=== PATIENT | female | born 1995 | race African-American/Black ===

== ENCOUNTER 2017-08-29 13:27 | Emergency (ER) | payer SELFPAY, BC | END 2017-08-29 13:56 | disposition home or self-care (01) | LOC: ER 13:27 | DX: H10.022 Other mucopurulent conjunctivitis, left eye (principal); H10.89 Other conjunctivitis; B99.8 Other infectious disease | CPT/HCPCS: 99283 ==

== ENCOUNTER 2017-11-07 17:14 | Emergency (ER) | payer BC | END 2017-11-07 18:18 | disposition home or self-care (01) | LOC: ER 17:14 | DX: H66.91 Otitis media, unspecified, right ear (principal); E11.9 Type 2 diabetes mellitus without complications; E03.9 Hypothyroidism, unspecified | CPT/HCPCS: 99283 ==

== ENCOUNTER 2018-06-01 11:57 | Inpatient (IN) | payer BC ==
[~2018-06-01] VITALS: Ht 172.7 cm; Wt 85.7 kg
[~2018-06-01 11:57] MED LIST: AMOX875T PO; TOBR5DRO6 OD
[2018-06-01 12:53] LABS: BASO % 1 % (0-3); EOS # 0.1 x10^3/uL (0.0-0.7); EOS % 1 % (0-3); HEMATOCRIT 41.3 % (36.0-47.0); HEMOGLOBIN 13.7 g/dL (12.0-15.5); LYMPH # 1.3 x10^3/uL (1.0-4.8); LYMPH % 20 % (24-48); MEAN CORPUSCULAR HEMOGLOBIN 31 pg (25-35); MEAN CORPUSCULAR HGB CONC 33 g/dL (31-37); MEAN CORPUSCULAR VOLUME 94 fL (79-100); MONO # 0.3 x10^3/uL (0.0-1.1); MONO % 5 % (0-9); NEUT # 4.7 x10^3uL (1.8-7.7); NEUT % 73 % (31-73); PLATELET COUNT 324 x10^3/uL (140-400); RED BLOOD COUNT 4.39 x10^6/uL (3.50-5.40); RED CELL DISTRIBUTION WIDTH 12.6 % (11.5-14.5); WHITE BLOOD COUNT 6.4 x10^3/uL (4.0-11.0)
[2018-06-01 13:02] LABS: CALCIUM 9.2 mg/dL (8.5-10.1); CREATININE 0.5 mg/dL (0.6-1.0); GFR 183.4
[2018-06-01 13:03] LABS: BILIRUBIN,URINE NEGATIVE (NEG); CLARITY,URINE TURBID; COLOR,URINE YELLOW; NITRITE,URINE POSITIVE (NEG); PREG TEST PT QUAL NEGATIVE (NEG); PROTEIN,URINE 100 mg/dL (NEG-TRACE); UROBILINOGEN,URINE 0.2 mg/dL (0.2 mg/dL)
[2018-06-01 13:07] LABS: ALBUMIN 3.4 g/dL (3.4-5.0); ALBUMIN/GLOBULIN RATIO 0.9 (1.0-1.7); TOTAL BILIRUBIN 0.5 mg/dL (0.2-1.0); TOTAL PROTEIN 7.3 g/dL (6.4-8.2)
[2018-06-01 13:25] LABS: BACTERIA,URINE MANY /HPF (0-FEW); WBC,URINE TNTC /HPF (0-4)
[2018-06-01] MEDS ORDERED: IV NORMAL SALINE 1000ML BAG 1,000 ML IV ONE (13:45)
[2018-06-01] MEDS ORDERED: cefTRIAXone IV Push 1 GM VIAL. IVP ONE (13:45)
[2018-06-01] MEDS ORDERED: IOHEXOL 300 MG/ML 100ML VIAL. IV ONE (14:00)
[2018-06-01] MEDS: fentaNYL PF VIAL 100 MCG/2 ML VIAL IV PRN (14:10)
[2018-06-01] MEDS ORDERED: CONTRAST GIVEN. MC PRN (14:15)
--- NOTE | 2018-06-01 15:45 | RAD ---
PQRS Compliance statement: One or more of the following individualized dose reduction techniques were utilized for this examination: 1. Automated exposure control. 2. Adjustment of the mA and/or kV according to patient size. 3. Use of iterative reconstruction technique. Indication:LOWER ABD PAIN X 3-4 DAYS INJ 75ML OMNI 300 NO PREV TECHNIQUE: CT abdomen and pelvis with IV contrast with multiplanar reformats. COMPARISON: None FINDINGS: Heart is normal in size. No pericardial or pleural effusion. Clear lung bases. Liver is mildly enlarged measuring 23 cm in craniocaudal dimension with diffuse hepatic steatosis. No focal liver lesion. Spleen, gallbladder, pancreas, adrenals within normal limits. No nephrolithiasis or hydronephrosis. No enlarged retroperitoneal or pelvic adenopathy. Trace amount of free pelvic fluid. No ascites. No bowel obstruction. Normal appendix. Anteverted uterus. Significant circumferential urinary bladder wall thickening is seen with mucosal enhancement measuring 1.2 cm in thickness. No pneumoperitoneum. No suspicious bony lesion. IMPRESSION: 1. Findings of cystitis. Correlate with urinalysis. 2. Mild hepatomegaly with hepatic steatosis. Electronically signed by: Celestino Rivera DO (06/01/2018 3:42 PM) [id number]
[2018-06-01] MEDS: HYDROmorphone 2 MG/ML VIAL IV PRN ×2 (15:53→21:22)
[2018-06-01] MEDS ORDERED: ONDANSETRON PF 4 MG/2 ML VIAL. IV ONE (16:00)
--- NOTE | 2018-06-01 16:03 | RAD ---
Pelvic ultrasound Clinical Indication:PELVIC PAIN. . Transabdominal scan Uterus measures 8.1 x 3.1 x 4.6 cm. Endometrial stripe measures 8 mm. Diffuse urinary bladder wall thickening. There is also heterogeneous debris identified within the urinary bladder. Bilateral ureteric jets are documented. There is a moderate amount of free pelvic fluid. Right and left ovaries are not visualized. Endovaginal scan Uterus measures 6.9 cm x 3.3 cm x 4.6 cm. The endometrial stripe measures 7 mm. Right ovary measures 3.2 cm with intact arterial blood flow. Left ovary measures 3.3 cm with intact arterial blood flow. IMPRESSION: 1. Diffuse urinary bladder wall thickening with internal debris, most likely due to cystitis, as also seen on CT scan. 2. Moderate free pelvic fluid, uncertain etiology. Electronically signed by: Jonathan Haile MD (06/01/2018 4:00 PM) [id number]
--- NOTE | 2018-06-01 16:40 | PDOC1 ---
History and Physical Date of Admission Date of Admission DATE: 06/01/18 TIME: 16:39 Identification/Chief Complaint Chief Complaint admitted to [facility] a few weeks ago, she thinks the d/c on without antibiotics according to patient and her grandmother in room today, began to have back pain x 2 days ago Past Medical History Pulmonary: Asthma Heme/Onc: No pertinent hx Family History Family History: High Cholestrol, Hypertension Social History Smoke: No ALCOHOL: none Drugs: None Current Medications Current Medications Current Medications Ceftriaxone Sodium (Rocephin) 1 gm 1X ONCE IVP Last administered on 06/01/18at 14:11; Start 06/01/18 at 13:45; Stop 06/01/18 at 13:46; Status DC Sodium Chloride 1,000 ml @ 1,000 mls/hr 1X ONCE IV Last administered on at 15:36; Start 06/01/18 at 13:45; Stop 06/01/18 at 14:44; Status DC Fentanyl Citrate (Fentanyl 2ml Vial) 25 mcg 1X PRN PRN IV SEVERE PAIN Last administered on 06/01/18at 14:10; Start 06/01/18 at 14:00 Iohexol (Omnipaque 300 Mg/ml) 75 ml 1X ONCE IV Last administered on 06/01/18at 15:26; Start 06/01/18 at 14:00; Stop 06/01/18 at 14:01; Status DC Info (CONTRAST GIVEN -- Rx MONITORING) 1 each PRN DAILY PRN MC SEE COMMENTS; Start 06/01/18 at 14:15; Stop 06/03/18 at 14:14 Hydromorphone HCl (Dilaudid) 0.5 mg PRN Q30MIN PRN IV SEVERE PAIN Last administered on 06/01/18at 15:53; Start 06/01/18 at 15:45 Ondansetron HCl (Zofran) 4 mg 1X ONCE IV Last administered on 06/01/18at 15:53 ; Start 06/01/18 at 16:00; Stop 06/01/18 at 16:01; Status DC Active Scripts Active Amoxicillin 875 Mg Tablet 1 Tab PO BID Tobramycin 5 Ml Drops 1 Drop OD Q4HRS W/A use for 5-7 days Allergies Allergies: Coded Allergies: No Known Drug Allergies (Unverified , 06/01/18) ROS Review of System 14 pt ros otherwise neg General: YES: Fatigue, Malaise PSYCHOLOGICAL ROS: No: Anxiety, Behavioral Disorder, Concentration difficultie , Decreased libido, Depression, Disorientation, Hallucinations, Hostility, Irritablity, Memory difficulties, Mood Swings, Obsessive thoughts, Physical abuse, Sexual abuse, Sleep disturbances, Suicidal ideation, Other Eyes: No Blurry vision, No Decreased vision, No Double vision, No Dry eyes, No Excessive tearing, No Eye Pain, No Itchy Eyes, No Loss of vision, No Photophobia , No Scotomata, No Uses contacts, No Uses glasses, No Other HEENT: No: Heacaches, Visual Changes, Hearing change, Nasal congestion, Nasal discharge, Oral lesions, Sinus pain, Sore Throat, Epistaxis, Sneezing, Snoring, Tinnitus, Vertigo, Vocal changes, Other ALLERGY AND IMMUNOLOGY: No: Hives, Insect Bite Sensitivity, Itchy/Watery Eyes, Nasal Congestion, Post Nasal Drip, Seasonal Allergies, Other Hematological and Lymphatic: No: Bleeding Problems, Blood Clots, Blood Transfusions, Brusing, Night Sweats, Pallor, Swollen Lymph Nodes, Other ENDOCRINE: No: Breast Changes, Galactorrhea, Hair Pattern Changes, Hot Flashes , Malaise/lethargy, Mood Swings, Palpitations, Polydipsia/polyuria, Skin Changes , Temperature Intolerance, Unexpected Weight Changes, Other Respiratory: No: Cough, Hemoptysis, Orthopnea, Pleuritic Pain, Shortness of breath, SOB with excertion, Sputum Changes, Stridor, Tachypnea, Wheezing, Other Cardiovascular: No Chest Pain, No Palpitations, No Orthopnea, No Paroxysmal Noc. Dyspnea, No Edema, No Lt Headedness, No Other Gastrointestinal: Yes Nausea, Yes Abdominal Pain Genitourinary: YES Dysuria, YES Flank Pain Musculoskeletal: No Gait Disturbance, No Joint Pain, No Joint Stiffness, No Joint Swelling, No Muscle Pain, No Muscular Weakness, No Pain In:, No Swelling In:, No Other Neurological: No Behavorial Changes, No Bowel/Bladder ControlChng, No Confusion , No Dizziness, No Gait Disturbance, No Headaches, No Impaired Coord/balance, No Memory Loss, No Numbness/Tingling, No Seizures, No Speech Problems, No Tremors, No Visual Changes, No Weakness, No Other Skin: No Dry Skin, No Eczema, No Hair Changes, No Lumps, No Mole Changes, No Mottling, No Nail Changes, No Pruritus, No Rash, No Skin Lesion Changes, No Other, No Acne Physical Exam Physical Exam Physical Exam Physical Exam Constitutional: Well developed, well nourished, no acute distress, non-toxic appearance. [] HENT: Normocephalic, atraumatic; bilateral external ears normal, Oropharynx moist, no oral exudates, nose normal. [] Eyes: Normal Neck: No cervical lymphadenopathy, full range of motion, no stridor. Cardiovascular:Heart rate regular rhythm, no murmur [] Lungs & Thorax: Bilateral breath sounds clear to auscultation [] Skin: Warm, dry, no erythema, no rash. [] Neurologic: Alert and oriented X 3, normal motor function, normal sensory function, no focal deficits noted. [] Psychologic: Affect normal, judgement normal, mood normal. [] General: Alert, Oriented X3, Cooperative, mild distress HEENT: Atraumatic, PERRLA, EOMI, Mucous membr. moist/pink Lungs: Clear to auscultation, Normal air movement Heart: S1S2, RRR Breasts: Not examined Abdomen: Normal bowel sounds, Soft, No masses Rectal Exam: not examined PELVIC: Examination not indicated Extremities: No cyanosis, No edema Skin: No breakdown Neuro: Normal speech, Cranial nerves 3-12 NL Psych/Mental Status: Mental status NL, Mood NL Vitals Vitals Vital Signs Date Time Temp Pulse Resp B/P (MAP) Pulse Ox O2 Delivery O2 Flow Rate FiO2 06/01/18 14:10 20 96 06/01/18 12:25 98.0 83 133/95 (108) Room Air 98.0 Labs Labs Laboratory Tests Test 06/01/18 12:20 06/01/18 12:22 06/01/18 12:30 Urine Collection Type Unknown Urine Color Yellow Urine Clarity Turbid Urine pH 7.0 Urine Specific [place] 1.025 Urine Protein 100 mg/dL (NEG-TRACE) Urine Glucose (UA) >=1000 mg/dL (NEG) Urine Ketones (Stick) 40 mg/dL (NEG) Urine Blood Moderate (NEG) Urine Nitrite Positive (NEG) Urine Bilirubin Negative (NEG) Urine Urobilinogen Dipstick 0.2 mg/dL (0.2 mg/dL) Urine Leukocyte Esterase Small (NEG) Urine RBC 6-10 /HPF (0-2) Urine WBC Tntc /HPF (0-4) Urine Bacteria Many /HPF (0-FEW) Serum Test, Qualitative Negative (NEG) Bedside Urine HCG, Qualitative Hcg negative (Negative) White Blood Count 6.4 x10^3/uL (4.0-11.0) Red Blood Count 4.39 x10^6/uL (3.50-5.40) Hemoglobin 13.7 g/dL (12.0-15.5) Hematocrit 41.3 % (36.0-47.0) Mean Corpuscular Volume 94 fL (79-100) Mean Corpuscular Hemoglobin 31 pg (25-35) Mean Corpuscular Hemoglobin Concent 33 g/dL (31-37) Red Cell Distribution Width 12.6 % (11.5-14.5) Platelet Count 324 x10^3/uL (140-400) Neutrophils (%) (Auto) 73 % (31-73) Lymphocytes (%) (Auto) 20 % (24-48) Monocytes (%) (Auto) 5 % (0-9) Eosinophils (%) (Auto) 1 % (0-3) Basophils (%) (Auto) 1 % (0-3) Neutrophils # (Auto) 4.7 x10^3uL (1.8-7.7) Lymphocytes # (Auto) 1.3 x10^3/uL (1.0-4.8) Monocytes # (Auto) 0.3 x10^3/uL (0.0-1.1) Eosinophils # (Auto) 0.1 x10^3/uL (0.0-0.7) Basophils # (Auto) 0.0 x10^3/uL (0.0-0.2) Sodium Level 141 mmol/L (136-145) Potassium Level 4.0 mmol/L (3.5-5.1) Chloride Level 102 mmol/L (98-107) Carbon Dioxide Level 30 mmol/L (21-32) Anion Gap 9 (6-14) Blood Urea Nitrogen 8 mg/dL (7-20) Creatinine 0.5 mg/dL (0.6-1.0) Estimated GFR (Cockcroft-Gault) 183.4 BUN/Creatinine Ratio 16 (6-20) Glucose Level 286 mg/dL (70-99) Calcium Level 9.2 mg/dL (8.5-10.1) Total Bilirubin 0.5 mg/dL (0.2-1.0) Aspartate Amino Transf (AST/SGOT) 16 U/L (15-37) Alanine Aminotransferase (ALT/SGPT) 55 U/L (14-59) Alkaline Phosphatase 164 U/L (46-116) Total Protein 7.3 g/dL (6.4-8.2) Albumin 3.4 g/dL (3.4-5.0) Albumin/Globulin Ratio 0.9 (1.0-1.7) Lipase 84 U/L (73-393) Laboratory Tests Test 06/01/18 12:20 06/01/18 12:22 06/01/18 12:30 Urine Collection Type Unknown Urine Color Yellow Urine Clarity Turbid Urine pH 7.0 Urine Specific [place] 1.025 Urine Protein 100 mg/dL (NEG-TRACE) Urine Glucose (UA) >=1000 mg/dL (NEG) Urine Ketones (Stick) 40 mg/dL (NEG) Urine Blood Moderate (NEG) Urine Nitrite Positive (NEG) Urine Bilirubin Negative (NEG) Urine Urobilinogen Dipstick 0.2 mg/dL (0.2 mg/dL) Urine Leukocyte Esterase Small (NEG) Urine RBC 6-10 /HPF (0-2) Urine WBC Tntc /HPF (0-4) Urine Bacteria Many /HPF (0-FEW) Serum Test, Qualitative Negative (NEG) Bedside Urine HCG, Qualitative Hcg negative (Negative) White Blood Count 6.4 x10^3/uL (4.0-11.0) Red Blood Count 4.39 x10^6/uL (3.50-5.40) Hemoglobin 13.7 g/dL (12.0-15.5) Hematocrit 41.3 % (36.0-47.0) Mean Corpuscular Volume 94 fL (79-100) Mean Corpuscular Hemoglobin 31 pg (25-35) Mean Corpuscular Hemoglobin Concent 33 g/dL (31-37) Red Cell Distribution Width 12.6 % (11.5-14.5) Platelet Count 324 x10^3/uL (140-400) Neutrophils (%) (Auto) 73 % (31-73) Lymphocytes (%) (Auto) 20 % (24-48) Monocytes (%) (Auto) 5 % (0-9) Eosinophils (%) (Auto) 1 % (0-3) Basophils (%) (Auto) 1 % (0-3) Neutrophils # (Auto) 4.7 x10^3uL (1.8-7.7) Lymphocytes # (Auto) 1.3 x10^3/uL (1.0-4.8) Monocytes # (Auto) 0.3 x10^3/uL (0.0-1.1) Eosinophils # (Auto) 0.1 x10^3/uL (0.0-0.7) Basophils # (Auto) 0.0 x10^3/uL (0.0-0.2) Sodium Level 141 mmol/L (136-145) Potassium Level 4.0 mmol/L (3.5-5.1) Chloride Level 102 mmol/L (98-107) Carbon Dioxide Level 30 mmol/L (21-32) Anion Gap 9 (6-14) Blood Urea Nitrogen 8 mg/dL (7-20) Creatinine 0.5 mg/dL (0.6-1.0) Estimated GFR (Cockcroft-Gault) 183.4 BUN/Creatinine Ratio 16 (6-20) Glucose Level 286 mg/dL (70-99) Calcium Level 9.2 mg/dL (8.5-10.1) Total Bilirubin 0.5 mg/dL (0.2-1.0) Aspartate Amino Transf (AST/SGOT) 16 U/L (15-37) Alanine Aminotransferase (ALT/SGPT) 55 U/L (14-59) Alkaline Phosphatase 164 U/L (46-116) Total Protein 7.3 g/dL (6.4-8.2) Albumin 3.4 g/dL (3.4-5.0) Albumin/Globulin Ratio 0.9 (1.0-1.7) Lipase 84 U/L (73-393) Images Images REASON: abd pain in pelvis and lower abed PROCEDURE: CT ABD PELV W/ IV CONTRST ONLY PQRS Compliance statement: One or more of the following individualized dose reduction techniques were utilized for this examination: 1. Automated exposure control. 2. Adjustment of the mA and/or kV according to patient size. 3. Use of iterative reconstruction technique. Indication:LOWER ABD PAIN X 3-4 DAYS INJ 75ML OMNI 300 NO PREV TECHNIQUE: CT abdomen and pelvis with IV contrast with multiplanar reformats. COMPARISON: None FINDINGS: Heart is normal in size. No pericardial or pleural effusion. Clear lung bases. Liver is mildly enlarged measuring 23 cm in craniocaudal dimension with diffuse hepatic steatosis. No focal liver lesion. Spleen, gallbladder, pancreas, adrenals within normal limits. No nephrolithiasis or hydronephrosis. No enlarged retroperitoneal or pelvic adenopathy. Trace amount of free pelvic fluid. No ascites. No bowel obstruction. Normal appendix. Anteverted uterus. Significant circumferential urinary bladder wall thickening is seen with mucosal enhancement measuring 1.2 cm in thickness. No pneumoperitoneum. No suspicious bony lesion. IMPRESSION: 1. Findings of cystitis. Correlate with urinalysis. 2. Mild hepatomegaly with hepatic steatosis. Electronically signed by: Celestino Cruz DO (06/01/2018 3:42 PM) [id number] DICTATED and SIGNED BY: CELESTINO CRUZ DO DATE: 06/01/18 1536 VTE Prophylaxis Ordered VTE Prophylaxis Devices: Yes VTE Pharmacological Prophylaxi: Yes Assessment/Plan Assessment/Plan impression 1. incompletely treated pyelonephritis 2. hx asthma 3. morbid obesity 4. diabetes 5. SIRS plan iv rocephin q 24 hrs iv pain control iv fluid support iv zofran 4 mg q 4 hrs prn dvt prophylaxis ss insulin DAVIDE MEYER MD Jun 01, 2018 16:40
[2018-06-01] MEDS: IV NORMAL SALINE 1000ML BAG 1,000 ML IV SCH ×2 (16:50→18:40)
[2018-06-01] MEDS ORDERED: INSULIN LISPRO 300 UNITS/3 ML INSULN.PEN. SQ SCH (17:00)
[2018-06-01] MEDS ORDERED: diphenhydrAMINE 50 MG/ML VIAL IVP PRN (17:00)
[2018-06-01] MEDS ORDERED: ONDANSETRON PF 4 MG/2 ML VIAL. IV PRN (17:00)
[2018-06-01] MEDS ORDERED: ACETAMINOPHEN 650 MG/20.3 ML SOLUTION. GT PRN (17:00)
[2018-06-01] MEDS ORDERED: ZOLPIDEM 5 MG TABLET. PO PRN (17:00)
[2018-06-01] MEDS ORDERED: 0.9 % SODIUM CHLORIDE 3ML DISP.SYRIN. IV PRN (17:00)
[2018-06-01] MEDS ORDERED: DEXTROSE 50% 25 GM / 50ML DISP.SYRIN. IV PRN (17:00)
[2018-06-01] MEDS ORDERED: MAG HYDROX/ALUMINUM HYD/SIMETH 30 ML ORAL.SUSP PO PRN (17:00)
[2018-06-01] MEDS ORDERED: LORazepam 0.5 MG TABLET PO PRN (17:00)
[2018-06-01] MEDS ORDERED: ACETAMINOPHEN 325 MG TABLET. PO PRN (17:00)
[2018-06-01] MEDS ORDERED: SODIUM PHOSPHATES 19/7GM 133 ML ENEMA. PR PRN (17:00)
[2018-06-01] MEDS ORDERED: DOCUSATE SODIUM 100 MG CAPSULE. PO PRN (17:00)
[2018-06-01] MEDS ORDERED: cloNIDine HCL 0.1 MG TABLET PO PRN (17:00)
[2018-06-01] MEDS ORDERED: guaiFENesin ORAL 200 MG/10 ML LIQUID. PO PRN (17:00)
--- NOTE | 2018-06-01 17:42 | PHYS DOC ---
Past Medical History Past Medical History: Diabetes-Type II, Hypothyroid, IBS Past Surgical History: No Surgical History Alcohol Use: Occasionally Drug Use: None Adult General Chief Complaint Chief Complaint: ABDOMINAL PAIN HPI HPI This is a pleasant 23-year-old female presenting the emergency department today with 10 out of 10 lower abdominal pain. The patient's pain is a sharp shooting burning pain. She was recently treated for UTI at the [facility]. The pain doesn't radiate. She denies vaginal bleeding vomiting. Review of systems is negative for chest pain shortness of breath fevers or chills. Positive for cough. All other review of systems is negative unless otherwise noted in history of present illness. ED course: 23-year-old female presenting with abdominal pain in the lower abdomen. She is afebrile with normal heart rate. Patient's workup shows urinary tract infection. Concern for possible pyelonephritis. CT abdomen and pelvis and ultrasound show cystitis. We'll admit the patient for IV antibiotics. I spoke with Dr. Hawkins who accepts patient for admission. Review of Systems Review of Systems SEE ABOVE. Current Medications Current Medications Current Medications Medications (Trade) Dose Ordered Sig/Indira Start Time Stop Time Status Last Admin Dose Admin Acetaminophen (Tylenol) 650 mg PRN Q4HRS PRN 06/01/18 17:00 Al Hydroxide/Mg Hydroxide (Mylanta Plus Xs) 30 ml PRN DAILY PRN 06/01/18 17:00 Albuterol Sulfate (Ventolin Neb Soln) 2.5 mg PRN Q4HRS PRN 06/01/18 17:00 Ceftriaxone Sodium (Rocephin) 1 gm DAILY 06/02/18 13:00 Clonidine HCl (Catapres) 0.1 mg PRN Q6HRS PRN 06/01/18 17:00 Dextrose (Dextrose 50%-Water Syringe) 12.5 gm PRN Q15MIN PRN 06/01/18 17:00 Diphenhydramine HCl (Benadryl) 25 mg PRN Q4HRS PRN 06/01/18 17:00 Docusate Sodium (Colace) 100 mg PRN BID PRN 06/01/18 17:00 Fentanyl Citrate (Fentanyl 2ml Vial) 25 mcg 1X PRN PRN 06/01/18 14:00 06/01/18 14:10 25 MCG Guaifenesin (Robitussin) 200 mg PRN Q4HRS PRN 06/01/18 17:00 Hydromorphone HCl (Dilaudid) 0.5 mg PRN Q30MIN PRN 06/01/18 15:45 06/01/18 15:53 0.5 MG Info (CONTRAST GIVEN -- Rx MONITORING) 1 each PRN DAILY PRN 06/01/18 14:15 06/03/18 14:14 Insulin Human Lispro (HumaLOG) 0-5 UNITS TIDWMEALS 06/01/18 17:00 Iohexol (Omnipaque 300 Mg/ml) 75 ml 1X ONCE 06/01/18 14:00 06/01/18 14:01 DC 06/01/18 15:26 75 ML Lorazepam (Ativan) 0.5 mg PRN Q4HRS PRN 06/01/18 17:00 Ondansetron HCl (Zofran) 4 mg PRN Q4HRS PRN 06/01/18 17:00 Sodium Monofluorophosphate (Fleet Adult) 133 ml PRN DAILY PRN 06/01/18 17:00 Sodium Chloride 1,000 ml @ 100 mls/hr Q10H 06/01/18 16:50 Sodium Chloride (Normal Saline Flush 3ml) 3 ml QSHIFT PRN 06/01/18 17:00 Zolpidem Tartrate (Ambien) 5 mg PRN QHS PRN 06/01/18 17:00 Allergies Allergies Allergies Coded Allergies Type Severity Reaction Last Updated Verified No Known Drug Allergies 06/01/18 No Physical Exam Physical Exam SEE ABOVE Constitutional: Well developed, well nourished, no acute distress, non-toxic appearance. [] HENT: Normocephalic, atraumatic, bilateral external ears normal, oropharynx moist, no oral exudates, nose normal. Eyes: PERRLA, EOMI, conjunctiva normal, no discharge. Neck: Normal range of motion, no tenderness, supple, no stridor. [] Cardiovascular:Heart rate regular rhythm, no murmur Lungs & Thorax: Bilateral breath sounds clear to auscultation [] Abdomen: Bowel sounds normal, soft, ttp in the suprapubic region without rebound tenderness or guarding, no masses, no pulsatile masses. Skin: Warm, dry, no erythema, no rash. [] Back: No tenderness, mild bilateral cva tenderness. Extremities: No tenderness, no cyanosis, no clubbing, ROM intact, no edema. Neurologic: Alert and oriented X 3, normal motor function, normal sensory function, no focal deficits noted. [] Psychologic: Affect normal, judgement normal, mood normal. Current Patient Data Vital Signs Vital Signs Date Time Temp Pulse Resp B/P (MAP) Pulse Ox O2 Delivery O2 Flow Rate FiO2 06/01/18 14:40 18 96 Room Air 06/01/18 12:25 98.0 83 133/95 (108) 98.0 Lab Values Laboratory Tests Test 06/01/18 12:20 06/01/18 12:22 06/01/18 12:30 Urine Collection Type Unknown Urine Color Yellow Urine Clarity Turbid Urine pH 7.0 Urine Specific [place] 1.025 Urine Protein 100 mg/dL (NEG-TRACE) Urine Glucose (UA) >=1000 mg/dL (NEG) Urine Ketones (Stick) 40 mg/dL (NEG) Urine Blood Moderate (NEG) Urine Nitrite Positive (NEG) Urine Bilirubin Negative (NEG) Urine Urobilinogen Dipstick 0.2 mg/dL (0.2 mg/dL) Urine Leukocyte Esterase Small (NEG) Urine RBC 6-10 /HPF (0-2) Urine WBC Tntc /HPF (0-4) Urine Bacteria Many /HPF (0-FEW) Serum Test, Qualitative Negative (NEG) POC Urine HCG, Qualitative Hcg negative (Negative) White Blood Count 6.4 x10^3/uL (4.0-11.0) Red Blood Count 4.39 x10^6/uL (3.50-5.40) Hemoglobin 13.7 g/dL (12.0-15.5) Hematocrit 41.3 % (36.0-47.0) Mean Corpuscular Volume 94 fL (79-100) Mean Corpuscular Hemoglobin 31 pg (25-35) Mean Corpuscular Hemoglobin Concent 33 g/dL (31-37) Red Cell Distribution Width 12.6 % (11.5-14.5) Platelet Count 324 x10^3/uL (140-400) Neutrophils (%) (Auto) 73 % (31-73) Lymphocytes (%) (Auto) 20 % (24-48) L Monocytes (%) (Auto) 5 % (0-9) Eosinophils (%) (Auto) 1 % (0-3) Basophils (%) (Auto) 1 % (0-3) Neutrophils # (Auto) 4.7 x10^3uL (1.8-7.7) Lymphocytes # (Auto) 1.3 x10^3/uL (1.0-4.8) Monocytes # (Auto) 0.3 x10^3/uL (0.0-1.1) Eosinophils # (Auto) 0.1 x10^3/uL (0.0-0.7) Basophils # (Auto) 0.0 x10^3/uL (0.0-0.2) Sodium Level 141 mmol/L (136-145) Potassium Level 4.0 mmol/L (3.5-5.1) Chloride Level 102 mmol/L (98-107) Carbon Dioxide Level 30 mmol/L (21-32) Anion Gap 9 (6-14) Blood Urea Nitrogen 8 mg/dL (7-20) Creatinine 0.5 mg/dL (0.6-1.0) L Estimated GFR (Cockcroft-Gault) 183.4 BUN/Creatinine Ratio 16 (6-20) Glucose Level 286 mg/dL (70-99) H Calcium Level 9.2 mg/dL (8.5-10.1) Total Bilirubin 0.5 mg/dL (0.2-1.0) Aspartate Amino Transferase (AST) 16 U/L (15-37) Alanine Aminotransferase (ALT) 55 U/L (14-59) Alkaline Phosphatase 164 U/L (46-116) H Total Protein 7.3 g/dL (6.4-8.2) Albumin 3.4 g/dL (3.4-5.0) Albumin/Globulin Ratio 0.9 (1.0-1.7) L Lipase 84 U/L (73-393) Laboratory Tests 06/01/18 12:30 Laboratory Tests 06/01/18 12:30 EKG EKG [] Radiology/Procedures Radiology/Procedures [] Course & Med Decision Making Course & Med Decision Making Pertinent Labs and Imaging studies reviewed. (See chart for details) [] Dragon Disclaimer Dragon Disclaimer This electronic medical record was generated, in whole or in part, using a voice recognition dictation system. Departure Departure Impression: Primary Impression: Pyelonephritis Disposition: ADMITTED INPATIENT Admitting Physician: Harpal Galvez Referrals: JANEY PATRICK (PCP) RASHMI FOOTE MD Jun 01, 2018 17:42
[2018-06-01] MEDS ORDERED: INSU100I13 SQ (18:50)
[2018-06-01] MEDS ORDERED: VENTOLIN HFA18 GM INH (18:50)
[2018-06-01] MEDS ORDERED: LOPE2CAP PO (18:50)
[2018-06-01] MEDS ORDERED: INSU100I17 SQ (18:50)
[2018-06-01] MEDS ORDERED: HYOS0.1264 PO (18:50)
--- NOTE | 2018-06-01 18:58 | NUR ---
pt admitted to room [id number] accompanied by family member. oriented to room and call light. meal tray ordered. call light in reach
[2018-06-01 19:00] VITALS: BP 122/91
[2018-06-01] MEDS: ALBUTEROL SULFATE 2.5 MG/3 ML NEBU. NEB PRN ×2 (20:05→23:30)
[2018-06-01] MEDS: LACTOBACILLUS RHAMNOSUS GG 1 CAPSULE. PO SCH (21:22)
[2018-06-01] MEDS: INSULIN GLARGINE 300 UNITS/3 ML INSULN.PEN. SQ SCH (21:28)
[2018-06-01 23:00] VITALS: BP 127/96
[2018-06-02] MEDS: IV NORMAL SALINE 1000ML BAG 1,000 ML IV SCH ×2 (02:50→12:48)
[2018-06-02 03:00] VITALS: BP 113/81
[2018-06-02 04:12] LABS: BASO % 1 % (0-3); EOS # 0.1 x10^3/uL (0.0-0.7); EOS % 2 % (0-3); HEMATOCRIT 33.9 % (36.0-47.0); HEMOGLOBIN 11.4 g/dL (12.0-15.5); LYMPH # 1.8 x10^3/uL (1.0-4.8); LYMPH % 29 % (24-48); MEAN CORPUSCULAR HEMOGLOBIN 32 pg (25-35); MEAN CORPUSCULAR HGB CONC 34 g/dL (31-37); MEAN CORPUSCULAR VOLUME 95 fL (79-100); MONO # 0.5 x10^3/uL (0.0-1.1); MONO % 8 % (0-9); NEUT # 3.9 x10^3uL (1.8-7.7); NEUT % 62 % (31-73); PLATELET COUNT 253 x10^3/uL (140-400); RED BLOOD COUNT 3.59 x10^6/uL (3.50-5.40); RED CELL DISTRIBUTION WIDTH 12.4 % (11.5-14.5); WHITE BLOOD COUNT 6.4 x10^3/uL (4.0-11.0)
[2018-06-02 04:16] LABS: CALCIUM 8.4 mg/dL (8.5-10.1); CREATININE 0.6 mg/dL (0.6-1.0); GFR 148.6; POTASSIUM 3.3 mmol/L (3.5-5.1)
[2018-06-02 07:00] VITALS: BP 107/75
[2018-06-02] MEDS: LACTOBACILLUS RHAMNOSUS GG 1 CAPSULE. PO SCH ×2 (08:14→21:12)
[2018-06-02] MEDS: fentaNYL PF VIAL 100 MCG/2 ML VIAL IV PRN ×2 (08:15→14:04)
[2018-06-02] MEDS: INSULIN GLARGINE 300 UNITS/3 ML INSULN.PEN. SQ SCH ×2 (08:29→21:14)
[2018-06-02] MEDS ORDERED: DEXTROSE 50% 25 GM / 50ML DISP.SYRIN. IV PRN (08:30)
--- NOTE | 2018-06-02 09:49 | PDOC ---
PROGRESS NOTES Chief Complaint Chief Complaint 1. incompletely treated pyelonephritis 2. hx asthma 3. morbid obesity 4. diabetes 5. SIRS 6. Loose BM History of Present Illness History of Present Illness Having loose BM now No fevers H&P note reviewed, incompletely treated pyelonephritis CAT scan shows findings of cystitis I have reconciled home meds including Levemir 40 twice a day K mildly low 3.3 Blood sugars running high Plan: resume home meds including 40 twice a day Lantus Slight scale insulin high-dose Check hemoglobin A1c Trial of Lactobacillus for LBM Continue IV antibiotics for UTI Await urine culture If Loose BM persists sent for C. difficile RePlace potassium orally Vitals Vitals Vital Signs Date Time Temp Pulse Resp B/P (MAP) Pulse Ox O2 Delivery O2 Flow Rate FiO2 06/02/18 08:15 Room Air 06/02/18 07:00 98.8 87 18 107/75 (86) 98 98.8 Physical Exam General: Alert, Oriented X3, Cooperative, mild distress Heart: Regular rate, Normal S1 Lungs: Clear Abdomen: Soft, No masses, Other (hyperactive bowel sounds) Extremities: No cyanosis, No edema Skin: No breakdown Labs LABS Laboratory Tests Test 06/01/18 12:20 06/01/18 12:22 06/01/18 12:30 06/01/18 18:32 Urine Collection Type Unknown Urine Color Yellow Urine Clarity Turbid Urine pH 7.0 Urine Specific [place] 1.025 Urine Protein 100 mg/dL (NEG-TRACE) Urine Glucose (UA) >=1000 mg/dL (NEG) Urine Ketones (Stick) 40 mg/dL (NEG) Urine Blood Moderate (NEG) Urine Nitrite Positive (NEG) Urine Bilirubin Negative (NEG) Urine Urobilinogen Dipstick 0.2 mg/dL (0.2 mg/dL) Urine Leukocyte Esterase Small (NEG) Urine RBC 6-10 /HPF (0-2) Urine WBC Tntc /HPF (0-4) Urine Bacteria Many /HPF (0-FEW) Serum Test, Qualitative Negative (NEG) Bedside Urine HCG, Qualitative Hcg negative (Negative) White Blood Count 6.4 x10^3/uL (4.0-11.0) Red Blood Count 4.39 x10^6/uL (3.50-5.40) Hemoglobin 13.7 g/dL (12.0-15.5) Hematocrit 41.3 % (36.0-47.0) Mean Corpuscular Volume 94 fL (79-100) Mean Corpuscular Hemoglobin 31 pg (25-35) Mean Corpuscular Hemoglobin Concent 33 g/dL (31-37) Red Cell Distribution Width 12.6 % (11.5-14.5) Platelet Count 324 x10^3/uL (140-400) Neutrophils (%) (Auto) 73 % (31-73) Lymphocytes (%) (Auto) 20 % (24-48) Monocytes (%) (Auto) 5 % (0-9) Eosinophils (%) (Auto) 1 % (0-3) Basophils (%) (Auto) 1 % (0-3) Neutrophils # (Auto) 4.7 x10^3uL (1.8-7.7) Lymphocytes # (Auto) 1.3 x10^3/uL (1.0-4.8) Monocytes # (Auto) 0.3 x10^3/uL (0.0-1.1) Eosinophils # (Auto) 0.1 x10^3/uL (0.0-0.7) Basophils # (Auto) 0.0 x10^3/uL (0.0-0.2) Sodium Level 141 mmol/L (136-145) Potassium Level 4.0 mmol/L (3.5-5.1) Chloride Level 102 mmol/L (98-107) Carbon Dioxide Level 30 mmol/L (21-32) Anion Gap 9 (6-14) Blood Urea Nitrogen 8 mg/dL (7-20) Creatinine 0.5 mg/dL (0.6-1.0) Estimated GFR (Cockcroft-Gault) 183.4 BUN/Creatinine Ratio 16 (6-20) Glucose Level 286 mg/dL (70-99) Calcium Level 9.2 mg/dL (8.5-10.1) Total Bilirubin 0.5 mg/dL (0.2-1.0) Aspartate Amino Transf (AST/SGOT) 16 U/L (15-37) Alanine Aminotransferase (ALT/SGPT) 55 U/L (14-59) Alkaline Phosphatase 164 U/L (46-116) Total Protein 7.3 g/dL (6.4-8.2) Albumin 3.4 g/dL (3.4-5.0) Albumin/Globulin Ratio 0.9 (1.0-1.7) Lipase 84 U/L (73-393) Glucose (Fingerstick) 197 mg/dL (70-99) Test 06/01/18 21:07 06/02/18 03:00 06/02/18 07:28 Glucose (Fingerstick) 253 mg/dL (70-99) 227 mg/dL (70-99) White Blood Count 6.4 x10^3/uL (4.0-11.0) Red Blood Count 3.59 x10^6/uL (3.50-5.40) Hemoglobin 11.4 g/dL (12.0-15.5) Hematocrit 33.9 % (36.0-47.0) Mean Corpuscular Volume 95 fL (79-100) Mean Corpuscular Hemoglobin 32 pg (25-35) Mean Corpuscular Hemoglobin Concent 34 g/dL (31-37) Red Cell Distribution Width 12.4 % (11.5-14.5) Platelet Count 253 x10^3/uL (140-400) Neutrophils (%) (Auto) 62 % (31-73) Lymphocytes (%) (Auto) 29 % (24-48) Monocytes (%) (Auto) 8 % (0-9) Eosinophils (%) (Auto) 2 % (0-3) Basophils (%) (Auto) 1 % (0-3) Neutrophils # (Auto) 3.9 x10^3uL (1.8-7.7) Lymphocytes # (Auto) 1.8 x10^3/uL (1.0-4.8) Monocytes # (Auto) 0.5 x10^3/uL (0.0-1.1) Eosinophils # (Auto) 0.1 x10^3/uL (0.0-0.7) Basophils # (Auto) 0.0 x10^3/uL (0.0-0.2) Sodium Level 139 mmol/L (136-145) Potassium Level 3.3 mmol/L (3.5-5.1) Chloride Level 103 mmol/L (98-107) Carbon Dioxide Level 27 mmol/L (21-32) Anion Gap 9 (6-14) Blood Urea Nitrogen 7 mg/dL (7-20) Creatinine 0.6 mg/dL (0.6-1.0) Estimated GFR (Cockcroft-Gault) 148.6 Glucose Level 285 mg/dL (70-99) Calcium Level 8.4 mg/dL (8.5-10.1) Review of Systems Review of Systems Diarrhea, the rest of ROS 14 point negative Comment Review of Relevant I have reviewed the following items ashkan (where applicable) has been applied. Labs Laboratory Tests Test 06/01/18 12:20 06/01/18 12:22 06/01/18 12:30 06/01/18 18:32 Urine Collection Type Unknown Urine Color Yellow Urine Clarity Turbid Urine pH 7.0 Urine Specific [place] 1.025 Urine Protein 100 mg/dL (NEG-TRACE) Urine Glucose (UA) >=1000 mg/dL (NEG) Urine Ketones (Stick) 40 mg/dL (NEG) Urine Blood Moderate (NEG) Urine Nitrite Positive (NEG) Urine Bilirubin Negative (NEG) Urine Urobilinogen Dipstick 0.2 mg/dL (0.2 mg/dL) Urine Leukocyte Esterase Small (NEG) Urine RBC 6-10 /HPF (0-2) Urine WBC Tntc /HPF (0-4) Urine Bacteria Many /HPF (0-FEW) Serum Test, Qualitative Negative (NEG) Bedside Urine HCG, Qualitative Hcg negative (Negative) White Blood Count 6.4 x10^3/uL (4.0-11.0) Red Blood Count 4.39 x10^6/uL (3.50-5.40) Hemoglobin 13.7 g/dL (12.0-15.5) Hematocrit 41.3 % (36.0-47.0) Mean Corpuscular Volume 94 fL (79-100) Mean Corpuscular Hemoglobin 31 pg (25-35) Mean Corpuscular Hemoglobin Concent 33 g/dL (31-37) Red Cell Distribution Width 12.6 % (11.5-14.5) Platelet Count 324 x10^3/uL (140-400) Neutrophils (%) (Auto) 73 % (31-73) Lymphocytes (%) (Auto) 20 % (24-48) Monocytes (%) (Auto) 5 % (0-9) Eosinophils (%) (Auto) 1 % (0-3) Basophils (%) (Auto) 1 % (0-3) Neutrophils # (Auto) 4.7 x10^3uL (1.8-7.7) Lymphocytes # (Auto) 1.3 x10^3/uL (1.0-4.8) Monocytes # (Auto) 0.3 x10^3/uL (0.0-1.1) Eosinophils # (Auto) 0.1 x10^3/uL (0.0-0.7) Basophils # (Auto) 0.0 x10^3/uL (0.0-0.2) Sodium Level 141 mmol/L (136-145) Potassium Level 4.0 mmol/L (3.5-5.1) Chloride Level 102 mmol/L (98-107) Carbon Dioxide Level 30 mmol/L (21-32) Anion Gap 9 (6-14) Blood Urea Nitrogen 8 mg/dL (7-20) Creatinine 0.5 mg/dL (0.6-1.0) Estimated GFR (Cockcroft-Gault) 183.4 BUN/Creatinine Ratio 16 (6-20) Glucose Level 286 mg/dL (70-99) Calcium Level 9.2 mg/dL (8.5-10.1) Total Bilirubin 0.5 mg/dL (0.2-1.0) Aspartate Amino Transf (AST/SGOT) 16 U/L (15-37) Alanine Aminotransferase (ALT/SGPT) 55 U/L (14-59) Alkaline Phosphatase 164 U/L (46-116) Total Protein 7.3 g/dL (6.4-8.2) Albumin 3.4 g/dL (3.4-5.0) Albumin/Globulin Ratio 0.9 (1.0-1.7) Lipase 84 U/L (73-393) Glucose (Fingerstick) 197 mg/dL (70-99) Test 06/01/18 21:07 06/02/18 03:00 06/02/18 07:28 Glucose (Fingerstick) 253 mg/dL (70-99) 227 mg/dL (70-99) White Blood Count 6.4 x10^3/uL (4.0-11.0) Red Blood Count 3.59 x10^6/uL (3.50-5.40) Hemoglobin 11.4 g/dL (12.0-15.5) Hematocrit 33.9 % (36.0-47.0) Mean Corpuscular Volume 95 fL (79-100) Mean Corpuscular Hemoglobin 32 pg (25-35) Mean Corpuscular Hemoglobin Concent 34 g/dL (31-37) Red Cell Distribution Width 12.4 % (11.5-14.5) Platelet Count 253 x10^3/uL (140-400) Neutrophils (%) (Auto) 62 % (31-73) Lymphocytes (%) (Auto) 29 % (24-48) Monocytes (%) (Auto) 8 % (0-9) Eosinophils (%) (Auto) 2 % (0-3) Basophils (%) (Auto) 1 % (0-3) Neutrophils # (Auto) 3.9 x10^3uL (1.8-7.7) Lymphocytes # (Auto) 1.8 x10^3/uL (1.0-4.8) Monocytes # (Auto) 0.5 x10^3/uL (0.0-1.1) Eosinophils # (Auto) 0.1 x10^3/uL (0.0-0.7) Basophils # (Auto) 0.0 x10^3/uL (0.0-0.2) Sodium Level 139 mmol/L (136-145) Potassium Level 3.3 mmol/L (3.5-5.1) Chloride Level 103 mmol/L (98-107) Carbon Dioxide Level 27 mmol/L (21-32) Anion Gap 9 (6-14) Blood Urea Nitrogen 7 mg/dL (7-20) Creatinine 0.6 mg/dL (0.6-1.0) Estimated GFR (Cockcroft-Gault) 148.6 Glucose Level 285 mg/dL (70-99) Calcium Level 8.4 mg/dL (8.5-10.1) Laboratory Tests Test 06/01/18 12:20 06/01/18 12:22 06/01/18 12:30 06/01/18 18:32 Urine Collection Type Unknown Urine Color Yellow Urine Clarity Turbid Urine pH 7.0 Urine Specific [place] 1.025 Urine Protein 100 mg/dL (NEG-TRACE) Urine Glucose (UA) >=1000 mg/dL (NEG) Urine Ketones (Stick) 40 mg/dL (NEG) Urine Blood Moderate (NEG) Urine Nitrite Positive (NEG) Urine Bilirubin Negative (NEG) Urine Urobilinogen Dipstick 0.2 mg/dL (0.2 mg/dL) Urine Leukocyte Esterase Small (NEG) Urine RBC 6-10 /HPF (0-2) Urine WBC Tntc /HPF (0-4) Urine Bacteria Many /HPF (0-FEW) Serum Test, Qualitative Negative (NEG) Bedside Urine HCG, Qualitative Hcg negative (Negative) White Blood Count 6.4 x10^3/uL (4.0-11.0) Red Blood Count 4.39 x10^6/uL (3.50-5.40) Hemoglobin 13.7 g/dL (12.0-15.5) Hematocrit 41.3 % (36.0-47.0) Mean Corpuscular Volume 94 fL (79-100) Mean Corpuscular Hemoglobin 31 pg (25-35) Mean Corpuscular Hemoglobin Concent 33 g/dL (31-37) Red Cell Distribution Width 12.6 % (11.5-14.5) Platelet Count 324 x10^3/uL (140-400) Neutrophils (%) (Auto) 73 % (31-73) Lymphocytes (%) (Auto) 20 % (24-48) Monocytes (%) (Auto) 5 % (0-9) Eosinophils (%) (Auto) 1 % (0-3) Basophils (%) (Auto) 1 % (0-3) Neutrophils # (Auto) 4.7 x10^3uL (1.8-7.7) Lymphocytes # (Auto) 1.3 x10^3/uL (1.0-4.8) Monocytes # (Auto) 0.3 x10^3/uL (0.0-1.1) Eosinophils # (Auto) 0.1 x10^3/uL (0.0-0.7) Basophils # (Auto) 0.0 x10^3/uL (0.0-0.2) Sodium Level 141 mmol/L (136-145) Potassium Level 4.0 mmol/L (3.5-5.1) Chloride Level 102 mmol/L (98-107) Carbon Dioxide Level 30 mmol/L (21-32) Anion Gap 9 (6-14) Blood Urea Nitrogen 8 mg/dL (7-20) Creatinine 0.5 mg/dL (0.6-1.0) Estimated GFR (Cockcroft-Gault) 183.4 BUN/Creatinine Ratio 16 (6-20) Glucose Level 286 mg/dL (70-99) Calcium Level 9.2 mg/dL (8.5-10.1) Total Bilirubin 0.5 mg/dL (0.2-1.0) Aspartate Amino Transf (AST/SGOT) 16 U/L (15-37) Alanine Aminotransferase (ALT/SGPT) 55 U/L (14-59) Alkaline Phosphatase 164 U/L (46-116) Total Protein 7.3 g/dL (6.4-8.2) Albumin 3.4 g/dL (3.4-5.0) Albumin/Globulin Ratio 0.9 (1.0-1.7) Lipase 84 U/L (73-393) Glucose (Fingerstick) 197 mg/dL (70-99) Test 06/01/18 21:07 06/02/18 03:00 06/02/18 07:28 Glucose (Fingerstick) 253 mg/dL (70-99) 227 mg/dL (70-99) White Blood Count 6.4 x10^3/uL (4.0-11.0) Red Blood Count 3.59 x10^6/uL (3.50-5.40) Hemoglobin 11.4 g/dL (12.0-15.5) Hematocrit 33.9 % (36.0-47.0) Mean Corpuscular Volume 95 fL (79-100) Mean Corpuscular Hemoglobin 32 pg (25-35) Mean Corpuscular Hemoglobin Concent 34 g/dL (31-37) Red Cell Distribution Width 12.4 % (11.5-14.5) Platelet Count 253 x10^3/uL (140-400) Neutrophils (%) (Auto) 62 % (31-73) Lymphocytes (%) (Auto) 29 % (24-48) Monocytes (%) (Auto) 8 % (0-9) Eosinophils (%) (Auto) 2 % (0-3) Basophils (%) (Auto) 1 % (0-3) Neutrophils # (Auto) 3.9 x10^3uL (1.8-7.7) Lymphocytes # (Auto) 1.8 x10^3/uL (1.0-4.8) Monocytes # (Auto) 0.5 x10^3/uL (0.0-1.1) Eosinophils # (Auto) 0.1 x10^3/uL (0.0-0.7) Basophils # (Auto) 0.0 x10^3/uL (0.0-0.2) Sodium Level 139 mmol/L (136-145) Potassium Level 3.3 mmol/L (3.5-5.1) Chloride Level 103 mmol/L (98-107) Carbon Dioxide Level 27 mmol/L (21-32) Anion Gap 9 (6-14) Blood Urea Nitrogen 7 mg/dL (7-20) Creatinine 0.6 mg/dL (0.6-1.0) Estimated GFR (Cockcroft-Gault) 148.6 Glucose Level 285 mg/dL (70-99) Calcium Level 8.4 mg/dL (8.5-10.1) Medications Current Medications Ceftriaxone Sodium (Rocephin) 1 gm 1X ONCE IVP Last administered on 06/01/18at 14:11; Start 06/01/18 at 13:45; Stop 06/01/18 at 13:46; Status DC Sodium Chloride 1,000 ml @ 1,000 mls/hr 1X ONCE IV Last administered on at 15:36; Start 06/01/18 at 13:45; Stop 06/01/18 at 14:44; Status DC Fentanyl Citrate (Fentanyl 2ml Vial) 25 mcg 1X PRN PRN IV SEVERE PAIN Last administered on 06/02/18at 08:15; Start 06/01/18 at 14:00 Iohexol (Omnipaque 300 Mg/ml) 75 ml 1X ONCE IV Last administered on 06/01/18at 15:26; Start 06/01/18 at 14:00; Stop 06/01/18 at 14:01; Status DC Info (CONTRAST GIVEN -- Rx MONITORING) 1 each PRN DAILY PRN MC SEE COMMENTS; Start 06/01/18 at 14:15; Stop 06/03/18 at 14:14 Hydromorphone HCl (Dilaudid) 0.5 mg PRN Q30MIN PRN IV SEVERE PAIN Last administered on 06/01/18at 21:22; Start 06/01/18 at 15:45 Ondansetron HCl (Zofran) 4 mg 1X ONCE IV Last administered on 06/01/18at 15:53 ; Start 06/01/18 at 16:00; Stop 06/01/18 at 16:01; Status DC Insulin Human Lispro (HumaLOG) 0-5 UNITS TIDWMEALS SQ Last administered on 06/01at 18:49; Start 06/01/18 at 17:00; Stop 06/02/18 at 08:23; Status DC Dextrose (Dextrose 50%-Water Syringe) 12.5 gm PRN Q15MIN PRN IV SEE COMMENTS; Start 06/01/18 at 17:00 Sodium Chloride (Normal Saline Flush 3ml) 3 ml QSHIFT PRN IV AFTER MEDS AND BLOOD DRAWS; Start 06/01/18 at 17:00 Sodium Chloride 1,000 ml @ 100 mls/hr Q10H IV Last administered on 06/02/18at 02:50; Start 06/01/18 at 16:50 Ondansetron HCl (Zofran) 4 mg PRN Q4HRS PRN IV NAUSEA/VOMITING; Start 06/01/18 at 17:00 Zolpidem Tartrate (Ambien) 5 mg PRN QHS PRN PO INSOMNIA; Start 06/01/18 at 17: 00 Acetaminophen (Tylenol) 650 mg PRN Q4HRS PRN PO TEMP OVER 100.4F OR MILD PAIN; Start 06/01/18 at 17:00 Acetaminophen (Tylenol) 650 mg PRN Q4HRS PRN GT TEMP OVER 100.4F OR MILD PAIN; Start 06/01/18 at 17:00 Al Hydroxide/Mg Hydroxide (Mylanta Plus Xs) 30 ml PRN DAILY PRN PO HEARTBURN / GAS; Start 06/01/18 at 17:00 Clonidine HCl (Catapres) 0.1 mg PRN Q6HRS PRN PO SBP>160 OR DBP>90; Start 06/01 at 17:00 Sodium Monofluorophosphate (Fleet Adult) 133 ml PRN DAILY PRN [place] CONSTIPATION; Start 06/01/18 at 17:00 Diphenhydramine HCl (Benadryl) 25 mg PRN Q4HRS PRN IVP ITCHING; Start 06/01/18 at 17:00 Docusate Sodium (Colace) 100 mg PRN BID PRN PO CONSTIPATION; Start 06/01/18 at 17:00 Albuterol Sulfate (Ventolin Neb Soln) 2.5 mg PRN Q4HRS PRN NEB SHORTNESS OF BREATH Last administered on 06/01/18at 23:30; Start 06/01/18 at 17:00 Guaifenesin (Robitussin) 200 mg PRN Q4HRS PRN PO COUGH; Start 06/01/18 at 17:00 Lorazepam (Ativan) 0.5 mg PRN Q4HRS PRN PO ANXIETY / AGITATION; Start 06/01/18 at 17:00 Ceftriaxone Sodium (Rocephin) 1 gm DAILY IVP ; Start 06/02/18 at 13:00 Lactobacillus Rhamnosus (Culturelle) 1 cap BID PO Last administered on at 08:14; Start 06/01/18 at 21:00 Insulin Glargine (Lantus) 40 units BID SQ Last administered on 06/02/18at 08:29 ; Start 06/01/18 at 21:00 Insulin Human Lispro (HumaLOG) 0-9 UNITS TIDWMEALS SQ ; Start 06/02/18 at 12:00 Dextrose (Dextrose 50%-Water Syringe) 12.5 gm PRN Q15MIN PRN IV SEE COMMENTS; Start 06/02/18 at 08:30; Status UNV Active Scripts Active Reported Levsin (Hyoscyamine Sulfate) 0.125 Mg Tablet 0.125 Mg PO PRN Q6HRS PRN Loperamide (Loperamide Hcl) 2 Mg Capsule 2 Mg PO PRN QID PRN Lantus Solostar (Insulin Glargine,Hum.rec.anlog) 100 Unit/1 Ml Insuln.pen 40 Unit SQ BID Novolog Flexpen (Insulin Aspart) 100 Unit/1 Ml Insuln.pen 23 Unit SQ TIDWMEALS Ventolin Hfa Inhaler (Albuterol Sulfate) 18 Gm Hfa.aer.ad 2 Puff INH Q4HRS Vitals/I & O Vital Sign - Last 24 Hours 06/01/18 06/01/18 06/01/18 06/01/18 12:25 13:03 13:33 14:10 Temp 98.0 98.0 Pulse 83 88 84 Resp 18 12 12 20 B/P (MAP) 133/95 (108) 122/86 (98) 127/91 (103) Pulse Ox 99 98 98 96 O2 Delivery Room Air Room Air Room Air 06/01/18 06/01/18 06/01/18 06/01/18 14:40 15:32 16:20 17:49 Pulse 90 88 Resp 18 21 18 18 B/P (MAP) 146/90 (108) 133/93 (106) Pulse Ox 96 92 99 O2 Delivery Room Air Room Air Room Air 06/01/18 06/01/18 06/01/18 06/01/18 19:00 20:00 20:08 21:22 Temp 98.1 98.1 Pulse 95 Resp 18 20 B/P (MAP) 122/91 (101) Pulse Ox 99 99 O2 Delivery Room Air Room Air Room Air Room Air 06/01/18 06/01/18 06/01/18 06/02/18 21:52 23:00 23:31 03:00 Temp 97.9 98.2 97.9 98.2 Pulse 95 85 Resp 18 18 B/P (MAP) 127/96 (106) 113/81 (92) Pulse Ox 93 98 O2 Delivery Room Air Room Air Room Air Room Air 06/02/18 06/02/18 07:00 08:15 Temp 98.8 98.8 Pulse 87 Resp 18 B/P (MAP) 107/75 (86) Pulse Ox 98 O2 Delivery Room Air Room Air Intake and Output 06/01/18 06/01/18 06/02/18 15:00 23:00 07:00 Intake Total 1000 ml Output Total 0 ml Balance 1000 ml 0 ml SILVINO TRAVIS MD Jun 02, 2018 09:49
[2018-06-02] MEDS ORDERED: POTASSIUM CHLORIDE 20 MEQ TABLET.ER. PO ONE (10:00)
[2018-06-02] MEDS ORDERED: LOPERAMIDE 2 MG CAPSULE PO PRN (10:00)
[2018-06-02 11:00] VITALS: BP 120/86
[2018-06-02] MEDS: INSULIN LISPRO 300 UNITS/3 ML INSULN.PEN. SQ SCH ×3 (12:00→17:39)
--- NOTE | 2018-06-02 12:15 | NUR ---
Patient blood sugar 178 at lunch-patient fast asleep, told aid she does not plan on eating. Insulin non-admin per scale. Addendum: 06/02/18 at 1912 by MARCELO AVALOS RN RN Patient became more awake at 1300 and told this RN she was going to try to eat. Non-admin insulin was undone and given per protocol
[2018-06-02] MEDS: cefTRIAXone IV Push 1 GM VIAL. IVP SCH (12:48)
[2018-06-02 15:00] VITALS: BP 124/92
[2018-06-02] MEDS: oxyCODONE/APAP 5/325 1 TAB TABLET PO PRN ×2 (16:37→21:17)
[2018-06-02 19:00] VITALS: BP 121/96
[2018-06-02] MEDS ORDERED: LACTOBACILLUS RHAMNOSUS GG 1 CAPSULE. PO SCH (21:00)
[2018-06-02 23:00] VITALS: BP 126/94
[2018-06-02 23:12] LABS: HEMOGLOBIN A1C 12.9 % (4.8-5.6)
[2018-06-03 03:00] VITALS: BP 106/69
[2018-06-03] MEDS: IV NORMAL SALINE 1000ML BAG 1,000 ML IV SCH ×3 (03:42→23:32)
[2018-06-03 07:22] VITALS: BP 109/71
[2018-06-03] MEDS: oxyCODONE/APAP 5/325 1 TAB TABLET PO PRN ×3 (09:14→18:30)
[2018-06-03] MEDS: LACTOBACILLUS RHAMNOSUS GG 1 CAPSULE. PO SCH ×2 (09:14→20:08)
[2018-06-03] MEDS: cefTRIAXone IV Push 1 GM VIAL. IVP SCH (09:15)
--- NOTE | 2018-06-03 09:16 | PDOC ---
PROGRESS NOTES Chief Complaint Chief Complaint 1. incompletely treated pyelonephritis 2. hx asthma 3. morbid obesity 4. diabetes 5. SIRS 6. Loose BM History of Present Illness History of Present Illness Still abdominal and bilateral flank pain Urine culture shows Escherichia coli, sensitivities still pending No fever, no white count Eating well Sleeping fine No reports of loose stool today Plan: check labs tomorrow Continue IV abx for now Await urine culture sensitivities Check a sedimentation rate tomorrow Vitals Vitals Vital Signs Date Time Temp Pulse Resp B/P (MAP) Pulse Ox O2 Delivery O2 Flow Rate FiO2 06/03/18 08:00 Room Air 06/03/18 07:22 99.1 84 16 109/71 (84) 98 99.1 Physical Exam General: Alert, Oriented X3, Cooperative, mild distress Heart: Regular rate, Normal S1 Lungs: Clear Abdomen: Normal bowel sounds, Soft, No masses, Other (hyperactive bowel sounds) Extremities: No cyanosis, No edema Skin: No breakdown Labs LABS Laboratory Tests Test 06/02/18 11:57 06/02/18 17:01 06/02/18 21:12 06/03/18 08:10 Glucose (Fingerstick) 178 mg/dL (70-99) 184 mg/dL (70-99) 162 mg/dL (70-99) 174 mg/dL (70-99) Review of Systems Review of Systems BILateral flank pain, otherwise the rest of ROS 14 point negative Comment Review of Relevant I have reviewed the following items ashkan (where applicable) has been applied. Labs Laboratory Tests Test 06/01/18 12:20 06/01/18 12:22 06/01/18 12:30 06/01/18 18:32 Urine Collection Type Unknown Urine Color Yellow Urine Clarity Turbid Urine pH 7.0 Urine Specific [place] 1.025 Urine Protein 100 mg/dL (NEG-TRACE) Urine Glucose (UA) >=1000 mg/dL (NEG) Urine Ketones (Stick) 40 mg/dL (NEG) Urine Blood Moderate (NEG) Urine Nitrite Positive (NEG) Urine Bilirubin Negative (NEG) Urine Urobilinogen Dipstick 0.2 mg/dL (0.2 mg/dL) Urine Leukocyte Esterase Small (NEG) Urine RBC 6-10 /HPF (0-2) Urine WBC Tntc /HPF (0-4) Urine Bacteria Many /HPF (0-FEW) Serum Test, Qualitative Negative (NEG) Bedside Urine HCG, Qualitative Hcg negative (Negative) White Blood Count 6.4 x10^3/uL (4.0-11.0) Red Blood Count 4.39 x10^6/uL (3.50-5.40) Hemoglobin 13.7 g/dL (12.0-15.5) Hematocrit 41.3 % (36.0-47.0) Mean Corpuscular Volume 94 fL (79-100) Mean Corpuscular Hemoglobin 31 pg (25-35) Mean Corpuscular Hemoglobin Concent 33 g/dL (31-37) Red Cell Distribution Width 12.6 % (11.5-14.5) Platelet Count 324 x10^3/uL (140-400) Neutrophils (%) (Auto) 73 % (31-73) Lymphocytes (%) (Auto) 20 % (24-48) Monocytes (%) (Auto) 5 % (0-9) Eosinophils (%) (Auto) 1 % (0-3) Basophils (%) (Auto) 1 % (0-3) Neutrophils # (Auto) 4.7 x10^3uL (1.8-7.7) Lymphocytes # (Auto) 1.3 x10^3/uL (1.0-4.8) Monocytes # (Auto) 0.3 x10^3/uL (0.0-1.1) Eosinophils # (Auto) 0.1 x10^3/uL (0.0-0.7) Basophils # (Auto) 0.0 x10^3/uL (0.0-0.2) Sodium Level 141 mmol/L (136-145) Potassium Level 4.0 mmol/L (3.5-5.1) Chloride Level 102 mmol/L (98-107) Carbon Dioxide Level 30 mmol/L (21-32) Anion Gap 9 (6-14) Blood Urea Nitrogen 8 mg/dL (7-20) Creatinine 0.5 mg/dL (0.6-1.0) Estimated GFR (Cockcroft-Gault) 183.4 BUN/Creatinine Ratio 16 (6-20) Glucose Level 286 mg/dL (70-99) Calcium Level 9.2 mg/dL (8.5-10.1) Total Bilirubin 0.5 mg/dL (0.2-1.0) Aspartate Amino Transf (AST/SGOT) 16 U/L (15-37) Alanine Aminotransferase (ALT/SGPT) 55 U/L (14-59) Alkaline Phosphatase 164 U/L (46-116) Total Protein 7.3 g/dL (6.4-8.2) Albumin 3.4 g/dL (3.4-5.0) Albumin/Globulin Ratio 0.9 (1.0-1.7) Lipase 84 U/L (73-393) Glucose (Fingerstick) 197 mg/dL (70-99) Test 06/01/18 21:07 06/02/18 03:00 06/02/18 07:28 06/02/18 11:57 Glucose (Fingerstick) 253 mg/dL (70-99) 227 mg/dL (70-99) 178 mg/dL (70-99) White Blood Count 6.4 x10^3/uL (4.0-11.0) Red Blood Count 3.59 x10^6/uL (3.50-5.40) Hemoglobin 11.4 g/dL (12.0-15.5) Hematocrit 33.9 % (36.0-47.0) Mean Corpuscular Volume 95 fL (79-100) Mean Corpuscular Hemoglobin 32 pg (25-35) Mean Corpuscular Hemoglobin Concent 34 g/dL (31-37) Red Cell Distribution Width 12.4 % (11.5-14.5) Platelet Count 253 x10^3/uL (140-400) Neutrophils (%) (Auto) 62 % (31-73) Lymphocytes (%) (Auto) 29 % (24-48) Monocytes (%) (Auto) 8 % (0-9) Eosinophils (%) (Auto) 2 % (0-3) Basophils (%) (Auto) 1 % (0-3) Neutrophils # (Auto) 3.9 x10^3uL (1.8-7.7) Lymphocytes # (Auto) 1.8 x10^3/uL (1.0-4.8) Monocytes # (Auto) 0.5 x10^3/uL (0.0-1.1) Eosinophils # (Auto) 0.1 x10^3/uL (0.0-0.7) Basophils # (Auto) 0.0 x10^3/uL (0.0-0.2) Sodium Level 139 mmol/L (136-145) Potassium Level 3.3 mmol/L (3.5-5.1) Chloride Level 103 mmol/L (98-107) Carbon Dioxide Level 27 mmol/L (21-32) Anion Gap 9 (6-14) Blood Urea Nitrogen 7 mg/dL (7-20) Creatinine 0.6 mg/dL (0.6-1.0) Estimated GFR (Cockcroft-Gault) 148.6 Glucose Level 285 mg/dL (70-99) Hemoglobin A1c 12.9 % (4.8-5.6) Calcium Level 8.4 mg/dL (8.5-10.1) Test 06/02/18 17:01 06/02/18 21:12 06/03/18 08:10 Glucose (Fingerstick) 184 mg/dL (70-99) 162 mg/dL (70-99) 174 mg/dL (70-99) Laboratory Tests Test 06/02/18 11:57 06/02/18 17:01 06/02/18 21:12 06/03/18 08:10 Glucose (Fingerstick) 178 mg/dL (70-99) 184 mg/dL (70-99) 162 mg/dL (70-99) 174 mg/dL (70-99) Microbiology 06/02/18 Blood Culture - Preliminary, Resulted NO GROWTH AFTER 1 DAY 06/01/18 Urine Culture - Preliminary, Resulted 06/01/18 Urine Culture Result 1 (LIBBY) - Preliminary, Resulted Medications Current Medications Ceftriaxone Sodium (Rocephin) 1 gm 1X ONCE IVP Last administered on 06/01/18at 14:11; Start 06/01/18 at 13:45; Stop 06/01/18 at 13:46; Status DC Sodium Chloride 1,000 ml @ 1,000 mls/hr 1X ONCE IV Last administered on at 15:36; Start 06/01/18 at 13:45; Stop 06/01/18 at 14:44; Status DC Fentanyl Citrate (Fentanyl 2ml Vial) 25 mcg 1X PRN PRN IV SEVERE PAIN Last administered on 06/02/18at 14:04; Start 06/01/18 at 14:00; Stop 06/02/18 at 14:04 ; Status DC Iohexol (Omnipaque 300 Mg/ml) 75 ml 1X ONCE IV Last administered on 06/01/18at 15:26; Start 06/01/18 at 14:00; Stop 06/01/18 at 14:01; Status DC Info (CONTRAST GIVEN -- Rx MONITORING) 1 each PRN DAILY PRN MC SEE COMMENTS; Start 06/01/18 at 14:15; Stop 06/03/18 at 14:14 Hydromorphone HCl (Dilaudid) 0.5 mg PRN Q30MIN PRN IV SEVERE PAIN Last administered on 06/01/18at 21:22; Start 06/01/18 at 15:45 Ondansetron HCl (Zofran) 4 mg 1X ONCE IV Last administered on 06/01/18at 15:53 ; Start 06/01/18 at 16:00; Stop 06/01/18 at 16:01; Status DC Insulin Human Lispro (HumaLOG) 0-5 UNITS TIDWMEALS SQ Last administered on 06/01at 18:49; Start 06/01/18 at 17:00; Stop 06/02/18 at 08:23; Status DC Dextrose (Dextrose 50%-Water Syringe) 12.5 gm PRN Q15MIN PRN IV SEE COMMENTS; Start 06/01/18 at 17:00 Sodium Chloride (Normal Saline Flush 3ml) 3 ml QSHIFT PRN IV AFTER MEDS AND BLOOD DRAWS; Start 06/01/18 at 17:00 Sodium Chloride 1,000 ml @ 100 mls/hr Q10H IV Last administered on 06/03/18at 03:42; Start 06/01/18 at 16:50 Ondansetron HCl (Zofran) 4 mg PRN Q4HRS PRN IV NAUSEA/VOMITING; Start 06/01/18 at 17:00 Zolpidem Tartrate (Ambien) 5 mg PRN QHS PRN PO INSOMNIA; Start 06/01/18 at 17: 00 Acetaminophen (Tylenol) 650 mg PRN Q4HRS PRN PO TEMP OVER 100.4F OR MILD PAIN; Start 06/01/18 at 17:00 Acetaminophen (Tylenol) 650 mg PRN Q4HRS PRN GT TEMP OVER 100.4F OR MILD PAIN; Start 06/01/18 at 17:00 Al Hydroxide/Mg Hydroxide (Mylanta Plus Xs) 30 ml PRN DAILY PRN PO HEARTBURN / GAS; Start 06/01/18 at 17:00 Clonidine HCl (Catapres) 0.1 mg PRN Q6HRS PRN PO SBP>160 OR DBP>90; Start 06/01 at 17:00 Sodium Monofluorophosphate (Fleet Adult) 133 ml PRN DAILY PRN [place] CONSTIPATION; Start 06/01/18 at 17:00; Stop 06/02/18 at 09:50; Status DC Diphenhydramine HCl (Benadryl) 25 mg PRN Q4HRS PRN IVP ITCHING; Start 06/01/18 at 17:00 Docusate Sodium (Colace) 100 mg PRN BID PRN PO CONSTIPATION; Start 06/01/18 at 17:00; Stop 06/02/18 at 09:50; Status DC Albuterol Sulfate (Ventolin Neb Soln) 2.5 mg PRN Q4HRS PRN NEB SHORTNESS OF BREATH Last administered on 06/01/18at 23:30; Start 06/01/18 at 17:00 Guaifenesin (Robitussin) 200 mg PRN Q4HRS PRN PO COUGH; Start 06/01/18 at 17:00 Lorazepam (Ativan) 0.5 mg PRN Q4HRS PRN PO ANXIETY / AGITATION; Start 06/01/18 at 17:00 Ceftriaxone Sodium (Rocephin) 1 gm DAILY IVP Last administered on 06/02/18at 12: 48; Start 06/02/18 at 13:00 Lactobacillus Rhamnosus (Culturelle) 1 cap BID PO Last administered on at 21:12; Start 06/01/18 at 21:00 Insulin Glargine (Lantus) 40 units BID SQ Last administered on 06/02/18at 21:14 ; Start 06/01/18 at 21:00 Insulin Human Lispro (HumaLOG) 0-9 UNITS TIDWMEALS SQ Last administered on 06/02at 17:39; Start 06/02/18 at 12:00 Dextrose (Dextrose 50%-Water Syringe) 12.5 gm PRN Q15MIN PRN IV SEE COMMENTS; Start 06/02/18 at 08:30; Status UNV Lactobacillus Rhamnosus (Culturelle) 1 cap BID PO ; Start 06/02/18 at 21:00; Stop 06/02/18 at 21:00; Status DC Loperamide HCl (Imodium) 2 mg PRN Q15MIN PRN PO DIARRHEA; Start 06/02/18 at 10: 00 Potassium Chloride (Klor-Con) 40 meq 1X ONCE PO Last administered on at 10:32; Start 06/02/18 at 10:00; Stop 06/02/18 at 10:01; Status DC Oxycodone/ Acetaminophen (Percocet 5/325) 1 tab PRN Q4HRS PRN PO PAIN Last administered on 06/02/18at 21:17; Start 06/02/18 at 15:15 Active Scripts Active Reported Levsin (Hyoscyamine Sulfate) 0.125 Mg Tablet 0.125 Mg PO PRN Q6HRS PRN Loperamide (Loperamide Hcl) 2 Mg Capsule 2 Mg PO PRN QID PRN Lantus Solostar (Insulin Glargine,Hum.rec.anlog) 100 Unit/1 Ml Insuln.pen 40 Unit SQ BID Novolog Flexpen (Insulin Aspart) 100 Unit/1 Ml Insuln.pen 23 Unit SQ TIDWMEALS Ventolin Hfa Inhaler (Albuterol Sulfate) 18 Gm Hfa.aer.ad 2 Puff INH Q4HRS Vitals/I & O Vital Sign - Last 24 Hours 06/02/18 06/02/18 06/02/18 06/02/18 09:52 11:00 14:04 15:00 Temp 97.7 97.8 97.7 97.8 Pulse 91 83 Resp 18 20 18 B/P (MAP) 120/86 (97) 124/92 (103) Pulse Ox 99 93 99 O2 Delivery Room Air Room Air Room Air Room Air 06/02/18 06/02/18 06/02/18 06/02/18 16:37 17:39 19:00 20:00 Temp 98.7 98.7 Pulse 93 Resp 18 B/P (MAP) 121/96 (104) Pulse Ox 99 O2 Delivery Room Air Room Air Room Air 06/02/18 06/02/18 06/03/18 06/03/18 21:17 23:00 03:00 07:22 Temp 98.8 97.8 99.1 98.8 97.8 99.1 Pulse 95 80 84 Resp 18 16 16 B/P (MAP) 126/94 (105) 106/69 (81) 109/71 (84) Pulse Ox 99 100 98 O2 Delivery Room Air 16 06/03/18 08:00 O2 Delivery Room Air Intake and Output 06/02/18 06/02/18 06/03/18 15:00 23:00 07:00 Intake Total 120 ml Output Total 0 ml Balance 0 ml 120 ml SILVINO TRAVIS MD Jun 03, 2018 09:16
[2018-06-03] MEDS: INSULIN GLARGINE 300 UNITS/3 ML INSULN.PEN. SQ SCH ×2 (09:27→20:11)
[2018-06-03] MEDS: INSULIN LISPRO 300 UNITS/3 ML INSULN.PEN. SQ SCH ×3 (09:28→17:00)
[2018-06-03 10:55] VITALS: BP 111/80
[2018-06-03 15:00] VITALS: BP 122/89
[2018-06-03 19:00] VITALS: BP 116/85
[2018-06-03 22:53] VITALS: BP 128/76
[2018-06-04 02:51] VITALS: BP 124/89
[2018-06-04 05:03] LABS: BASO % 1 % (0-3); EOS # 0.1 x10^3/uL (0.0-0.7); EOS % 3 % (0-3); HEMATOCRIT 33.7 % (36.0-47.0); HEMOGLOBIN 11.3 g/dL (12.0-15.5); LYMPH # 1.8 x10^3/uL (1.0-4.8); LYMPH % 42 % (24-48); MEAN CORPUSCULAR HEMOGLOBIN 32 pg (25-35); MEAN CORPUSCULAR HGB CONC 34 g/dL (31-37); MEAN CORPUSCULAR VOLUME 94 fL (79-100); MONO # 0.3 x10^3/uL (0.0-1.1); MONO % 7 % (0-9); NEUT % 48 % (31-73); PLATELET COUNT 254 x10^3/uL (140-400); RED BLOOD COUNT 3.57 x10^6/uL (3.50-5.40); RED CELL DISTRIBUTION WIDTH 12.7 % (11.5-14.5); WHITE BLOOD COUNT 4.1 x10^3/uL (4.0-11.0)
[2018-06-04 05:29] LABS: CALCIUM 8.2 mg/dL (8.5-10.1); CREATININE 0.5 mg/dL (0.6-1.0); GFR 183.4; POTASSIUM 3.3 mmol/L (3.5-5.1)
[2018-06-04 07:00] VITALS: BP 116/84
[2018-06-04] MEDS: INSULIN LISPRO 300 UNITS/3 ML INSULN.PEN. SQ SCH ×3 (08:00→17:00)
[2018-06-04] MEDS: INSULIN GLARGINE 300 UNITS/3 ML INSULN.PEN. SQ SCH (08:03)
[2018-06-04] MEDS: oxyCODONE/APAP 5/325 1 TAB TABLET PO PRN ×2 (08:08→14:28)
[2018-06-04] MEDS: IV NORMAL SALINE 1000ML BAG 1,000 ML IV SCH ×2 (08:08→11:44)
[2018-06-04] MEDS: cefTRIAXone IV Push 1 GM VIAL. IVP SCH (08:08)
[2018-06-04] MEDS: LACTOBACILLUS RHAMNOSUS GG 1 CAPSULE. PO SCH (08:08)
--- NOTE | 2018-06-04 10:15 | PDOC ---
PROGRESS NOTES Chief Complaint Chief Complaint Incompletely treated pyelonephritis Hx asthma Morbid obesity Diabetes SIRS - sepsis 2/2 e. coli UTI Loose BM History of Present Illness History of Present Illness Still abdominal and bilateral flank pain Urine culture shows Escherichia coli, sosa-sensitive No fever, no white count Eating well Sleeping fine No reports of loose stool today Potassium 3.3 this morning Plan: check labs outpatient Change to oral antibiotics - bactrim 7 days Need diabetic treatment with A1c of 12.9 - pen needles, pens prescription written Incompletely treated pyelonephritis Hx asthma Morbid obesity Diabetes SIRS - sepsis 2/2 e. coli UTI Loose BM Vitals Vitals Vital Signs Date Time Temp Pulse Resp B/P (MAP) Pulse Ox O2 Delivery O2 Flow Rate FiO2 06/04/18 09:30 97 Room Air 06/04/18 07:00 98.3 80 18 116/84 (95) 98.3 Physical Exam General: Alert, Oriented X3, Cooperative, mild distress Heart: Regular rate, Normal S1 Lungs: Clear Abdomen: Normal bowel sounds, Soft, No masses, Other (hyperactive bowel sounds) Extremities: No cyanosis, No edema Skin: No breakdown Labs LABS Laboratory Tests Test 06/03/18 11:44 06/03/18 16:44 06/03/18 19:58 06/04/18 04:20 Glucose (Fingerstick) 131 mg/dL (70-99) 120 mg/dL (70-99) 158 mg/dL (70-99) White Blood Count 4.1 x10^3/uL (4.0-11.0) Red Blood Count 3.57 x10^6/uL (3.50-5.40) Hemoglobin 11.3 g/dL (12.0-15.5) Hematocrit 33.7 % (36.0-47.0) Mean Corpuscular Volume 94 fL (79-100) Mean Corpuscular Hemoglobin 32 pg (25-35) Mean Corpuscular Hemoglobin Concent 34 g/dL (31-37) Red Cell Distribution Width 12.7 % (11.5-14.5) Platelet Count 254 x10^3/uL (140-400) Neutrophils (%) (Auto) 48 % (31-73) Lymphocytes (%) (Auto) 42 % (24-48) Monocytes (%) (Auto) 7 % (0-9) Eosinophils (%) (Auto) 3 % (0-3) Basophils (%) (Auto) 1 % (0-3) Neutrophils # (Auto) 2.0 x10^3uL (1.8-7.7) Lymphocytes # (Auto) 1.8 x10^3/uL (1.0-4.8) Monocytes # (Auto) 0.3 x10^3/uL (0.0-1.1) Eosinophils # (Auto) 0.1 x10^3/uL (0.0-0.7) Basophils # (Auto) 0.0 x10^3/uL (0.0-0.2) Erythrocyte Sedimentation Rate 7 (0-25) Sodium Level 142 mmol/L (136-145) Potassium Level 3.3 mmol/L (3.5-5.1) Chloride Level 105 mmol/L (98-107) Carbon Dioxide Level 29 mmol/L (21-32) Anion Gap 8 (6-14) Blood Urea Nitrogen 10 mg/dL (7-20) Creatinine 0.5 mg/dL (0.6-1.0) Estimated GFR (Cockcroft-Gault) 183.4 Glucose Level 157 mg/dL (70-99) Calcium Level 8.2 mg/dL (8.5-10.1) Comment Review of Relevant I have reviewed the following items ashkan (where applicable) has been applied. Labs Laboratory Tests Test 06/02/18 11:57 06/02/18 17:01 06/02/18 21:12 06/03/18 08:10 Glucose (Fingerstick) 178 mg/dL (70-99) 184 mg/dL (70-99) 162 mg/dL (70-99) 174 mg/dL (70-99) Test 06/03/18 11:44 06/03/18 16:44 06/03/18 19:58 06/04/18 04:20 Glucose (Fingerstick) 131 mg/dL (70-99) 120 mg/dL (70-99) 158 mg/dL (70-99) White Blood Count 4.1 x10^3/uL (4.0-11.0) Red Blood Count 3.57 x10^6/uL (3.50-5.40) Hemoglobin 11.3 g/dL (12.0-15.5) Hematocrit 33.7 % (36.0-47.0) Mean Corpuscular Volume 94 fL (79-100) Mean Corpuscular Hemoglobin 32 pg (25-35) Mean Corpuscular Hemoglobin Concent 34 g/dL (31-37) Red Cell Distribution Width 12.7 % (11.5-14.5) Platelet Count 254 x10^3/uL (140-400) Neutrophils (%) (Auto) 48 % (31-73) Lymphocytes (%) (Auto) 42 % (24-48) Monocytes (%) (Auto) 7 % (0-9) Eosinophils (%) (Auto) 3 % (0-3) Basophils (%) (Auto) 1 % (0-3) Neutrophils # (Auto) 2.0 x10^3uL (1.8-7.7) Lymphocytes # (Auto) 1.8 x10^3/uL (1.0-4.8) Monocytes # (Auto) 0.3 x10^3/uL (0.0-1.1) Eosinophils # (Auto) 0.1 x10^3/uL (0.0-0.7) Basophils # (Auto) 0.0 x10^3/uL (0.0-0.2) Erythrocyte Sedimentation Rate 7 (0-25) Sodium Level 142 mmol/L (136-145) Potassium Level 3.3 mmol/L (3.5-5.1) Chloride Level 105 mmol/L (98-107) Carbon Dioxide Level 29 mmol/L (21-32) Anion Gap 8 (6-14) Blood Urea Nitrogen 10 mg/dL (7-20) Creatinine 0.5 mg/dL (0.6-1.0) Estimated GFR (Cockcroft-Gault) 183.4 Glucose Level 157 mg/dL (70-99) Calcium Level 8.2 mg/dL (8.5-10.1) Laboratory Tests Test 06/03/18 11:44 06/03/18 16:44 06/03/18 19:58 06/04/18 04:20 Glucose (Fingerstick) 131 mg/dL (70-99) 120 mg/dL (70-99) 158 mg/dL (70-99) White Blood Count 4.1 x10^3/uL (4.0-11.0) Red Blood Count 3.57 x10^6/uL (3.50-5.40) Hemoglobin 11.3 g/dL (12.0-15.5) Hematocrit 33.7 % (36.0-47.0) Mean Corpuscular Volume 94 fL (79-100) Mean Corpuscular Hemoglobin 32 pg (25-35) Mean Corpuscular Hemoglobin Concent 34 g/dL (31-37) Red Cell Distribution Width 12.7 % (11.5-14.5) Platelet Count 254 x10^3/uL (140-400) Neutrophils (%) (Auto) 48 % (31-73) Lymphocytes (%) (Auto) 42 % (24-48) Monocytes (%) (Auto) 7 % (0-9) Eosinophils (%) (Auto) 3 % (0-3) Basophils (%) (Auto) 1 % (0-3) Neutrophils # (Auto) 2.0 x10^3uL (1.8-7.7) Lymphocytes # (Auto) 1.8 x10^3/uL (1.0-4.8) Monocytes # (Auto) 0.3 x10^3/uL (0.0-1.1) Eosinophils # (Auto) 0.1 x10^3/uL (0.0-0.7) Basophils # (Auto) 0.0 x10^3/uL (0.0-0.2) Erythrocyte Sedimentation Rate 7 (0-25) Sodium Level 142 mmol/L (136-145) Potassium Level 3.3 mmol/L (3.5-5.1) Chloride Level 105 mmol/L (98-107) Carbon Dioxide Level 29 mmol/L (21-32) Anion Gap 8 (6-14) Blood Urea Nitrogen 10 mg/dL (7-20) Creatinine 0.5 mg/dL (0.6-1.0) Estimated GFR (Cockcroft-Gault) 183.4 Glucose Level 157 mg/dL (70-99) Calcium Level 8.2 mg/dL (8.5-10.1) Microbiology 06/02/18 Blood Culture - Preliminary, Resulted NO GROWTH AFTER 2 DAYS 06/01/18 Urine Culture - Final, Complete 06/01/18 Urine Culture Result 1 (LIBBY) - Final, Complete 06/01/18 Antimicrobic Susceptibility - Final, Complete Medications Current Medications Ceftriaxone Sodium (Rocephin) 1 gm 1X ONCE IVP Last administered on 06/01/18at 14:11; Start 06/01/18 at 13:45; Stop 06/01/18 at 13:46; Status DC Sodium Chloride 1,000 ml @ 1,000 mls/hr 1X ONCE IV Last administered on at 15:36; Start 06/01/18 at 13:45; Stop 06/01/18 at 14:44; Status DC Fentanyl Citrate (Fentanyl 2ml Vial) 25 mcg 1X PRN PRN IV SEVERE PAIN Last administered on 06/02/18at 14:04; Start 06/01/18 at 14:00; Stop 06/02/18 at 14:04 ; Status DC Iohexol (Omnipaque 300 Mg/ml) 75 ml 1X ONCE IV Last administered on 06/01/18at 15:26; Start 06/01/18 at 14:00; Stop 06/01/18 at 14:01; Status DC Info (CONTRAST GIVEN -- Rx MONITORING) 1 each PRN DAILY PRN MC SEE COMMENTS; Start 06/01/18 at 14:15; Stop 06/03/18 at 14:14; Status DC Hydromorphone HCl (Dilaudid) 0.5 mg PRN Q30MIN PRN IV SEVERE PAIN Last administered on 06/01/18at 21:22; Start 06/01/18 at 15:45 Ondansetron HCl (Zofran) 4 mg 1X ONCE IV Last administered on 06/01/18at 15:53 ; Start 06/01/18 at 16:00; Stop 06/01/18 at 16:01; Status DC Insulin Human Lispro (HumaLOG) 0-5 UNITS TIDWMEALS SQ Last administered on 06/01at 18:49; Start 06/01/18 at 17:00; Stop 06/02/18 at 08:23; Status DC Dextrose (Dextrose 50%-Water Syringe) 12.5 gm PRN Q15MIN PRN IV SEE COMMENTS; Start 06/01/18 at 17:00 Sodium Chloride (Normal Saline Flush 3ml) 3 ml QSHIFT PRN IV AFTER MEDS AND BLOOD DRAWS; Start 06/01/18 at 17:00 Sodium Chloride 1,000 ml @ 100 mls/hr Q10H IV Last administered on 06/04/18at 08:08; Start 06/01/18 at 16:50 Ondansetron HCl (Zofran) 4 mg PRN Q4HRS PRN IV NAUSEA/VOMITING; Start 06/01/18 at 17:00 Zolpidem Tartrate (Ambien) 5 mg PRN QHS PRN PO INSOMNIA; Start 06/01/18 at 17: 00 Acetaminophen (Tylenol) 650 mg PRN Q4HRS PRN PO TEMP OVER 100.4F; Start at 17:00 Acetaminophen (Tylenol) 650 mg PRN Q4HRS PRN GT TEMP OVER 100.4F; Start at 17:00 Al Hydroxide/Mg Hydroxide (Mylanta Plus Xs) 30 ml PRN DAILY PRN PO HEARTBURN / GAS; Start 06/01/18 at 17:00 Clonidine HCl (Catapres) 0.1 mg PRN Q6HRS PRN PO SBP>160 OR DBP>90; Start 06/01 at 17:00 Sodium Monofluorophosphate (Fleet Adult) 133 ml PRN DAILY PRN [place] CONSTIPATION; Start 06/01/18 at 17:00; Stop 06/02/18 at 09:50; Status DC Diphenhydramine HCl (Benadryl) 25 mg PRN Q4HRS PRN IVP ITCHING; Start 06/01/18 at 17:00 Docusate Sodium (Colace) 100 mg PRN BID PRN PO CONSTIPATION; Start 06/01/18 at 17:00; Stop 06/02/18 at 09:50; Status DC Albuterol Sulfate (Ventolin Neb Soln) 2.5 mg PRN Q4HRS PRN NEB SHORTNESS OF BREATH Last administered on 06/01/18at 23:30; Start 06/01/18 at 17:00 Guaifenesin (Robitussin) 200 mg PRN Q4HRS PRN PO COUGH; Start 06/01/18 at 17:00 Lorazepam (Ativan) 0.5 mg PRN Q4HRS PRN PO ANXIETY / AGITATION; Start 06/01/18 at 17:00 Ceftriaxone Sodium (Rocephin) 1 gm DAILY IVP Last administered on 06/04/18at 08: 08; Start 06/02/18 at 13:00 Lactobacillus Rhamnosus (Culturelle) 1 cap BID PO Last administered on at 08:08; Start 06/01/18 at 21:00 Insulin Glargine (Lantus) 40 units BID SQ Last administered on 06/03/18at 20:11 ; Start 06/01/18 at 21:00 Insulin Human Lispro (HumaLOG) 0-9 UNITS TIDWMEALS SQ Last administered on 06/03at 09:28; Start 06/02/18 at 12:00 Dextrose (Dextrose 50%-Water Syringe) 12.5 gm PRN Q15MIN PRN IV SEE COMMENTS; Start 06/02/18 at 08:30; Status UNV Lactobacillus Rhamnosus (Culturelle) 1 cap BID PO ; Start 06/02/18 at 21:00; Stop 06/02/18 at 21:00; Status DC Loperamide HCl (Imodium) 2 mg PRN Q15MIN PRN PO DIARRHEA; Start 06/02/18 at 10: 00 Potassium Chloride (Klor-Con) 40 meq 1X ONCE PO Last administered on at 10:32; Start 06/02/18 at 10:00; Stop 06/02/18 at 10:01; Status DC Oxycodone/ Acetaminophen (Percocet 5/325) 1 tab PRN Q4HRS PRN PO PAIN Last administered on 06/04/18at 08:08; Start 06/02/18 at 15:15 Active Scripts Active Reported Levsin (Hyoscyamine Sulfate) 0.125 Mg Tablet 0.125 Mg PO PRN Q6HRS PRN Loperamide (Loperamide Hcl) 2 Mg Capsule 2 Mg PO PRN QID PRN Lantus Solostar (Insulin Glargine,Hum.rec.anlog) 100 Unit/1 Ml Insuln.pen 40 Unit SQ BID Novolog Flexpen (Insulin Aspart) 100 Unit/1 Ml Insuln.pen 23 Unit SQ TIDWMEALS Ventolin Hfa Inhaler (Albuterol Sulfate) 18 Gm Hfa.aer.ad 2 Puff INH Q4HRS Vitals/I & O Vital Sign - Last 24 Hours 06/03/18 06/03/18 06/03/18 06/03/18 10:55 14:44 15:00 15:40 Temp 99.0 97.9 99.0 97.9 Pulse 91 85 Resp 18 19 18 18 B/P (MAP) 111/80 (90) 122/89 (100) Pulse Ox 97 100 O2 Delivery Room Air Room Air Room Air 06/03/18 06/03/18 06/03/18 06/03/18 18:30 19:00 19:30 20:00 Temp 97.8 97.8 Pulse 90 Resp 18 16 B/P (MAP) 116/85 (95) Pulse Ox 100 100 O2 Delivery Room Air Room Air Room Air 06/03/18 06/04/18 06/04/18 06/04/18 22:53 02:51 07:00 08:00 Temp 97.6 97.4 98.3 97.6 97.4 98.3 Pulse 86 72 80 Resp 16 18 18 B/P (MAP) 128/76 (93) 124/89 (101) 116/84 (95) Pulse Ox 99 99 99 O2 Delivery Room Air Room Air Room Air Room Air 06/04/18 06/04/18 06/04/18 08:08 09:12 09:30 Pulse Ox 97 O2 Delivery Room Air Room Air Room Air Intake and Output 06/03/18 06/03/18 06/04/18 15:00 23:00 07:00 Intake Total 0 ml 800 ml 250 ml Balance 0 ml 800 ml 250 ml MARIA TERESA PATINO MD Jun 04, 2018 10:15
[2018-06-04] MEDS ORDERED: SMZ/TMP 800/160MG TABLET. PO SCH (10:30)
[2018-06-04] MEDS ORDERED: POTASSIUM CHLORIDE 20 MEQ TABLET.ER. PO ONE (10:30)
[2018-06-04 11:00] VITALS: BP 113/80
[2018-06-04] MEDS ORDERED: SULF-143 PO (11:03)
[2018-06-04] MEDS ORDERED: TRAM50TA PO (11:03)
[2018-06-04] MEDS ORDERED: INSU100I17 SQ (11:03)
[2018-06-04] MEDS ORDERED: INSU100I13 SQ (11:03)
[2018-06-04] MEDS ORDERED: LOSA25TA54 PO (11:06)
--- NOTE | 2018-06-04 11:12 | PDOC3 ---
Discharge Summary Visit Information Date of Admission: Jun 01, 2018 Date of Discharge: Jun 04, 2018 Admitting Diagnosis: Pyelo and cystitis Final Diagnosis Pyelo and cystitis Brief Hospital Course Allergies Allergies Coded Allergies Type Severity Reaction Last Updated Verified No Known Drug Allergies 06/01/18 No Vital Signs Vital Signs Date Time Temp Pulse Resp B/P (MAP) Pulse Ox O2 Delivery O2 Flow Rate FiO2 06/04/18 09:30 97 Room Air 06/04/18 07:00 98.3 80 18 116/84 (95) 98.3 Lab Results Laboratory Tests Test 06/02/18 11:57 06/02/18 17:01 06/02/18 21:12 06/03/18 08:10 Glucose (Fingerstick) 178 mg/dL (70-99) 184 mg/dL (70-99) 162 mg/dL (70-99) 174 mg/dL (70-99) Test 06/03/18 11:44 06/03/18 16:44 06/03/18 19:58 06/04/18 04:10 Glucose (Fingerstick) 131 mg/dL (70-99) 120 mg/dL (70-99) 158 mg/dL (70-99) Magnesium Level 1.6 mg/dL (1.8-2.4) Test 06/04/18 04:20 White Blood Count 4.1 x10^3/uL (4.0-11.0) Red Blood Count 3.57 x10^6/uL (3.50-5.40) Hemoglobin 11.3 g/dL (12.0-15.5) Hematocrit 33.7 % (36.0-47.0) Mean Corpuscular Volume 94 fL (79-100) Mean Corpuscular Hemoglobin 32 pg (25-35) Mean Corpuscular Hemoglobin Concent 34 g/dL (31-37) Red Cell Distribution Width 12.7 % (11.5-14.5) Platelet Count 254 x10^3/uL (140-400) Neutrophils (%) (Auto) 48 % (31-73) Lymphocytes (%) (Auto) 42 % (24-48) Monocytes (%) (Auto) 7 % (0-9) Eosinophils (%) (Auto) 3 % (0-3) Basophils (%) (Auto) 1 % (0-3) Neutrophils # (Auto) 2.0 x10^3uL (1.8-7.7) Lymphocytes # (Auto) 1.8 x10^3/uL (1.0-4.8) Monocytes # (Auto) 0.3 x10^3/uL (0.0-1.1) Eosinophils # (Auto) 0.1 x10^3/uL (0.0-0.7) Basophils # (Auto) 0.0 x10^3/uL (0.0-0.2) Erythrocyte Sedimentation Rate 7 (0-25) Sodium Level 142 mmol/L (136-145) Potassium Level 3.3 mmol/L (3.5-5.1) Chloride Level 105 mmol/L (98-107) Carbon Dioxide Level 29 mmol/L (21-32) Anion Gap 8 (6-14) Blood Urea Nitrogen 10 mg/dL (7-20) Creatinine 0.5 mg/dL (0.6-1.0) Estimated GFR (Cockcroft-Gault) 183.4 Glucose Level 157 mg/dL (70-99) Calcium Level 8.2 mg/dL (8.5-10.1) Laboratory Tests Test 06/03/18 11:44 06/03/18 16:44 06/03/18 19:58 06/04/18 04:10 Glucose (Fingerstick) 131 mg/dL (70-99) 120 mg/dL (70-99) 158 mg/dL (70-99) Magnesium Level 1.6 mg/dL (1.8-2.4) Test 06/04/18 04:20 White Blood Count 4.1 x10^3/uL (4.0-11.0) Red Blood Count 3.57 x10^6/uL (3.50-5.40) Hemoglobin 11.3 g/dL (12.0-15.5) Hematocrit 33.7 % (36.0-47.0) Mean Corpuscular Volume 94 fL (79-100) Mean Corpuscular Hemoglobin 32 pg (25-35) Mean Corpuscular Hemoglobin Concent 34 g/dL (31-37) Red Cell Distribution Width 12.7 % (11.5-14.5) Platelet Count 254 x10^3/uL (140-400) Neutrophils (%) (Auto) 48 % (31-73) Lymphocytes (%) (Auto) 42 % (24-48) Monocytes (%) (Auto) 7 % (0-9) Eosinophils (%) (Auto) 3 % (0-3) Basophils (%) (Auto) 1 % (0-3) Neutrophils # (Auto) 2.0 x10^3uL (1.8-7.7) Lymphocytes # (Auto) 1.8 x10^3/uL (1.0-4.8) Monocytes # (Auto) 0.3 x10^3/uL (0.0-1.1) Eosinophils # (Auto) 0.1 x10^3/uL (0.0-0.7) Basophils # (Auto) 0.0 x10^3/uL (0.0-0.2) Erythrocyte Sedimentation Rate 7 (0-25) Sodium Level 142 mmol/L (136-145) Potassium Level 3.3 mmol/L (3.5-5.1) Chloride Level 105 mmol/L (98-107) Carbon Dioxide Level 29 mmol/L (21-32) Anion Gap 8 (6-14) Blood Urea Nitrogen 10 mg/dL (7-20) Creatinine 0.5 mg/dL (0.6-1.0) Estimated GFR (Cockcroft-Gault) 183.4 Glucose Level 157 mg/dL (70-99) Calcium Level 8.2 mg/dL (8.5-10.1) Brief Hospital Course Ms. Kennedy is a 23 year old female with type 1 DM who presented with suprapubic abdominal pain and bilateral flank pain admitted for complicated UTI , cystitis, bilateral pyelonephritis, poorly controlled DM, hypokalemia, sepsis from UTI. She improved after 3 days of treatment. Still abdominal and bilateral flank pain that is improved. Sent home on tramadol Urine culture shows Escherichia coli, sosa-sensitive - sent on bactrim for 7 additional days. Was treated 3 days inpatient at another hospital and discharged with no additional antibiotics Eating well Sleeping fine No reports of loose stool today Potassium 3.3 this morning, replaced Plan: check labs outpatient Change to oral antibiotics - bactrim 7 days Need diabetic treatment with A1c of 12.9 - pen needles, pens prescription written Incompletely treated pyelonephritis - complete course on d/c Hx asthma - albuterol prn Overweight - counseled Diabetes - type 1 by history was diagnosed at age 17 in [place], [place]. Just established a PCP, has no operating room orderly. 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 Should be considered for a pump if she sees endo. Needs SONIA/ ARB, will start once she finishes bactrim course Sepsis 2/2 e. coli UTI - 3 days IV antibiotics and 7 days outpatient to complete course Loose BM - antibiotic related. Lactobacillus Discharge Information Condition at Discharge: Improved Follow Up: Weeks (2) Disposition/Orders: D/C to Home Scheduled Albuterol Sulfate (Ventolin Hfa Inhaler) 18 Gm Hfa.aer.ad, 2 PUFF INH Q4HRS for FOR ASTHMA, Ref 0 (Reported) Entered as Reported by: DAMIÁN TOTH RN on 06/01/181849 Last Taken: Unknown Dose on 06/01/18 0800 Last Action: New Order on 1849 by DAMIÁN TOTH RN Insulin Aspart (Novolog Flexpen) 100 Unit/1 Ml Insuln.pen, 23 UNIT SQ TIDWMEALS for Diabetes for 30 Days, #3 Ref 5 Plus sliding scale: 2u for every 50 u glucose Prescribed by: MARIA TERESA PATINO MD on 06/04/18 1103 Insulin Glargine,Hum.rec.anlog (Lantus Solostar) 100 Unit/1 Ml Insuln.pen, 40 UNIT SQ BID for Diabetes for 30 Days, #2 Ref 5 Prescribed by: MARIA TERESA PATINO MD on 06/04/18 1103 Losartan Potassium (Losartan Potassium ) 25 Mg Tablet, 25 MG PO DAILY for HYPERTENSION for 30 Days, #30 Don't start until you finish antibiotics. Prescribed by: MARIA TERESA PATINO MD on 06/04/18 1106 Sulfamethoxazole/Trimethoprim (Sulfamethoxazole-Tmp Ds Tablet) 1 Each Tablet, 1 TAB PO BID for UTI - e coli for 7 Days, #14 Prescribed by: MARIA TERESA PATINO MD on 06/04/18 1103 Scheduled PRN Hyoscyamine Sulfate (Levsin) 0.125 Mg Tablet, 0.125 MG PO PRN Q6HRS PRN for IBS, (Reported) Entered as Reported by: DAMIÁN TOTH RN on 06/01/181849 Last Taken: Unknown Dose on 05/29/18 08 Last Action: New Order on 1849 by DAMIÁN TOTH RN Loperamide Hcl (Loperamide) 2 Mg Capsule, 2 MG PO PRN QID PRN for DIARRHEA, ( Reported) Entered as Reported by: DAMIÁN TOTH RN on 06/01/181849 Last Taken: Unknown Dose on 05/29/18 08 Last Action: New Order on 1849 by DAMIÁN TOTH RN Tramadol Hcl (Tramadol Hcl) 50 Mg Tablet, 50 MG PO Q6HRS PRN for PAIN for 6 Days , #24 Prescribed by: MARIA TERESA PATINO MD on 06/04/18 1103 MARIA TERESA PATINO MD Jun 04, 2018 11:12
[2018-06-04 15:00] VITALS: BP 121/79
--- NOTE | 2018-06-04 17:21 | NUR ---
Patient discharged-home self care. Patient understands discharge instructions and already has follow up appointment with primary care physician. Patient given multiple prescriptions and education on each. Patient has been insulin dependent for the past 6 years- understands insulin doses and how to administer. Patient accompanied by family member. IV discontinued. All belongings with patient. Patient alert and stable upon discharge.
== END 2018-06-04 17:25 | disposition home or self-care (01) | DRG 872 ==
LOC: ER 11:57 → 5 SOUTH 18:06 → OBSVTOIN 18:06
PROVIDERS: ADMIT Family Medicine; ATTEND Family Medicine
DX: A41.51 Sepsis due to Escherichia coli [E. coli] (principal); N12 Tubulo-interstitial nephritis, not specified as acute or chronic; E66.01 Morbid (severe) obesity due to excess calories; N30.90 Cystitis, unspecified without hematuria; E03.9 Hypothyroidism, unspecified; E10.65 Type 1 diabetes mellitus with hyperglycemia; E87.6 Hypokalemia; J45.909 Unspecified asthma, uncomplicated; K58.9 Irritable bowel syndrome, unspecified; K76.0 Fatty (change of) liver, not elsewhere classified; Z79.4 Long term (current) use of insulin; Z82.49 Family history of ischemic heart disease and other diseases of the circulatory system; Z87.440 Personal history of urinary (tract) infections; Z68.28 Body mass index [BMI] 28.0-28.9, adult
CPT/HCPCS: 36415; 74177; 76830; 76856; 80048; 80053; 81001; 81025; 82962; 83036; 83690; 83735; 84703; 85025; 85651; 87040; 87086; 87186; 94640; 94760; 96361; 96374; 96375; J0696; J1170; J1815; J2405; J3010; J7030; J7613; Q9967; 99285-25

== ENCOUNTER 2018-12-13 17:55 | Emergency (ER) | payer BC ==
[~2018-12-13] VITALS: Ht 172.7 cm; Wt 90.7 kg
[~2018-12-13 17:55] MED LIST changes: +HYOS0.1264 PO; +INSU100I13 SQ; +INSU100I17 SQ; +LOPE2CAP PO; +LOSA25TA54 PO; +SULF-143 PO; +TRAM50TA PO; +VENTOLIN HFA18 GM INH
[2018-12-13 20:13] VITALS: BP 127/88
[2018-12-13] MEDS ORDERED: IV NORMAL SALINE 1000ML BAG 1,000 ML IV ONE (20:30)
[2018-12-13 20:33] LABS: BASO # 0.1 x10^3/uL (0.0-0.2); BASO % 1 % (0-3); EOS % 1 % (0-3); HEMATOCRIT 36.9 % (36.0-47.0); HEMOGLOBIN 12.8 g/dL (12.0-15.5); LYMPH # 1.9 x10^3/uL (1.0-4.8); LYMPH % 28 % (24-48); MEAN CORPUSCULAR HEMOGLOBIN 32 pg (25-35); MEAN CORPUSCULAR HGB CONC 35 g/dL (31-37); MEAN CORPUSCULAR VOLUME 92 fL (79-100); MONO # 0.3 x10^3/uL (0.0-1.1); MONO % 5 % (0-9); NEUT # 4.5 x10^3/uL (1.8-7.7); NEUT % 66 % (31-73); PLATELET COUNT 295 x10^3/uL (140-400); RED CELL DISTRIBUTION WIDTH 12.1 % (11.5-14.5); WHITE BLOOD COUNT 6.8 x10^3/uL (4.0-11.0)
[2018-12-13 20:35] LABS: BILIRUBIN,URINE NEGATIVE (NEG); CLARITY,URINE CLEAR; COLOR,URINE YELLOW; NITRITE,URINE NEGATIVE (NEG); PH,URINE 7.5; PROTEIN,URINE NEGATIVE (NEG-TRACE)
[2018-12-13 20:37] LABS: U PREG PATIENT POSITIVE (NEG)
[2018-12-13 20:41] LABS: BACTERIA,URINE 0 /HPF (0-FEW); RBC,URINE 0 /HPF (0-2); SQUAMOUS EPITHELIAL CELL,UR FEW /LPF; WBC,URINE RARE /HPF (0-4)
[2018-12-13 20:42] LABS: CREATININE 0.7 mg/dL (0.6-1.0); GFR 124.4; POTASSIUM 3.9 mmol/L (3.5-5.1)
[2018-12-13] MEDS ORDERED: ONDANSETRON PF 4 MG/2 ML VIAL. IV ONE (20:45)
[2018-12-13] MEDS ORDERED: ONDA4TAB12 PO (21:30)
--- NOTE | 2018-12-13 21:30 | PHYS DOC ---
Past Medical History Past Medical History: Asthma, Diabetes-Type I, Hypertension, Hyperthyroid Past Surgical History: No Surgical History Alcohol Use: None Drug Use: None Social History Narrative: MARIJUANA - LAST TIME 2 YEARS AGO Adult General Chief Complaint Chief Complaint: VOMITING IN HPI HPI Patient is a 23 year old AA female, accompanied by her mother, who presents to the emergency room with complaints of nausea and vomiting during . Patient states she is 7 weeks . Her last menstrual cycle was October 26, 2018. She is 1 para 0. Her estimated due date is August 02, 2019. Patient does not have an IRON BENDER at this time. She does complain of low back pain that she rates a 2 out of 10 on the pain scale, there are no alleviating or exacerbating factors. She is a type I diabetic. He has been unable to keep any food or fluids down for the last 48 hours. ROS Patient denies any fever, cough, shortness of breath, or chest pain. She denies any abdominal pain or diarrhea. She denies any irregular vaginal discharge, vaginal bleeding, vaginal odor, dysuria, hematuria, or increased urinary frequency. Patient denies any headache or dizziness. All other ROS is neg unless otherwise noted in HPI. Review of Systems Review of Systems See Above Current Medications Current Medications Current Medications Medications (Trade) Dose Ordered Sig/Indira Start Time Stop Time Status Last Admin Dose Admin Ondansetron HCl (Zofran) 4 mg 1X ONCE 12/13/18 20:45 12/13/18 20:46 DC 12/13/18 20:40 4 MG Sodium Chloride 1,000 ml @ 1,000 mls/hr 1X ONCE 12/13/18 20:30 12/13/18 21:29 12/13/18 20:40 1,000 MLS/HR Allergies Allergies Allergies Coded Allergies Type Severity Reaction Last Updated Verified No Known Drug Allergies 06/01/18 No Physical Exam Physical Exam See Above Constitutional: Well developed, well nourished, no acute distress, non-toxic appearance. [] HENT: Normocephalic, atraumatic, bilateral external ears normal, oropharynx moist, no oral exudates, nose normal. [] Eyes: PERRLA, EOMI, conjunctiva normal, no discharge. [] Neck: Normal range of motion, no tenderness, supple, no stridor. [] Cardiovascular:Heart rate regular rhythm, no murmur [] Lungs & Thorax: Bilateral breath sounds clear to auscultation [] Abdomen: Bowel sounds normal, soft, no tenderness, no masses, no pulsatile masses. [] Skin: Warm, dry, no erythema, no rash. [] Back: No CVA tenderness. [] Extremities: No cyanosis, no clubbing, ROM intact, no edema. [] Neurologic: Alert and oriented X 3, no focal deficits noted. [] Psychologic: Affect normal, judgement normal, mood normal. [] Current Patient Data Vital Signs Vital Signs Date Time Temp Pulse Resp B/P (MAP) Pulse Ox O2 Delivery O2 Flow Rate FiO2 12/13/18 20:13 97.3 98 20 127/88 (101) 100 Room Air 97.3 Lab Values Laboratory Tests Test 12/13/18 20:15 12/13/18 20:20 Urine Collection Type Unknown Urine Color Yellow Urine Clarity Clear Urine pH 7.5 Urine Specific [place] <=1.005 Urine Protein Negative mg/dL (NEG-TRACE) Urine Glucose (UA) Negative mg/dL (NEG) Urine Ketones (Stick) Negative mg/dL (NEG) Urine Blood Negative (NEG) Urine Nitrite Negative (NEG) Urine Bilirubin Negative (NEG) Urine Urobilinogen Dipstick 1.0 mg/dL (0.2 mg/dL) Urine Leukocyte Esterase Negative (NEG) Urine RBC 0 /HPF (0-2) Urine WBC Rare /HPF (0-4) Urine Squamous Epithelial Cells Few /LPF Urine Bacteria 0 /HPF (0-FEW) Urine Test Positive (NEG) White Blood Count 6.8 x10^3/uL (4.0-11.0) Red Blood Count 4.00 x10^6/uL (3.50-5.40) Hemoglobin 12.8 g/dL (12.0-15.5) Hematocrit 36.9 % (36.0-47.0) Mean Corpuscular Volume 92 fL (79-100) Mean Corpuscular Hemoglobin 32 pg (25-35) Mean Corpuscular Hemoglobin Concent 35 g/dL (31-37) Red Cell Distribution Width 12.1 % (11.5-14.5) Platelet Count 295 x10^3/uL (140-400) Neutrophils (%) (Auto) 66 % (31-73) Lymphocytes (%) (Auto) 28 % (24-48) Monocytes (%) (Auto) 5 % (0-9) Eosinophils (%) (Auto) 1 % (0-3) Basophils (%) (Auto) 1 % (0-3) Neutrophils # (Auto) 4.5 x10^3/uL (1.8-7.7) Lymphocytes # (Auto) 1.9 x10^3/uL (1.0-4.8) Monocytes # (Auto) 0.3 x10^3/uL (0.0-1.1) Eosinophils # (Auto) 0.0 x10^3/uL (0.0-0.7) Basophils # (Auto) 0.1 x10^3/uL (0.0-0.2) Sodium Level 140 mmol/L (136-145) Potassium Level 3.9 mmol/L (3.5-5.1) Chloride Level 104 mmol/L (98-107) Carbon Dioxide Level 28 mmol/L (21-32) Anion Gap 8 (6-14) Blood Urea Nitrogen 8 mg/dL (7-20) Creatinine 0.7 mg/dL (0.6-1.0) Estimated GFR (Cockcroft-Gault) 124.4 Glucose Level 117 mg/dL (70-99) H Calcium Level 9.0 mg/dL (8.5-10.1) Laboratory Tests 12/13/18 20:20 Laboratory Tests 12/13/18 20:20 EKG EKG [] Radiology/Procedures Radiology/Procedures [] Course & Med Decision Making Course & Med Decision Making Pertinent Labs and Imaging studies reviewed. (See chart for details) dx: Hyperemesis gravidarum Patient was given a liter of normal saline and 4 mg of Zofran in the emergency department, she reported feeling better and decreased nausea after these medications. Her CBC is unremarkable. Her CMP reveals a blood sugar 117 is otherwise unremarkable. Her urine is unremarkable. Patient was encouraged to follow-up with Dr. Lemon for further treatment and management of her . Prescription written for Zofran Patient verbalized an understanding of home care, medications, follow-up, and return to ED instructions and was in agreement with the plan of care. [] Dragon Disclaimer Dragon Disclaimer This electronic medical record was generated, in whole or in part, using a voice recognition dictation system. Departure Departure Impression: Primary Impression: Mild hyperemesis gravidarum Disposition: 01 HOME, SELF-CARE Condition: STABLE Referrals: DAVID LEMON Jr, MD Patient Instructions: Diet - Hyperemesis Gravidarum, Hyperemesis Gravidarum Additional Instructions: Fill the prescription and use it as directed. Recommend frequent small amounts of fluids, sugar-free popsicles would be a good choice. Follow-up with Dr. Lemon, call tomorrow to schedule an appointment. Return to the ER if your symptoms worsen. Scripts Ondansetron (ONDANSETRON ODT) 4 Mg Tab.rapdis 1 TAB PO PRN Q6-8HRS PRN for NAUSEA/VOMITING, #16 TAB 0 Refills Prov: SUSANNE COLÓN CASHIER MANAGER 12/13/18 SUSANNE COLÓN CASHIER MANAGER Dec 13, 2018 21:30
== END 2018-12-13 21:44 | disposition home or self-care (01) ==
LOC: ER 17:55
DX: O21.0 Mild hyperemesis gravidarum (principal); O24.911 Unspecified diabetes mellitus in pregnancy, first trimester; O16.1 Unspecified maternal hypertension, first trimester; O99.511 Diseases of the respiratory system complicating pregnancy, first trimester; J45.909 Unspecified asthma, uncomplicated; Z3A.01 Less than 8 weeks gestation of pregnancy
CPT/HCPCS: 36415; 80048; 81001; 81025; 85025; 96361; 96374; 99284; J2405; J7030

== ENCOUNTER 2018-12-20 11:51 | Emergency (ER) | payer BC ==
[~2018-12-20] VITALS: Ht 172.7 cm; Wt 90.7 kg
[~2018-12-20 11:51] MED LIST changes: +ONDA4TAB12 PO
[2018-12-20 12:34] LABS: BILIRUBIN,URINE NEGATIVE (NEG); CLARITY,URINE CLEAR; COLOR,URINE YELLOW; NITRITE,URINE NEGATIVE (NEG); PH,URINE 6.5; PROTEIN,URINE NEGATIVE (NEG-TRACE)
[2018-12-20 12:46] LABS: SQUAMOUS EPITHELIAL CELL,UR FEW /LPF
[2018-12-20 12:48] LABS: BACTERIA,URINE 0 /HPF (0-FEW); RBC,URINE 0 /HPF (0-2)
[2018-12-20] MEDS ORDERED: ONDANSETRON PF 4 MG/2 ML VIAL. IV ONE (13:00)
[2018-12-20] MEDS ORDERED: PROCHLORPERAZINE 10 MG/2 ML VIAL. IV ONE (13:00)
[2018-12-20] MEDS ORDERED: IV NORMAL SALINE 1000ML BAG 1,000 ML IV ONE (13:00)
[2018-12-20 13:05] LABS: BASO % 0 % (0-3); EOS % 0 % (0-3); HEMATOCRIT 40.4 % (36.0-47.0); HEMOGLOBIN 13.9 g/dL (12.0-15.5); LYMPH # 1.4 x10^3/uL (1.0-4.8); LYMPH % 20 % (24-48); MEAN CORPUSCULAR HEMOGLOBIN 32 pg (25-35); MEAN CORPUSCULAR HGB CONC 34 g/dL (31-37); MEAN CORPUSCULAR VOLUME 92 fL (79-100); MONO # 0.4 x10^3/uL (0.0-1.1); MONO % 6 % (0-9); NEUT # 5.1 x10^3/uL (1.8-7.7); NEUT % 73 % (31-73); PLATELET COUNT 322 x10^3/uL (140-400); RED BLOOD COUNT 4.39 x10^6/uL (3.50-5.40); RED CELL DISTRIBUTION WIDTH 12.4 % (11.5-14.5)
[2018-12-20 13:21] LABS: CALCIUM 9.2 mg/dL (8.5-10.1); CREATININE 0.6 mg/dL (0.6-1.0); GFR 148.6; POTASSIUM 4.2 mmol/L (3.5-5.1)
[2018-12-20 14:47] VITALS: BP 111/67
[2018-12-20] MEDS ORDERED: PROC10TA57 PO (14:49)
--- NOTE | 2018-12-20 14:49 | PHYS DOC ---
Past Medical History Past Medical History: Asthma, Diabetes-Type I, Hypertension, Hyperthyroid Past Surgical History: No Surgical History Alcohol Use: None Drug Use: None Adult General Chief Complaint Chief Complaint: VOMITING IN HPI HPI Patient is a 23 year old female with history of diabetes type 2, hypertension, anxiety, 1 para 0 currently 8 weeks who presents to the ED today complaining of nausea and vomiting that has been going on in the last 4 weeks but got worse in the last 2 days. Patient denies any hematemesis. Denies any abdominal pain. She states she was seen in the ED a couple days ago for the same complaint and was sent home with Zofran which is not relieving her symptom s. She states she is 8 weeks . She states she is following up with Dr. Lemon in 5 days. OBGYN-Dr. Lemon Review of Systems Review of Systems Constitutional: Denies fever or chills [] Eyes: Denies change in visual acuity, redness, or eye pain [] HENT: Denies nasal congestion or sore throat [] Respiratory: Denies cough or shortness of breath [] Cardiovascular: No additional information not addressed in HPI [] GI: Reports nausea and vomiting in . Denies abdominal pain, bloody stools or diarrhea [] : Denies dysuria or hematuria [] Musculoskeletal: Denies back pain or joint pain [] Integument: Denies rash or skin lesions [] Neurologic: Denies headache, focal weakness or sensory changes [] All other systems were reviewed and found to be within normal limits, except as documented in this note. Current Medications Current Medications Current Medications Medications (Trade) Dose Ordered Sig/Indira Start Time Stop Time Status Last Admin Dose Admin Ondansetron HCl (Zofran) 4 mg 1X ONCE 12/20/18 13:00 12/20/18 13:01 DC 12/20/18 13:43 4 MG Prochlorperazine Edisylate (Compazine) 10 mg 1X ONCE 12/20/18 13:00 12/20/18 13:01 DC 12/20/18 13:43 10 MG Sodium Chloride 1,000 ml @ 1,000 mls/hr 1X ONCE 12/20/18 13:00 12/20/18 13:59 DC 12/20/18 13:43 1,000 MLS/HR Allergies Allergies Allergies Coded Allergies Type Severity Reaction Last Updated Verified No Known Drug Allergies 06/01/18 No Physical Exam Physical Exam Constitutional: Well developed, well nourished, no acute distress, non-toxic appearance. [] HENT: Normocephalic, atraumatic, bilateral external ears normal, oropharynx moist, no oral exudates, nose normal. [] Eyes: PERRLA, EOMI, conjunctiva normal, no discharge. [] Neck: Normal range of motion, no tenderness, supple, no stridor. [] Cardiovascular:Heart rate regular rhythm, no murmur [] Lungs & Thorax: Bilateral breath sounds clear to auscultation [] Abdomen: Bowel sounds normal, soft, no tenderness, no masses, no pulsatile masses. [] Skin: Warm, dry, no erythema, no rash. [] Back: No tenderness, no CVA tenderness. [] Extremities: No tenderness, no cyanosis, no clubbing, ROM intact, no edema. [] Neurologic: Alert and oriented X 3, normal motor function, normal sensory function, no focal deficits noted. [] Psychologic: Affect normal, judgement normal, mood normal. [] Current Patient Data Vital Signs Vital Signs Date Time Temp Pulse Resp B/P (MAP) Pulse Ox O2 Delivery O2 Flow Rate FiO2 12/20/18 12:15 97.7 105 20 125/72 (89) 100 Room Air 97.7 Lab Values Laboratory Tests Test 12/20/18 12:17 12/20/18 12:20 12/20/18 12:26 Urine Collection Type Unknown Urine Color Yellow Urine Clarity Clear Urine pH 6.5 Urine Specific [place] 1.015 Urine Protein Negative mg/dL (NEG-TRACE) Urine Glucose (UA) Negative mg/dL (NEG) Urine Ketones (Stick) >=80 mg/dL (NEG) Urine Blood Negative (NEG) Urine Nitrite Negative (NEG) Urine Bilirubin Negative (NEG) Urine Urobilinogen Dipstick 1.0 mg/dL (0.2 mg/dL) Urine Leukocyte Esterase Negative (NEG) Urine RBC 0 /HPF (0-2) Urine WBC 1-4 /HPF (0-4) Urine Squamous Epithelial Cells Few /LPF Urine Bacteria 0 /HPF (0-FEW) Urine Mucus Marked /LPF White Blood Count 7.0 x10^3/uL (4.0-11.0) Red Blood Count 4.39 x10^6/uL (3.50-5.40) Hemoglobin 13.9 g/dL (12.0-15.5) Hematocrit 40.4 % (36.0-47.0) Mean Corpuscular Volume 92 fL (79-100) Mean Corpuscular Hemoglobin 32 pg (25-35) Mean Corpuscular Hemoglobin Concent 34 g/dL (31-37) Red Cell Distribution Width 12.4 % (11.5-14.5) Platelet Count 322 x10^3/uL (140-400) Neutrophils (%) (Auto) 73 % (31-73) Lymphocytes (%) (Auto) 20 % (24-48) L Monocytes (%) (Auto) 6 % (0-9) Eosinophils (%) (Auto) 0 % (0-3) Basophils (%) (Auto) 0 % (0-3) Neutrophils # (Auto) 5.1 x10^3/uL (1.8-7.7) Lymphocytes # (Auto) 1.4 x10^3/uL (1.0-4.8) Monocytes # (Auto) 0.4 x10^3/uL (0.0-1.1) Eosinophils # (Auto) 0.0 x10^3/uL (0.0-0.7) Basophils # (Auto) 0.0 x10^3/uL (0.0-0.2) Sodium Level 139 mmol/L (136-145) Potassium Level 4.2 mmol/L (3.5-5.1) Chloride Level 103 mmol/L (98-107) Carbon Dioxide Level 24 mmol/L (21-32) Anion Gap 12 (6-14) Blood Urea Nitrogen 10 mg/dL (7-20) Creatinine 0.6 mg/dL (0.6-1.0) Estimated GFR (Cockcroft-Gault) 148.6 Glucose Level 125 mg/dL (70-99) H Calcium Level 9.2 mg/dL (8.5-10.1) POC Urine HCG, Qualitative Hcg positive (Negative) Laboratory Tests 12/20/18 12:20 Laboratory Tests 12/20/18 12:20 EKG EKG [] Radiology/Procedures Radiology/Procedures [] Course & Med Decision Making Course & Med Decision Making Pertinent Labs and Imaging studies reviewed. (See chart for details) This is a 23-year-old female patient 1 para 0 currently 8 weeks presenting to the ED today with nausea and vomiting in that has been going on since she was 4 weeks . She was seen in the ED a couple days ago and was given Zofran, she states it's not helping with her symptoms. Her labs are negative for any acute findings. Was given IV fluids Compazine and Zofran in the ED with good relief of her symptoms. She has an appointment with in five days. Will be discharged with Compazine. Dragon Disclaimer Dragon Disclaimer This electronic medical record was generated, in whole or in part, using a voice recognition dictation system. Departure Departure Impression: Primary Impression: Mild hyperemesis gravidarum Disposition: 01 HOME, SELF-CARE Condition: STABLE Referrals: JANEY PATRICK (PCP) DAVID LEMON Jr, MD follow up as soon as you can Patient Instructions: Diet - Hyperemesis Gravidarum, Hyperemesis Gravidarum Additional Instructions: You were seen in the emergency room for nausea and vomiting in . Take the prescribed medication for nausea and vomiting as ordered. Follow-up with the [facility] as soon as possible. Scripts Prochlorperazine Maleate (Compazine) 10 Mg Tablet 10 MG PO TID, #30 TAB Prov: FAVIAN FRAGOSO APRN 12/20/18 FAVIAN FRAGOSO APRN Dec 20, 2018 14:49
== END 2018-12-20 15:12 | disposition home or self-care (01) ==
LOC: ER 11:51
DX: O21.0 Mild hyperemesis gravidarum (principal); O16.1 Unspecified maternal hypertension, first trimester; O24.911 Unspecified diabetes mellitus in pregnancy, first trimester; O99.511 Diseases of the respiratory system complicating pregnancy, first trimester; J45.909 Unspecified asthma, uncomplicated; Z3A.08 8 weeks gestation of pregnancy
CPT/HCPCS: 36415; 80048; 81001; 81025; 85025; 96361; 96374; 96375; 99284; J0780; J2405; J7030

== ENCOUNTER 2018-12-27 14:59 | Inpatient (IN) | payer BC ==
[~2018-12-27] VITALS: Ht 172.7 cm; Wt 94.3 kg
[~2018-12-27 14:59] MED LIST changes: +PROC10TA57 PO
[2018-12-27] MEDS ORDERED: IV NORMAL SALINE 1000ML BAG 1,000 ML IV ONE (15:45)
[2018-12-27] MEDS ORDERED: ONDANSETRON PF 4 MG/2 ML VIAL. IV ONE (15:45)
[2018-12-27 15:46] LABS: BASO % 1 % (0-3); EOS % 0 % (0-3); HEMATOCRIT 39.8 % (36.0-47.0); HEMOGLOBIN 13.8 g/dL (12.0-15.5); LYMPH # 1.6 x10^3/uL (1.0-4.8); LYMPH % 22 % (24-48); MEAN CORPUSCULAR HEMOGLOBIN 32 pg (25-35); MEAN CORPUSCULAR HGB CONC 35 g/dL (31-37); MEAN CORPUSCULAR VOLUME 92 fL (79-100); MONO # 0.5 x10^3/uL (0.0-1.1); MONO % 6 % (0-9); NEUT # 5.3 x10^3/uL (1.8-7.7); NEUT % 71 % (31-73); PLATELET COUNT 323 x10^3/uL (140-400); RED BLOOD COUNT 4.35 x10^6/uL (3.50-5.40); RED CELL DISTRIBUTION WIDTH 11.9 % (11.5-14.5); WHITE BLOOD COUNT 7.5 x10^3/uL (4.0-11.0)
[2018-12-27 15:47] LABS: BILIRUBIN,URINE SMALL (NEG); CLARITY,URINE CLEAR; NITRITE,URINE NEGATIVE (NEG); PH,URINE 6.5; PROTEIN,URINE 30 mg/dL (NEG-TRACE)
[2018-12-27 15:55] LABS: BACTERIA,URINE FEW /HPF (0-FEW); COLOR,URINE DK YELLOW; RBC,URINE 0 /HPF (0-2); SQUAMOUS EPITHELIAL CELL,UR MOD /LPF
[2018-12-27 15:56] LABS: CALCIUM 9.5 mg/dL (8.5-10.1); CREATININE 0.6 mg/dL (0.6-1.0); GFR 148.6; POTASSIUM 4.1 mmol/L (3.5-5.1)
[2018-12-27 16:01] LABS: ALBUMIN 3.9 g/dL (3.4-5.0); TOTAL BILIRUBIN 1.3 mg/dL (0.2-1.0)
--- NOTE | 2018-12-27 16:18 | RAD ---
PREG 1ST TRIMESTER History: Lower abdominal pain. Comparison: None. Technique: Grayscale and color Doppler imaging of the pelvis was performed using transabdominal and transvaginal technique. Findings: The uterus measures 8.1 x 7.4 x 5.4 cm in length. Sigmoid uterine with crown-rump length 2 cm. Estimated ultrasound gestational age 8 weeks 4 days. Yolk sac is identified. Cardiac activity with heart rate 182 bpm. Cervical length 4.1 cm. Right ovary measures 4.8 x 2.9 x 2.8 cm and is unremarkable. Left ovary measures 3.0 x 2.4 x 2.0 cm and is unremarkable. No adnexal masses are seen. Physiologic fluid within the posterior cul-de-sac. IMPRESSION: 1. Intrauterine gestational age 8 weeks 4 days with heart rate 182 bpm. Electronically signed by: Dallin Dupree DO (12/27/2018 4:15 PM) [facility]
[2018-12-27] MEDS ORDERED: fentaNYL PF VIAL 100 MCG/2 ML VIAL IV ONE (16:30)
[2018-12-27] MEDS ORDERED: ONDANSETRON PF 4 MG/2 ML VIAL. IV PRN (17:00)
[2018-12-27] MEDS ORDERED: DEXTROSE 50% 25 GM / 50ML DISP.SYRIN. IV PRN (17:15)
[2018-12-27] MEDS ORDERED: IV DEXTROSE 5% - 0.9 % NACL 1,000 ML IV ONE (17:15)
[2018-12-27] MEDS ORDERED: IV DEXTROSE 5% 250 ML BAG. IV PRN (17:15)
[2018-12-27] MEDS ORDERED: METOCLOPRAMIDE HCL 10 MG/2 ML VIAL. IV PRN (17:45)
[2018-12-27] MEDS: IV NORMAL SALINE 1000ML BAG 1,000 ML IV SCH (17:45)
--- NOTE | 2018-12-27 18:08 | PHYS DOC ---
Past Medical History Past Medical History: Asthma, Diabetes-Type I, Hypertension, Hyperthyroid Past Surgical History: No Surgical History Alcohol Use: None Drug Use: None Adult General Chief Complaint Chief Complaint: VOMITING IN HPI HPI Patient is a 23 year old AA female, accompanied by her grandmother, who presents to the emergency department with complaints of nausea and vomiting since Monday. Patient states she is , 1, para 0. Her last menstrual period was October 26, 2018 and her estimated due date is August 02, 2019. Patient states she has vomited at least 12 times today. She denies any diarrhea, fever, hematuria, increased urinary frequency, or dysuria. She complains of lower abdominal pain and low back pain, she denies any vaginal discharge or vaginal bleeding. Her [employer] is Dr. Lemon, who she saw on Monday. She currently rates her pain 8 out of 10 on the pain scale, there are no alleviating or exacerbating factors. Review of Systems Review of Systems Constitutional: Denies fever or chills [] Eyes: Denies change in visual acuity, redness, or eye pain [] HENT: Denies nasal congestion or sore throat [] Respiratory: Denies cough or shortness of breath [] Cardiovascular: No additional information not addressed in HPI [] GI: see HPI : Denies dysuria or hematuria, see HPI [] Musculoskeletal: Denies joint pain [] Integument: Denies rash or skin lesions [] Neurologic: Denies headache, focal weakness or sensory changes [] Endocrine: Denies hyperglycemia, polyphagia, polyuria. or polydipsia [] Complete systems were reviewed and found to be within normal limits, except as documented in this note. Current Medications Current Medications Current Medications Medications (Trade) Dose Ordered Sig/[facility] Start Time Stop Time Status Last Admin Dose Admin Fentanyl Citrate (Fentanyl 2ml Vial) 50 mcg 1X ONCE 12/27/18 16:30 12/27/18 16:31 DC 12/27/18 16:35 50 MCG Ondansetron HCl (Zofran) 4 mg 1X ONCE 12/27/18 15:45 12/27/18 15:46 DC 12/27/18 15:57 4 MG Sodium Chloride 1,000 ml @ 1,000 mls/hr 1X ONCE 12/27/18 15:45 12/27/18 16:44 DC 12/27/18 15:57 1,000 MLS/HR Allergies Allergies Allergies Coded Allergies Type Severity Reaction Last Updated Verified No Known Drug Allergies 06/01/18 No Physical Exam Physical Exam Constitutional: Well developed, well nourished, no acute distress, non-toxic appearance. [] HENT: Normocephalic, atraumatic, bilateral external ears normal, dry mucous membranes, no oral exudates, nose normal. [] Eyes: PERRLA, EOMI, conjunctiva normal, no discharge. [] Neck: Normal range of motion, no stridor. [] Cardiovascular:Heart rate regular rhythm, no murmur [] Lungs & Thorax: Bilateral breath sounds clear to auscultation [] Abdomen: Bowel sounds normal, soft, suprapubic TTP, no rebound tenderness, no masses, no pulsatile masses. [] Skin: Warm, dry, no erythema, no rash. [] Back: bilateral CVA tenderness. [] Extremities: No cyanosis, ROM intact, no edema. [] Neurologic: Alert and oriented X 3, no focal deficits noted. [] Psychologic: Affect normal, judgement normal, mood normal. [] Current Patient Data Vital Signs Vital Signs Date Time Temp Pulse Resp B/P (MAP) Pulse Ox O2 Delivery O2 Flow Rate FiO2 12/27/18 16:35 20 100 Room Air 12/27/18 15:08 97.7 99 133/73 (93) 97.7 Lab Values Laboratory Tests Test 12/27/18 15:10 12/27/18 15:23 12/27/18 15:30 Urine Collection Type Void Urine Color Dk yellow Urine Clarity Clear Urine pH 6.5 Urine Specific [place] 1.025 Urine Protein 30 mg/dL (NEG-TRACE) Urine Glucose (UA) Negative mg/dL (NEG) Urine Ketones (Stick) >=80 mg/dL (NEG) Urine Blood Negative (NEG) Urine Nitrite Negative (NEG) Urine Bilirubin Small (NEG) Urine Urobilinogen Dipstick 1.0 mg/dL (0.2 mg/dL) Urine Leukocyte Esterase Negative (NEG) Urine RBC 0 /HPF (0-2) Urine WBC 1-4 /HPF (0-4) Urine Squamous Epithelial Cells Mod /LPF Urine Bacteria Few /HPF (0-FEW) Urine Mucus Marked /LPF Glucose (Fingerstick) 101 mg/dL (70-99) H White Blood Count 7.5 x10^3/uL (4.0-11.0) Red Blood Count 4.35 x10^6/uL (3.50-5.40) Hemoglobin 13.8 g/dL (12.0-15.5) Hematocrit 39.8 % (36.0-47.0) Mean Corpuscular Volume 92 fL (79-100) Mean Corpuscular Hemoglobin 32 pg (25-35) Mean Corpuscular Hemoglobin Concent 35 g/dL (31-37) Red Cell Distribution Width 11.9 % (11.5-14.5) Platelet Count 323 x10^3/uL (140-400) Neutrophils (%) (Auto) 71 % (31-73) Lymphocytes (%) (Auto) 22 % (24-48) L Monocytes (%) (Auto) 6 % (0-9) Eosinophils (%) (Auto) 0 % (0-3) Basophils (%) (Auto) 1 % (0-3) Neutrophils # (Auto) 5.3 x10^3/uL (1.8-7.7) Lymphocytes # (Auto) 1.6 x10^3/uL (1.0-4.8) Monocytes # (Auto) 0.5 x10^3/uL (0.0-1.1) Eosinophils # (Auto) 0.0 x10^3/uL (0.0-0.7) Basophils # (Auto) 0.0 x10^3/uL (0.0-0.2) Maternal Serum HCG Beta Subunit 88265 mIU/mL (0-5) H Sodium Level 141 mmol/L (136-145) Potassium Level 4.1 mmol/L (3.5-5.1) Chloride Level 102 mmol/L (98-107) Carbon Dioxide Level 26 mmol/L (21-32) Anion Gap 13 (6-14) Blood Urea Nitrogen 10 mg/dL (7-20) Creatinine 0.6 mg/dL (0.6-1.0) Estimated GFR (Cockcroft-Gault) 148.6 BUN/Creatinine Ratio 17 (6-20) Glucose Level 104 mg/dL (70-99) H Calcium Level 9.5 mg/dL (8.5-10.1) Total Bilirubin 1.3 mg/dL (0.2-1.0) H Aspartate Amino Transferase (AST) 26 U/L (15-37) Alanine Aminotransferase (ALT) 41 U/L (14-59) Alkaline Phosphatase 86 U/L (46-116) Total Protein 8.0 g/dL (6.4-8.2) Albumin 3.9 g/dL (3.4-5.0) Albumin/Globulin Ratio 1.0 (1.0-1.7) Laboratory Tests 12/27/18 15:30 Laboratory Tests 12/27/18 15:30 EKG EKG [] Radiology/Procedures Radiology/Procedures PROCEDURE: PREG 1ST TRIMESTER PREG 1ST TRIMESTER History: Lower abdominal pain. Comparison: None. Technique: Grayscale and color Doppler imaging of the pelvis was performed using transabdominal and transvaginal technique. Findings: The uterus measures 8.1 x 7.4 x 5.4 cm in length. Sigmoid uterine with crown-rump length 2 cm. Estimated ultrasound gestational age 8 weeks 4 days. Yolk sac is identified. Cardiac activity with heart rate 182 bpm. Cervical length 4.1 cm. Right ovary measures 4.8 x 2.9 x 2.8 cm and is unremarkable. Left ovary measures 3.0 x 2.4 x 2.0 cm and is unremarkable. No adnexal masses are seen. Physiologic fluid within the posterior cul-de-sac. IMPRESSION: 1. Intrauterine gestational age 8 weeks 4 days with heart rate 182 bpm. [] Course & Med Decision Making Course & Med Decision Making Pertinent Labs and Imaging studies reviewed. (See chart for details) dx: Hyperemesis gravidarum CBC unremarkable, CMP elevated bilirubin 1.3, UA concerning for small amount of bilirubin otherwise unremarkable. Ultrasound was negative for any acute findings. 1644- spoke with Dr. Lemon who will admit patient for hyperemesis gravidarum. According to Dr. Lemon initiate D5NS 150 mL/h, repeat the BMP in 2 hours, and order low dose sliding scale insulin. Also consult hospitalist. Pt care assumed by Dr. Lemon at this time. [] Dragon Disclaimer Dragon Disclaimer This electronic medical record was generated, in whole or in part, using a voice recognition dictation system. Departure Departure Impression: Primary Impression: Mild hyperemesis gravidarum Disposition: ADMITTED INPATIENT Admitting Physician: SHABBIR Velasquez) Condition: STABLE Referrals: JANEY PATRICK (PCP) SUSANNE COLÓN MAINTENANCE SCHEDULER Dec 27, 2018 18:08
[2018-12-27 19:00] VITALS: BP 118/82
--- NOTE | 2018-12-27 19:15 | NUR ---
Patient admitted to ICU room 102 at 1820. Patient's grandmother at bedside. Patient able to answer admission questions, verify no allergies. Patient is nauseated, but has only been dry heaving x2, no emesis. See US, VS. Patient stable, attempting to sleep at this time.
[2018-12-27] MEDS ORDERED: NPH,100I3 SQ ×2 (19:33→22:34)
[2018-12-27] MEDS: ONDANSETRON PF 4 MG/2 ML VIAL. IV SCH (19:59)
[2018-12-27 20:00] VITALS: BP 114/70
[2018-12-27 20:11] LABS: CALCIUM 8.9 mg/dL (8.5-10.1); CREATININE 0.5 mg/dL (0.6-1.0); GFR 183.4; POTASSIUM 3.9 mmol/L (3.5-5.1)
[2018-12-27] MEDS ORDERED: METO10TA81 PO (20:15)
[2018-12-27 20:25] LABS: FREE T4 1.1 ng/dL (0.76-1.46); THYROID STIM HORMONE (TSH) 0.43 uIU/mL (0.358-3.74)
--- NOTE | 2018-12-27 20:42 | PDOC1 ---
OB - History Hx of Present Care: None Ultrasounds: No ultrasounds Obstetrical Complications: Hyperemesis Medical Complications: Other (DM Type 1) Past Family/Social History * Past Medical, Surgical, Family and Obstetric Histories reviewed from chart. Rubella: Immune RPR/VDRL: Negative GBS Status: Unknown HBsAG: Negative OB - Chief Complaint & HPI Date of Admission: Date of Admission: Dec 27, 2018 at 16:54 Chief Complaint/History : 1 Para: 0 EGA: 8 Reason for admission: other (Hyperemesis and DM Type 1) Admission Nurse Assessment Rev: Yes OB - Admission Exam Physical Exam Vitals: VS - Last 72 Hours, by Label Date Time Temp Pulse Resp B/P (MAP) Pulse Ox O2 Delivery O2 Flow Rate FiO2 12/27/18 18:24 97 16 137/87 (104) 100 Room Air 12/27/18 17:41 88 16 122/83 (96) 100 Room Air 12/27/18 17:11 86 16 117/79 (92) 99 Room Air 12/27/18 16:35 20 100 Room Air 12/27/18 16:11 95 16 130/88 (102) 99 Room Air 12/27/18 16:02 96 16 119/83 (95) 99 Room Air 12/27/18 15:41 94 16 122/82 (95) 86 Room Air 12/27/18 15:11 101 16 133/73 (93) 100 Room Air 12/27/18 15:08 97.7 99 20 133/73 (93) 100 Room Air 97.7 HEENT: Other (Dry mucous membranes) Heart: Regular Rate Lungs: Clear Abdomen: Gravid, Non tender, Soft Extremities: No tenderness or swelling Reflexes: Normal Cervical Dilatation: None Effacement: 0% Station: Ballotable Membranes: Intact Contractions on Admission: None Text A: 8 wks IUP Hyperemesis Gravidarum with electrolyte imbalance DM Type 1 P: Admit ICU for fluid replacement and management of DM Type 1. DAVID NIELSON Jr, MD Dec 27, 2018 20:42
[2018-12-27 21:00] VITALS: BP 109/67
[2018-12-27] MEDS: FAMOTIDINE 20 MG/2 ML VIAL IVP SCH (21:25)
[2018-12-27 22:00] VITALS: BP 116/73
[2018-12-27] MEDS ORDERED: INSU100I17 SQ ×3 (22:34)
[2018-12-27 23:00] VITALS: BP 105/67
[2018-12-28] VITALS (16 sets, daily range): BP systolic 104–124; BP diastolic 62–87
[2018-12-28] MEDS: ONDANSETRON PF 4 MG/2 ML VIAL. IV SCH ×4 (00:38→17:32)
[2018-12-28] MEDS: IV NORMAL SALINE 1000ML BAG 1,000 ML IV SCH ×3 (03:31→17:46)
[2018-12-28 04:52] LABS: BASO % 0 % (0-3); EOS % 1 % (0-3); HEMATOCRIT 35.4 % (36.0-47.0); HEMOGLOBIN 12.2 g/dL (12.0-15.5); LYMPH # 1.9 x10^3/uL (1.0-4.8); LYMPH % 28 % (24-48); MEAN CORPUSCULAR HEMOGLOBIN 32 pg (25-35); MEAN CORPUSCULAR HGB CONC 35 g/dL (31-37); MEAN CORPUSCULAR VOLUME 92 fL (79-100); MONO # 0.5 x10^3/uL (0.0-1.1); MONO % 8 % (0-9); NEUT # 4.1 x10^3/uL (1.8-7.7); NEUT % 63 % (31-73); PLATELET COUNT 280 x10^3/uL (140-400); RED BLOOD COUNT 3.86 x10^6/uL (3.50-5.40); RED CELL DISTRIBUTION WIDTH 11.9 % (11.5-14.5); WHITE BLOOD COUNT 6.5 x10^3/uL (4.0-11.0)
[2018-12-28 05:10] LABS: ALBUMIN 3.1 g/dL (3.4-5.0); ALBUMIN/GLOBULIN RATIO 0.9 (1.0-1.7); CALCIUM 8.6 mg/dL (8.5-10.1); CREATININE 0.6 mg/dL (0.6-1.0); GFR 148.6; POTASSIUM 3.5 mmol/L (3.5-5.1); TOTAL BILIRUBIN 1.1 mg/dL (0.2-1.0); TOTAL PROTEIN 6.5 g/dL (6.4-8.2)
[2018-12-28] MEDS ORDERED: PROMETHAZINE 25 MG SUPP.RECT. PR PRN (07:30)
[2018-12-28] MEDS: INSULIN LISPRO 300 UNITS/3 ML VIAL. SQ SCH ×3 (08:00→17:00)
[2018-12-28] MEDS: METOCLOPRAMIDE HCL 10 MG/2 ML VIAL. IV SCH ×3 (08:06→17:31)
[2018-12-28] MEDS: FAMOTIDINE 20 MG/2 ML VIAL IVP SCH (08:07)
--- NOTE | 2018-12-28 12:15 | NUR ---
Pt admitted to room 339 from ICU via w/c. Pt. oriented to room, call light, and POC. Pt. with mild complaints of abdominal pain and nausea, no other complaints and denies needs. Will order pt. a lunch tray and monitor closely.
--- NOTE | 2018-12-28 12:18 | NUR ---
SS following for discharge planning. SS reviewed pt chart. Pt is from home and is currently on room air. No discharge needs noted at this time. SS will continue to follow for discharge planning.
--- NOTE | 2018-12-28 18:11 | PDOC ---
OB Progress Note Date of Service 12/28/18 Time of Evaluation 0721 Problem List Problems Medical Problems: (1) DM type 1 (diabetes mellitus, type 1) Status: Chronic (2) Mild hyperemesis gravidarum Status: Acute Notes Pt. had 25% breakfast and smaller amount at lunch. She had emesis after lunch. Zofran does not appear to be effective. Will continue Reglan and add Phenergan suppository. Continue with IV fluids and encourage solid foods to help manage DM. Lab Laboratory Tests Test 12/27/18 15:10 12/27/18 15:23 12/27/18 15:30 12/27/18 19:15 Urine Collection Type Void Urine Color Dk yellow Urine Clarity Clear Urine pH 6.5 Urine Specific [place] 1.025 Urine Protein 30 mg/dL (NEG-TRACE) Urine Glucose (UA) Negative mg/dL (NEG) Urine Ketones (Stick) >=80 mg/dL (NEG) Urine Blood Negative (NEG) Urine Nitrite Negative (NEG) Urine Bilirubin Small (NEG) Urine Urobilinogen Dipstick 1.0 mg/dL (0.2 mg/dL) Urine Leukocyte Esterase Negative (NEG) Urine RBC 0 /HPF (0-2) Urine WBC 1-4 /HPF (0-4) Urine Squamous Epithelial Cells Mod /LPF Urine Bacteria Few /HPF (0-FEW) Urine Mucus Marked /LPF Glucose (Fingerstick) 101 mg/dL (70-99) 81 mg/dL (70-99) White Blood Count 7.5 x10^3/uL (4.0-11.0) Red Blood Count 4.35 x10^6/uL (3.50-5.40) Hemoglobin 13.8 g/dL (12.0-15.5) Hematocrit 39.8 % (36.0-47.0) Mean Corpuscular Volume 92 fL (79-100) Mean Corpuscular Hemoglobin 32 pg (25-35) Mean Corpuscular Hemoglobin Concent 35 g/dL (31-37) Red Cell Distribution Width 11.9 % (11.5-14.5) Platelet Count 323 x10^3/uL (140-400) Neutrophils (%) (Auto) 71 % (31-73) Lymphocytes (%) (Auto) 22 % (24-48) Monocytes (%) (Auto) 6 % (0-9) Eosinophils (%) (Auto) 0 % (0-3) Basophils (%) (Auto) 1 % (0-3) Neutrophils # (Auto) 5.3 x10^3/uL (1.8-7.7) Lymphocytes # (Auto) 1.6 x10^3/uL (1.0-4.8) Monocytes # (Auto) 0.5 x10^3/uL (0.0-1.1) Eosinophils # (Auto) 0.0 x10^3/uL (0.0-0.7) Basophils # (Auto) 0.0 x10^3/uL (0.0-0.2) Maternal Serum HCG Beta Subunit 12036 mIU/mL (0-5) Sodium Level 141 mmol/L (136-145) Potassium Level 4.1 mmol/L (3.5-5.1) Chloride Level 102 mmol/L (98-107) Carbon Dioxide Level 26 mmol/L (21-32) Anion Gap 13 (6-14) Blood Urea Nitrogen 10 mg/dL (7-20) Creatinine 0.6 mg/dL (0.6-1.0) Estimated GFR (Cockcroft-Gault) 148.6 BUN/Creatinine Ratio 17 (6-20) Glucose Level 104 mg/dL (70-99) Calcium Level 9.5 mg/dL (8.5-10.1) Total Bilirubin 1.3 mg/dL (0.2-1.0) Aspartate Amino Transf (AST/SGOT) 26 U/L (15-37) Alanine Aminotransferase (ALT/SGPT) 41 U/L (14-59) Alkaline Phosphatase 86 U/L (46-116) Total Protein 8.0 g/dL (6.4-8.2) Albumin 3.9 g/dL (3.4-5.0) Albumin/Globulin Ratio 1.0 (1.0-1.7) Test 12/27/18 19:30 12/27/18 20:13 12/27/18 21:24 12/27/18 22:21 Sodium Level 142 mmol/L (136-145) Potassium Level 3.9 mmol/L (3.5-5.1) Chloride Level 105 mmol/L (98-107) Carbon Dioxide Level 28 mmol/L (21-32) Anion Gap 9 (6-14) Blood Urea Nitrogen 10 mg/dL (7-20) Creatinine 0.5 mg/dL (0.6-1.0) Estimated GFR (Cockcroft-Gault) 183.4 Glucose Level 96 mg/dL (70-99) Calcium Level 8.9 mg/dL (8.5-10.1) Thyroid Stimulating Hormone (TSH) 0.430 uIU/mL (0.358-3.74) Free Thyroxine 1.10 ng/dL (0.76-1.46) Glucose (Fingerstick) 93 mg/dL (70-99) 108 mg/dL (70-99) 117 mg/dL (70-99) Test 12/28/18 04:35 12/28/18 08:03 12/28/18 11:50 White Blood Count 6.5 x10^3/uL (4.0-11.0) Red Blood Count 3.86 x10^6/uL (3.50-5.40) Hemoglobin 12.2 g/dL (12.0-15.5) Hematocrit 35.4 % (36.0-47.0) Mean Corpuscular Volume 92 fL (79-100) Mean Corpuscular Hemoglobin 32 pg (25-35) Mean Corpuscular Hemoglobin Concent 35 g/dL (31-37) Red Cell Distribution Width 11.9 % (11.5-14.5) Platelet Count 280 x10^3/uL (140-400) Neutrophils (%) (Auto) 63 % (31-73) Lymphocytes (%) (Auto) 28 % (24-48) Monocytes (%) (Auto) 8 % (0-9) Eosinophils (%) (Auto) 1 % (0-3) Basophils (%) (Auto) 0 % (0-3) Neutrophils # (Auto) 4.1 x10^3/uL (1.8-7.7) Lymphocytes # (Auto) 1.9 x10^3/uL (1.0-4.8) Monocytes # (Auto) 0.5 x10^3/uL (0.0-1.1) Eosinophils # (Auto) 0.0 x10^3/uL (0.0-0.7) Basophils # (Auto) 0.0 x10^3/uL (0.0-0.2) Sodium Level 141 mmol/L (136-145) Potassium Level 3.5 mmol/L (3.5-5.1) Chloride Level 107 mmol/L (98-107) Carbon Dioxide Level 25 mmol/L (21-32) Anion Gap 9 (6-14) Blood Urea Nitrogen 9 mg/dL (7-20) Creatinine 0.6 mg/dL (0.6-1.0) Estimated GFR (Cockcroft-Gault) 148.6 BUN/Creatinine Ratio 15 (6-20) Glucose Level 117 mg/dL (70-99) Calcium Level 8.6 mg/dL (8.5-10.1) Total Bilirubin 1.1 mg/dL (0.2-1.0) Aspartate Amino Transf (AST/SGOT) 21 U/L (15-37) Alanine Aminotransferase (ALT/SGPT) 37 U/L (14-59) Alkaline Phosphatase 74 U/L (46-116) Total Protein 6.5 g/dL (6.4-8.2) Albumin 3.1 g/dL (3.4-5.0) Albumin/Globulin Ratio 0.9 (1.0-1.7) Glucose (Fingerstick) 120 mg/dL (70-99) 92 mg/dL (70-99) Laboratory Tests Test 12/27/18 19:15 12/27/18 19:30 12/27/18 20:13 12/27/18 21:24 Glucose (Fingerstick) 81 mg/dL (70-99) 93 mg/dL (70-99) 108 mg/dL (70-99) Sodium Level 142 mmol/L (136-145) Potassium Level 3.9 mmol/L (3.5-5.1) Chloride Level 105 mmol/L (98-107) Carbon Dioxide Level 28 mmol/L (21-32) Anion Gap 9 (6-14) Blood Urea Nitrogen 10 mg/dL (7-20) Creatinine 0.5 mg/dL (0.6-1.0) Estimated GFR (Cockcroft-Gault) 183.4 Glucose Level 96 mg/dL (70-99) Calcium Level 8.9 mg/dL (8.5-10.1) Thyroid Stimulating Hormone (TSH) 0.430 uIU/mL (0.358-3.74) Free Thyroxine 1.10 ng/dL (0.76-1.46) Test 12/27/18 22:21 12/28/18 04:35 12/28/18 08:03 12/28/18 11:50 Glucose (Fingerstick) 117 mg/dL (70-99) 120 mg/dL (70-99) 92 mg/dL (70-99) White Blood Count 6.5 x10^3/uL (4.0-11.0) Red Blood Count 3.86 x10^6/uL (3.50-5.40) Hemoglobin 12.2 g/dL (12.0-15.5) Hematocrit 35.4 % (36.0-47.0) Mean Corpuscular Volume 92 fL (79-100) Mean Corpuscular Hemoglobin 32 pg (25-35) Mean Corpuscular Hemoglobin Concent 35 g/dL (31-37) Red Cell Distribution Width 11.9 % (11.5-14.5) Platelet Count 280 x10^3/uL (140-400) Neutrophils (%) (Auto) 63 % (31-73) Lymphocytes (%) (Auto) 28 % (24-48) Monocytes (%) (Auto) 8 % (0-9) Eosinophils (%) (Auto) 1 % (0-3) Basophils (%) (Auto) 0 % (0-3) Neutrophils # (Auto) 4.1 x10^3/uL (1.8-7.7) Lymphocytes # (Auto) 1.9 x10^3/uL (1.0-4.8) Monocytes # (Auto) 0.5 x10^3/uL (0.0-1.1) Eosinophils # (Auto) 0.0 x10^3/uL (0.0-0.7) Basophils # (Auto) 0.0 x10^3/uL (0.0-0.2) Sodium Level 141 mmol/L (136-145) Potassium Level 3.5 mmol/L (3.5-5.1) Chloride Level 107 mmol/L (98-107) Carbon Dioxide Level 25 mmol/L (21-32) Anion Gap 9 (6-14) Blood Urea Nitrogen 9 mg/dL (7-20) Creatinine 0.6 mg/dL (0.6-1.0) Estimated GFR (Cockcroft-Gault) 148.6 BUN/Creatinine Ratio 15 (6-20) Glucose Level 117 mg/dL (70-99) Calcium Level 8.6 mg/dL (8.5-10.1) Total Bilirubin 1.1 mg/dL (0.2-1.0) Aspartate Amino Transf (AST/SGOT) 21 U/L (15-37) Alanine Aminotransferase (ALT/SGPT) 37 U/L (14-59) Alkaline Phosphatase 74 U/L (46-116) Total Protein 6.5 g/dL (6.4-8.2) Albumin 3.1 g/dL (3.4-5.0) Albumin/Globulin Ratio 0.9 (1.0-1.7) Medications Current Medications Sodium Chloride 1,000 ml @ 1,000 mls/hr 1X ONCE IV Last administered on 12/27/18at 15:57; Start 12/27/18 at 15:45; Stop 12/27/18 at 16:44; Status DC Ondansetron HCl (Zofran) 4 mg 1X ONCE IV Last administered on 12/27/18at 15:57; Start 12/27/18 at 15:45; Stop 12/27/18 at 15:46; Status DC Fentanyl Citrate (Fentanyl 2ml Vial) 50 mcg 1X ONCE IV Last administered on 12/27/18at 16:35; Start 12/27/18 at 16:30; Stop 12/27/18 at 16:31; Status DC Ondansetron HCl (Zofran) 4 mg PRN Q8HRS PRN IV NAUSEA/VOMITING; Start 12/27/18 at 17:00; Stop 12/28/18 at 16:59; Status DC Dextrose/Sodium Chloride 1,000 ml @ 125 mls/hr 1X ONCE IV Last administered on 12/27/18at 19:23; Start 12/27/18 at 17:15; Stop 12/28/18 at 01:14; Status DC Insulin Human Lispro (HumaLOG) 0-5 UNITS TIDWMEALS SQ ; Start 12/28/18 at 08:00 Dextrose (Dextrose 50%-Water Syringe) 12.5 gm PRN Q15MIN PRN IV SEE COMMENTS; Start 12/27/18 at 17:15 Dextrose 250 ml PRN Q15MIN PRN IV SEE COMMENTS; Start 12/27/18 at 17:15 Sodium Chloride 1,000 ml @ 150 mls/hr Q6H40M IV Last administered on 12/28/18at 17:46; Start 12/27/18 at 17:45 Ondansetron HCl (Zofran) 4 mg Q6HRS IV Last administered on 12/28/18at 17:35; Start 12/27/18 at 18:00 Metoclopramide HCl (Reglan Vial) 10 mg PRN Q8HRS PRN IV NAUSEA/VOMITING Last administered on 12/28/18at 02:42; Start 12/27/18 at 17:45; Stop 12/28/18 at 07:28; Status DC Famotidine (Pepcid Vial) 20 mg BID IVP Last administered on 12/28/18at 08:07; Start 12/27/18 at 21:00 Metoclopramide HCl (Reglan Vial) 10 mg Q6HRS IV Last administered on 12/28/18at 17:35; Start 12/28/18 at 08:00 Promethazine HCl (Phenergan Supp) 25 mg PRN Q12HR PRN ND NAUSEA/VOMITING; Start 12/28/18 at 07:30; Stop 12/28/18 at 07:42; Status DC Active Scripts Active Reported Novolog Flexpen (Insulin Aspart) 100 Unit/1 Ml Insuln.pen 12 Unit SQ DAILYBFRSUP Novolog Flexpen (Insulin Aspart) 100 Unit/1 Ml Insuln.pen 14 Unit SQ DAILYBFRLUN Novolog Flexpen (Insulin Aspart) 100 Unit/1 Ml Insuln.pen 12 Unit SQ DAILY07 Humulin N Kwikpen (Nph, Human Insulin Isophane) 100 Unit/1 Ml Insuln.pen 16 Unit SQ HS Reglan (Metoclopramide Hcl) 10 Mg Tablet 1 Tab PO TID Humulin N Kwikpen (Nph, Human Insulin Isophane) 100 Unit/1 Ml Insuln.pen 26 Unit SQ DAILY08 Levsin (Hyoscyamine Sulfate) 0.125 Mg Tablet 0.125 Mg PO PRN Q6HRS PRN Loperamide (Loperamide Hcl) 2 Mg Capsule 2 Mg PO PRN QID PRN Ventolin Hfa Inhaler (Albuterol Sulfate) 18 Gm Hfa.aer.ad 2 Puff INH Q4HRS Exam Abd: soft, mild tenderness Assessment A: 8 wks IUP DM TYpe 1 Hyperemesis Gravidarum Electrolyte imbalance Plan of Care: Continue current Tx, Mgmt (Adjust antiemetics. Encourage solids. Calculate insulin requirement when tolerating solids with each meal.) DAVID NIELSON Jr, MD Dec 28, 2018 18:11
[2018-12-28] MEDS: PROMETHAZINE 25 MG SUPP.RECT. PR PRN (22:20)
[2018-12-29] MEDS: METOCLOPRAMIDE HCL 10 MG/2 ML VIAL. IV SCH ×4 (00:43→23:52)
--- NOTE | 2018-12-29 00:54 | CONS ---
DATE OF CONSULTATION: 12/28/2018 CHIEF COMPLAINT: Nausea and vomiting. 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 Last night, she presented with nausea and vomiting. She is 8 weeks . It appears she has hyperemesis . Dr. Lemon admitted her. Now, he has consulted us for medical evaluation and treatment of comorbidities. PAST MEDICAL HISTORY: Irritable bowel syndrome, asthma, constipation, and diabetes. ALLERGIES: None. FAMILY HISTORY: Diabetes. 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 Does not drink, smoke or take drugs. MEDICATIONS: Reviewed. She is on Levsin, Ventolin, loperamide, Reglan, and insulin. REVIEW OF SYSTEMS: GENERAL: No history of weight change, weakness or fevers. SKIN: No bruising, hair changes or rashes. EYES: No blurred, double or loss of vision. NOSE AND THROAT: No history of nosebleeds, hoarseness or sore throat. HEART: No history of palpitations, chest pain or shortness of breath on exertion. LUNGS: Denies cough, hemoptysis, wheezing or shortness of breath. GASTROINTESTINAL: She complains of intractable nausea and vomiting. GENITOURINARY: No history of frequency, urgency, hesitancy or nocturia. NEUROLOGIC: Denies history of numbness, tingling, tremor or weakness. PSYCHIATRIC: No history of panic, anxiety or depression. ENDOCRINE: No history of heat or cold intolerance, polyuria or polydipsia. EXTREMITIES: Denies muscle weakness, joint pain, pain on walking or stiffness. PHYSICAL EXAMINATION: VITALS: Within normal limits and are stable. GENERAL: No apparent distress. Alert and oriented. HEENT: Head is normocephalic, atraumatic, pupils were equally round and reactive to light and accommodation. NECK: Supple, no JVD, no thyromegaly was noted. LUNGS: Clear to auscultation in all lung davidson without rhonchi or wheezing. HEART: RRR, S1, S2 present. Peripheral pulses intact, no obvious murmurs were noted. ABDOMEN: Soft, nontender. Positive bowel sounds no organomegaly, normal bowel sounds. EXTREMITIES: Without any cyanosis, clubbing, or edema. Pedal pulses intact, Homans sign is negative. NEUROLOGIC: Normal speech, normal tone. A and O x 3, moves all extremities, no obvious focal deficits. PSYCHIATRIC: Normal affect, normal mood. Stable. SKIN: No ulcerations or rashes, good skin turgor, no jaundice. VASCULAR: Good capillary refill, neurovascular bundle appears to be intact. LABORATORY DATA: White count 6, hemoglobin 12, and platelets 280. Electrolytes are normal. Glucose is 120. Quantitative hCG is 58,025. Pelvic ultrasound shows intrauterine about 8 weeks 4 days old with a heart rate of 182 beats per minute. ASSESSMENT AND PLAN: Hyperemesis . The patient has been admitted. We will give her IV fluids and p.r.n. antiemetics. Deep vein thrombosis prophylaxis. Resume home medications. Full code. Thank you very much for allowing us to participate in the care of this nice lady. KENYA ROUSE DO DR: KARTHIKEYAN/esha JOB#: [id number] / [id number] DAVID Justice MD
[2018-12-29] MEDS: IV NORMAL SALINE 1000ML BAG 1,000 ML IV SCH ×4 (01:14→23:05)
[2018-12-29 02:00] VITALS: BP 112/67
[2018-12-29 05:25] LABS: BASO % 1 % (0-3); EOS % 1 % (0-3); HEMATOCRIT 31.8 % (36.0-47.0); HEMOGLOBIN 11.1 g/dL (12.0-15.5); LYMPH # 1.9 x10^3/uL (1.0-4.8); LYMPH % 30 % (24-48); MEAN CORPUSCULAR HEMOGLOBIN 32 pg (25-35); MEAN CORPUSCULAR HGB CONC 35 g/dL (31-37); MEAN CORPUSCULAR VOLUME 92 fL (79-100); MONO # 0.4 x10^3/uL (0.0-1.1); MONO % 6 % (0-9); NEUT # 3.8 x10^3/uL (1.8-7.7); NEUT % 63 % (31-73); PLATELET COUNT 250 x10^3/uL (140-400); RED BLOOD COUNT 3.46 x10^6/uL (3.50-5.40); WHITE BLOOD COUNT 6.1 x10^3/uL (4.0-11.0)
[2018-12-29 05:37] LABS: ALBUMIN/GLOBULIN RATIO 1.1 (1.0-1.7); CALCIUM 8.4 mg/dL (8.5-10.1); CREATININE 0.5 mg/dL (0.6-1.0); GFR 183.4; POTASSIUM 3.6 mmol/L (3.5-5.1); TOTAL BILIRUBIN 0.8 mg/dL (0.2-1.0); TOTAL PROTEIN 5.8 g/dL (6.4-8.2)
[2018-12-29] MEDS: FAMOTIDINE 20 MG/2 ML VIAL IVP SCH ×3 (07:50→21:40)
[2018-12-29] MEDS: INSULIN LISPRO 300 UNITS/3 ML VIAL. SQ SCH ×3 (08:00→17:00)
[2018-12-29 10:57] VITALS: BP 105/68
--- NOTE | 2018-12-29 11:14 | PDOC ---
[facility] PROGRESS NOTE Chief Complaint Chief Complaint Hyperemesis Diabetes Mellitus Type 1 History of Present Illness History of Present Illness 12/29/18 Pt seen and examined lying in bed in moderate discomfort DW RN DW OB who made decision to place pt on ceftriaxone in response to overnight f ever Chart reviewed Vitals/I&O Vitals/I&O: Vital Signs Date Time Temp Pulse Resp B/P (MAP) Pulse Ox O2 Delivery O2 Flow Rate FiO2 12/29/18 10:57 102.2 93 17 105/68 (80) 98 Room Air 102.2 I & O 12/28/18 12/28/18 12/29/18 14:59 22:59 06:59 Intake Total 350 ml Output Total 100 ml Balance 350 ml -100 ml Physical Exam General: Alert, Oriented X3, Cooperative, mild distress Heart: Regular rate, Normal S1, Normal S2, No murmurs Lungs: Clear Extremities: No clubbing, No cyanosis, No edema, Normal pulses Skin: No rashes, No breakdown Labs Labs: Laboratory Tests Test 12/28/18 11:50 12/29/18 05:00 Glucose (Fingerstick) 92 mg/dL (70-99) White Blood Count 6.1 x10^3/uL (4.0-11.0) Red Blood Count 3.46 x10^6/uL (3.50-5.40) Hemoglobin 11.1 g/dL (12.0-15.5) Hematocrit 31.8 % (36.0-47.0) Mean Corpuscular Volume 92 fL (79-100) Mean Corpuscular Hemoglobin 32 pg (25-35) Mean Corpuscular Hemoglobin Concent 35 g/dL (31-37) Red Cell Distribution Width 12.0 % (11.5-14.5) Platelet Count 250 x10^3/uL (140-400) Neutrophils (%) (Auto) 63 % (31-73) Lymphocytes (%) (Auto) 30 % (24-48) Monocytes (%) (Auto) 6 % (0-9) Eosinophils (%) (Auto) 1 % (0-3) Basophils (%) (Auto) 1 % (0-3) Neutrophils # (Auto) 3.8 x10^3/uL (1.8-7.7) Lymphocytes # (Auto) 1.9 x10^3/uL (1.0-4.8) Monocytes # (Auto) 0.4 x10^3/uL (0.0-1.1) Eosinophils # (Auto) 0.0 x10^3/uL (0.0-0.7) Basophils # (Auto) 0.0 x10^3/uL (0.0-0.2) Sodium Level 140 mmol/L (136-145) Potassium Level 3.6 mmol/L (3.5-5.1) Chloride Level 106 mmol/L (98-107) Carbon Dioxide Level 25 mmol/L (21-32) Anion Gap 9 (6-14) Blood Urea Nitrogen 5 mg/dL (7-20) Creatinine 0.5 mg/dL (0.6-1.0) Estimated GFR (Cockcroft-Gault) 183.4 BUN/Creatinine Ratio 10 (6-20) Glucose Level 90 mg/dL (70-99) Calcium Level 8.4 mg/dL (8.5-10.1) Total Bilirubin 0.8 mg/dL (0.2-1.0) Aspartate Amino Transf (AST/SGOT) 18 U/L (15-37) Alanine Aminotransferase (ALT/SGPT) 44 U/L (14-59) Alkaline Phosphatase 68 U/L (46-116) Total Protein 5.8 g/dL (6.4-8.2) Albumin 3.0 g/dL (3.4-5.0) Albumin/Globulin Ratio 1.1 (1.0-1.7) Review of Systems Review of Systems: Co nausea Co vomiting Assessment and Plan Assessmemt and Plan Problems Medical Problems: (1) DM type 1 (diabetes mellitus, type 1) Status: Chronic (2) Mild hyperemesis gravidarum Status: Acute Hyperemesis Gravidarum Diabetes Mellitus Type 1 Plan IV fluids PRN Antiemetics (Reglan) Repeat labs Home meds DVT prophylaxis Full code Agree with OB decision to place on ceftriaxone Appreciate subspecialty input Comment Review of Relevant I have reviewed the following items ashkan (where applicable) has been applied. Medications: Current Medications Medications (Trade) Dose Ordered Sig/Indira Route PRN Reason Start Time Stop Time Status Last Admin Dose Admin Promethazine HCl (Phenergan Supp) 25 mg PRN Q12HRS PRN ID NAUSEA/VOMITING 12/28/18 19:15 12/28/18 22:20 KENYA ROUSE III DO Dec 29, 2018 11:14
[2018-12-29] MEDS ORDERED: ACETAMINOPHEN 500 MG TABLET PO PRN (11:15)
[2018-12-29] MEDS: cefTRIAXone IV Push 1 GM VIAL. IVP SCH (12:03)
[2018-12-29] MEDS: ACETAMINOPHEN 650 MG SUPP.RECT. PR PRN ×2 (12:13→18:36)
[2018-12-29] MEDS: PROMETHAZINE 25 MG SUPP.RECT. PR PRN ×2 (12:13→18:42)
--- NOTE | 2018-12-29 13:13 | PDOC ---
OB Progress Note Date of Service 12/29/18 Time of Evaluation 1310 Problem List Problems Medical Problems: (1) DM type 1 (diabetes mellitus, type 1) Status: Chronic (2) Mild hyperemesis gravidarum Status: Acute Notes PT. feeling nauseated. SHe had 2 episodes emesis. SHe continues to try liquid diet. She had fever 102 degrees F. Started Rocephin for complicated UTI. Lab Laboratory Tests Test 12/27/18 15:10 12/27/18 15:23 12/27/18 15:30 12/27/18 19:15 Urine Collection Type Void Urine Color Dk yellow Urine Clarity Clear Urine pH 6.5 Urine Specific [place] 1.025 Urine Protein 30 mg/dL (NEG-TRACE) Urine Glucose (UA) Negative mg/dL (NEG) Urine Ketones (Stick) >=80 mg/dL (NEG) Urine Blood Negative (NEG) Urine Nitrite Negative (NEG) Urine Bilirubin Small (NEG) Urine Urobilinogen Dipstick 1.0 mg/dL (0.2 mg/dL) Urine Leukocyte Esterase Negative (NEG) Urine RBC 0 /HPF (0-2) Urine WBC 1-4 /HPF (0-4) Urine Squamous Epithelial Cells Mod /LPF Urine Bacteria Few /HPF (0-FEW) Urine Mucus Marked /LPF Glucose (Fingerstick) 101 mg/dL (70-99) 81 mg/dL (70-99) White Blood Count 7.5 x10^3/uL (4.0-11.0) Red Blood Count 4.35 x10^6/uL (3.50-5.40) Hemoglobin 13.8 g/dL (12.0-15.5) Hematocrit 39.8 % (36.0-47.0) Mean Corpuscular Volume 92 fL (79-100) Mean Corpuscular Hemoglobin 32 pg (25-35) Mean Corpuscular Hemoglobin Concent 35 g/dL (31-37) Red Cell Distribution Width 11.9 % (11.5-14.5) Platelet Count 323 x10^3/uL (140-400) Neutrophils (%) (Auto) 71 % (31-73) Lymphocytes (%) (Auto) 22 % (24-48) Monocytes (%) (Auto) 6 % (0-9) Eosinophils (%) (Auto) 0 % (0-3) Basophils (%) (Auto) 1 % (0-3) Neutrophils # (Auto) 5.3 x10^3/uL (1.8-7.7) Lymphocytes # (Auto) 1.6 x10^3/uL (1.0-4.8) Monocytes # (Auto) 0.5 x10^3/uL (0.0-1.1) Eosinophils # (Auto) 0.0 x10^3/uL (0.0-0.7) Basophils # (Auto) 0.0 x10^3/uL (0.0-0.2) Maternal Serum HCG Beta Subunit 38367 mIU/mL (0-5) Sodium Level 141 mmol/L (136-145) Potassium Level 4.1 mmol/L (3.5-5.1) Chloride Level 102 mmol/L (98-107) Carbon Dioxide Level 26 mmol/L (21-32) Anion Gap 13 (6-14) Blood Urea Nitrogen 10 mg/dL (7-20) Creatinine 0.6 mg/dL (0.6-1.0) Estimated GFR (Cockcroft-Gault) 148.6 BUN/Creatinine Ratio 17 (6-20) Glucose Level 104 mg/dL (70-99) Calcium Level 9.5 mg/dL (8.5-10.1) Total Bilirubin 1.3 mg/dL (0.2-1.0) Aspartate Amino Transf (AST/SGOT) 26 U/L (15-37) Alanine Aminotransferase (ALT/SGPT) 41 U/L (14-59) Alkaline Phosphatase 86 U/L (46-116) Total Protein 8.0 g/dL (6.4-8.2) Albumin 3.9 g/dL (3.4-5.0) Albumin/Globulin Ratio 1.0 (1.0-1.7) Test 12/27/18 19:30 12/27/18 20:13 12/27/18 21:24 12/27/18 22:21 Sodium Level 142 mmol/L (136-145) Potassium Level 3.9 mmol/L (3.5-5.1) Chloride Level 105 mmol/L (98-107) Carbon Dioxide Level 28 mmol/L (21-32) Anion Gap 9 (6-14) Blood Urea Nitrogen 10 mg/dL (7-20) Creatinine 0.5 mg/dL (0.6-1.0) Estimated GFR (Cockcroft-Gault) 183.4 Glucose Level 96 mg/dL (70-99) Calcium Level 8.9 mg/dL (8.5-10.1) Thyroid Stimulating Hormone (TSH) 0.430 uIU/mL (0.358-3.74) Free Thyroxine 1.10 ng/dL (0.76-1.46) Glucose (Fingerstick) 93 mg/dL (70-99) 108 mg/dL (70-99) 117 mg/dL (70-99) Test 12/28/18 04:35 12/28/18 08:03 12/28/18 11:50 12/29/18 05:00 White Blood Count 6.5 x10^3/uL (4.0-11.0) 6.1 x10^3/uL (4.0-11.0) Red Blood Count 3.86 x10^6/uL (3.50-5.40) 3.46 x10^6/uL (3.50-5.40) Hemoglobin 12.2 g/dL (12.0-15.5) 11.1 g/dL (12.0-15.5) Hematocrit 35.4 % (36.0-47.0) 31.8 % (36.0-47.0) Mean Corpuscular Volume 92 fL (79-100) 92 fL (79-100) Mean Corpuscular Hemoglobin 32 pg (25-35) 32 pg (25-35) Mean Corpuscular Hemoglobin Concent 35 g/dL (31-37) 35 g/dL (31-37) Red Cell Distribution Width 11.9 % (11.5-14.5) 12.0 % (11.5-14.5) Platelet Count 280 x10^3/uL (140-400) 250 x10^3/uL (140-400) Neutrophils (%) (Auto) 63 % (31-73) 63 % (31-73) Lymphocytes (%) (Auto) 28 % (24-48) 30 % (24-48) Monocytes (%) (Auto) 8 % (0-9) 6 % (0-9) Eosinophils (%) (Auto) 1 % (0-3) 1 % (0-3) Basophils (%) (Auto) 0 % (0-3) 1 % (0-3) Neutrophils # (Auto) 4.1 x10^3/uL (1.8-7.7) 3.8 x10^3/uL (1.8-7.7) Lymphocytes # (Auto) 1.9 x10^3/uL (1.0-4.8) 1.9 x10^3/uL (1.0-4.8) Monocytes # (Auto) 0.5 x10^3/uL (0.0-1.1) 0.4 x10^3/uL (0.0-1.1) Eosinophils # (Auto) 0.0 x10^3/uL (0.0-0.7) 0.0 x10^3/uL (0.0-0.7) Basophils # (Auto) 0.0 x10^3/uL (0.0-0.2) 0.0 x10^3/uL (0.0-0.2) Sodium Level 141 mmol/L (136-145) 140 mmol/L (136-145) Potassium Level 3.5 mmol/L (3.5-5.1) 3.6 mmol/L (3.5-5.1) Chloride Level 107 mmol/L (98-107) 106 mmol/L (98-107) Carbon Dioxide Level 25 mmol/L (21-32) 25 mmol/L (21-32) Anion Gap 9 (6-14) 9 (6-14) Blood Urea Nitrogen 9 mg/dL (7-20) 5 mg/dL (7-20) Creatinine 0.6 mg/dL (0.6-1.0) 0.5 mg/dL (0.6-1.0) Estimated GFR (Cockcroft-Gault) 148.6 183.4 BUN/Creatinine Ratio 15 (6-20) 10 (6-20) Glucose Level 117 mg/dL (70-99) 90 mg/dL (70-99) Calcium Level 8.6 mg/dL (8.5-10.1) 8.4 mg/dL (8.5-10.1) Total Bilirubin 1.1 mg/dL (0.2-1.0) 0.8 mg/dL (0.2-1.0) Aspartate Amino Transf (AST/SGOT) 21 U/L (15-37) 18 U/L (15-37) Alanine Aminotransferase (ALT/SGPT) 37 U/L (14-59) 44 U/L (14-59) Alkaline Phosphatase 74 U/L (46-116) 68 U/L (46-116) Total Protein 6.5 g/dL (6.4-8.2) 5.8 g/dL (6.4-8.2) Albumin 3.1 g/dL (3.4-5.0) 3.0 g/dL (3.4-5.0) Albumin/Globulin Ratio 0.9 (1.0-1.7) 1.1 (1.0-1.7) Glucose (Fingerstick) 120 mg/dL (70-99) 92 mg/dL (70-99) Laboratory Tests Test 12/29/18 05:00 White Blood Count 6.1 x10^3/uL (4.0-11.0) Red Blood Count 3.46 x10^6/uL (3.50-5.40) Hemoglobin 11.1 g/dL (12.0-15.5) Hematocrit 31.8 % (36.0-47.0) Mean Corpuscular Volume 92 fL (79-100) Mean Corpuscular Hemoglobin 32 pg (25-35) Mean Corpuscular Hemoglobin Concent 35 g/dL (31-37) Red Cell Distribution Width 12.0 % (11.5-14.5) Platelet Count 250 x10^3/uL (140-400) Neutrophils (%) (Auto) 63 % (31-73) Lymphocytes (%) (Auto) 30 % (24-48) Monocytes (%) (Auto) 6 % (0-9) Eosinophils (%) (Auto) 1 % (0-3) Basophils (%) (Auto) 1 % (0-3) Neutrophils # (Auto) 3.8 x10^3/uL (1.8-7.7) Lymphocytes # (Auto) 1.9 x10^3/uL (1.0-4.8) Monocytes # (Auto) 0.4 x10^3/uL (0.0-1.1) Eosinophils # (Auto) 0.0 x10^3/uL (0.0-0.7) Basophils # (Auto) 0.0 x10^3/uL (0.0-0.2) Sodium Level 140 mmol/L (136-145) Potassium Level 3.6 mmol/L (3.5-5.1) Chloride Level 106 mmol/L (98-107) Carbon Dioxide Level 25 mmol/L (21-32) Anion Gap 9 (6-14) Blood Urea Nitrogen 5 mg/dL (7-20) Creatinine 0.5 mg/dL (0.6-1.0) Estimated GFR (Cockcroft-Gault) 183.4 BUN/Creatinine Ratio 10 (6-20) Glucose Level 90 mg/dL (70-99) Calcium Level 8.4 mg/dL (8.5-10.1) Total Bilirubin 0.8 mg/dL (0.2-1.0) Aspartate Amino Transf (AST/SGOT) 18 U/L (15-37) Alanine Aminotransferase (ALT/SGPT) 44 U/L (14-59) Alkaline Phosphatase 68 U/L (46-116) Total Protein 5.8 g/dL (6.4-8.2) Albumin 3.0 g/dL (3.4-5.0) Albumin/Globulin Ratio 1.1 (1.0-1.7) Medications Current Medications Sodium Chloride 1,000 ml @ 1,000 mls/hr 1X ONCE IV Last administered on 12/27/18at 15:57; Start 12/27/18 at 15:45; Stop 12/27/18 at 16:44; Status DC Ondansetron HCl (Zofran) 4 mg 1X ONCE IV Last administered on 12/27/18at 15:57; Start 12/27/18 at 15:45; Stop 12/27/18 at 15:46; Status DC Fentanyl Citrate (Fentanyl 2ml Vial) 50 mcg 1X ONCE IV Last administered on 12/27/18at 16:35; Start 12/27/18 at 16:30; Stop 12/27/18 at 16:31; Status DC Ondansetron HCl (Zofran) 4 mg PRN Q8HRS PRN IV NAUSEA/VOMITING; Start 12/27/18 at 17:00; Stop 12/28/18 at 16:59; Status DC Dextrose/Sodium Chloride 1,000 ml @ 125 mls/hr 1X ONCE IV Last administered on 12/27/18at 19:23; Start 12/27/18 at 17:15; Stop 12/28/18 at 01:14; Status DC Insulin Human Lispro (HumaLOG) 0-5 UNITS TIDWMEALS SQ ; Start 12/28/18 at 08:00 Dextrose (Dextrose 50%-Water Syringe) 12.5 gm PRN Q15MIN PRN IV SEE COMMENTS; Start 12/27/18 at 17:15 Dextrose 250 ml PRN Q15MIN PRN IV SEE COMMENTS; Start 12/27/18 at 17:15 Sodium Chloride 1,000 ml @ 150 mls/hr Q6H40M IV Last administered on 12/29/18at 07:50; Start 12/27/18 at 17:45 Ondansetron HCl (Zofran) 4 mg Q6HRS IV Last administered on 12/28/18at 17:35; Start 12/27/18 at 18:00; Stop 12/28/18 at 19:12; Status DC Metoclopramide HCl (Reglan Vial) 10 mg PRN Q8HRS PRN IV NAUSEA/VOMITING Last administered on 12/28/18at 02:42; Start 12/27/18 at 17:45; Stop 12/28/18 at 07:28; Status DC Famotidine (Pepcid Vial) 20 mg BID IVP Last administered on 12/29/18at 07:50; Start 12/27/18 at 21:00 Metoclopramide HCl (Reglan Vial) 10 mg Q6HRS IV Last administered on 12/29/18at 08:19; Start 12/28/18 at 08:00 Promethazine HCl (Phenergan Supp) 25 mg PRN Q12HR PRN [place] NAUSEA/VOMITING; Start 12/28/18 at 07:30; Stop 12/28/18 at 07:42; Status DC Promethazine HCl (Phenergan Supp) 25 mg PRN Q12HRS PRN [place] NAUSEA/VOMITING Last administered on 12/29/18at 12:13; Start 12/28/18 at 19:15 Ceftriaxone Sodium (Rocephin) 1 gm Q24H IVP Last administered on 12/29/18at 12:03; Start 12/29/18 at 12:00 Acetaminophen (Tylenol) 1,000 mg PRN Q6HRS PRN PO FEVER; Start 12/29/18 at 11:15 Ringer's Solution 1,000 ml @ 150 mls/hr Q6H40M IV ; Start 12/29/18 at 15:00 Acetaminophen (Tylenol Supp) 650 mg PRN Q6HRS PRN [place] MILD PAIN / TEMP Last administered on 12/29/18at 12:13; Start 12/29/18 at 12:00 Active Scripts Active Reported Novolog Flexpen (Insulin Aspart) 100 Unit/1 Ml Insuln.pen 12 Unit SQ [id number] Novolog Flexpen (Insulin Aspart) 100 Unit/1 Ml Insuln.pen 14 Unit SQ [id number] Novolog Flexpen (Insulin Aspart) 100 Unit/1 Ml Insuln.pen 12 Unit SQ DAILY07 Humulin N Kwikpen (Nph, Human Insulin Isophane) 100 Unit/1 Ml Insuln.pen 16 Unit SQ HS Reglan (Metoclopramide Hcl) 10 Mg Tablet 1 Tab PO TID Humulin N Kwikpen (Nph, Human Insulin Isophane) 100 Unit/1 Ml Insuln.pen 26 Unit SQ DAILY08 Levsin (Hyoscyamine Sulfate) 0.125 Mg Tablet 0.125 Mg PO PRN Q6HRS PRN Loperamide (Loperamide Hcl) 2 Mg Capsule 2 Mg PO PRN QID PRN Ventolin Hfa Inhaler (Albuterol Sulfate) 18 Gm Hfa.aer.ad 2 Puff INH Q4HRS Exam Abd: soft, non tender, mild low back tenderness Assessment 8wks IUP DM Type 1 Hyperemesis Gravidarum Complicated UTI Plan of Care: Continue current Tx, Mgmt (Tylenol for fever. Rocephin IV for complicated UTI. Encourage PO intake. New antiemetic regimen of Reglan and Phenergan suppository.) DAVID NIELSON Jr, MD Dec 29, 2018 13:13
[2018-12-29] MEDS: IV RINGERS,LACTATED 1000ML 1,000 ML IV SCH ×2 (14:45→21:32)
[2018-12-29 16:20] LABS: INFLUENZA A PATIENT NEGATIVE (NEGATIVE); INFLUENZA B PATIENT NEGATIVE (NEGATIVE)
[2018-12-29 18:00] VITALS: BP 113/72
--- NOTE | 2018-12-29 18:00 | NUR ---
Blood Gulcose 69 12.5 ml of D50 given 1800 Blood glucose 113
[2018-12-29 20:00] VITALS: BP 109/74
[2018-12-30] VITALS: BP_SYST 105
[2018-12-30] MEDS: IV NORMAL SALINE 1000ML BAG 1,000 ML IV SCH ×4 (03:31→19:05)
[2018-12-30 05:03] LABS: BASO % 1 % (0-3); EOS % 0 % (0-3); HEMATOCRIT 31.6 % (36.0-47.0); HEMOGLOBIN 10.9 g/dL (12.0-15.5); LYMPH # 1.7 x10^3/uL (1.0-4.8); LYMPH % 31 % (24-48); MEAN CORPUSCULAR HEMOGLOBIN 32 pg (25-35); MEAN CORPUSCULAR HGB CONC 35 g/dL (31-37); MEAN CORPUSCULAR VOLUME 92 fL (79-100); MONO # 0.4 x10^3/uL (0.0-1.1); MONO % 7 % (0-9); NEUT # 3.4 x10^3/uL (1.8-7.7); NEUT % 61 % (31-73); PLATELET COUNT 234 x10^3/uL (140-400); RED BLOOD COUNT 3.43 x10^6/uL (3.50-5.40); RED CELL DISTRIBUTION WIDTH 12.1 % (11.5-14.5); WHITE BLOOD COUNT 5.6 x10^3/uL (4.0-11.0)
[2018-12-30 05:33] LABS: CALCIUM 8.3 mg/dL (8.5-10.1); CREATININE 0.5 mg/dL (0.6-1.0); GFR 183.4; POTASSIUM 3.3 mmol/L (3.5-5.1)
[2018-12-30] MEDS: METOCLOPRAMIDE HCL 10 MG/2 ML VIAL. IV SCH ×4 (05:48→20:51)
[2018-12-30 06:00] VITALS: BP 116/79
[2018-12-30] MEDS: INSULIN LISPRO 300 UNITS/3 ML VIAL. SQ SCH ×3 (08:00→17:00)
[2018-12-30] MEDS: ACETAMINOPHEN 650 MG SUPP.RECT. PR PRN ×2 (08:33→15:59)
[2018-12-30] MEDS: PROMETHAZINE 25 MG SUPP.RECT. PR PRN ×2 (08:33→15:59)
[2018-12-30] MEDS: FAMOTIDINE 20 MG/2 ML VIAL IVP SCH ×2 (09:00→20:51)
[2018-12-30] MEDS: IV RINGERS,LACTATED 1000ML 1,000 ML IV SCH ×3 (09:56→17:40)
[2018-12-30 11:20] VITALS: BP 129/90
[2018-12-30] MEDS: cefTRIAXone IV Push 1 GM VIAL. IVP SCH (11:43)
--- NOTE | 2018-12-30 12:06 | PDOC ---
[facility] [facility] PROGRESS NOTE Chief Complaint Chief Complaint Hyperemesis Diabetes Mellitus Type 1 History of Present Illness History of Present Illness 12/30/18 Pt seen and evaluated in bed- discomfort improved today RN confirmed she successfully ate a scrambled eggs breakfast and no emesis noted Pt says the nausea comes and goes still but feels improved DW RN 12/29/18 Pt seen and examined lying in bed in moderate discomfort DW RN FRANK OB who made decision to place pt on ceftriaxone in response to overnight fever Chart reviewed Vitals/I&O Vitals/I&O: Vital Signs Date Time Temp Pulse Resp B/P (MAP) Pulse Ox O2 Delivery O2 Flow Rate FiO2 12/30/18 08:10 Room Air 12/30/18 06:00 98.2 87 18 116/79 (91) 100 98.2 I & O 12/29/18 12/29/18 12/30/18 15:00 23:00 07:00 Output Total 300 ml Balance -300 ml Physical Exam General: Alert, Oriented X3, Cooperative, mild distress Heart: Regular rate, Normal S1, Normal S2, No murmurs Lungs: Clear Abdomen: Normal bowel sounds, No tenderness, No masses Extremities: No clubbing, No cyanosis, No edema, Normal pulses Skin: No rashes, No breakdown Labs Labs: Laboratory Tests Test 12/29/18 12:00 12/30/18 04:30 Influenza Type A Antigen Negative (NEGATIVE) Influenza Type B Antigen Negative (NEGATIVE) White Blood Count 5.6 x10^3/uL (4.0-11.0) Red Blood Count 3.43 x10^6/uL (3.50-5.40) Hemoglobin 10.9 g/dL (12.0-15.5) Hematocrit 31.6 % (36.0-47.0) Mean Corpuscular Volume 92 fL (79-100) Mean Corpuscular Hemoglobin 32 pg (25-35) Mean Corpuscular Hemoglobin Concent 35 g/dL (31-37) Red Cell Distribution Width 12.1 % (11.5-14.5) Platelet Count 234 x10^3/uL (140-400) Neutrophils (%) (Auto) 61 % (31-73) Lymphocytes (%) (Auto) 31 % (24-48) Monocytes (%) (Auto) 7 % (0-9) Eosinophils (%) (Auto) 0 % (0-3) Basophils (%) (Auto) 1 % (0-3) Neutrophils # (Auto) 3.4 x10^3/uL (1.8-7.7) Lymphocytes # (Auto) 1.7 x10^3/uL (1.0-4.8) Monocytes # (Auto) 0.4 x10^3/uL (0.0-1.1) Eosinophils # (Auto) 0.0 x10^3/uL (0.0-0.7) Basophils # (Auto) 0.0 x10^3/uL (0.0-0.2) Sodium Level 141 mmol/L (136-145) Potassium Level 3.3 mmol/L (3.5-5.1) Chloride Level 107 mmol/L (98-107) Carbon Dioxide Level 23 mmol/L (21-32) Anion Gap 11 (6-14) Blood Urea Nitrogen 5 mg/dL (7-20) Creatinine 0.5 mg/dL (0.6-1.0) Estimated GFR (Cockcroft-Gault) 183.4 Glucose Level 78 mg/dL (70-99) Calcium Level 8.3 mg/dL (8.5-10.1) Review of Systems Review of Systems: Denies TAYLOR Denies vision change Assessment and Plan Assessmemt and Plan Problems Medical Problems: (1) DM type 1 (diabetes mellitus, type 1) Status: Chronic (2) Mild hyperemesis gravidarum Status: Acute Assessment Hyperemesis Gravidarum Diabetes Mellitus Type 1 Plan IV fluids Empiric IV Rocephin PRN Antiemetics (Reglan) 40 KCl Procalamine if vomiting persists or becomes severe Repeat labs Home meds DVT prophylaxis Full code Pt is OK from IM standpoint, DC when clear from OB Comment Review of Relevant I have reviewed the following items ashkan (where applicable) has been applied. Medications: Current Medications Medications (Trade) Dose Ordered Sig/Indira Route PRN Reason Start Time Stop Time Status Last Admin Dose Admin Ceftriaxone Sodium (Rocephin) 1 gm Q24H IVP 12/29/18 12:00 12/30/18 11:44 Ringer's Solution 1,000 ml @ 150 mls/hr Q6H40M IV 12/29/18 15:00 12/30/18 09:56 Acetaminophen (Tylenol Supp) 650 mg PRN Q6HRS PRN [place] MILD PAIN / TEMP 12/29/18 12:00 12/30/18 08:33 KENYA ROUSE III DO Dec 30, 2018 12:06
[2018-12-30] MEDS ORDERED: POTASSIUM CHLORIDE 20 MEQ TABLET.ER. PO ONE (12:30)
[2018-12-30] MEDS ORDERED: POTASSIUM CL 40MEQ IN 0.9%NACL 1,000 ML IV ONE (13:00)
--- NOTE | 2018-12-30 13:19 | PDOC ---
OB Progress Note Date of Service 12/30/18 Time of Evaluation 1315 Problem List Problems Medical Problems: (1) DM type 1 (diabetes mellitus, type 1) Status: Chronic (2) Mild hyperemesis gravidarum Status: Acute Notes Pt. tolerating more meals and solids this morning. No fever overnight. Blood sugars stable without need of insulin. Lab Laboratory Tests Test 12/29/18 05:00 12/29/18 12:00 12/30/18 04:30 White Blood Count 6.1 x10^3/uL (4.0-11.0) 5.6 x10^3/uL (4.0-11.0) Red Blood Count 3.46 x10^6/uL (3.50-5.40) 3.43 x10^6/uL (3.50-5.40) Hemoglobin 11.1 g/dL (12.0-15.5) 10.9 g/dL (12.0-15.5) Hematocrit 31.8 % (36.0-47.0) 31.6 % (36.0-47.0) Mean Corpuscular Volume 92 fL (79-100) 92 fL (79-100) Mean Corpuscular Hemoglobin 32 pg (25-35) 32 pg (25-35) Mean Corpuscular Hemoglobin Concent 35 g/dL (31-37) 35 g/dL (31-37) Red Cell Distribution Width 12.0 % (11.5-14.5) 12.1 % (11.5-14.5) Platelet Count 250 x10^3/uL (140-400) 234 x10^3/uL (140-400) Neutrophils (%) (Auto) 63 % (31-73) 61 % (31-73) Lymphocytes (%) (Auto) 30 % (24-48) 31 % (24-48) Monocytes (%) (Auto) 6 % (0-9) 7 % (0-9) Eosinophils (%) (Auto) 1 % (0-3) 0 % (0-3) Basophils (%) (Auto) 1 % (0-3) 1 % (0-3) Neutrophils # (Auto) 3.8 x10^3/uL (1.8-7.7) 3.4 x10^3/uL (1.8-7.7) Lymphocytes # (Auto) 1.9 x10^3/uL (1.0-4.8) 1.7 x10^3/uL (1.0-4.8) Monocytes # (Auto) 0.4 x10^3/uL (0.0-1.1) 0.4 x10^3/uL (0.0-1.1) Eosinophils # (Auto) 0.0 x10^3/uL (0.0-0.7) 0.0 x10^3/uL (0.0-0.7) Basophils # (Auto) 0.0 x10^3/uL (0.0-0.2) 0.0 x10^3/uL (0.0-0.2) Sodium Level 140 mmol/L (136-145) 141 mmol/L (136-145) Potassium Level 3.6 mmol/L (3.5-5.1) 3.3 mmol/L (3.5-5.1) Chloride Level 106 mmol/L (98-107) 107 mmol/L (98-107) Carbon Dioxide Level 25 mmol/L (21-32) 23 mmol/L (21-32) Anion Gap 9 (6-14) 11 (6-14) Blood Urea Nitrogen 5 mg/dL (7-20) 5 mg/dL (7-20) Creatinine 0.5 mg/dL (0.6-1.0) 0.5 mg/dL (0.6-1.0) Estimated GFR (Cockcroft-Gault) 183.4 183.4 BUN/Creatinine Ratio 10 (6-20) Glucose Level 90 mg/dL (70-99) 78 mg/dL (70-99) Calcium Level 8.4 mg/dL (8.5-10.1) 8.3 mg/dL (8.5-10.1) Total Bilirubin 0.8 mg/dL (0.2-1.0) Aspartate Amino Transf (AST/SGOT) 18 U/L (15-37) Alanine Aminotransferase (ALT/SGPT) 44 U/L (14-59) Alkaline Phosphatase 68 U/L (46-116) Total Protein 5.8 g/dL (6.4-8.2) Albumin 3.0 g/dL (3.4-5.0) Albumin/Globulin Ratio 1.1 (1.0-1.7) Influenza Type A Antigen Negative (NEGATIVE) Influenza Type B Antigen Negative (NEGATIVE) Laboratory Tests Test 12/30/18 04:30 White Blood Count 5.6 x10^3/uL (4.0-11.0) Red Blood Count 3.43 x10^6/uL (3.50-5.40) Hemoglobin 10.9 g/dL (12.0-15.5) Hematocrit 31.6 % (36.0-47.0) Mean Corpuscular Volume 92 fL (79-100) Mean Corpuscular Hemoglobin 32 pg (25-35) Mean Corpuscular Hemoglobin Concent 35 g/dL (31-37) Red Cell Distribution Width 12.1 % (11.5-14.5) Platelet Count 234 x10^3/uL (140-400) Neutrophils (%) (Auto) 61 % (31-73) Lymphocytes (%) (Auto) 31 % (24-48) Monocytes (%) (Auto) 7 % (0-9) Eosinophils (%) (Auto) 0 % (0-3) Basophils (%) (Auto) 1 % (0-3) Neutrophils # (Auto) 3.4 x10^3/uL (1.8-7.7) Lymphocytes # (Auto) 1.7 x10^3/uL (1.0-4.8) Monocytes # (Auto) 0.4 x10^3/uL (0.0-1.1) Eosinophils # (Auto) 0.0 x10^3/uL (0.0-0.7) Basophils # (Auto) 0.0 x10^3/uL (0.0-0.2) Sodium Level 141 mmol/L (136-145) Potassium Level 3.3 mmol/L (3.5-5.1) Chloride Level 107 mmol/L (98-107) Carbon Dioxide Level 23 mmol/L (21-32) Anion Gap 11 (6-14) Blood Urea Nitrogen 5 mg/dL (7-20) Creatinine 0.5 mg/dL (0.6-1.0) Estimated GFR (Cockcroft-Gault) 183.4 Glucose Level 78 mg/dL (70-99) Calcium Level 8.3 mg/dL (8.5-10.1) Medications Current Medications Sodium Chloride 1,000 ml @ 1,000 mls/hr 1X ONCE IV Last administered on 12/27/18at 15:57; Start 12/27/18 at 15:45; Stop 12/27/18 at 16:44; Status DC Ondansetron HCl (Zofran) 4 mg 1X ONCE IV Last administered on 12/27/18at 15:57; Start 12/27/18 at 15:45; Stop 12/27/18 at 15:46; Status DC Fentanyl Citrate (Fentanyl 2ml Vial) 50 mcg 1X ONCE IV Last administered on 12/27/18at 16:35; Start 12/27/18 at 16:30; Stop 12/27/18 at 16:31; Status DC Ondansetron HCl (Zofran) 4 mg PRN Q8HRS PRN IV NAUSEA/VOMITING; Start 12/27/18 at 17:00; Stop 12/28/18 at 16:59; Status DC Dextrose/Sodium Chloride 1,000 ml @ 125 mls/hr 1X ONCE IV Last administered on 12/27/18at 19:23; Start 12/27/18 at 17:15; Stop 12/28/18 at 01:14; Status DC Insulin Human Lispro (HumaLOG) 0-5 UNITS TIDWMEALS SQ ; Start 12/28/18 at 08:00 Dextrose (Dextrose 50%-Water Syringe) 12.5 gm PRN Q15MIN PRN IV SEE COMMENTS; Start 12/27/18 at 17:15 Dextrose 250 ml PRN Q15MIN PRN IV SEE COMMENTS; Start 12/27/18 at 17:15 Sodium Chloride 1,000 ml @ 150 mls/hr Q6H40M IV Last administered on 12/30/18at 03:31; Start 12/27/18 at 17:45 Ondansetron HCl (Zofran) 4 mg Q6HRS IV Last administered on 12/28/18at 17:35; Start 12/27/18 at 18:00; Stop 12/28/18 at 19:12; Status DC Metoclopramide HCl (Reglan Vial) 10 mg PRN Q8HRS PRN IV NAUSEA/VOMITING Last administered on 12/28/18at 02:42; Start 12/27/18 at 17:45; Stop 12/28/18 at 07:28; Status DC Famotidine (Pepcid Vial) 20 mg BID IVP Last administered on 12/30/18at 08:51; Start 12/27/18 at 21:00 Metoclopramide HCl (Reglan Vial) 10 mg Q6HRS IV Last administered on 12/30/18at 11:44; Start 12/28/18 at 08:00 Promethazine HCl (Phenergan Supp) 25 mg PRN Q12HR PRN MO NAUSEA/VOMITING; Start 12/28/18 at 07:30; Stop 12/28/18 at 07:42; Status DC Promethazine HCl (Phenergan Supp) 25 mg PRN Q12HRS PRN MO NAUSEA/VOMITING Last administered on 12/30/18at 08:33; Start 12/28/18 at 19:15 Ceftriaxone Sodium (Rocephin) 1 gm Q24H IVP Last administered on 12/30/18at 11:44; Start 12/29/18 at 12:00 Acetaminophen (Tylenol) 1,000 mg PRN Q6HRS PRN PO FEVER; Start 12/29/18 at 11:15 Ringer's Solution 1,000 ml @ 150 mls/hr Q6H40M IV Last administered on 12/30/18at 09:56; Start 12/29/18 at 15:00 Acetaminophen (Tylenol Supp) 650 mg PRN Q6HRS PRN MO MILD PAIN / TEMP Last administered on 12/30/18at 08:33; Start 12/29/18 at 12:00 Potassium Chloride/Sodium Chloride 1,000 ml @ 75 mls/hr 1X ONCE IV ; Start 12/30/18 at 13:00; Stop 12/31/18 at 02:19 Potassium Chloride (Klor-Con) 40 meq 1X ONCE PO ; Start 12/30/18 at 12:30; Stop 12/30/18 at 12:31; Status DC Active Scripts Active Reported Novolog Flexpen (Insulin Aspart) 100 Unit/1 Ml Insuln.pen 12 Unit SQ [id number] Novolog Flexpen (Insulin Aspart) 100 Unit/1 Ml Insuln.pen 14 Unit SQ [id number] Novolog Flexpen (Insulin Aspart) 100 Unit/1 Ml Insuln.pen 12 Unit SQ [id number] Humulin N Kwikpen (Nph, Human Insulin Isophane) 100 Unit/1 Ml Insuln.pen 16 Unit SQ HS Reglan (Metoclopramide Hcl) 10 Mg Tablet 1 Tab PO TID Humulin N Kwikpen (Nph, Human Insulin Isophane) 100 Unit/1 Ml Insuln.pen 26 Unit SQ [id number] Levsin (Hyoscyamine Sulfate) 0.125 Mg Tablet 0.125 Mg PO PRN Q6HRS PRN Loperamide (Loperamide Hcl) 2 Mg Capsule 2 Mg PO PRN QID PRN Ventolin Hfa Inhaler (Albuterol Sulfate) 18 Gm Hfa.aer.ad 2 Puff INH Q4HRS Exam Abd: soft, nontender; mild CVA tenderness Assessment A: 8 wks IUP Hyperemesis Gravidarum DM Type 1 Complicated UTI P: Continue DM management. Improving with Reglan and Phenergan. Continue IV Rocephin. DAVID NIELSON Jr, MD Dec 30, 2018 13:19
--- NOTE | 2018-12-30 17:05 | NUR ---
blood glucose 94 at 1700 no insulin need reg dinner tray given
[2018-12-30 17:11] VITALS: BP 118/87
[2018-12-31 00:28] VITALS: BP 103/74
[2018-12-31] MEDS: IV RINGERS,LACTATED 1000ML 1,000 ML IV SCH ×2 (04:00→10:24)
[2018-12-31 04:56] LABS: BASO % 1 % (0-3); EOS % 1 % (0-3); HEMOGLOBIN 10.8 g/dL (12.0-15.5); LYMPH # 1.6 x10^3/uL (1.0-4.8); LYMPH % 28 % (24-48); MEAN CORPUSCULAR HEMOGLOBIN 32 pg (25-35); MEAN CORPUSCULAR HGB CONC 35 g/dL (31-37); MEAN CORPUSCULAR VOLUME 91 fL (79-100); MONO # 0.4 x10^3/uL (0.0-1.1); MONO % 7 % (0-9); NEUT # 3.6 x10^3/uL (1.8-7.7); NEUT % 64 % (31-73); PLATELET COUNT 238 x10^3/uL (140-400); RED BLOOD COUNT 3.39 x10^6/uL (3.50-5.40); RED CELL DISTRIBUTION WIDTH 12.2 % (11.5-14.5); WHITE BLOOD COUNT 5.7 x10^3/uL (4.0-11.0)
[2018-12-31 05:00] VITALS: BP 107/70
[2018-12-31] MEDS: METOCLOPRAMIDE HCL 10 MG/2 ML VIAL. IV SCH ×4 (05:02→17:04)
[2018-12-31 05:13] LABS: CALCIUM 8.5 mg/dL (8.5-10.1); CREATININE 0.5 mg/dL (0.6-1.0); GFR 183.4; POTASSIUM 3.9 mmol/L (3.5-5.1)
[2018-12-31] MEDS: INSULIN LISPRO 300 UNITS/3 ML VIAL. SQ SCH (08:00)
[2018-12-31] MEDS: FAMOTIDINE 20 MG/2 ML VIAL IVP SCH (08:33)
[2018-12-31] MEDS: PROMETHAZINE 25 MG SUPP.RECT. PR PRN (10:41)
[2018-12-31 11:00] VITALS: BP 102/74
[2018-12-31] MEDS: cefTRIAXone IV Push 1 GM VIAL. IVP SCH (12:20)
--- NOTE | 2018-12-31 13:16 | PDOC ---
[employer] PROGRESS NOTE Chief Complaint Chief Complaint Hyperemesis Diabetes Mellitus Type 1 History of Present Illness History of Present Illness 12/31/18 Pt seen and examined DW RN Pt co of nausea after breakfast, denies emesis 12/30/18 Pt seen and evaluated in bed- discomfort improved today RN confirmed she successfully ate a scrambled eggs breakfast and no emesis noted Pt says the nausea comes and goes still but feels improved DW RN 12/29/18 Pt seen and examined lying in bed in moderate discomfort DW RN DW OB who made decision to place pt on ceftriaxone in response to overnight fever Chart reviewed Vitals/I&O Vitals/I&O: Vital Signs Date Time Temp Pulse Resp B/P (MAP) Pulse Ox O2 Delivery O2 Flow Rate FiO2 12/31/18 05:00 98.6 89 14 107/70 (82) 98 Room Air 98.6 I & O 12/30/18 12/30/18 12/31/18 15:00 23:00 07:00 Intake Total 100 ml 0 ml 350 ml Output Total 200 ml Balance -100 ml 0 ml 350 ml Physical Exam General: Alert, Oriented X3, Cooperative, mild distress Heart: Regular rate, Normal S1, Normal S2, No murmurs Lungs: Clear Abdomen: Normal bowel sounds, No masses Extremities: No clubbing, No cyanosis Skin: No rashes, No breakdown Labs Labs: Laboratory Tests Test 12/31/18 04:25 12/31/18 08:14 12/31/18 12:00 White Blood Count 5.7 x10^3/uL (4.0-11.0) Red Blood Count 3.39 x10^6/uL (3.50-5.40) Hemoglobin 10.8 g/dL (12.0-15.5) Hematocrit 31.0 % (36.0-47.0) Mean Corpuscular Volume 91 fL (79-100) Mean Corpuscular Hemoglobin 32 pg (25-35) Mean Corpuscular Hemoglobin Concent 35 g/dL (31-37) Red Cell Distribution Width 12.2 % (11.5-14.5) Platelet Count 238 x10^3/uL (140-400) Neutrophils (%) (Auto) 64 % (31-73) Lymphocytes (%) (Auto) 28 % (24-48) Monocytes (%) (Auto) 7 % (0-9) Eosinophils (%) (Auto) 1 % (0-3) Basophils (%) (Auto) 1 % (0-3) Neutrophils # (Auto) 3.6 x10^3/uL (1.8-7.7) Lymphocytes # (Auto) 1.6 x10^3/uL (1.0-4.8) Monocytes # (Auto) 0.4 x10^3/uL (0.0-1.1) Eosinophils # (Auto) 0.0 x10^3/uL (0.0-0.7) Basophils # (Auto) 0.0 x10^3/uL (0.0-0.2) Sodium Level 141 mmol/L (136-145) Potassium Level 3.9 mmol/L (3.5-5.1) Chloride Level 108 mmol/L (98-107) Carbon Dioxide Level 25 mmol/L (21-32) Anion Gap 8 (6-14) Blood Urea Nitrogen 3 mg/dL (7-20) Creatinine 0.5 mg/dL (0.6-1.0) Estimated GFR (Cockcroft-Gault) 183.4 Glucose Level 135 mg/dL (70-99) Calcium Level 8.5 mg/dL (8.5-10.1) Glucose (Fingerstick) 109 mg/dL (70-99) 103 mg/dL (70-99) Review of Systems Review of Systems: Co nausea Co pain Assessment and Plan Assessmemt and Plan Problems Medical Problems: (1) DM type 1 (diabetes mellitus, type 1) Status: Chronic (2) Mild hyperemesis gravidarum Status: Acute Hyperemesis Gravidarum Diabetes Mellitus Type 1 Plan Phenergan suppository IV fluids Empiric IV Rocephin PRN Antiemetics (Reglan) Home meds DVT prophylaxis Full code Pt is OK from IM standpoint, DC when clear from OB Comment Review of Relevant I have reviewed the following items ashkan (where applicable) has been applied. KENYA ROUSE III, DO Dec 31, 2018 13:16
--- NOTE | 2018-12-31 17:03 | PDOC3 ---
OB DISCHARGE SUMMARY DATE OF ADMISSION: 12/27/18 DATE OF DISCHARGE: 12/31/18 REASON FOR ADMISSION: Other (Hyperemesis Gravidarum; Complicated UTI, DM TYpe 1) INTRAPARTUM PROCEDURES: Others (IV hydratiion, management of DM type 1 and Hyperemesis and complicated UTI) PROBLEM LIST AT DISCHARGE Problems Medical Problems: (1) DM type 1 (diabetes mellitus, type 1) Status: Chronic (2) Mild hyperemesis gravidarum Status: Acute DISCHARGE DIAGNOSIS: Hyperemesis Gravidarum, Others (complicated UTI) DISCHARGE INFORMATION: Activity (ad hema), Diet (DM diet) HOSPITAL COURSE First trimester gestation with hyperemesis gravidarum, DM Type 1 and complicated UTI. Pt. provided IV fluid management, DM management, IV abx and antiemetic treatment. DAVID NIELSON Jr, MD Dec 31, 2018 17:03
[2018-12-31] MEDS ORDERED: PROM25SU3 PR (17:08)
[2018-12-31] MEDS ORDERED: METO10TA81 PO (17:08)
--- NOTE | 2018-12-31 17:08 | DISCH ---
DISCHARGE INSTRUCTIONS Condition on Discharge Condition on Discharge: Stable Activity After Discharge Activity Instructions for Disc: Activity as tolerated Lifting Instructions after Dis: No heavy lifting Driving Instructions after Dis: Do not drive today Weight Bearing Status after Di: As tolerated Diet after Discharge Diet after Discharge: Diabetic No Calorie Level Diet Texture: Regular Liquid Texture: Thin Liquid Contacting the DR. after DC Call your doctor for: Concerns you may have Follow-Up Follow up with: Dr. Lemon in 1 week. Treatment/Equipment after DC Adaptive Equipment Issued: None DAVID LEMON Jr, MD Dec 31, 2018 17:08
[2018-12-31 17:51] VITALS: BP 112/74
== END 2018-12-31 18:45 | disposition home or self-care (01) | DRG 832 ==
LOC: ER 14:59 → 3 NORTH 16:54 → 1 WEST ICU 18:15 → 3 NORTH 12-28 12:22
PROVIDERS: ADMIT Obstetrics & Gynecology; ATTEND Obstetrics & Gynecology
DX: O21.1 Hyperemesis gravidarum with metabolic disturbance (principal); O23.41 Unspecified infection of urinary tract in pregnancy, first trimester; R17 Unspecified jaundice; O24.011 Pre-existing type 1 diabetes mellitus, in pregnancy, first trimester; O10.911 Unspecified pre-existing hypertension complicating pregnancy, first trimester; O99.511 Diseases of the respiratory system complicating pregnancy, first trimester; O99.611 Diseases of the digestive system complicating pregnancy, first trimester; Z3A.08 8 weeks gestation of pregnancy; E10.9 Type 1 diabetes mellitus without complications; J45.909 Unspecified asthma, uncomplicated; K58.9 Irritable bowel syndrome, unspecified; Z79.4 Long term (current) use of insulin; Z83.3 Family history of diabetes mellitus
CPT/HCPCS: 36415; 76801; 80048; 80053; 81001; 82962; 84439; 84443; 84702; 85025; 87804; 96374; J0696; J1815; J2405; J2765; J3010; J3480; J3490; J7030; J7042; J7120; 99285-25; G0378

== ENCOUNTER 2019-01-19 11:56 | Emergency (ER) | payer BC ==
[~2019-01-19] VITALS: Ht 172.7 cm; Wt 93.9 kg
[~2019-01-19 11:56] MED LIST changes: +METO10TA81 PO; +NPH,100I3 SQ; +PROM25SU3 PR
[2019-01-19] MEDS ORDERED: IV NORMAL SALINE 1000ML BAG 1,000 ML IV SCH (12:38)
[2019-01-19] MEDS ORDERED: ONDANSETRON PF 4 MG/2 ML VIAL. IV ONE (12:45)
[2019-01-19 12:57] LABS: BILIRUBIN,URINE NEGATIVE (NEG); CLARITY,URINE CLEAR; COLOR,URINE YELLOW; NITRITE,URINE NEGATIVE (NEG); PH,URINE 7.5; PROTEIN,URINE NEGATIVE (NEG-TRACE)
[2019-01-19 13:04] LABS: BACTERIA,URINE 0 /HPF (0-FEW); RBC,URINE 0 /HPF (0-2); SQUAMOUS EPITHELIAL CELL,UR FEW /LPF; WBC,URINE RARE /HPF (0-4)
[2019-01-19 13:10] LABS: BASO % 0 % (0-3); EOS % 0 % (0-3); HEMATOCRIT 37.4 % (36.0-47.0); LYMPH # 1.6 x10^3/uL (1.0-4.8); LYMPH % 24 % (24-48); MEAN CORPUSCULAR HEMOGLOBIN 32 pg (25-35); MEAN CORPUSCULAR HGB CONC 35 g/dL (31-37); MEAN CORPUSCULAR VOLUME 92 fL (79-100); MONO # 0.4 x10^3/uL (0.0-1.1); MONO % 6 % (0-9); NEUT # 4.8 x10^3/uL (1.8-7.7); NEUT % 70 % (31-73); PLATELET COUNT 262 x10^3/uL (140-400); RED BLOOD COUNT 4.08 x10^6/uL (3.50-5.40); RED CELL DISTRIBUTION WIDTH 12.3 % (11.5-14.5); WHITE BLOOD COUNT 6.8 x10^3/uL (4.0-11.0)
[2019-01-19 13:17] LABS: CALCIUM 9.6 mg/dL (8.5-10.1); CREATININE 0.5 mg/dL (0.6-1.0); GFR 183.4; POTASSIUM 4.3 mmol/L (3.5-5.1)
[2019-01-19 13:23] LABS: ALBUMIN 3.7 g/dL (3.4-5.0); ALBUMIN/GLOBULIN RATIO 0.9 (1.0-1.7); TOTAL BILIRUBIN 0.6 mg/dL (0.2-1.0); TOTAL PROTEIN 7.8 g/dL (6.4-8.2)
--- NOTE | 2019-01-19 13:29 | PHYS DOC ---
Past Medical History Past Medical History: Asthma, Diabetes-Type I, Hypertension, Hyperthyroid Past Surgical History: No Surgical History Alcohol Use: None Drug Use: None Adult General Chief Complaint Chief Complaint: nausea and vomiting HPI HPI Patient is a 23 year old female who presents with complaining of nausea and vomiting. Patient complaining of multiple episodes of nausea and vomiting for the last 2 days with low back pain without abdominal pain, vaginal bleeding or discharge, fever and chills, sick contact. Patient complaining of urinary frequency. Patient states she was treated her [employer] with regard and suppository of Phenergan without improvement of her condition. Review of Systems Review of Systems Constitutional: Denies fever or chills [] Eyes: Denies change in visual acuity, redness, or eye pain [] HENT: Denies nasal congestion or sore throat [] Respiratory: Denies cough or shortness of breath [] Cardiovascular: No additional information not addressed in HPI [] GI: Denies abdominal pain, bloody stools or diarrhea , reports nausea and vomiting[] : Denies dysuria or hematuria [] Musculoskeletal: Denies back pain or joint pain [] Integument: Denies rash or skin lesions [] Neurologic: Denies headache, focal weakness or sensory changes [] Endocrine: Denies polyuria or polydipsia [] All other systems were reviewed and found to be within normal limits, except as documented in this note. Current Medications Current Medications Current Medications Medications (Trade) Dose Ordered Sig/Indira Start Time Stop Time Status Last Admin Dose Admin Ondansetron HCl (Zofran) 4 mg 1X ONCE 01/19/19 12:45 01/19/19 12:48 DC 01/19/19 13:04 4 MG Sodium Chloride 1,000 ml @ 1,000 mls/hr Q1H 01/19/19 12:38 01/19/19 13:37 DC 01/19/19 13:04 1,000 MLS/HR Allergies Allergies Allergies Coded Allergies Type Severity Reaction Last Updated Verified No Known Drug Allergies 06/01/18 No Physical Exam Physical Exam Constitutional: Well developed, well nourished, mild distress, non-toxic appearance. [] HENT: Normocephalic, atraumatic. Eyes: PERRLA, EOMI, conjunctiva normal, no discharge. [] Neck: Normal range of motion, no tenderness, supple, no stridor. [] Cardiovascular:Heart rate regular rhythm, no murmur [] Lungs & Thorax: Bilateral breath sounds clear to auscultation [] Abdomen: Bowel sounds normal, soft, no tenderness, no masses, no pulsatile masses. [] Skin: Warm, dry, no erythema, no rash. [] Back: No tenderness, no CVA tenderness. [] Extremities: No tenderness, no cyanosis, no clubbing, ROM intact, no edema. [] Neurologic: Alert and oriented X 3, no focal deficits noted. [] Psychologic: Affect normal, judgement normal, mood normal. [] Current Patient Data Vital Signs Vital Signs Date Time Temp Pulse Resp B/P (MAP) Pulse Ox O2 Delivery O2 Flow Rate FiO2 01/19/19 14:18 94 17 130/91 (104) 96 Room Air 01/19/19 12:28 98.2 98.2 Lab Values Laboratory Tests Test 01/19/19 12:15 01/19/19 13:00 Urine Collection Type Unknown Urine Color Yellow Urine Clarity Clear Urine pH 7.5 Urine Specific [place] 1.015 Urine Protein Negative mg/dL (NEG-TRACE) Urine Glucose (UA) Negative mg/dL (NEG) Urine Ketones (Stick) Trace mg/dL (NEG) Urine Blood Negative (NEG) Urine Nitrite Negative (NEG) Urine Bilirubin Negative (NEG) Urine Urobilinogen Dipstick 1.0 mg/dL (0.2 mg/dL) Urine Leukocyte Esterase Negative (NEG) Urine RBC 0 /HPF (0-2) Urine WBC Rare /HPF (0-4) Urine Squamous Epithelial Cells Few /LPF Urine Bacteria 0 /HPF (0-FEW) Urine Mucus Mod /LPF White Blood Count 6.8 x10^3/uL (4.0-11.0) Red Blood Count 4.08 x10^6/uL (3.50-5.40) Hemoglobin 13.0 g/dL (12.0-15.5) Hematocrit 37.4 % (36.0-47.0) Mean Corpuscular Volume 92 fL (79-100) Mean Corpuscular Hemoglobin 32 pg (25-35) Mean Corpuscular Hemoglobin Concent 35 g/dL (31-37) Red Cell Distribution Width 12.3 % (11.5-14.5) Platelet Count 262 x10^3/uL (140-400) Neutrophils (%) (Auto) 70 % (31-73) Lymphocytes (%) (Auto) 24 % (24-48) Monocytes (%) (Auto) 6 % (0-9) Eosinophils (%) (Auto) 0 % (0-3) Basophils (%) (Auto) 0 % (0-3) Neutrophils # (Auto) 4.8 x10^3/uL (1.8-7.7) Lymphocytes # (Auto) 1.6 x10^3/uL (1.0-4.8) Monocytes # (Auto) 0.4 x10^3/uL (0.0-1.1) Eosinophils # (Auto) 0.0 x10^3/uL (0.0-0.7) Basophils # (Auto) 0.0 x10^3/uL (0.0-0.2) Sodium Level 140 mmol/L (136-145) Potassium Level 4.3 mmol/L (3.5-5.1) Chloride Level 103 mmol/L (98-107) Carbon Dioxide Level 27 mmol/L (21-32) Anion Gap 10 (6-14) Blood Urea Nitrogen 7 mg/dL (7-20) Creatinine 0.5 mg/dL (0.6-1.0) L Estimated GFR (Cockcroft-Gault) 183.4 BUN/Creatinine Ratio 14 (6-20) Glucose Level 100 mg/dL (70-99) H Calcium Level 9.6 mg/dL (8.5-10.1) Total Bilirubin 0.6 mg/dL (0.2-1.0) Aspartate Amino Transferase (AST) 8 U/L (15-37) L Alanine Aminotransferase (ALT) 14 U/L (14-59) Alkaline Phosphatase 73 U/L (46-116) Total Protein 7.8 g/dL (6.4-8.2) Albumin 3.7 g/dL (3.4-5.0) Albumin/Globulin Ratio 0.9 (1.0-1.7) L Laboratory Tests 01/19/19 13:00 Laboratory Tests 01/19/19 13:00 EKG EKG [] Radiology/Procedures Radiology/Procedures [] Course & Med Decision Making Course & Med Decision Making Pertinent Labs reviewed. (See chart for details) Evaluation of patient in ER showed 23-year-old female patient at 12 weeks of gestation with complaining of nausea and vomiting and back pain in . Patient had unremarkable physical exam and labs. Patient has history of heart rate of 140. Patient had previous intrauterine ultrasound with single viable fetus did not have any complaining of abdominal pain or vaginal bleeding or discharge. Patient felt better with treatment in ER. Plan discharge patient home to diagnose of hyperemesis gravidarum and prescription of Zofran and instruction to follow up with her [employer]. Dragon Disclaimer Dragon Disclaimer This electronic medical record was generated, in whole or in part, using a voice recognition dictation system. 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
[2019-01-19] MEDS ORDERED: ONDA4TAB7 PO (14:00)
[2019-01-19 14:18] VITALS: BP 130/91
== END 2019-01-19 14:30 | disposition home or self-care (01) ==
LOC: ER 11:56
DX: O21.0 Mild hyperemesis gravidarum (principal); M54.5 Low back pain; O16.1 Unspecified maternal hypertension, first trimester; O99.281 Endocrine, nutritional and metabolic diseases complicating pregnancy, first trimester; E05.90 Thyrotoxicosis, unspecified without thyrotoxic crisis or storm; O99.511 Diseases of the respiratory system complicating pregnancy, first trimester; J45.909 Unspecified asthma, uncomplicated; O24.911 Unspecified diabetes mellitus in pregnancy, first trimester; Z3A.12 12 weeks gestation of pregnancy
CPT/HCPCS: 36415; 80053; 81001; 85025; 96361; 96374; 99284; J2405; J7030

== ENCOUNTER 2019-01-29 19:42 | Inpatient (IN) | payer BC ==
[~2019-01-29] VITALS: Ht 172.7 cm; Wt 88.9 kg
[~2019-01-29 19:42] MED LIST changes: +ONDA4TAB7 PO
[2019-01-29] MEDS ORDERED: IV NORMAL SALINE 1000ML BAG 1,000 ML IV SCH (20:25)
[2019-01-29] MEDS ORDERED: METOCLOPRAMIDE HCL 10 MG/2 ML VIAL. IVP ONE (20:30)
--- NOTE | 2019-01-29 20:33 | PHYS DOC ---
Past Medical History Past Medical History: Asthma, Diabetes-Type II, Hypertension, Hyperthyroid Past Surgical History: No Surgical History Alcohol Use: None Drug Use: None Adult General Chief Complaint Chief Complaint: ABDOMINAL PAIN IN HPI HPI Patient is a 23 year old female who presents with complaint of nausea, vomiting, and back pain. Patient is currently [address] Lemon of [facility] for care. Has had multiple visits to the emergency department for treatment of hyperemesis gravidarum. Started having worsening symptoms over the past 2 days. States that she is also been having off and on back pain seems to be worsening over the past 2 days. Was seen at [facility] today where she underwent ultrasound that showed no acute problems with her baby. Patient however continues to have worsening symptoms is unable to tolerate any oral intake at this time. Denies any vaginal discharge or bleeding. Review of Systems Review of Systems Constitutional: Denies fever or chills [] Eyes: Denies change in visual acuity, redness, or eye pain [] HENT: Denies nasal congestion or sore throat [] Respiratory: Denies cough or shortness of breath [] Cardiovascular: Denies chest pain or edema[] GI: Nausea, vomiting, denies abdominal pain, bloody stools or diarrhea [] : Denies vaginal bleeding or discharge[] Musculoskeletal: Back pain[] Integument: Denies rash or skin lesions [] Neurologic: Denies headache, focal weakness or sensory changes [] All other systems were reviewed and found to be within normal limits, except as documented in this note. Current Medications Current Medications Current Medications Medications (Trade) Dose Ordered Sig/Indira Start Time Stop Time Status Last Admin Dose Admin Acetaminophen (Tylenol) 1,000 mg PRN Q6HRS PRN 01/29/19 23:45 Metoclopramide HCl (Reglan Vial) 10 mg 1X ONCE 01/29/19 20:30 01/29/19 20:31 DC 01/29/19 20:38 10 MG Promethazine HCl (Phenergan Supp) 25 mg BID 01/29/19 23:45 01/29/19 23:55 25 MG Ringer's Solution 1,000 ml @ 175 mls/hr [id number] 01/29/19 23:45 01/29/19 23:56 175 MLS/HR Sodium Chloride 1,000 ml @ 1,000 mls/hr 1X ONCE 01/29/19 23:25 01/30/19 00:24 Allergies Allergies Allergies Coded Allergies Type Severity Reaction Last Updated Verified No Known Drug Allergies 06/01/18 No Physical Exam Physical Exam Constitutional: Alert, afebrile, actively vomiting. [] HENT: Normocephalic, atraumatic, bilateral external ears normal, oropharynx moist, no oral exudates, nose normal. [] Eyes: PERRLA, EOMI, conjunctiva normal, no discharge. [] Neck: Normal range of motion, no tenderness, supple, no stridor. [] Cardiovascular: Tachycardia, regular rhythm, no murmur [] Lungs & Thorax: Bilateral breath sounds clear to auscultation [] Abdomen: Bowel sounds normal, soft, no tenderness, no masses, no pulsatile masses. [] Skin: Warm, dry, no erythema, no rash. [] Back: Bilateral lower lumbar paraspinous muscle tenderness to palpation, no midline tenderness no CVA tenderness. [] Extremities: No tenderness, no cyanosis, no clubbing, ROM intact, no edema. [] Neurologic: Alert and oriented X 3, normal motor function, normal sensory function, no focal deficits noted. [] Current Patient Data Vital Signs Vital Signs Date Time Temp Pulse Resp B/P (MAP) Pulse Ox O2 Delivery O2 Flow Rate FiO2 01/29/19 23:29 101 17 118/68 (85) 100 Room Air 01/29/19 19:55 97.7 97.7 Lab Values Laboratory Tests Test 01/29/19 19:50 01/29/19 20:32 Urine Color [place] Urine Clarity Cloudy Urine pH 6.0 Urine Specific [place] >=1.030 Urine Protein 100 mg/dL (NEG-TRACE) Urine Glucose (UA) Negative mg/dL (NEG) Urine Ketones (Stick) >=80 mg/dL (NEG) Urine Blood Negative (NEG) Urine Nitrite Negative (NEG) Urine Bilirubin Small (NEG) Urine Urobilinogen Dipstick 1.0 mg/dL (0.2 mg/dL) Urine Leukocyte Esterase Small (NEG) Urine RBC 0 /HPF (0-2) Urine WBC 5-10 /HPF (0-4) Urine Squamous Epithelial Cells Occ /LPF Urine Bacteria Moderate /HPF (0-FEW) Urine Mucus Mod /LPF White Blood Count 8.8 x10^3/uL (4.0-11.0) Red Blood Count 4.39 x10^6/uL (3.50-5.40) Hemoglobin 13.9 g/dL (12.0-15.5) Hematocrit 40.1 % (36.0-47.0) Mean Corpuscular Volume 91 fL (79-100) Mean Corpuscular Hemoglobin 32 pg (25-35) Mean Corpuscular Hemoglobin Concent 35 g/dL (31-37) Red Cell Distribution Width 12.1 % (11.5-14.5) Platelet Count 319 x10^3/uL (140-400) Neutrophils (%) (Auto) 72 % (31-73) Lymphocytes (%) (Auto) 21 % (24-48) L Monocytes (%) (Auto) 6 % (0-9) Eosinophils (%) (Auto) 0 % (0-3) Basophils (%) (Auto) 1 % (0-3) Neutrophils # (Auto) 6.3 x10^3/uL (1.8-7.7) Lymphocytes # (Auto) 1.9 x10^3/uL (1.0-4.8) Monocytes # (Auto) 0.5 x10^3/uL (0.0-1.1) Eosinophils # (Auto) 0.0 x10^3/uL (0.0-0.7) Basophils # (Auto) 0.0 x10^3/uL (0.0-0.2) Sodium Level 139 mmol/L (136-145) Potassium Level 3.6 mmol/L (3.5-5.1) Chloride Level 99 mmol/L (98-107) Carbon Dioxide Level 28 mmol/L (21-32) Anion Gap 12 (6-14) Blood Urea Nitrogen 13 mg/dL (7-20) Creatinine 0.7 mg/dL (0.6-1.0) Estimated GFR (Cockcroft-Gault) 124.4 BUN/Creatinine Ratio 19 (6-20) Glucose Level 123 mg/dL (70-99) H Calcium Level 9.7 mg/dL (8.5-10.1) Total Bilirubin 0.8 mg/dL (0.2-1.0) Aspartate Amino Transferase (AST) 19 U/L (15-37) Alanine Aminotransferase (ALT) 27 U/L (14-59) Alkaline Phosphatase 85 U/L (46-116) Total Protein 8.2 g/dL (6.4-8.2) Albumin 3.8 g/dL (3.4-5.0) Albumin/Globulin Ratio 0.9 (1.0-1.7) L Lipase 106 U/L (73-393) Laboratory Tests 01/29/19 20:32 Laboratory Tests 01/29/19 20:32 EKG EKG Not performed[] Radiology/Procedures Radiology/Procedures Not performed[] Course & Med Decision Making Course & Med Decision Making Pertinent Labs and Imaging studies reviewed. (See chart for details) Patient was given IV fluids and was given IV Reglan initially. The patient noted minimal improvement with treatment of Reglan. Given Zofran IV with again minimal improvement per patient. The patient however states that she is unable to tolerate oral intake at this time and does not wish to attempt as she feels like she is going to vomit. Patient's blood work appears stable. Urinalysis did show concentration consistent with dehydration. I contacted the patient's [employer], Dr. Lemon, who agrees to accept patient in hospital for treatment of hyperemesis gravidarum. Dragon Disclaimer Dragon Disclaimer This electronic medical record was generated, in whole or in part, using a voice recognition dictation system. Departure Departure Impression: Primary Impression: Mild hyperemesis gravidarum Disposition: ADMITTED INPATIENT Condition: STABLE Referrals: JANEY PATRICK (PCP) VIRA NEVILLE MD Jan 29, 2019 20:33
[2019-01-29 20:41] LABS: BASO % 1 % (0-3); EOS % 0 % (0-3); HEMATOCRIT 40.1 % (36.0-47.0); HEMOGLOBIN 13.9 g/dL (12.0-15.5); LYMPH # 1.9 x10^3/uL (1.0-4.8); LYMPH % 21 % (24-48); MEAN CORPUSCULAR HEMOGLOBIN 32 pg (25-35); MEAN CORPUSCULAR HGB CONC 35 g/dL (31-37); MEAN CORPUSCULAR VOLUME 91 fL (79-100); MONO # 0.5 x10^3/uL (0.0-1.1); MONO % 6 % (0-9); NEUT # 6.3 x10^3/uL (1.8-7.7); NEUT % 72 % (31-73); PLATELET COUNT 319 x10^3/uL (140-400); RED BLOOD COUNT 4.39 x10^6/uL (3.50-5.40); RED CELL DISTRIBUTION WIDTH 12.1 % (11.5-14.5); WHITE BLOOD COUNT 8.8 x10^3/uL (4.0-11.0)
[2019-01-29 20:47] LABS: BILIRUBIN,URINE SMALL (NEG); CLARITY,URINE CLOUDY; COLOR,URINE AMBER; NITRITE,URINE NEGATIVE (NEG); PROTEIN,URINE 100 mg/dL (NEG-TRACE)
[2019-01-29 20:48] LABS: CALCIUM 9.7 mg/dL (8.5-10.1); CREATININE 0.7 mg/dL (0.6-1.0); GFR 124.4; POTASSIUM 3.6 mmol/L (3.5-5.1)
[2019-01-29 20:55] LABS: BACTERIA,URINE MODERATE /HPF (0-FEW); RBC,URINE 0 /HPF (0-2); SQUAMOUS EPITHELIAL CELL,UR OCC /LPF
[2019-01-29 20:56] LABS: ALBUMIN 3.8 g/dL (3.4-5.0); ALBUMIN/GLOBULIN RATIO 0.9 (1.0-1.7); TOTAL BILIRUBIN 0.8 mg/dL (0.2-1.0); TOTAL PROTEIN 8.2 g/dL (6.4-8.2)
[2019-01-29] MEDS ORDERED: IV NORMAL SALINE 1000ML BAG 1,000 ML IV ONE (23:25)
[2019-01-29] MEDS ORDERED: ACETAMINOPHEN 500 MG TABLET PO PRN (23:45)
[2019-01-29] MEDS: PROMETHAZINE 25 MG SUPP.RECT. PR SCH (23:55)
[2019-01-29] MEDS: IV RINGERS,LACTATED 1000ML 1,000 ML IV SCH (23:56)
[2019-01-30 00:05] VITALS: BP 104/70
[2019-01-30 05:40] VITALS: BP 118/84
[2019-01-30] MEDS: METOCLOPRAMIDE HCL 10 MG/2 ML VIAL. IVP SCH ×3 (05:41→22:04)
[2019-01-30] MEDS: IV RINGERS,LACTATED 1000ML 1,000 ML IV SCH ×4 (05:49→22:35)
--- NOTE | 2019-01-30 07:47 | PDOC1 ---
OB - History Hx of Present Care: Limited Care Obstetrical Complications: Hyperemesis Medical Complications: None Past Family/Social History * Past Medical, Surgical, Family and Obstetric Histories reviewed from chart. Rubella: Unknown RPR/VDRL: Unknown GBS Status: Unknown HBsAG: Unknown OB - Chief Complaint & HPI Date of Admission: Date of Admission: Jan 29, 2019 at 23:56 Chief Complaint/History : 1 EGA: 14 Reason for admission: observation Admission Nurse Assessment Rev: Yes OB - Admission Exam Physical Exam Vitals: VS - Last 72 Hours, by Label Date Time Temp Pulse Resp B/P (MAP) Pulse Ox O2 Delivery O2 Flow Rate FiO2 01/30/19 05:40 98.2 95 20 118/84 (95) 97 98.2 01/30/19 00:05 97.8 104 20 104/70 (81) 100 Room Air 97.8 01/29/19 23:29 101 17 118/68 (85) 100 Room Air 01/29/19 22:59 102 17 109/66 (80) 99 Room Air 01/29/19 22:29 107 17 115/68 (84) 98 Room Air 01/29/19 21:59 103 17 111/71 (84) 98 Room Air 01/29/19 21:29 94 16 111/71 (84) 99 Room Air 01/29/19 20:59 99 16 112/63 (79) 100 Room Air 01/29/19 20:33 109 16 127/66 (86) 100 Room Air 01/29/19 19:55 97.7 102 16 130/67 (88) 97 Room Air 97.7 HEENT: Normal Heart: Regular Rate Lungs: Clear Abdomen: Gravid, Non tender, Soft Extremities: Edema Reflexes: Normal Cervical Dilatation: None Effacement: 0% Membranes: Intact Accelerations: Accelerations Present Contractions on Admission: None Text A: Hyperemesis Gravidarum P: Observation IV hydration and antiemetics. DAVID NIELSON Jr, MD Jan 30, 2019 07:47
[2019-01-30] MEDS: PANTOPRAZOLE IV PUSH 40 MG VIAL. IVP SCH (09:01)
[2019-01-30] MEDS: PROMETHAZINE 25 MG SUPP.RECT. PR SCH ×2 (09:01→20:18)
[2019-01-30 09:15] VITALS: BP 110/78
[2019-01-30 12:16] VITALS: BP 110/77
[2019-01-30 16:14] VITALS: BP 111/72
[2019-01-30 20:20] VITALS: BP 118/83
[2019-01-31 01:00] VITALS: BP 99/66
[2019-01-31] MEDS: IV RINGERS,LACTATED 1000ML 1,000 ML IV SCH ×2 (04:10→09:56)
[2019-01-31 06:10] VITALS: BP 124/88
[2019-01-31] MEDS: METOCLOPRAMIDE HCL 10 MG/2 ML VIAL. IVP SCH (06:10)
[2019-01-31] MEDS: PROMETHAZINE 25 MG SUPP.RECT. PR SCH (08:17)
[2019-01-31] MEDS: PANTOPRAZOLE IV PUSH 40 MG VIAL. IVP SCH (08:17)
--- NOTE | 2019-01-31 10:08 | PDOC3 ---
OB DISCHARGE SUMMARY DATE OF ADMISSION: 01/29/19 DATE OF DISCHARGE: 01/31/19 REASON FOR ADMISSION: Observation/evaluation PROBLEM LIST AT DISCHARGE Problems Medical Problems: (1) Mild hyperemesis gravidarum Status: Acute DISCHARGE DIAGNOSIS: Hyperemesis Gravidarum DISCHARGE INFORMATION: Activity (ad hema), Diet (ADA diet) HOSPITAL COURSE 14 wks gestation treated for hyperemesis gravidarum and improved. DAVID NIELSON Jr, MD Jan 31, 2019 10:08
[2019-01-31] MEDS ORDERED: METO10TA81 PO (10:10)
[2019-01-31] MEDS ORDERED: PROM25SU3 PR (10:10)
--- NOTE | 2019-01-31 10:11 | DISCH ---
DISCHARGE INSTRUCTIONS Condition on Discharge Condition on Discharge: Stable Activity After Discharge Activity Instructions for Disc: Activity as tolerated Lifting Instructions after Dis: No heavy lifting Driving Instructions after Dis: Do not drive today Weight Bearing Status after Di: As tolerated Diet after Discharge Diet after Discharge: Diabetic No Calorie Level Diet Texture: Regular Liquid Texture: Thin Liquid Contacting the DR. after DC Call your doctor for: Concerns you may have Follow-Up Follow up with: Dr. Lemon in 1 week. Treatment/Equipment after DC Adaptive Equipment Issued: None DAVID LEMON Jr, MD Jan 31, 2019 10:11
[2019-01-31 10:15] VITALS: BP 106/77
--- NOTE | 2019-01-31 12:02 | NUR ---
Discharge instructions and prescriptions reviewed with patient, she verb. understanding all instructions and denies questions. Patient states Dr. Lemon stated discharge this afternoon and she is waiting for ride, will continue IVF until patient knows when her ride will arrive. She verb. understanding POC.
--- NOTE | 2019-01-31 13:31 | NUR ---
Patient discharge to home with family with all belongings, instructions and prescriptions.
== END 2019-01-31 13:32 | disposition home or self-care (01) | DRG 832 ==
LOC: ER 19:42 → 3 NORTH 23:56 → OBSVTOIN 01-30 10:33
PROVIDERS: ADMIT Obstetrics & Gynecology; ATTEND Obstetrics & Gynecology
DX: O21.0 Mild hyperemesis gravidarum (principal); O16.2 Unspecified maternal hypertension, second trimester; O24.912 Unspecified diabetes mellitus in pregnancy, second trimester; J45.909 Unspecified asthma, uncomplicated; Z3A.15 15 weeks gestation of pregnancy; O99.512 Diseases of the respiratory system complicating pregnancy, second trimester
CPT/HCPCS: 36415; 80053; 81001; 82962; 83690; 85025; 87086; 96361; 96374; C9113; G0378; G0379; J2765; J7030; J7120; 99285-25

== ENCOUNTER 2019-02-17 19:57 | Inpatient (IN) | payer BC ==
[~2019-02-17] VITALS: Ht 172.7 cm; Wt 94.3 kg
--- NOTE | 2019-02-17 20:13 | PHYS DOC ---
Past Medical History Past Medical History: Asthma, Diabetes-Type II, Hypertension, Hyperthyroid (FAVIAN FRAGOSO APRN) Past Surgical History: No Surgical History (FAVIAN FRAGOSO APRN) Alcohol Use: None Drug Use: None (FAVIAN FRAGOSO APRN) Attending Signature I have participated in the care of this patient and I have reviewed and agree with all pertinent clinical information above including history, exam, and recommendations. (YESSICA GRAY MD) Adult General Chief Complaint Chief Complaint: VOMITING IN HPI HPI Patient is a 23 year old female with history of diabetes type 2, hypertension, 1 para 0 currently 16 weeks presenting to the ED today with nausea and vomiting that has been going on throughout her but got worse today. She states she tried taking Reglan as well as promethazine with no relief. Patient denies any abdominal pain. She states she saw Dr. Lemon 02/03/2019. (FAVIAN FRAGOSO APRN) Review of Systems Review of Systems Constitutional: Denies fever or chills [] Eyes: Denies change in visual acuity, redness, or eye pain [] HENT: Denies nasal congestion or sore throat [] Respiratory: Denies cough or shortness of breath [] Cardiovascular: No additional information not addressed in HPI [] GI: Reports nausea and vomiting. Denies abdominal pain, bloody stools or diarrhea [] : Denies dysuria or hematuria [] Musculoskeletal: Denies back pain or joint pain [] Integument: Denies rash or skin lesions [] Neurologic: Denies headache, focal weakness or sensory changes [] All other systems were reviewed and found to be within normal limits, except as documented in this note. (FAVIAN FRAGOSO APRN) Current Medications Current Medications Current Medications Medications (Trade) Dose Ordered Sig/Indira Start Time Stop Time Status Last Admin Dose Admin Acetaminophen (Tylenol) 1,000 mg PRN Q6HRS PRN 02/17/19 22:30 Metoclopramide HCl (Reglan Vial) 10 mg 1X ONCE 02/17/19 20:15 02/17/19 20:16 DC 02/17/19 20:25 10 MG Prochlorperazine Edisylate (Compazine) 10 mg 1X ONCE 02/17/19 20:15 02/17/19 20:16 DC 02/17/19 20:25 10 MG Ringer's Solution 1,000 ml @ 150 mls/hr Q6H40M 02/17/19 22:30 Cancel Sodium Chloride 1,000 ml @ 125 mls/hr 1X ONCE 02/17/19 22:30 02/17/19 23:24 DC (YESSICA GRAY MD) Allergies Allergies Allergies Coded Allergies Type Severity Reaction Last Updated Verified No Known Drug Allergies 06/01/18 No (YESSICA GRAY MD) Physical Exam Physical Exam Constitutional: Well developed, well nourished, no acute distress, non-toxic appearance. [] HENT: Normocephalic, atraumatic, bilateral external ears normal, oropharynx moist, no oral exudates, nose normal. [] Eyes: PERRLA, EOMI, conjunctiva normal, no discharge. [] Neck: Normal range of motion, no tenderness, supple, no stridor. [] Cardiovascular:Heart rate regular rhythm, no murmur [] Lungs & Thorax: Bilateral breath sounds clear to auscultation [] Abdomen: Bowel sounds normal, soft, no tenderness, no masses, no pulsatile masses. [] Skin: Warm, dry, no erythema, no rash. [] Back: No tenderness, no CVA tenderness. [] Extremities: No tenderness, no cyanosis, no clubbing, ROM intact, no edema. [] Neurologic: Alert and oriented X 3, normal motor function, normal sensory func tion, no focal deficits noted. [] Psychologic: Affect normal, judgement normal, mood normal. [] (FAVIAN FRAGOSO APRN) Current Patient Data Vital Signs Vital Signs Date Time Temp Pulse Resp B/P (MAP) Pulse Ox O2 Delivery O2 Flow Rate FiO2 02/17/19 22:15 98 16 108/63 (78) 98 Room Air 02/17/19 20:14 97.8 97.8 (YESSICA GRAY MD) Lab Values Laboratory Tests Test 02/17/19 20:04 02/17/19 20:15 02/17/19 21:09 Urine Collection Type Void Urine Color Dk yellow Urine Clarity Clear Urine pH 6.0 Urine Specific [place] >=1.030 Urine Protein 100 mg/dL (NEG-TRACE) Urine Glucose (UA) Negative mg/dL (NEG) Urine Ketones (Stick) >=80 mg/dL (NEG) Urine Blood Negative (NEG) Urine Nitrite Negative (NEG) Urine Bilirubin Negative (NEG) Urine Urobilinogen Dipstick 1.0 mg/dL (0.2 mg/dL) Urine Leukocyte Esterase Trace (NEG) Urine RBC 0 /HPF (0-2) Urine WBC Occ /HPF (0-4) Urine Squamous Epithelial Cells Many /LPF Urine Bacteria Few /HPF (0-FEW) Urine Mucus Marked /LPF Urine Opiates Screen Neg (NEG) Urine Methadone Screen Neg (NEG) Urine Barbiturates Neg (NEG) Urine Phencyclidine Screen Neg (NEG) Urine Amphetamine/Methamphetamine Neg (NEG) Urine Benzodiazepines Screen Neg (NEG) Urine Cocaine Screen Neg (NEG) Urine Cannabinoids Screen Neg (NEG) Urine Ethyl Alcohol Neg (NEG) White Blood Count 8.9 x10^3/uL (4.0-11.0) Red Blood Count 4.54 x10^6/uL (3.50-5.40) Hemoglobin 14.2 g/dL (12.0-15.5) Hematocrit 41.9 % (36.0-47.0) Mean Corpuscular Volume 92 fL (79-100) Mean Corpuscular Hemoglobin 31 pg (25-35) Mean Corpuscular Hemoglobin Concent 34 g/dL (31-37) Red Cell Distribution Width 12.5 % (11.5-14.5) Platelet Count 335 x10^3/uL (140-400) Neutrophils (%) (Auto) 78 % (31-73) H Lymphocytes (%) (Auto) 17 % (24-48) L Monocytes (%) (Auto) 5 % (0-9) Eosinophils (%) (Auto) 0 % (0-3) Basophils (%) (Auto) 1 % (0-3) Neutrophils # (Auto) 6.9 x10^3/uL (1.8-7.7) Lymphocytes # (Auto) 1.5 x10^3/uL (1.0-4.8) Monocytes # (Auto) 0.4 x10^3/uL (0.0-1.1) Eosinophils # (Auto) 0.0 x10^3/uL (0.0-0.7) Basophils # (Auto) 0.0 x10^3/uL (0.0-0.2) Sodium Level 139 mmol/L (136-145) Potassium Level 3.8 mmol/L (3.5-5.1) Chloride Level 101 mmol/L (98-107) Carbon Dioxide Level 25 mmol/L (21-32) Anion Gap 13 (6-14) Blood Urea Nitrogen 12 mg/dL (7-20) Creatinine 0.7 mg/dL (0.6-1.0) Estimated GFR (Cockcroft-Gault) 124.4 BUN/Creatinine Ratio 17 (6-20) Glucose Level 117 mg/dL (70-99) H Calcium Level 9.7 mg/dL (8.5-10.1) Total Bilirubin 0.8 mg/dL (0.2-1.0) Aspartate Amino Transferase (AST) 8 U/L (15-37) L Alanine Aminotransferase (ALT) 17 U/L (14-59) Alkaline Phosphatase 83 U/L (46-116) Total Protein 9.0 g/dL (6.4-8.2) H Albumin 4.0 g/dL (3.4-5.0) Albumin/Globulin Ratio 0.8 (1.0-1.7) L Ethyl Alcohol Level < 10 mg/dL (0-10) POC Urine HCG, Qualitative Hcg positive (Negative) Laboratory Tests 02/17/19 20:15 Laboratory Tests 02/17/19 20:15 (YESSICA GRAY MD) Lab Values Laboratory Tests Test 02/17/19 20:04 02/17/19 20:15 02/17/19 21:09 Urine Collection Type Void Urine Color Dk yellow Urine Clarity Clear Urine pH 6.0 Urine Specific [place] >=1.030 Urine Protein 100 mg/dL (NEG-TRACE) Urine Glucose (UA) Negative mg/dL (NEG) Urine Ketones (Stick) >=80 mg/dL (NEG) Urine Blood Negative (NEG) Urine Nitrite Negative (NEG) Urine Bilirubin Negative (NEG) Urine Urobilinogen Dipstick 1.0 mg/dL (0.2 mg/dL) Urine Leukocyte Esterase Trace (NEG) Urine RBC 0 /HPF (0-2) Urine WBC Occ /HPF (0-4) Urine Squamous Epithelial Cells Many /LPF Urine Bacteria Few /HPF (0-FEW) Urine Mucus Marked /LPF Urine Opiates Screen Neg (NEG) Urine Methadone Screen Neg (NEG) Urine Barbiturates Neg (NEG) Urine Phencyclidine Screen Neg (NEG) Urine Amphetamine/Methamphetamine Neg (NEG) Urine Benzodiazepines Screen Neg (NEG) Urine Cocaine Screen Neg (NEG) Urine Cannabinoids Screen Neg (NEG) Urine Ethyl Alcohol Neg (NEG) White Blood Count 8.9 x10^3/uL (4.0-11.0) Red Blood Count 4.54 x10^6/uL (3.50-5.40) Hemoglobin 14.2 g/dL (12.0-15.5) Hematocrit 41.9 % (36.0-47.0) Mean Corpuscular Volume 92 fL (79-100) Mean Corpuscular Hemoglobin 31 pg (25-35) Mean Corpuscular Hemoglobin Concent 34 g/dL (31-37) Red Cell Distribution Width 12.5 % (11.5-14.5) Platelet Count 335 x10^3/uL (140-400) Neutrophils (%) (Auto) 78 % (31-73) H Lymphocytes (%) (Auto) 17 % (24-48) L Monocytes (%) (Auto) 5 % (0-9) Eosinophils (%) (Auto) 0 % (0-3) Basophils (%) (Auto) 1 % (0-3) Neutrophils # (Auto) 6.9 x10^3/uL (1.8-7.7) Lymphocytes # (Auto) 1.5 x10^3/uL (1.0-4.8) Monocytes # (Auto) 0.4 x10^3/uL (0.0-1.1) Eosinophils # (Auto) 0.0 x10^3/uL (0.0-0.7) Basophils # (Auto) 0.0 x10^3/uL (0.0-0.2) Sodium Level 139 mmol/L (136-145) Potassium Level 3.8 mmol/L (3.5-5.1) Chloride Level 101 mmol/L (98-107) Carbon Dioxide Level 25 mmol/L (21-32) Anion Gap 13 (6-14) Blood Urea Nitrogen 12 mg/dL (7-20) Creatinine 0.7 mg/dL (0.6-1.0) Estimated GFR (Cockcroft-Gault) 124.4 BUN/Creatinine Ratio 17 (6-20) Glucose Level 117 mg/dL (70-99) H Calcium Level 9.7 mg/dL (8.5-10.1) Total Bilirubin 0.8 mg/dL (0.2-1.0) Aspartate Amino Transferase (AST) 8 U/L (15-37) L Alanine Aminotransferase (ALT) 17 U/L (14-59) Alkaline Phosphatase 83 U/L (46-116) Total Protein 9.0 g/dL (6.4-8.2) H Albumin 4.0 g/dL (3.4-5.0) Albumin/Globulin Ratio 0.8 (1.0-1.7) L Ethyl Alcohol Level < 10 mg/dL (0-10) POC Urine HCG, Qualitative Hcg positive (Negative) Laboratory Tests 02/17/19 20:15 Laboratory Tests 02/17/19 20:15 (FAVIAN FRAGOSO APRN) EKG EKG [] (FAVIAN FRAGOSO APRN) Radiology/Procedures Radiology/Procedures [] (FAVIAN FRAGOSO APRN) Course & Med Decision Making Course & Med Decision Making Pertinent Labs and Imaging studies reviewed. (See chart for details) This is a 23-year-old female patient 1 para 0 currently 16 weeks pregn ant presenting to the ED today with nausea and vomiting. Patient has been seen in the ED multiple times for the same symptoms. She was admitted roughly 2 weeks ago for the same complaint, she states she followed up with the OB who stated that on promethazine and Reglan he states this is not helping with her symptoms. Urine consistent with dehydration. Patient was given Reglan and Compazine with o ne liter of fluids in the ED. She states she does not feel comfortable going home. She is afraid to try anything to eat or drink because it will come back up I spoke with the [employer] Dr. Lemon who accepted patient for admission. (FAVIAN FRAGOSO APRN) Dragon Disclaimer Dragon Disclaimer This electronic medical record was generated, in whole or in part, using a voice recognition dictation system. (FAVIAN FRAGOSO APRN) Departure Departure Impression: Primary Impression: Mild hyperemesis gravidarum Disposition: ADMITTED INPATIENT Condition: STABLE Referrals: JANEY PATRICK (PCP) FAVIAN FRAGOSO APRN Feb 17, 2019 20:13 YESSICA GRAY MD Feb 18, 2019 03:34
[2019-02-17 20:14] LABS: BILIRUBIN,URINE NEGATIVE (NEG); CLARITY,URINE CLEAR; NITRITE,URINE NEGATIVE (NEG); PROTEIN,URINE 100 mg/dL (NEG-TRACE)
[2019-02-17] MEDS ORDERED: IV NORMAL SALINE 1000ML BAG 1,000 ML IV ONE ×2 (20:15→22:30)
[2019-02-17] MEDS ORDERED: PROCHLORPERAZINE 10 MG/2 ML VIAL. IV ONE (20:15)
[2019-02-17] MEDS ORDERED: METOCLOPRAMIDE HCL 10 MG/2 ML VIAL. IVP ONE (20:15)
[2019-02-17 20:18] LABS: COLOR,URINE DK YELLOW
[2019-02-17 20:21] LABS: BARBITURATES NEG (NEG); BENZODIAZEPINES NEG (NEG); CANNABINOIDS NEG (NEG); COCAINE NEG (NEG); METHADONE NEG (NEG); OPIATES NEG (NEG); PHENCYCLIDINE NEG (NEG)
[2019-02-17 20:22] LABS: BACTERIA,URINE FEW /HPF (0-FEW); RBC,URINE 0 /HPF (0-2); SQUAMOUS EPITHELIAL CELL,UR MANY /LPF; WBC,URINE OCC /HPF (0-4)
[2019-02-17 20:23] LABS: BASO % 1 % (0-3); EOS % 0 % (0-3); HEMATOCRIT 41.9 % (36.0-47.0); HEMOGLOBIN 14.2 g/dL (12.0-15.5); LYMPH # 1.5 x10^3/uL (1.0-4.8); LYMPH % 17 % (24-48); MEAN CORPUSCULAR HEMOGLOBIN 31 pg (25-35); MEAN CORPUSCULAR HGB CONC 34 g/dL (31-37); MEAN CORPUSCULAR VOLUME 92 fL (79-100); MONO # 0.4 x10^3/uL (0.0-1.1); MONO % 5 % (0-9); NEUT # 6.9 x10^3/uL (1.8-7.7); NEUT % 78 % (31-73); PLATELET COUNT 335 x10^3/uL (140-400); RED BLOOD COUNT 4.54 x10^6/uL (3.50-5.40); RED CELL DISTRIBUTION WIDTH 12.5 % (11.5-14.5); WHITE BLOOD COUNT 8.9 x10^3/uL (4.0-11.0)
[2019-02-17 20:25] LABS: AMPHETAMINE/METHAMPHETAMINE NEG (NEG)
[2019-02-17 20:30] LABS: CALCIUM 9.7 mg/dL (8.5-10.1); CREATININE 0.7 mg/dL (0.6-1.0); GFR 124.4; POTASSIUM 3.8 mmol/L (3.5-5.1)
[2019-02-17 20:44] LABS: ALBUMIN/GLOBULIN RATIO 0.8 (1.0-1.7); TOTAL BILIRUBIN 0.8 mg/dL (0.2-1.0)
[2019-02-17] MEDS ORDERED: ACETAMINOPHEN 500 MG TABLET PO PRN (22:30)
[2019-02-17] MEDS ORDERED: ACETAMINOPHEN 325 MG TABLET. PO PRN (22:30)
[2019-02-17] MEDS ORDERED: IV RINGERS,LACTATED 1000ML 1,000 ML IV SCH (22:30)
[2019-02-17 22:35] VITALS: BP 113/76
[2019-02-17] MEDS: ONDANSETRON PF 4 MG/2 ML VIAL. IVP SCH (22:47)
[2019-02-18 04:15] VITALS: BP 114/77
[2019-02-18] MEDS: IV RINGERS,LACTATED 1000ML 1,000 ML IV SCH ×4 (04:25→17:41)
[2019-02-18 04:59] LABS: ALBUMIN/GLOBULIN RATIO 0.8 (1.0-1.7); CALCIUM 8.4 mg/dL (8.5-10.1); CREATININE 0.5 mg/dL (0.6-1.0); GFR 183.4; POTASSIUM 3.5 mmol/L (3.5-5.1); TOTAL BILIRUBIN 0.7 mg/dL (0.2-1.0)
[2019-02-18] MEDS: ONDANSETRON PF 4 MG/2 ML VIAL. IVP SCH ×3 (05:32→17:40)
[2019-02-18] MEDS: METOCLOPRAMIDE HCL 10 MG/2 ML VIAL. IVP SCH ×3 (06:41→22:47)
[2019-02-18 08:13] VITALS: BP 104/63
[2019-02-18] MEDS ORDERED: METOCLOPRAMIDE HCL 10 MG/2 ML VIAL. IVP SCH (09:00)
[2019-02-18] MEDS ORDERED: ONDANSETRON PF 4 MG/2 ML VIAL. IV SCH (09:00)
--- NOTE | 2019-02-18 10:41 | PDOC1 ---
OB - History Hx of Present Care: Limited Care Ultrasounds: Other (dating sono from hospital) Medical Complications: Other (DM Type 2) Past Family/Social History * Past Medical, Surgical, Family and Obstetric Histories reviewed from chart. Blood Type: Unknown Rubella: Unknown RPR/VDRL: Unknown GBS Status: Unknown HBsAG: Unknown OB - Chief Complaint & HPI Date of Admission: Date of Admission: Feb 17, 2019 at 22:33 Chief Complaint/History : 1 Para: 0 EGA: 16 Reason for admission: observation Admission Nurse Assessment Rev: Yes OB - Admission Exam Physical Exam Vitals: VS - Last 72 Hours, by Label Date Time Temp Pulse Resp B/P (MAP) Pulse Ox O2 Delivery O2 Flow Rate FiO2 02/18/19 08:13 98.1 92 16 104/63 (77) 99 Room Air 98.1 02/18/19 04:15 98.3 103 20 114/77 (89) 99 Room Air 98.3 02/17/19 22:35 97.8 99 18 113/76 (88) 99 Room Air 97.8 02/17/19 22:15 98 16 108/63 (78) 98 Room Air 02/17/19 21:15 110 16 104/61 (75) 97 Room Air 02/17/19 20:15 113 18 113/79 (90) 100 Room Air 02/17/19 20:14 97.8 126 24 107/76 (86) 99 Room Air 97.8 HEENT: Other (dry mucous membranes) Heart: Regular Rate Lungs: Clear Abdomen: Gravid, Soft, Tender Extremities: No tenderness or swelling Reflexes: Normal Cervical Dilatation: None Effacement: 0% Membranes: Intact Accelerations: Accelerations Present Contractions on Admission: None Text A: 16 wks IUP DM TYpe 2 Hyperemesis Gravidarum P: Observation for IV fluid hydration and antiemetics. DAVID NIELSON Jr, MD Feb 18, 2019 10:41
[2019-02-18 12:03] VITALS: BP 118/76
[2019-02-18 16:19] VITALS: BP 115/78
[2019-02-18 19:40] VITALS: BP 113/74
[2019-02-19] MEDS: ONDANSETRON PF 4 MG/2 ML VIAL. IVP SCH ×4 (01:02→18:00)
[2019-02-19] MEDS: IV RINGERS,LACTATED 1000ML 1,000 ML IV SCH ×4 (01:28→21:52)
--- NOTE | 2019-02-19 01:32 | NUR ---
Heart Tones 141.
[2019-02-19 05:00] VITALS: BP 114/78
[2019-02-19] MEDS: METOCLOPRAMIDE HCL 10 MG/2 ML VIAL. IVP SCH ×3 (05:57→21:53)
[2019-02-19] MEDS ORDERED: DEXTROSE 50% 25 GM / 50ML DISP.SYRIN. IV PRN (09:45)
[2019-02-19] MEDS: PROMETHAZINE 25 MG SUPP.RECT. PR PRN ×2 (11:32→20:09)
[2019-02-19] MEDS: INSULIN LISPRO 300 UNITS/3 ML VIAL. SQ SCH ×2 (11:33→17:00)
--- NOTE | 2019-02-19 12:28 | PDOC ---
OB Progress Note Date of Service 02/19/19 Time of Evaluation 1225 Problem List Problems Medical Problems: (1) Mild hyperemesis gravidarum Status: Acute Notes Pt. with more emesis today x 4. Will add Phenergan suppository to antiemetic regimen. Continue IV fluids and blood sugar management. Lab Laboratory Tests Test 02/17/19 20:04 02/17/19 20:15 02/17/19 21:09 02/18/19 04:10 Urine Collection Type Void Urine Color Dk yellow Urine Clarity Clear Urine pH 6.0 Urine Specific [place] >=1.030 Urine Protein 100 mg/dL (NEG-TRACE) Urine Glucose (UA) Negative mg/dL (NEG) Urine Ketones (Stick) >=80 mg/dL (NEG) Urine Blood Negative (NEG) Urine Nitrite Negative (NEG) Urine Bilirubin Negative (NEG) Urine Urobilinogen Dipstick 1.0 mg/dL (0.2 mg/dL) Urine Leukocyte Esterase Trace (NEG) Urine RBC 0 /HPF (0-2) Urine WBC Occ /HPF (0-4) Urine Squamous Epithelial Cells Many /LPF Urine Bacteria Few /HPF (0-FEW) Urine Mucus Marked /LPF Urine Opiates Screen Neg (NEG) Urine Methadone Screen Neg (NEG) Urine Barbiturates Neg (NEG) Urine Phencyclidine Screen Neg (NEG) Urine Amphetamine/Methamphetamine Neg (NEG) Urine Benzodiazepines Screen Neg (NEG) Urine Cocaine Screen Neg (NEG) Urine Cannabinoids Screen Neg (NEG) Urine Ethyl Alcohol Neg (NEG) White Blood Count 8.9 x10^3/uL (4.0-11.0) Red Blood Count 4.54 x10^6/uL (3.50-5.40) Hemoglobin 14.2 g/dL (12.0-15.5) Hematocrit 41.9 % (36.0-47.0) Mean Corpuscular Volume 92 fL (79-100) Mean Corpuscular Hemoglobin 31 pg (25-35) Mean Corpuscular Hemoglobin Concent 34 g/dL (31-37) Red Cell Distribution Width 12.5 % (11.5-14.5) Platelet Count 335 x10^3/uL (140-400) Neutrophils (%) (Auto) 78 % (31-73) Lymphocytes (%) (Auto) 17 % (24-48) Monocytes (%) (Auto) 5 % (0-9) Eosinophils (%) (Auto) 0 % (0-3) Basophils (%) (Auto) 1 % (0-3) Neutrophils # (Auto) 6.9 x10^3/uL (1.8-7.7) Lymphocytes # (Auto) 1.5 x10^3/uL (1.0-4.8) Monocytes # (Auto) 0.4 x10^3/uL (0.0-1.1) Eosinophils # (Auto) 0.0 x10^3/uL (0.0-0.7) Basophils # (Auto) 0.0 x10^3/uL (0.0-0.2) Sodium Level 139 mmol/L (136-145) 139 mmol/L (136-145) Potassium Level 3.8 mmol/L (3.5-5.1) 3.5 mmol/L (3.5-5.1) Chloride Level 101 mmol/L (98-107) 104 mmol/L (98-107) Carbon Dioxide Level 25 mmol/L (21-32) 24 mmol/L (21-32) Anion Gap 13 (6-14) 11 (6-14) Blood Urea Nitrogen 12 mg/dL (7-20) 10 mg/dL (7-20) Creatinine 0.7 mg/dL (0.6-1.0) 0.5 mg/dL (0.6-1.0) Estimated GFR (Cockcroft-Gault) 124.4 183.4 BUN/Creatinine Ratio 17 (6-20) 20 (6-20) Glucose Level 117 mg/dL (70-99) 96 mg/dL (70-99) Calcium Level 9.7 mg/dL (8.5-10.1) 8.4 mg/dL (8.5-10.1) Total Bilirubin 0.8 mg/dL (0.2-1.0) 0.7 mg/dL (0.2-1.0) Aspartate Amino Transf (AST/SGOT) 8 U/L (15-37) 11 U/L (15-37) Alanine Aminotransferase (ALT/SGPT) 17 U/L (14-59) 15 U/L (14-59) Alkaline Phosphatase 83 U/L (46-116) 69 U/L (46-116) Total Protein 9.0 g/dL (6.4-8.2) 7.0 g/dL (6.4-8.2) Albumin 4.0 g/dL (3.4-5.0) 3.0 g/dL (3.4-5.0) Albumin/Globulin Ratio 0.8 (1.0-1.7) 0.8 (1.0-1.7) Ethyl Alcohol Level < 10 mg/dL (0-10) Bedside Urine HCG, Qualitative Hcg positive (Negative) Test 02/19/19 08:02/19/19 11:21 Glucose (Fingerstick) 111 mg/dL (70-99) 93 mg/dL (70-99) Laboratory Tests Test 02/19/19:02/19/19 11:21 Glucose (Fingerstick) 111 mg/dL (70-99) 93 mg/dL (70-99) Medications Current Medications Sodium Chloride 1,000 ml @ 1,000 mls/hr 1X ONCE IV Last administered on 02/17/19at 20:24; Start 02/17/19 at 20:15; Stop 02/17/19 at 23:24; Status DC Metoclopramide HCl (Reglan Vial) 10 mg 1X ONCE IVP Last administered on 02/17/19at 20:25; Start 02/17/19 at 20:15; Stop 02/17/19 at 20:16; Status DC Prochlorperazine Edisylate (Compazine) 10 mg 1X ONCE IV Last administered on 02/17/19at 20:25; Start 02/17/19 at 20:15; Stop 02/17/19 at 20:16; Status DC Acetaminophen (Tylenol) 650 mg PRN Q4HRS PRN PO FEVER; Start 02/17/19 at 22:30; Stop 02/17/19 at 23:24; Status DC Ondansetron HCl (Zofran) 4 mg TID IV ; Start 02/18/19 at 09:00; Stop 02/17/19 at 23:24; Status DC Metoclopramide HCl (Reglan Vial) 10 mg TID IVP ; Start 02/18/19 at 09:00; Stop 02/17/19 at 23:24; Status DC Sodium Chloride 1,000 ml @ 125 mls/hr 1X ONCE IV ; Start 02/17/19 at 22:30; Stop 02/17/19 at 23:24; Status DC Ondansetron HCl (Zofran) 4 mg Q6HRS IVP Last administered on 02/19/19at 05:53; Start 02/18/19 at 00:00 Metoclopramide HCl (Reglan Vial) 10 mg Q8HRS IVP Last administered on 02/19/19at 05:57; Start 02/18/19 at 06:00 Acetaminophen (Tylenol) 1,000 mg PRN Q6HRS PRN PO MILD PAIN / TEMP Last administered on 02/18/19at 20:16; Start 02/17/19 at 22:30 Ringer's Solution 1,000 ml @ 150 mls/hr Q6H40M IV ; Start 02/17/19 at 22:30; Status Cancel Ringer's Solution 1,000 ml @ 150 mls/hr Q6H40M IV Last administered on 02/19/19at 08:28; Start 02/18/19 at 02:15 Promethazine HCl (Phenergan Supp) 25 mg PRN BID PRN [place] NAUSEA Last administered on 02/19/19at 11:32; Start 02/19/19 at 09:45 Insulin Human Lispro (HumaLOG) 0-5 UNITS TIDWMEALS SQ ; Start 02/19/19 at 12:00 Dextrose (Dextrose 50%-Water Syringe) 12.5 gm PRN Q15MIN PRN IV SEE COMMENTS; Start 02/19/19 at 09:45 Active Scripts Active Promethegan (Promethazine Hcl) 25 Mg Supp.rect 25 Mg [place] PRN Q12HRS PRN Reglan (Metoclopramide Hcl) 10 Mg Tablet 1 Tab PO TID Zofran (Ondansetron Hcl) 4 Mg Tablet 1 Tab PO PRN Q6-8HRS Reported Novolog Flexpen (Insulin Aspart) 100 Unit/1 Ml Insuln.pen 12 Unit SQ [id number] Novolog Flexpen (Insulin Aspart) 100 Unit/1 Ml Insuln.pen 14 Unit SQ DAILYBFRLUN Novolog Flexpen (Insulin Aspart) 100 Unit/1 Ml Insuln.pen 12 Unit SQ DAILY07 Humulin N Kwikpen (Nph, Human Insulin Isophane) 100 Unit/1 Ml Insuln.pen 16 Unit SQ HS Humulin N Kwikpen (Nph, Human Insulin Isophane) 100 Unit/1 Ml Insuln.pen 26 Unit SQ DAILY08 Levsin (Hyoscyamine Sulfate) 0.125 Mg Tablet 0.125 Mg PO PRN Q6HRS PRN Loperamide (Loperamide Hcl) 2 Mg Capsule 2 Mg PO PRN QID PRN Ventolin Hfa Inhaler (Albuterol Sulfate) 18 Gm Hfa.aer.ad 2 Puff INH Q4HRS Exam Abd: soft, mild tenderness Assessment 16 wks IUP Hyperemesis Gravidarum Plan of Care: Continue current Tx, Mgmt DAVID NIELSON Jr, MD Feb 19, 2019 12:28
[2019-02-19 13:06] VITALS: BP 110/75
[2019-02-19 17:00] VITALS: BP 122/75
[2019-02-19 20:00] VITALS: BP 116/72
[2019-02-20 01:47] VITALS: BP 107/78
[2019-02-20] MEDS: IV RINGERS,LACTATED 1000ML 1,000 ML IV SCH (04:03)
[2019-02-20] MEDS: METOCLOPRAMIDE HCL 10 MG/2 ML VIAL. IVP SCH (06:08)
[2019-02-20] MEDS: INSULIN LISPRO 300 UNITS/3 ML VIAL. SQ SCH (07:40)
[2019-02-20 08:05] VITALS: BP 119/84
--- NOTE | 2019-02-20 08:21 | PDOC3 ---
OB DISCHARGE SUMMARY DATE OF ADMISSION: 02/17/19 DATE OF DISCHARGE: 02/20/19 REASON FOR ADMISSION: Other (Hyperemesis Gravidarum) INTRAPARTUM PROCEDURES: Others (IV fluid hydration and antiemetics and electrolyte replacement) PROBLEM LIST AT DISCHARGE Problems Medical Problems: (1) Mild hyperemesis gravidarum Status: Acute DISCHARGE DIAGNOSIS: Hyperemesis Gravidarum DISCHARGE INFORMATION: Activity (ad hema), Diet (ADA diet), Instructions (F/u in 1 wk) HOSPITAL COURSE 16 wk gestation with hyperemesis gravidarum provided IV fluids for rehydration, electrolyte replacement and antiemetics. DAVID NIELSON Jr, MD Feb 20, 2019 08:21
[2019-02-20] MEDS ORDERED: ONDA8TAB9 PO (08:23)
--- NOTE | 2019-02-20 08:24 | DISCH ---
DISCHARGE INSTRUCTIONS Condition on Discharge Condition on Discharge: Stable Activity After Discharge Activity Instructions for Disc: Activity as tolerated Lifting Instructions after Dis: No heavy lifting Driving Instructions after Dis: Do not drive today Weight Bearing Status after Di: As tolerated Diet after Discharge Diet after Discharge: Diabetic No Calorie Level Diet Texture: Regular Liquid Texture: Thin Liquid Contacting the DRDerek after DC Call your doctor for: Concerns you may have Follow-Up Follow up with: Dr. Lemon in 2 weeks Treatment/Equipment after DC Adaptive Equipment Issued: None DAVID LEMON Jr, MD Feb 20, 2019 08:24
[2019-02-20] MEDS: PROMETHAZINE 25 MG SUPP.RECT. PR PRN (10:57)
[2019-02-20 11:57] VITALS: BP 122/80
[2019-02-20 13:25] VITALS: BP 119/86
== END 2019-02-20 13:30 | disposition home or self-care (01) | DRG 832 ==
LOC: ER 19:57 → 3 NORTH 22:25 → OBSVTOIN 02-18 12:22
PROVIDERS: ADMIT Obstetrics & Gynecology; ATTEND Obstetrics & Gynecology
DX: O21.0 Mild hyperemesis gravidarum (principal); O24.912 Unspecified diabetes mellitus in pregnancy, second trimester; O16.2 Unspecified maternal hypertension, second trimester; O99.512 Diseases of the respiratory system complicating pregnancy, second trimester; Z3A.16 16 weeks gestation of pregnancy; J45.909 Unspecified asthma, uncomplicated
CPT/HCPCS: 36415; 80053; 80307; 81001; 81025; 82962; 85025; 87086; 96361; 96374; 96375; G0378; G0379; G0480; J0780; J2405; J2765; J7030; J7120; 99285-25

== ENCOUNTER 2019-04-01 08:05 | Inpatient (IN) | payer BC ==
[~2019-04-01] VITALS: Ht 172.7 cm; Wt 98.0 kg
[~2019-04-01 08:05] MED LIST changes: +ONDA8TAB9 PO
[2019-04-01] MEDS ORDERED: oxyCODONE/APAP 5/325 1 TAB TABLET PO PRN ×2 (09:00)
[2019-04-01] MEDS ORDERED: ONDANSETRON PF 4 MG/2 ML VIAL. IVP PRN (09:00)
--- NOTE | 2019-04-01 09:14 | PDOC1 ---
OB - History Hx of Present Care: Good Care Ultrasounds: Abnormal US findings ( demise at 19 wks) Obstetrical Complications: Other (DM Type 1) Medical Complications: Other (DM Type 1 ) Past Family/Social History * Past Medical, Surgical, Family and Obstetric Histories reviewed from chart. Blood Type: Unknown Rubella: Immune RPR/VDRL: Negative GBS Status: Unknown HBsAG: Negative OB - Chief Complaint & HPI Date of Admission: Date of Admission: Apr 01, 2019 at 08:05 Chief Complaint/History : 1 Para: 0 EGA: 19 Reason for admission: induction of labor Indication for induction: other ( demise) Admission Nurse Assessment Rev: Yes OB - Admission Exam Physical Exam HEENT: Normal Heart: Regular Rate Lungs: Clear Abdomen: Gravid, Non tender, Soft Extremities: Edema Reflexes: Normal Cervical Dilatation: None Effacement: 0% Station: Ballotable Membranes: Intact Contractions on Admission: None Text A: 19 wks IUP demise DM Type 1 P: Admit for IOL cytotec and DM management. DAVID NIELSON Jr, MD Apr 01, 2019 09:14
[2019-04-01] MEDS ORDERED: 0.9 % SODIUM CHLORIDE 10 ML DISP.SYRIN. IV PRN (09:15)
[2019-04-01] MEDS ORDERED: TERBUTALINE 1 MG/ML VIAL. SQ PRN (09:15)
[2019-04-01] MEDS ORDERED: LIDOCAINE 1% PF 30 ML VIAL. INJ PRN (09:15)
[2019-04-01] MEDS ORDERED: fentaNYL PF VIAL 100 MCG/2 ML VIAL IV PRN (09:15)
[2019-04-01] MEDS ORDERED: OXYTOCIN 30 UNIT/500 ML PREMIX 500 ML IV PRN (09:15)
[2019-04-01] MEDS ORDERED: IBUPROFEN 400 MG TABLET. PO PRN (09:15)
[2019-04-01] MEDS ORDERED: miSOPROStol 100 MCG TABLET PO PRN (09:15)
[2019-04-01 09:24] LABS: BILIRUBIN,URINE NEGATIVE (NEG); CLARITY,URINE CLEAR; COLOR,URINE YELLOW; NITRITE,URINE NEGATIVE (NEG); PROTEIN,URINE NEGATIVE (NEG-TRACE); UROBILINOGEN,URINE 0.2 mg/dL (0.2 mg/dL)
[2019-04-01 09:44] LABS: BACTERIA,URINE FEW /HPF (0-FEW); RBC,URINE 0 /HPF (0-2); SQUAMOUS EPITHELIAL CELL,UR MOD /LPF
[2019-04-01] MEDS: IV RINGERS,LACTATED 1000ML 1,000 ML IV SCH ×3 (09:59→23:48)
[2019-04-01 10:34] LABS: BASO % 1 % (0-3); EOS # 0.1 x10^3/uL (0.0-0.7); EOS % 2 % (0-3); HEMATOCRIT 35.3 % (36.0-47.0); HEMOGLOBIN 12.1 g/dL (12.0-15.5); LYMPH # 1.7 x10^3/uL (1.0-4.8); LYMPH % 29 % (24-48); MEAN CORPUSCULAR HEMOGLOBIN 32 pg (25-35); MEAN CORPUSCULAR HGB CONC 34 g/dL (31-37); MEAN CORPUSCULAR VOLUME 93 fL (79-100); MONO # 0.3 x10^3/uL (0.0-1.1); MONO % 6 % (0-9); NEUT # 3.6 x10^3/uL (1.8-7.7); NEUT % 63 % (31-73); PLATELET COUNT 263 x10^3/uL (140-400); RED BLOOD COUNT 3.81 x10^6/uL (3.50-5.40); WHITE BLOOD COUNT 5.8 x10^3/uL (4.0-11.0)
[2019-04-01] MEDS: INSULIN GLARGINE SYRINGE. SQ SCH ×2 (10:37→21:08)
[2019-04-01 11:00] LABS: FREE T4 1.01 ng/dL (0.76-1.46); THYROID STIM HORMONE (TSH) 2.51 uIU/mL (0.358-3.74)
[2019-04-01] MEDS ORDERED: IV DEXTROSE 5% 250 ML BAG. IV PRN (11:00)
[2019-04-01] MEDS ORDERED: DEXTROSE 50% 25 GM / 50ML DISP.SYRIN. IV PRN (11:00)
[2019-04-01] MEDS: miSOPROStol 200 MCG TABLET VG SCH ×3 (11:04→23:38)
[2019-04-01] MEDS: INSULIN LISPRO 300 UNITS/3 ML VIAL. SQ SCH ×2 (12:25→17:15)
--- NOTE | 2019-04-01 19:23 | NUR ---
Shift report and handoff complete. Two family members at bedside. Katie asleep and unaware nurse is at bedside. According to family members she has finally fallen asleep. First dose of CYTOTEC was placed vaginally by dayshift nurse. Bag #2 of LR infusing.
--- NOTE | 2019-04-01 21:37 | NUR ---
Dr Lemon phoned for clarity on insulin orders. Orders given to use sliding scale on JUN.
[2019-04-01] MEDS: METOCLOPRAMIDE HCL 10 MG/2 ML VIAL. IVP PRN (21:58)
[2019-04-02] MEDS: miSOPROStol 200 MCG TABLET VG SCH ×3 (05:41→17:31)
[2019-04-02] MEDS: IV RINGERS,LACTATED 1000ML 1,000 ML IV SCH ×2 (07:51→16:37)
[2019-04-02] MEDS: INSULIN LISPRO 300 UNITS/3 ML VIAL. SQ SCH ×2 (08:00→12:00)
[2019-04-02] MEDS: INSULIN GLARGINE SYRINGE. SQ SCH ×2 (09:06→21:04)
--- NOTE | 2019-04-02 14:15 | PDOC ---
OB Progress Note Date of Service 04/02/19 Time of Evaluation 1415 Notes Pt. feeling well. Blood sugars stable. Pt. starting to feel more abd cramping today. Lab Laboratory Tests Test 04/01/19 09:15 04/01/19 09:38 04/01/19 10:19 04/01/19 12:16 Urine Collection Type Unknown Urine Color Yellow Urine Clarity Clear Urine pH 6.0 Urine Specific [place] 1.015 Urine Protein Negative mg/dL (NEG-TRACE) Urine Glucose (UA) Negative mg/dL (NEG) Urine Ketones (Stick) Negative mg/dL (NEG) Urine Blood Negative (NEG) Urine Nitrite Negative (NEG) Urine Bilirubin Negative (NEG) Urine Urobilinogen Dipstick 0.2 mg/dL (0.2 mg/dL) Urine Leukocyte Esterase Negative (NEG) Urine RBC 0 /HPF (0-2) Urine WBC 1-4 /HPF (0-4) Urine Squamous Epithelial Cells Mod /LPF Urine Bacteria Few /HPF (0-FEW) Urine Mucus Mod /LPF Glucose (Fingerstick) 118 mg/dL (70-99) 125 mg/dL (70-99) White Blood Count 5.8 x10^3/uL (4.0-11.0) Red Blood Count 3.81 x10^6/uL (3.50-5.40) Hemoglobin 12.1 g/dL (12.0-15.5) Hematocrit 35.3 % (36.0-47.0) Mean Corpuscular Volume 93 fL (79-100) Mean Corpuscular Hemoglobin 32 pg (25-35) Mean Corpuscular Hemoglobin Concent 34 g/dL (31-37) Red Cell Distribution Width 12.0 % (11.5-14.5) Platelet Count 263 x10^3/uL (140-400) Neutrophils (%) (Auto) 63 % (31-73) Lymphocytes (%) (Auto) 29 % (24-48) Monocytes (%) (Auto) 6 % (0-9) Eosinophils (%) (Auto) 2 % (0-3) Basophils (%) (Auto) 1 % (0-3) Neutrophils # (Auto) 3.6 x10^3/uL (1.8-7.7) Lymphocytes # (Auto) 1.7 x10^3/uL (1.0-4.8) Monocytes # (Auto) 0.3 x10^3/uL (0.0-1.1) Eosinophils # (Auto) 0.1 x10^3/uL (0.0-0.7) Basophils # (Auto) 0.0 x10^3/uL (0.0-0.2) Thyroid Stimulating Hormone (TSH) 2.510 uIU/mL (0.358-3.74) Free Thyroxine 1.01 ng/dL (0.76-1.46) Treponema pallidum Antibody Nonreactive (Nonreactive) Test 04/01/19 16:51 04/01/19 21:03 04/02/19 08:06 04/02/19 12:17 Glucose (Fingerstick) 153 mg/dL (70-99) 128 mg/dL (70-99) 90 mg/dL (70-99) 73 mg/dL (70-99) Laboratory Tests Test 04/01/19 16:51 04/01/19 21:03 04/02/19 08:06 04/02/19 12:17 Glucose (Fingerstick) 153 mg/dL (70-99) 128 mg/dL (70-99) 90 mg/dL (70-99) 73 mg/dL (70-99) Medications Current Medications Ondansetron HCl (Zofran) 8 mg PRN Q8HRS PRN IVP NAUSEA/VOMITING; Start 04/01/19 at 09:00 Oxycodone/ Acetaminophen (Percocet 5/325) 2 tab PRN Q4HRS PRN PO SEVERE PAIN; Start 04/01/19 at 09:00 Oxycodone/ Acetaminophen (Percocet 5/325) 1 tab PRN Q4HRS PRN PO MODERATE PAIN; Start 04/01/19 at 09:00 Insulin Glargine (Lantus Syringe) 20 unit Q12HR SQ Last administered on 04/02/19at 09:06; Start 04/01/19 at 10:00 Sodium Chloride (Normal Saline Flush) 3 ml QSHIFT PRN IV AFTER MEDS AND BLOOD DRAWS; Start 04/01/19 at 09:15 Ringer's Solution 1,000 ml @ 125 mls/hr Q8H IV Last administered on 04/02/19at 07:51; Start 04/01/19 at 09:04 Fentanyl Citrate (Fentanyl 2ml Vial) 50 mcg PRN Q30MIN PRN IV Mild to moderate pain; Start 04/01/19 at 09:15 Terbutaline Sulfate (Brethine) 0.25 mg 1X PRN PRN SQ SEE COMMENTS; Start 04/01/19 at 09:15; Stop 04/02/19 at 09:14; Status DC Lidocaine HCl (Xylocaine 1% Pf 30ml Vial) 30 ml 1X PRN PRN INJ SEE COMMENTS; Start 04/01/19 at 09:15; Stop 04/03/19 at 09:14 Misoprostol (Cytotec 100mcg Tab) 200 mcg Q6HRS PRN PO Cervical ripening; Start 04/01/19 at 09:15 Oxytocin/Sodium Chloride 500 ml @ 0 mls/hr CONT PRN PRN IV Post delivery bleeding; Start 04/01/19 at 09:15 Ibuprofen (Motrin) 800 mg PRN Q6HRS PRN PO PAIN; Start 04/01/19 at 09:15 Misoprostol (Cytotec 200mcg Tab) 400 mcg Q6HRS VG Last administered on 04/02/19at 11:17; Start 04/01/19 at 12:00 Insulin Human Lispro (HumaLOG) Give 5 units for every... TIDWMEALS SQ Last administered on 04/01/19at 17:15; Start 04/01/19 at 12:00 Dextrose (Dextrose 50%-Water Syringe) 12.5 gm PRN Q15MIN PRN IV SEE COMMENTS; Start 04/01/19 at 11:00 Dextrose (Iv Dextrose 5%) 250 ml PRN Q15MIN PRN IV SEE COMMENTS; Start 04/01/19 at 11:00 Metoclopramide HCl (Reglan Vial) 10 mg PRN Q8HRS PRN IVP NAUSEA/VOMITING Last administered on 04/01/19at 21:58; Start 04/01/19 at 21:45 Active Scripts Active Zofran (Ondansetron Hcl) 8 Mg Tablet 1 Tab PO Q8HRS Promethegan (Promethazine Hcl) 25 Mg Supp.rect 25 Mg [place] PRN Q12HRS PRN Reglan (Metoclopramide Hcl) 10 Mg Tablet 1 Tab PO TID Zofran (Ondansetron Hcl) 4 Mg Tablet 1 Tab PO PRN Q6-8HRS Reported Novolog Flexpen (Insulin Aspart) 100 Unit/1 Ml Insuln.pen 12 Unit SQ DAILYBFRSUP Novolog Flexpen (Insulin Aspart) 100 Unit/1 Ml Insuln.pen 14 Unit SQ DAILYBFRLUN Novolog Flexpen (Insulin Aspart) 100 Unit/1 Ml Insuln.pen 12 Unit SQ DAILY07 Humulin N Kwikpen (Nph, Human Insulin Isophane) 100 Unit/1 Ml Insuln.pen 16 Unit SQ HS Humulin N Kwikpen (Nph, Human Insulin Isophane) 100 Unit/1 Ml Insuln.pen 26 Unit SQ DAILY08 Levsin (Hyoscyamine Sulfate) 0.125 Mg Tablet 0.125 Mg PO PRN Q6HRS PRN Loperamide (Loperamide Hcl) 2 Mg Capsule 2 Mg PO PRN QID PRN Ventolin Hfa Inhaler (Albuterol Sulfate) 18 Gm Hfa.aer.ad 2 Puff INH Q4HRS Exam Abd: soft, non tender Cvx: 1 cm Assessment 19 wks IUFD DM Type 1 Plan of Care: Continue current Tx, Mgmt DAVID NIELSON Jr, MD Apr 02, 2019 14:15
[2019-04-02] MEDS ORDERED: DINOPROSTONE 10 MG SUPP.VAG VG ONE (19:30)
[2019-04-02] MEDS: METOCLOPRAMIDE HCL 10 MG/2 ML VIAL. IVP PRN (19:44)
[2019-04-03] MEDS: IV RINGERS,LACTATED 1000ML 1,000 ML IV SCH ×3 (01:05→17:25)
[2019-04-03] MEDS: miSOPROStol 200 MCG TABLET VG SCH ×4 (08:04→18:00)
--- NOTE | 2019-04-03 08:30 | PDOC ---
OB Progress Note Date of Service 04/03/19 Time of Evaluation 0830 Notes Pt. feeling well. Mild anxiety. She received cervidil overnight. Lab Laboratory Tests Test 04/01/19 09:15 04/01/19 09:38 04/01/19 10:19 04/01/19 12:16 Urine Collection Type Unknown Urine Color Yellow Urine Clarity Clear Urine pH 6.0 Urine Specific [place] 1.015 Urine Protein Negative mg/dL (NEG-TRACE) Urine Glucose (UA) Negative mg/dL (NEG) Urine Ketones (Stick) Negative mg/dL (NEG) Urine Blood Negative (NEG) Urine Nitrite Negative (NEG) Urine Bilirubin Negative (NEG) Urine Urobilinogen Dipstick 0.2 mg/dL (0.2 mg/dL) Urine Leukocyte Esterase Negative (NEG) Urine RBC 0 /HPF (0-2) Urine WBC 1-4 /HPF (0-4) Urine Squamous Epithelial Cells Mod /LPF Urine Bacteria Few /HPF (0-FEW) Urine Mucus Mod /LPF Glucose (Fingerstick) 118 mg/dL (70-99) 125 mg/dL (70-99) White Blood Count 5.8 x10^3/uL (4.0-11.0) Red Blood Count 3.81 x10^6/uL (3.50-5.40) Hemoglobin 12.1 g/dL (12.0-15.5) Hematocrit 35.3 % (36.0-47.0) Mean Corpuscular Volume 93 fL (79-100) Mean Corpuscular Hemoglobin 32 pg (25-35) Mean Corpuscular Hemoglobin Concent 34 g/dL (31-37) Red Cell Distribution Width 12.0 % (11.5-14.5) Platelet Count 263 x10^3/uL (140-400) Neutrophils (%) (Auto) 63 % (31-73) Lymphocytes (%) (Auto) 29 % (24-48) Monocytes (%) (Auto) 6 % (0-9) Eosinophils (%) (Auto) 2 % (0-3) Basophils (%) (Auto) 1 % (0-3) Neutrophils # (Auto) 3.6 x10^3/uL (1.8-7.7) Lymphocytes # (Auto) 1.7 x10^3/uL (1.0-4.8) Monocytes # (Auto) 0.3 x10^3/uL (0.0-1.1) Eosinophils # (Auto) 0.1 x10^3/uL (0.0-0.7) Basophils # (Auto) 0.0 x10^3/uL (0.0-0.2) Thyroid Stimulating Hormone (TSH) 2.510 uIU/mL (0.358-3.74) Free Thyroxine 1.01 ng/dL (0.76-1.46) Treponema pallidum Antibody Nonreactive (Nonreactive) Test 04/01/19 16:51 04/01/19 21:03 04/02/19 08:06 04/02/19 12:17 Glucose (Fingerstick) 153 mg/dL (70-99) 128 mg/dL (70-99) 90 mg/dL (70-99) 73 mg/dL (70-99) Test 04/02/19 16:48 04/02/19 21:02 04/03/19 07:50 Glucose (Fingerstick) 123 mg/dL (70-99) 81 mg/dL (70-99) 66 mg/dL (70-99) Laboratory Tests Test 04/02/19 12:17 04/02/19 16:48 04/02/19 21:02 04/03/19 07:50 Glucose (Fingerstick) 73 mg/dL (70-99) 123 mg/dL (70-99) 81 mg/dL (70-99) 66 mg/dL (70-99) Medications Current Medications Ondansetron HCl (Zofran) 8 mg PRN Q8HRS PRN IVP NAUSEA/VOMITING; Start 04/01/19 at 09:00 Oxycodone/ Acetaminophen (Percocet 5/325) 2 tab PRN Q4HRS PRN PO SEVERE PAIN; Start 04/01/19 at 09:00 Oxycodone/ Acetaminophen (Percocet 5/325) 1 tab PRN Q4HRS PRN PO MODERATE PAIN; Start 04/01/19 at 09:00 Insulin Glargine (Lantus Syringe) 20 unit Q12HR SQ Last administered on 04/02/19at 21:04; Start 04/01/19 at 10:00 Sodium Chloride (Normal Saline Flush) 3 ml QSHIFT PRN IV AFTER MEDS AND BLOOD DRAWS; Start 04/01/19 at 09:15 Ringer's Solution 1,000 ml @ 125 mls/hr Q8H IV Last administered on 04/03/19at 01:05; Start 04/01/19 at 09:04 Fentanyl Citrate (Fentanyl 2ml Vial) 50 mcg PRN Q30MIN PRN IV Mild to moderate pain; Start 04/01/19 at 09:15 Terbutaline Sulfate (Brethine) 0.25 mg 1X PRN PRN SQ SEE COMMENTS; Start 04/01/19 at 09:15; Stop 04/02/19 at 09:14; Status DC Lidocaine HCl (Xylocaine 1% Pf 30ml Vial) 30 ml 1X PRN PRN INJ SEE COMMENTS; Start 04/01/19 at 09:15; Stop 04/03/19 at 09:14 Misoprostol (Cytotec 100mcg Tab) 200 mcg Q6HRS PRN PO Cervical ripening; Start 04/01/19 at 09:15 Oxytocin/Sodium Chloride 500 ml @ 0 mls/hr CONT PRN PRN IV Post delivery bleeding; Start 04/01/19 at 09:15 Ibuprofen (Motrin) 800 mg PRN Q6HRS PRN PO PAIN; Start 04/01/19 at 09:15 Misoprostol (Cytotec 200mcg Tab) 400 mcg Q6HRS VG Last administered on 04/03/19at 08:04; Start 04/01/19 at 12:00 Insulin Human Lispro (HumaLOG) Give 5 units for every... TIDWMEALS SQ Last administered on 04/01/19at 17:15; Start 04/01/19 at 12:00 Dextrose (Dextrose 50%-Water Syringe) 12.5 gm PRN Q15MIN PRN IV SEE COMMENTS; Start 04/01/19 at 11:00 Dextrose (Iv Dextrose 5%) 250 ml PRN Q15MIN PRN IV SEE COMMENTS; Start 04/01/19 at 11:00 Metoclopramide HCl (Reglan Vial) 10 mg PRN Q8HRS PRN IVP NAUSEA/VOMITING Last administered on 04/02/19at 19:44; Start 04/01/19 at 21:45 Dinoprostone (Cervidil) 10 mg 1X ONCE VG Last administered on 12/17/19at 21:31; Start 04/02/19 at 19:30; Stop 04/02/19 at 19:31; Status DC Active Scripts Active Zofran (Ondansetron Hcl) 8 Mg Tablet 1 Tab PO Q8HRS Promethegan (Promethazine Hcl) 25 Mg Supp.rect 25 Mg [place] PRN Q12HRS PRN Reglan (Metoclopramide Hcl) 10 Mg Tablet 1 Tab PO TID Zofran (Ondansetron Hcl) 4 Mg Tablet 1 Tab PO PRN Q6-8HRS Reported Novolog Flexpen (Insulin Aspart) 100 Unit/1 Ml Insuln.pen 12 Unit SQ DAILYBFRSUP Novolog Flexpen (Insulin Aspart) 100 Unit/1 Ml Insuln.pen 14 Unit SQ DAILYBFRLUN Novolog Flexpen (Insulin Aspart) 100 Unit/1 Ml Insuln.pen 12 Unit SQ DAILY07 Humulin N Kwikpen (Nph, Human Insulin Isophane) 100 Unit/1 Ml Insuln.pen 16 Unit SQ HS Humulin N Kwikpen (Nph, Human Insulin Isophane) 100 Unit/1 Ml Insuln.pen 26 Unit SQ DAILY08 Levsin (Hyoscyamine Sulfate) 0.125 Mg Tablet 0.125 Mg PO PRN Q6HRS PRN Loperamide (Loperamide Hcl) 2 Mg Capsule 2 Mg PO PRN QID PRN Ventolin Hfa Inhaler (Albuterol Sulfate) 18 Gm Hfa.aer.ad 2 Puff INH Q4HRS Exam Abd: soft, non tender Pelvic: cvx 2/60/-3 Cytotec 400 mcg placed vaginally Assessment A: 19 wks IUFD P: continue induction methods. DAVID NIELSON Jr, MD Apr 03, 2019 08:29
[2019-04-03] MEDS: INSULIN GLARGINE SYRINGE. SQ SCH ×2 (09:00→21:00)
[2019-04-03] MEDS ORDERED: OXYTOCIN PREMIX 30 UNIT/500 ML NS BAG. IV ONE (20:00)
--- NOTE | 2019-04-03 21:04 | PDOC ---
VAGINAL DELIVERY DATE DATE: 04/03/19 TIME: 21:01 : 1 Para: 1 EGA: 19 VAGINAL DELIVERY: BREE[place] VACCUM ASSISTED: No PLACENTA: Spontaneous 0/0 SEX: Male WEIGHT Weight [ ] Nuchal Cord: No Amniotic Fluid: Other PAIN: Natural EPISIOTOMY: No EXTENSION: No EBL 200 ml COMPLICATIONS none CONDITION pt. stable Signs of Intrauterine Infectio: None Shoulder Dystocia: No DAVID NIELSON Jr, MD Apr 03, 2019 21:04
[2019-04-03] MEDS ORDERED: ZOLPIDEM 5 MG TABLET. PO PRN (21:15)
[2019-04-03] MEDS ORDERED: SIMETHICONE 80 MG TAB.CHEW PO PRN (21:15)
[2019-04-03] MEDS ORDERED: PHENYLEPH/MINERAL OIL/PETROLAT RECTAL OINTMENT TUBE. RC PRN (21:15)
[2019-04-03] MEDS ORDERED: BENZOCAINE 20% TOPICAL AEROSOL SPRAY 57GM CAN. TP PRN (21:15)
[2019-04-03] MEDS ORDERED: IBUPROFEN 400 MG TABLET. PO PRN (21:15)
[2019-04-03] MEDS ORDERED: MAGNESIUM HYDROXIDE 2,400 MG/30 ML ORAL.SUSP. PO PRN (21:15)
[2019-04-03] MEDS ORDERED: 0.9 % SODIUM CHLORIDE 10 ML DISP.SYRIN. IV PRN (21:15)
[2019-04-03] MEDS ORDERED: OXYTOCIN 30 UNIT/500 ML PREMIX 500 ML IV PRN (21:15)
[2019-04-03] MEDS ORDERED: HYDROCORTISONE 1% TOPICAL OINTMENT 30GM TUBE. TP PRN (21:15)
[2019-04-03] MEDS ORDERED: MMR per PROTOCOL. MC PRN (21:15)
[2019-04-03] MEDS ORDERED: oxyCODONE/APAP 5/325 1 TAB TABLET PO PRN (21:15)
[2019-04-03] MEDS ORDERED: ACETAMINOPHEN 325 MG TABLET. PO PRN (21:15)
[2019-04-03] MEDS ORDERED: DOCUSATE SODIUM 100 MG CAPSULE. PO PRN (21:15)
[2019-04-03] MEDS ORDERED: diphenhydrAMINE HCL 25 MG CAPSULE PO PRN (21:15)
[2019-04-03] MEDS ORDERED: MAG HYDROX/ALUMINUM HYD/SIMETH 30 ML ORAL.SUSP PO PRN (21:15)
[2019-04-03] MEDS: METOCLOPRAMIDE HCL 10 MG/2 ML VIAL. IVP PRN (22:26)
[2019-04-03 22:30] VITALS: BP 109/74
[2019-04-03 23:30] VITALS: BP 118/74
[2019-04-04] MEDS: IV RINGERS,LACTATED 1000ML 1,000 ML IV SCH ×2 (01:04→09:04)
[2019-04-04 04:47] LABS: BASO % 1 % (0-3); EOS # 0.1 x10^3/uL (0.0-0.7); EOS % 2 % (0-3); HEMATOCRIT 30.8 % (36.0-47.0); HEMOGLOBIN 10.6 g/dL (12.0-15.5); LYMPH % 31 % (24-48); MEAN CORPUSCULAR HEMOGLOBIN 32 pg (25-35); MEAN CORPUSCULAR HGB CONC 34 g/dL (31-37); MEAN CORPUSCULAR VOLUME 93 fL (79-100); MONO # 0.5 x10^3/uL (0.0-1.1); MONO % 8 % (0-9); NEUT # 3.8 x10^3/uL (1.8-7.7); NEUT % 59 % (31-73); PLATELET COUNT 230 x10^3/uL (140-400); RED BLOOD COUNT 3.32 x10^6/uL (3.50-5.40); WHITE BLOOD COUNT 6.5 x10^3/uL (4.0-11.0)
[2019-04-04] MEDS: miSOPROStol 200 MCG TABLET VG SCH ×3 (06:00→12:00)
[2019-04-04 06:16] VITALS: BP 102/72
[2019-04-04] MEDS: INSULIN LISPRO 300 UNITS/3 ML VIAL. SQ SCH ×2 (08:00→12:00)
[2019-04-04] MEDS ORDERED: FERROUS SULFATE 325 MG TABLET. PO SCH (08:00)
[2019-04-04] MEDS: INSULIN GLARGINE SYRINGE. SQ SCH (09:00)
--- NOTE | 2019-04-04 10:04 | PDOC3 ---
OB DISCHARGE SUMMARY DATE OF ADMISSION: 04/01/19 DATE OF DISCHARGE: 04/04/19 REASON FOR ADMISSION: Induction of labor (IUFD) INTRAPARTUM PROCEDURES: Spontanous Vag Deliv DISCHARGE DIAGNOSIS: Others (19 wk IUFD) DISCHARGE INFORMATION: Activity (ad hema), Diet (regular), Instructions (pelvic rest x 6 wks) HOSPITAL COURSE 19 wks IUFD delivered vaginally. DAVID NIELSON Jr, MD Apr 04, 2019 10:04
[2019-04-04] MEDS ORDERED: IBUP-1027 PO (10:05)
--- NOTE | 2019-04-04 10:06 | DISCH ---
DISCHARGE INSTRUCTIONS Condition on Discharge Condition on Discharge: Stable Activity After Discharge Activity Instructions for Disc: Activity as tolerated Lifting Instructions after Dis: No heavy lifting Driving Instructions after Dis: Do not drive today Weight Bearing Status after Di: No restrictions Diet after Discharge Diet after Discharge: [place], Diabetic No Calorie Level Diet Texture: Regular Liquid Texture: Thin Liquid Swallowing Supervision: None needed Contacting the DRDerek after DC Call your doctor for: Concerns you may have Follow-Up Follow up with: Dr. Crawford 2 wks Treatment/Equipment after DC Adaptive Equipment Issued: None DAVID CRAWFORD Jr, MD Apr 04, 2019 10:06
[2019-04-04 10:15] VITALS: BP 107/70
--- NOTE | 2019-04-04 12:22 | NUR ---
Educated pt and mother about depression and to seek help through [facility].
[2019-04-04 14:35] VITALS: BP 126/89
--- NOTE | 2019-04-04 14:50 | NUR ---
Nursing Note: Pt. VSS. Pt. and her mother provided with memorial box containing baby adonay Kennedy, Pt. plans on taking him to home where he will be cremated with her recently maternal grandfather. Pt. escorted via WC by Va Hensley RN to vehicle with mother and belongings present. Pt. discharged home. Va Hensley RN
== END 2019-04-04 14:50 | disposition home or self-care (01) | DRG 806 ==
LOC: 3 SO LND 08:05 → 3 NORTH 04-03 22:30
PROVIDERS: ADMIT Obstetrics & Gynecology; ATTEND Obstetrics & Gynecology
PROC: 10E0XZZ Delivery of Products of Conception, External Approach (ICD-10-PCS; principal; 2019-04-01)
DX: O36.4XX0 Maternal care for intrauterine death, not applicable or unspecified (principal); O24.912 Unspecified diabetes mellitus in pregnancy, second trimester; Z37.1 Single stillbirth; Z3A.19 19 weeks gestation of pregnancy
CPT/HCPCS: 36415; 81001; 82962; 84439; 84443; 85025; 86592; 86850; 86900; 86901; J1815; J2590; J2765; J7120; G0378

== ENCOUNTER 2020-03-21 14:35 | Emergency (ER) | payer BC, OTHER ==
[~2020-03-21] VITALS: Ht 172.7 cm; Wt 95.0 kg
[~2020-03-21 14:35] MED LIST changes: +IBUP-1027 PO; -PROM25SU3 PR; +PROM25SU4 PR
--- NOTE | 2020-03-21 15:00 | PHYS DOC ---
Past Medical History Past Medical History: Asthma, Diabetes-Type I, Hypertension, Hyperthyroid (FAVIAN FRAGOSO APRN) Past Surgical History: No Surgical History (FAVIAN FRAGOSO APRN) Smoking Status: Never Smoker Alcohol Use: None Drug Use: None (FAVIAN FRAGOSO APRN) General Adult EDM: Chief Complaint: NAUSEA/VOMITING/DIARRHA HPI: HPI: Patient is a 24 year old female 1 para 0 with 1 miscarriage at 6 months who presents to the ED today complaining of nausea, vomiting for 3 days. Also complaining of slight lower back pain described as throbbing and intermittent worse on activities for 1 day. Patient is afraid she is . Her last menstrual cycle was February 05, 2020. Denies any vaginal bleeding. Denies any abdominal pain. (FAVIAN FRAGOSO APRN) Review of Systems: Review of Systems: Constitutional: Denies fever or chills. [] Eyes: Denies change in visual acuity. [] HENT: Denies nasal congestion or sore throat. [] Respiratory: Denies cough or shortness of breath. [] Cardiovascular: Denies chest pain or edema. [] GI: Reports concerns for , nausea vomiting, denies abdominal pain, bloody stools or diarrhea. [] : Denies dysuria. [] Musculoskeletal: Reports slight low back pain, denies joint pain. [] Integument: Denies rash. [] Neurologic: Denies headache, focal weakness or sensory changes. [] Psychiatric: Denies depression or anxiety. [] (FAVIAN FRAGOSO APRN) Heart Score: Risk Factors: Risk Factors: DM, Current or recent (<one month) smoker, HTN, HLP, family history of CAD, obesity. Risk Scores: Score 0 - 3: 2.5% MACE over next 6 weeks - Discharge Home Score 4 - 6: 20.3% MACE over next 6 weeks - Admit for Clinical Observation Score 7 - 10: 72.7% MACE over next 6 weeks - Early Invasive Strategies (FAVIAN FRAGOSO APRN) Allergies: Allergies: Allergies Coded Allergies Type Severity Reaction Last Updated Verified No Known Drug Allergies 06/01/18 No (FAVIAN FRAGOSO APRN) Physical Exam: PE: Constitutional: Well developed, well nourished, no acute distress, non-toxic appearance. [] HENT: Normocephalic, atraumatic, bilateral external ears normal, oropharynx moist, no oral exudates, nose normal. [] Eyes: PERRLA, EOMI, conjunctiva normal, no discharge. [] Neck: Normal range of motion, no tenderness, supple, no stridor. [] Cardiovascular:Heart rate regular rhythm, no murmur [] Lungs & Thorax: Bilateral breath sounds clear to auscultation [] Abdomen: Bowel sounds normal, soft, no tenderness, no masses, no pulsatile masses. [] Skin: Warm, dry, no erythema, no rash. [] Back: No tenderness, no CVA tenderness. [] Extremities: No tenderness, no cyanosis, no clubbing, ROM intact, no edema. [] Neurologic: Alert and oriented X 3, normal motor function, normal sensory function, no focal deficits noted. [] Psychologic: Affect normal, judgement normal, mood normal. [] (FAVIAN FRAGOSO APRN) EKG: EKG: [] (FAVIAN FRAGOSO APRN) Radiology/Procedures: Radiology/Procedures: [] (FAVIAN FRAGOSO APRN) Course & Med Decision Making: Course & Med Decision Making Pertinent Labs and Imaging studies reviewed. (See chart for details) This is a 24-year-old female patient presenting to the ED today complaining of nausea, vomiting, slight back pain, symptoms began 3 days ago, patient is concerned she is . Positive urine hCG, beta-hCG 32,840 urine analysis with no infection but noted for glucose over 1000. CBC with no acute findings, CMP with glucose of 212, anion gap is normal. Patient was given IV fluids in the ED and zofran. Feeling better. d/c to home. Patient states she will follow-up with Dr. Lemon her own OB (FAVIAN FRAGOSO APRN) Dragon Disclaimer: Dragon Disclaimer: This electronic medical record was generated, in whole or in part, using a voice recognition dictation system. (FAVIAN FRAGOSO APRN) Departure Departure Impression: Primary Impression: Qualified Codes: Z3A.01 - Less than 8 weeks gestation of Additional Impression: Hyperemesis gravidarum before end of 22 week gestation with dehydration Disposition: 01 DC HOME SELF CARE/HOMELESS Condition: STABLE Referrals: JANEY PATRICK (PCP) DAVID LEMON Jr, MD follow up in one week Patient Instructions: ABCs of , Diet - Hyperemesis Gravidarum, Hyperemesis Gravidarum Additional Instructions: You were evaluated in the emergency room for nausea and vomiting in . Please push fluids. Take the prescribed nausea medicine as needed and follow-up with your own [employer] next week Scripts Ondansetron (ONDANSETRON ODT) 4 Mg Tab.rapdis 1 TAB PO PRN Q6-8HRS, #16 TAB Prov: FAVIAN FRAGOSO APRN 03/21/20 Attending Signature Attending Signature I have reviewed the PA/OYSTER SORTER's note and plan of care. I was available for consultation as needed during the patient's visit in the emergency department. I agree with the clinical impression, plan, and disposition. (RANDAL VILLALPANDO DO) FAVIAN FRAGOSO APRN Mar 21, 2020 15:00 RANDAL VILLALPANDO DO Mar 21, 2020 19:20
[2020-03-21 15:28] LABS: BILIRUBIN,URINE NEGATIVE (NEG); CLARITY,URINE CLEAR; COLOR,URINE YELLOW; NITRITE,URINE NEGATIVE (NEG); PROTEIN,URINE NEGATIVE (NEG-TRACE); UROBILINOGEN,URINE 0.2 mg/dL (0.2 mg/dL)
[2020-03-21 15:54] LABS: BACTERIA,URINE FEW /HPF (0-FEW); RBC,URINE OCC /HPF (0-2); WBC,URINE OCC /HPF (0-4)
[2020-03-21] MEDS ORDERED: ONDANSETRON PF 4 MG/2 ML VIAL. IVP ONE (16:45)
[2020-03-21] MEDS ORDERED: IV NORMAL SALINE 1000ML BAG 1,000 ML IV ONE (16:45)
[2020-03-21 17:08] LABS: BASO % 1 % (0-3); EOS % 0 % (0-3); HEMATOCRIT 40.6 % (36.0-47.0); HEMOGLOBIN 13.9 g/dL (12.0-15.5); LYMPH # 1.5 x10^3/uL (1.0-4.8); LYMPH % 24 % (24-48); MEAN CORPUSCULAR HEMOGLOBIN 32 pg (25-35); MEAN CORPUSCULAR HGB CONC 34 g/dL (31-37); MEAN CORPUSCULAR VOLUME 93 fL (79-100); MONO # 0.4 x10^3/uL (0.0-1.1); MONO % 6 % (0-9); NEUT # 4.2 x10^3/uL (1.8-7.7); NEUT % 69 % (31-73); PLATELET COUNT 256 x10^3/uL (140-400); RED BLOOD COUNT 4.36 x10^6/uL (3.50-5.40); RED CELL DISTRIBUTION WIDTH 12.4 % (11.5-14.5); WHITE BLOOD COUNT 6.1 x10^3/uL (4.0-11.0)
[2020-03-21 17:20] LABS: CALCIUM 8.8 mg/dL (8.5-10.1); CREATININE 0.6 mg/dL (0.6-1.0); GFR 147.4
[2020-03-21 17:26] LABS: ALBUMIN 3.6 g/dL (3.4-5.0); ALBUMIN/GLOBULIN RATIO 0.9 (1.0-1.7); TOTAL BILIRUBIN 0.7 mg/dL (0.2-1.0); TOTAL PROTEIN 7.6 g/dL (6.4-8.2)
[2020-03-21] MEDS ORDERED: ONDA4TAB12 PO (18:41)
[2020-03-21 19:03] VITALS: BP 121/59
== END 2020-03-21 19:03 | disposition home or self-care (01) ==
LOC: ER 14:35
DX: O21.9 Vomiting of pregnancy, unspecified (principal); M54.5 Low back pain; E86.0 Dehydration; J45.909 Unspecified asthma, uncomplicated; E10.9 Type 1 diabetes mellitus without complications; I10 Essential (primary) hypertension; E05.90 Thyrotoxicosis, unspecified without thyrotoxic crisis or storm; Z3A.01 Less than 8 weeks gestation of pregnancy
CPT/HCPCS: 36415; 80053; 81001; 81025; 82962; 84702; 85025; 96361; 96374; 99284; J2405; J7030

== ENCOUNTER 2020-04-02 19:09 | Emergency (ER) | payer BC, OTHER ==
[~2020-04-02] VITALS: Ht 172.7 cm; Wt 94.5 kg
--- NOTE | 2020-04-02 19:15 | PHYS DOC ---
Past Medical History Past Medical History: Asthma, Diabetes-Type I Past Surgical History: Other Smoking Status: Never Smoker Alcohol Use: Occasionally Drug Use: None General Adult EDM: Chief Complaint: VOMITING IN HPI: HPI: 25 yo F (SAB 1 yr ago) PMH asthma and IDDM presents to the ED with co mplaints of nausea and nonbloody nonbilious vomiting, intermittently for the past 2 and half weeks. Reports no relief with Compazine and Zofran. States her HHA sent her here for IV fluids. Tested positive for Covid in January 2020. Also reports body aches, fatigue, headache and chills for the past 2 days. No influenza vaccine this year. Is a smoker. Has no associated abdominal pain, back pain, vaginal bleeding or abnormal vaginal discharge. Is told that she is having twins-confirmed by Dr. Lange. Review of Systems: Review of Systems: Constitutional: Denies lethargy or confusion Eyes: Denies change in visual acuity. [] HENT: Denies nasal congestion or sore throat. [] Respiratory: Denies cough or shortness of breath. [] Cardiovascular: Denies chest pain or edema. [] GI: Melena, hematochezia, hematemesis : Denies dysuria, vaginal bleeding or dysuria Musculoskeletal: Denies back pain or joint pain. [] Integument: Denies rash or diaphoresis Neurologic: Denies neck stiffness, focal weakness or sensory changes. [] Endocrine: Denies polyuria or polydipsia. [] Lymphatic: Denies swollen glands. [] Psychiatric: Denies depression or anxiety. [] Heart Score: Risk Factors: Risk Factors: DM, Current or recent (<one month) smoker, HTN, HLP, family history of CAD, obesity. Risk Scores: Score 0 - 3: 2.5% MACE over next 6 weeks - Discharge Home Score 4 - 6: 20.3% MACE over next 6 weeks - Admit for Clinical Observation Score 7 - 10: 72.7% MACE over next 6 weeks - Early Invasive Strategies Allergies: Allergies: Allergies Coded Allergies Type Severity Reaction Last Updated Verified No Known Drug Allergies 06/01/18 No Physical Exam: PE: Constitutional: Well developed, well nourished, no acute distress, non-toxic appearance. HENT: Normocephalic, atraumatic, Eyes: EOMI, conjunctiva normal, no discharge. Neck: Normal range of motion, supple, Cardiovascular: S1/2 present, regular rhythm Lungs & Thorax: Speaking in full sentences, bilateral equal chest rise, no tachypnea or increased work of breathing Abdomen: soft, no tenderness, Skin: Warm, dry, no erythema, no rash. [] Back: No tenderness, no CVA tenderness. [] Extremities: No tenderness, no cyanosis, no edema Neurologic: Alert and oriented X 3, normal motor function, normal sensory function, no focal deficits noted. [] Psychologic: Affect normal, judgement normal, mood normal. [] EKG: EKG: [] Radiology/Procedures: Radiology/Procedures: Bedside POCUS with twin IUP gestation with movement, no free fluid, FHRs 1 65/161, tolerated exam Course & Med Decision Making: Course & Med Decision Making Pertinent Labs and Imaging studies reviewed. (See chart for details) Concern for hyperemesis gravidarum with ketonuria on labs.Pt resting co mfortably, no emesis in ed and feels well to return home. Patient's tachycardia resolved with normal saline and D5. DC home with Diclegis and urgent follow-up with HHA. Will discharge home with strict ED return precautions were given for dehydration. Encouraged urgent outpatient follow-up with PMD and HHA. Life-threatening processes were considered but are low suspicion at this time, given history, physical exam and ED workup. Pt was educated on all prescription medications and adverse effects. All patient's questions were answered and pt was stable at time of discharge. Life/limb-threatening differential includes but is not limited to, hyperemesis gravidarum, ectopic , appendicitis, pancreatitis, pyelonephritis, help slightly, thyrotoxicosis, molar or gestational trophoblastic disease, pyelonephritis, hepatitis, biliary disease electrolyte abnormality or acute fatty liver of . I spoken with the patient and her caregivers. I explained the patient's condition, diagnoses and treatment plan based on the information available to me at this time. I have answered the patient and her caregiver's questions and addressed any concerns. The patient and her caregivers have a good understanding of patient's diagnosis, condition and treatment plan as can be expected at this point. Vital signs have been stable. Patient's condition is stable and appropriate for discharge from the emergency department. Patient will pursue further outpatient evaluation with primary care physician or other designated or consulting physician as outlined in the discharge instructions. The patient and/or caregivers are agreeable to this plan of care and follow-up instructions have been explained in detail. The patient and/or caregivers have received these instructions in written form and have expressed an understanding of the discharge instructions. The patient and/or caregivers are aware that any significant change of condition or worsening of symptoms should prompt immediate return to this or the closest emergency department or [facility] Disclaimer: Ephraim Disclaimer: This electronic medical record was generated, in whole or in part, using a voice recognition dictation system. Departure Departure Impression: Primary Impression: Mild hyperemesis gravidarum Disposition: 01 DC HOME SELF CARE/HOMELESS Condition: STABLE Referrals: JANEY PATRICK (PCP) Patient Instructions: Diet - Hyperemesis Gravidarum, Hyperemesis Gravidarum Additional Instructions: FOLLOW UP WITH HHA: Dr. Lange in 2-3 days [facility] Address: [address] [place] [id number] EMERGENCY DEPARTMENT GENERAL DISCHARGE INSTRUCTIONS Thank you for coming to [facility] Emergency Department (ED) today and trusting us with you care. We trust that you had a positive experience in our Emergency Department. If you wish to speak to the department management, you may call the Director at [phone]. YOUR FOLLOW UP INSTRUCTIONS ARE FOLLOWS: 1. Do you have a private Doctor? If you do not have a private doctor, please ask for a resource list of physicians or clinics that may be able to assist you with follow up care. 2. The Emergency Physicain has interpreted your x-rays. The X-Ray specialist will also review them. If there is a change in the findings, you will be notified in 48 hours when at all possible. 3. A lab test or culture has been done, your results will be reviewed and you will be notified if you need a change in treatment. ADDITIONAL INSTRUCTIONS AND INFORMATION: 1. Your care today has been supervised by a physician who is specially trained in emergency care. Many problems require more than one evaluation for a complete diagnosis and treatment. We recommend that you schedule your follow up appointment as recommended to ensure complete treatment of you illness or injury. If you are unable to obtain follow up care and continue to have a problem, or if your condition worsens, we recommend that you return to the ED. 2. We are not able to safely determine your condition over the phone nor are we able to give sound medical advice over the phone. For these safety reasons, if you call for medical advice we will ask you to come to the ED for further evaluation. 3. If you have any questions regarding these discharge instructions please call the ED at [phone]. SAFETY INFORMATION: In the interest of safety, wellness, and injury prevention; we encourage you to wear your sealbelt, if you smoke; quite smoking, and we encourage family to use a protective helmet for bicycling and other sporting events that present an increased risk for head injury. IF YOUR SYMPTOMS WORSEN OR NEW SYMPTOMS DEVELOP, OR YOU HAVE CONCERNS ABOUT YOUR CONDITION; OR IF YOUR CONDITION WORSENS WHILE YOU ARE WAITING FOR YOUR FOLLOW UP APPOINTMENT; EITHER CONTACT YOUR PRIMARY CARE DOCTOR, THE PHYSICIAN WHOSE NAME AND NUMBER YOU WERE GIVEN, OR RETURN TO THE ED IMMEDIATELY. Scripts Doxylamine Succinate/Vit B6 (Doxylamine-Pyridoxine 10-10 mg) 1 Each Tablet. 1-2 EACH PO TID PRN for VOMITING for 5 Days, #30 TAB.SR Prov: ABBEY BECKER DO 04/02/20 ABBEY BECKER DO Apr 02, 2020 19:15
[2020-04-02] MEDS ORDERED: METOCLOPRAMIDE HCL 10 MG/2 ML VIAL. IVP ONE (19:45)
[2020-04-02] MEDS ORDERED: PYRIDOXINE 100 MG/ML VIAL. IV ONE (19:45)
[2020-04-02 19:46] LABS: BASO # 0.1 x10^3/uL (0.0-0.2); BASO % 1 % (0-3); EOS % 0 % (0-3); HEMATOCRIT 37.1 % (36.0-47.0); HEMOGLOBIN 12.6 g/dL (12.0-15.5); LYMPH # 1.7 x10^3/uL (1.0-4.8); LYMPH % 21 % (24-48); MEAN CORPUSCULAR HEMOGLOBIN 32 pg (25-35); MEAN CORPUSCULAR HGB CONC 34 g/dL (31-37); MEAN CORPUSCULAR VOLUME 93 fL (79-100); MONO # 0.5 x10^3/uL (0.0-1.1); MONO % 6 % (0-9); NEUT # 5.8 x10^3/uL (1.8-7.7); NEUT % 72 % (31-73); PLATELET COUNT 254 x10^3/uL (140-400); RED CELL DISTRIBUTION WIDTH 12.4 % (11.5-14.5); WHITE BLOOD COUNT 8.1 x10^3/uL (4.0-11.0)
[2020-04-02 19:47] LABS: BILIRUBIN,URINE NEGATIVE (NEG); CLARITY,URINE CLEAR; COLOR,URINE YELLOW; NITRITE,URINE NEGATIVE (NEG); PH,URINE 7.5 (<5.0-8.0); PROTEIN,URINE NEGATIVE (NEG-TRACE)
[2020-04-02 19:52] LABS: RBC,URINE 0 /HPF (0-2); WBC,URINE OCC /HPF (0-4)
[2020-04-02 19:53] LABS: AMORPHOUS SEDIMENT,UR PRESENT /HPF; BACTERIA,URINE 0 /HPF (0-FEW)
[2020-04-02 19:56] LABS: CALCIUM 8.8 mg/dL (8.5-10.1); CREATININE 0.6 mg/dL (0.6-1.0); GFR 146.2; POTASSIUM 3.7 mmol/L (3.5-5.1)
[2020-04-02] MEDS ORDERED: IV NORMAL SALINE 1000ML BAG 1,000 ML IV ONE (20:15)
[2020-04-02] MEDS ORDERED: IV DEXTROSE 5% - 0.9 % NACL 1,000 ML IV ONE (20:15)
[2020-04-02 20:34] LABS: INFLUENZA A PATIENT NEGATIVE (NEGATIVE); INFLUENZA B PATIENT NEGATIVE (NEGATIVE)
[2020-04-02] MEDS ORDERED: DOXY1TAB8 PO (22:37)
[2020-04-02 22:50] VITALS: BP 118/76
== END 2020-04-02 23:00 | disposition home or self-care (01) ==
LOC: ER 19:09
DX: O21.0 Mild hyperemesis gravidarum (principal); R51.9 Headache, unspecified; R53.83 Other fatigue; J45.909 Unspecified asthma, uncomplicated; E10.9 Type 1 diabetes mellitus without complications; Z98.890 Other specified postprocedural states; Z3A.10 10 weeks gestation of pregnancy
CPT/HCPCS: 36415; 80048; 81001; 84702; 85025; 87804; 96360; 96361; 99285; J2765; J3415; J7030; J7042

== ENCOUNTER 2020-04-13 20:43 | Inpatient (IN) | payer BC, OTHER ==
[~2020-04-13] VITALS: Ht 172.7 cm; Wt 95.5 kg
[~2020-04-13 20:43] MED LIST changes: +DOXY1TAB8 PO
[2020-04-13 21:25] LABS: BILIRUBIN,URINE SMALL (NEG); CLARITY,URINE CLOUDY; COLOR,URINE AMBER; NITRITE,URINE NEGATIVE (NEG); PH,URINE 6.5 (<5.0-8.0); PROTEIN,URINE 100 mg/dL (NEG-TRACE)
[2020-04-13] MEDS ORDERED: IV NORMAL SALINE 1000ML BAG 1,000 ML IV ONE ×2 (21:30→23:30)
[2020-04-13] MEDS ORDERED: METOCLOPRAMIDE HCL 10 MG/2 ML VIAL. IVP ONE (21:30)
[2020-04-13 21:36] LABS: BACTERIA,URINE MANY /HPF (0-FEW); RBC,URINE OCC /HPF (0-2)
[2020-04-13 21:40] LABS: CREATININE 0.4 mg/dL (0.6-1.0); GFR 233.5; POTASSIUM 3.9 mmol/L (3.5-5.1)
--- NOTE | 2020-04-13 22:12 | ED.ADGEN ---
Past Medical History Past Medical History: Asthma, Diabetes-Type I Past Surgical History: No Surgical History Smoking Status: Never Smoker Alcohol Use: None Drug Use: None General Adult EDM: Chief Complaint: VOMITING IN HPI: HPI: Patient is a 25-year-old G2, P0 at 12 weeks gestation with twins who presents to the emergency room complaining of severe nausea and vomiting. Patient had sim ilar symptoms with her first . This is the third time this is happened during this . She states that she has been trying to keep up with her hydration however she feels very dehydrated. She states that she only gets cramping after she vomits. She otherwise does not have any abdominal pain. She does not have any vaginal bleeding. She has been taking Reglan and Phenergan at home without relief. She has had multiple episodes of vomiting over the last couple days but has gotten significantly worse this evening. Review of Systems: Review of Systems: Complete ROS is negative unless otherwise documented in HPI Current Medications: Current Medications Medications (Trade) Dose Ordered Sig/Indira Start Time Stop Time Status Last Admin Dose Admin Ceftriaxone Sodium (Rocephin) 1 gm 1X ONCE 04/13/20 22:15 04/13/20 22:16 DC 04/13/20 22:35 1 GM Metoclopramide HCl (Reglan Vial) 10 mg 1X ONCE 04/13/20 21:30 04/13/20 21:31 DC 04/13/20 21:38 10 MG Ondansetron HCl (Zofran) 4 mg Q6H PRN 04/14/20 01:45 UNV Sodium Chloride 1,000 ml @ 150 mls/hr Q6H40M 04/14/20 01:45 04/15/20 01:44 UNV Allergies: Allergies: Allergies Coded Allergies Type Severity Reaction Last Updated Verified No Known Drug Allergies 06/01/18 No Physical Exam: PE: General: Awake, alert, NAD. Well Nourished, well hydrated. Cooperative HEENT: Atraumatic, EOMI, PERRL, airway patent, moist oral mucosa Neck: Supple, trachea midline Respiratory: CTA bilaterally, normal effort, no wheezing/crackles CV: RRR, no murmur, cap refill <2 GI: Soft, nondistended, nontender, no masses MSK: No obvious deformities Skin: Warm, dry, intact Neuro: A&O x3, speech NL, sensory and motor grossly intact, no focal deficits Psych: Normal affect, normal mood, not suicidal or homicidal Current Patient Data: Labs: Laboratory Tests Test 04/13/20 21:10 04/13/20 21:19 04/13/20 21:25 04/13/20 21:33 Urine Collection Type Unknown Urine Color Sara Urine Clarity Cloudy Urine pH 6.5 (<5.0-8.0) Urine Specific [place] >=1.030 (1.000-1.030) Urine Protein 100 mg/dL (NEG-TRACE) Urine Glucose (UA) 500 mg/dL (NEG) Urine Ketones (Stick) 40 mg/dL (NEG) Urine Blood Negative (NEG) Urine Nitrite Negative (NEG) Urine Bilirubin Small (NEG) Urine Urobilinogen Dipstick 1.0 mg/dL (0.2 mg/dL) Urine Leukocyte Esterase Negative (NEG) Urine RBC Occ /HPF (0-2) Urine WBC 5-10 /HPF (0-4) Urine Squamous Epithelial Cells Few /LPF Urine Bacteria Many /HPF (0-FEW) Urine Mucus Mod /LPF POC Urine HCG, Qualitative Hcg positive (Negative) Sodium Level 138 mmol/L (136-145) Potassium Level 3.9 mmol/L (3.5-5.1) Chloride Level 100 mmol/L (98-107) Carbon Dioxide Level 26 mmol/L (21-32) Anion Gap 12 (6-14) Blood Urea Nitrogen 11 mg/dL (7-20) Creatinine 0.4 mg/dL (0.6-1.0) L Estimated GFR (Cockcroft-Gault) 233.5 Glucose Level 150 mg/dL (70-99) H Calcium Level 9.0 mg/dL (8.5-10.1) Glucose (Fingerstick) 141 mg/dL (70-99) H Laboratory Tests 04/13/20 21:25 EKG: EKG: [] Heart Score: Risk Factors: Risk Factors: DM, Current or recent (<one month) smoker, HTN, HLP, family history of CAD, obesity. Risk Scores: Score 0 - 3: 2.5% MACE over next 6 weeks - Discharge Home Score 4 - 6: 20.3% MACE over next 6 weeks - Admit for Clinical Observation Score 7 - 10: 72.7% MACE over next 6 weeks - Early Invasive Strategies Radiology/Procedures: Radiology/Procedures: [] Course & Med Decision Making: Course & Med Decision Making Pertinent Labs and Imaging studies reviewed. (See chart for details) Patient is 25-year-old G2, P1 at 12 weeks gestation with twins who presents to the emergency room complaining of severe nausea and vomiting. Patient has had similar symptoms in the past. He does appear dehydrated on exam. At this time. Was given fluids and Reglan. BMP and UA were ordered to evaluate for DKA or dehydration. She does have some ketones but does not appear to be in DKA. She will will be treated symptomatically. Patient feels some better with treatment but continues to have vomiting while in the emergency room. She was given multiple doses of antiemetics. She will be admitted to the [facility] service for further care and evaluation. Dragon Disclaimer: Dragon Disclaimer: This electronic medical record was generated, in whole or in part, using a voice recognition dictation system. Departure Departure Impression: Primary Impression: Hyperemesis gravidarum before end of 22 week gestation with dehydration Additional Impressions: DM type 1 (diabetes mellitus, type 1) UTI (urinary tract infection) Disposition: ADMITTED INPT THIS HOSP Condition: STABLE Referrals: JANEY PATRICK (PCP) Problem Qualifiers LATRELL ZAMUDIO MD Apr 13, 2020 22:12
[2020-04-13] MEDS ORDERED: cefTRIAXone IV Push 1 GM VIAL. IVP ONE (22:15)
[2020-04-13] MEDS ORDERED: ONDANSETRON PF 4 MG/2 ML VIAL. IVP ONE (23:30)
[2020-04-14] MEDS ORDERED: ONDANSETRON PF 4 MG/2 ML VIAL. IVP ONE (01:15)
[2020-04-14] MEDS ORDERED: ONDANSETRON PF 4 MG/2 ML VIAL. IVP PRN (01:45)
[2020-04-14] MEDS: IV NORMAL SALINE 1000ML BAG 1,000 ML IV SCH ×4 (02:27→21:45)
[2020-04-14 04:00] VITALS: BP 114/79
[2020-04-14] MEDS ORDERED: DEXTROSE 50% 25 GM / 50ML DISP.SYRIN. IV PRN (07:45)
[2020-04-14] MEDS: INSULIN LISPRO 300 UNITS/3 ML VIAL. SQ SCH ×3 (08:00→17:00)
[2020-04-14] MEDS: ONDANSETRON PF 4 MG/2 ML VIAL. IVP SCH ×4 (10:04→23:56)
[2020-04-14 10:21] LABS: ALBUMIN/GLOBULIN RATIO 0.8 (1.0-1.7); CALCIUM 8.3 mg/dL (8.5-10.1); CREATININE 0.5 mg/dL (0.6-1.0); GFR 180.5; POTASSIUM 3.9 mmol/L (3.5-5.1); TOTAL BILIRUBIN 0.6 mg/dL (0.2-1.0); TOTAL PROTEIN 6.6 g/dL (6.4-8.2)
[2020-04-14 11:20] VITALS: BP 112/78
--- NOTE | 2020-04-14 11:50 | PDOC1 ---
OB - History Hx of Present Care: Good Care Ultrasounds: Other (nml dating sono of twins) Obstetrical Complications: Hyperemesis Medical Complications: Other (DM TYpe 1) Past Family/Social History * Past Medical, Surgical, Family and Obstetric Histories reviewed from chart. Blood Type: Unknown Rubella: Immune RPR/VDRL: Negative GBS Status: Unknown HBsAG: Negative OB - Chief Complaint & HPI Date of Admission: Date of Admission: Apr 14, 2020 at 01:36 Chief Complaint/History : 2 Para: 1 EGA: 10 wks Reason for admission: observation Admission Nurse Assessment Rev: Yes OB - Admission Exam Physical Exam Vitals: VS - Last 72 Hours, by Label Date Time Temp Pulse Resp B/P (MAP) Pulse Ox O2 Delivery O2 Flow Rate FiO2 04/14/20 08:30 Room Air 04/14/20 04:00 99.5 100 20 114/79 (91) 100 Room Air 99.5 04/14/20 04:00 Room Air 04/14/20 03:14 92 103/58 (73) 99 Room Air 04/14/20 02:44 92 100/65 (77) 99 Room Air 04/14/20 02:14 104 124/83 (97) 99 Room Air 04/14/20 01:44 90 117/79 (92) 100 Room Air 04/14/20 01:19 94 120/83 (95) 99 Room Air 04/14/20 00:44 92 118/75 (89) 99 Room Air 04/14/20 00:14 94 119/75 (90) 99 Room Air 04/13/20 23:44 104 115/70 (85) 98 Room Air 04/13/20 23:14 96 118/76 (90) 99 Room Air 04/13/20 22:44 100 121/79 (93) 100 Room Air 04/13/20 22:14 92 122/82 (95) 99 Room Air 04/13/20 21:44 96 118/74 (89) 100 Room Air 04/13/20 21:05 98.5 111 16 122/75 (91) 100 Room Air 98.5 HEENT: Normal, Other (dry mucous membranes) Heart: Regular Rate Lungs: Clear Abdomen: Non tender, Soft Extremities: No tenderness or swelling Reflexes: Normal Cervical Dilatation: None Effacement: 0% Station: Ballotable Membranes: Intact Amniotic Fluid: Other Text A: 10 wks IUP, twin gestation Hyperemesis Gravidarum DM TYpe 1 P: Observation for IV hydration, DM control and treatment for hyperemesis. Zofran and Reglan IV scheduled. Insulin sliding scale until able to tolerate DM diet. DAVID NIELSON Jr, MD Apr 14, 2020 11:50
[2020-04-14] MEDS: METOCLOPRAMIDE HCL 10 MG/2 ML VIAL. IVP SCH ×2 (14:00→21:46)
[2020-04-14 16:45] VITALS: BP 120/85
[2020-04-14] MEDS: IV DEXTROSE 5%-LACT RINGERS 1,000 ML IV SCH ×2 (17:00→23:56)
--- NOTE | 2020-04-14 17:17 | RAD ---
Limited OB ultrasound INDICATION: Vomiting and . COMPARISON: No relevant comparisons currently available. TECHNIQUE: Grayscale, color and spectral Doppler imaging as well as M-mode Doppler imaging of the gra vid uterus was performed transabdominally. FINDINGS: Based on LMP of 01/18/2020, gestational age by dates is 12 weeks 3 days with an estimated delivery edward e of October 24, 2020. Uterus measures 12 x 9 x 7 cm and is unremarkable. Twin live intrauterine gestation with no amniotic or chorionic membrane identified, sugges ting a monoamniotic twin gestation. Twin A, closer to the internal os, shows a heart rate of 163 bpm and with a crown-rump length of 4.2 cm, corresponds with a gestational age of 11 weeks and 1 day. Twin B, closer to the fundus, shows a heart rate of 160 bpm crown-rump length of 4.2 cm, also corresp onds with a gestational age of 11 weeks and 1 day. No yolk sac is seen. The right ovary is obscured by bowel gas. The left ovary contains a 1.5 cm dominant follicle or cyst. IMPRESSION: Twin live intrauterine gestation with both fetuses showing a sonographic gestational age of 11 weeks and 1 day with an estimated delivery date by ultrasound of November 02, 2020. This appears to be a monoam niotic twin . Electronically signed by: Harvinder Luciano MD (04/14/2020 5:14 PM) [id number]
[2020-04-14 21:59] VITALS: BP 112/71
[2020-04-15 03:36] VITALS: BP 109/70
[2020-04-15] MEDS: METOCLOPRAMIDE HCL 10 MG/2 ML VIAL. IVP SCH ×4 (06:02→17:59)
[2020-04-15] MEDS: ONDANSETRON PF 4 MG/2 ML VIAL. IVP SCH ×4 (06:02→23:50)
[2020-04-15 07:00] VITALS: BP 98/70
[2020-04-15] MEDS: IV DEXTROSE 5%-LACT RINGERS 1,000 ML IV SCH ×4 (07:54→23:28)
[2020-04-15] MEDS: INSULIN LISPRO 300 UNITS/3 ML VIAL. SQ SCH ×3 (08:30→17:00)
[2020-04-15 11:10] VITALS: BP 119/91
--- NOTE | 2020-04-15 11:55 | PDOC ---
OB Progress Note Date of Service 04/15/20 Time of Evaluation 1155 Problem List Problems Medical Problems: (1) DM type 1 (diabetes mellitus, type 1) Status: Chronic (2) Hyperemesis gravidarum before end of 22 week gestation with dehydration Status: Acute (3) UTI (urinary tract infection) Status: Acute Notes PT. feeling the same. She attempted liquids yesterday and this am, but had e mesis about 1 hour after eating. Changed IV fluids to D5LR. Serum blood sugars stable. Lab Laboratory Tests Test 04/13/20 21:10 04/13/20 21:19 04/13/20 21:25 04/13/20 21:33 Urine Collection Type Unknown Urine Color Sara Urine Clarity Cloudy Urine pH 6.5 (<5.0-8.0) Urine Specific [place] >=1.030 (1.000-1.030) Urine Protein 100 mg/dL (NEG-TRACE) Urine Glucose (UA) 500 mg/dL (NEG) Urine Ketones (Stick) 40 mg/dL (NEG) Urine Blood Negative (NEG) Urine Nitrite Negative (NEG) Urine Bilirubin Small (NEG) Urine Urobilinogen Dipstick 1.0 mg/dL (0.2 mg/dL) Urine Leukocyte Esterase Negative (NEG) Urine RBC Occ /HPF (0-2) Urine WBC 5-10 /HPF (0-4) Urine Squamous Epithelial Cells Few /LPF Urine Bacteria Many /HPF (0-FEW) Urine Mucus Mod /LPF Bedside Urine HCG, Qualitative Hcg positive (Negative) Sodium Level 138 mmol/L (136-145) Potassium Level 3.9 mmol/L (3.5-5.1) Chloride Level 100 mmol/L (98-107) Carbon Dioxide Level 26 mmol/L (21-32) Anion Gap 12 (6-14) Blood Urea Nitrogen 11 mg/dL (7-20) Creatinine 0.4 mg/dL (0.6-1.0) Estimated GFR (Cockcroft-Gault) 233.5 Glucose Level 150 mg/dL (70-99) Calcium Level 9.0 mg/dL (8.5-10.1) Glucose (Fingerstick) 141 mg/dL (70-99) Test 04/14/20 02:28 04/14/20 09:25 SARS-CoV-2 Antigen (Rapid) Negative (NEGATIVE) Sodium Level 140 mmol/L (136-145) Potassium Level 3.9 mmol/L (3.5-5.1) Chloride Level 105 mmol/L (98-107) Carbon Dioxide Level 24 mmol/L (21-32) Anion Gap 11 (6-14) Blood Urea Nitrogen 11 mg/dL (7-20) Creatinine 0.5 mg/dL (0.6-1.0) Estimated GFR (Cockcroft-Gault) 180.5 BUN/Creatinine Ratio 22 (6-20) Glucose Level 151 mg/dL (70-99) Calcium Level 8.3 mg/dL (8.5-10.1) Total Bilirubin 0.6 mg/dL (0.2-1.0) Aspartate Amino Transf (AST/SGOT) 7 U/L (15-37) Alanine Aminotransferase (ALT/SGPT) 16 U/L (14-59) Alkaline Phosphatase 65 U/L (46-116) Total Protein 6.6 g/dL (6.4-8.2) Albumin 3.0 g/dL (3.4-5.0) Albumin/Globulin Ratio 0.8 (1.0-1.7) Medications Current Medications Sodium Chloride 1,000 ml @ 1,000 mls/hr 1X ONCE IV Last administered on 04/13/20at 21:39; Start 04/13/20 at 21:30; Stop 04/13/20 at 22:29; Status DC Metoclopramide HCl (Reglan Vial) 10 mg 1X ONCE IVP Last administered on 04/13/20at 21:38; Start 04/13/20 at 21:30; Stop 04/13/20 at 21:31; Status DC Ceftriaxone Sodium (Rocephin) 1 gm 1X ONCE IVP Last administered on 04/13/20at 22:35; Start 04/13/20 at 22:15; Stop 04/13/20 at 22:16; Status DC Sodium Chloride 1,000 ml @ 1,000 mls/hr 1X ONCE IV Last administered on 04/13/20at 23:33; Start 04/13/20 at 23:30; Stop 04/14/20 at 00:29; Status DC Ondansetron HCl (Zofran) 4 mg 1X ONCE IVP Last administered on 04/13/20at 23:36; Start 04/13/20 at 23:30; Stop 04/13/20 at 23:31; Status DC Ondansetron HCl (Zofran) 4 mg 1X ONCE IVP Last administered on 04/14/20at 01:15; Start 04/14/20 at 01:15; Stop 04/14/20 at 01:23; Status DC Sodium Chloride 1,000 ml @ 150 mls/hr Q6H40M IV Last administered on 04/14/20at 08:25; Start 04/14/20 at 01:45; Stop 04/15/20 at 01:44; Status DC Ondansetron HCl (Zofran) 4 mg PRN Q6HRS PRN IVP nausea; Start 04/14/20 at 01:45; Stop 04/14/20 at 08:02; Status DC Ondansetron HCl (Zofran) 8 mg Q6HRS IVP Last administered on 04/15/20at 06:02; Start 04/14/20 at 07:00 Metoclopramide HCl (Reglan Vial) 10 mg Q8H IVP Last administered on 04/15/20at 06:02; Start 04/14/20 at 10:00 Dextrose/Lactated Ringer's 1,000 ml @ 125 mls/hr Q8H IV Last administered on 04/15/20at 07:54; Start 04/14/20 at 08:00 Insulin Human Lispro (HumaLOG) 0-5 UNITS TIDWMEALS SQ Last administered on 04/15/20at 08:30; Start 04/14/20 at 08:00 Dextrose (Dextrose 50%-Water Syringe) 12.5 gm PRN Q15MIN PRN IV SEE COMMENTS; Start 04/14/20 at 07:45 Active Scripts Active Doxylamine-Pyridoxine 10-10 mg (Doxylamine Succinate/Vit B6) 1 Each Tablet.dr 1- 2 Each PO TID PRN 5 Days Ondansetron Odt (Ondansetron) 4 Mg Tab.rapdis 1 Tab PO PRN Q6-8HRS Ibuprofen 400 Mg Tablet 800 Mg PO PRN Q8HRS PRN Zofran (Ondansetron Hcl) 8 Mg Tablet 1 Tab PO Q8HRS Promethegan (Promethazine Hcl) 25 Mg Supp.rect 25 Mg VA PRN Q12HRS PRN Reglan (Metoclopramide Hcl) 10 Mg Tablet 1 Tab PO TID Zofran (Ondansetron Hcl) 4 Mg Tablet 1 Tab PO PRN Q6-8HRS Reported Novolog Flexpen (Insulin Aspart) 100 Unit/1 Ml Insuln.pen 12 Unit SQ [id number] Novolog Flexpen (Insulin Aspart) 100 Unit/1 Ml Insuln.pen 14 Unit SQ [id number] Novolog Flexpen (Insulin Aspart) 100 Unit/1 Ml Insuln.pen 12 Unit SQ DAILY07 Humulin N Kwikpen (Nph, Human Insulin Isophane) 100 Unit/1 Ml Insuln.pen 20 Unit SQ HS Humulin N Kwikpen (Nph, Human Insulin Isophane) 100 Unit/1 Ml Insuln.pen 32 Unit SQ DAILY08 Levsin (Hyoscyamine Sulfate) 0.125 Mg Tablet 0.125 Mg PO PRN Q6HRS PRN Loperamide (Loperamide Hcl) 2 Mg Capsule 2 Mg PO PRN QID PRN Ventolin Hfa Inhaler (Albuterol Sulfate) 18 Gm Hfa.aer.ad 2 Puff INH Q4HRS Exam Abd: soft, mild tenderness Assessment 1. Hyperemesis Gravidarum 2. 11 wks IUP twins Plan of Care: Continue current Tx, Mgmt (Check CMP. Add Protonix 40 mg IV daily.) DAVID NIELSON Jr, MD Apr 15, 2020 11:55
[2020-04-15] MEDS: PANTOPRAZOLE IV PUSH 40 MG VIAL. IVP SCH (12:40)
[2020-04-15 16:33] LABS: ALBUMIN 2.8 g/dL (3.4-5.0); ALBUMIN/GLOBULIN RATIO 0.8 (1.0-1.7); CALCIUM 8.5 mg/dL (8.5-10.1); CREATININE 0.6 mg/dL (0.6-1.0); GFR 146.2; POTASSIUM 3.8 mmol/L (3.5-5.1); TOTAL BILIRUBIN 0.6 mg/dL (0.2-1.0); TOTAL PROTEIN 6.3 g/dL (6.4-8.2)
[2020-04-15 17:33] VITALS: BP 120/84
[2020-04-15 22:07] VITALS: BP 121/86
[2020-04-16] MEDS: METOCLOPRAMIDE HCL 10 MG/2 ML VIAL. IVP SCH ×3 (02:00→17:02)
[2020-04-16 03:03] VITALS: BP 110/79
[2020-04-16 05:00] VITALS: BP 108/76
--- NOTE | 2020-04-16 05:59 | PDOC ---
OB Progress Note Date of Service 04/16/20 Time of Evaluation 8255 Problem List Problems Medical Problems: (1) DM type 1 (diabetes mellitus, type 1) Status: Chronic (2) Hyperemesis gravidarum before end of 22 week gestation with dehydration Status: Acute (3) UTI (urinary tract infection) Status: Acute Notes PT. resting well. She tolerated liquids for lunch and dinner, however she had large emesis in evening 300 ml. Electrolytes returning to normal. Blood sugars fair control. Lab Laboratory Tests Test 04/14/20 09:25 04/15/20 14:30 Sodium Level 140 mmol/L (136-145) 138 mmol/L (136-145) Potassium Level 3.9 mmol/L (3.5-5.1) 3.8 mmol/L (3.5-5.1) Chloride Level 105 mmol/L (98-107) 105 mmol/L (98-107) Carbon Dioxide Level 24 mmol/L (21-32) 26 mmol/L (21-32) Anion Gap 11 (6-14) 7 (6-14) Blood Urea Nitrogen 11 mg/dL (7-20) 5 mg/dL (7-20) Creatinine 0.5 mg/dL (0.6-1.0) 0.6 mg/dL (0.6-1.0) Estimated GFR (Cockcroft-Gault) 180.5 146.2 BUN/Creatinine Ratio 22 (6-20) 8 (6-20) Glucose Level 151 mg/dL (70-99) 170 mg/dL (70-99) Calcium Level 8.3 mg/dL (8.5-10.1) 8.5 mg/dL (8.5-10.1) Total Bilirubin 0.6 mg/dL (0.2-1.0) 0.6 mg/dL (0.2-1.0) Aspartate Amino Transf (AST/SGOT) 7 U/L (15-37) 11 U/L (15-37) Alanine Aminotransferase (ALT/SGPT) 16 U/L (14-59) 19 U/L (14-59) Alkaline Phosphatase 65 U/L (46-116) 60 U/L (46-116) Total Protein 6.6 g/dL (6.4-8.2) 6.3 g/dL (6.4-8.2) Albumin 3.0 g/dL (3.4-5.0) 2.8 g/dL (3.4-5.0) Albumin/Globulin Ratio 0.8 (1.0-1.7) 0.8 (1.0-1.7) Laboratory Tests Test 04/15/20 14:30 Sodium Level 138 mmol/L (136-145) Potassium Level 3.8 mmol/L (3.5-5.1) Chloride Level 105 mmol/L (98-107) Carbon Dioxide Level 26 mmol/L (21-32) Anion Gap 7 (6-14) Blood Urea Nitrogen 5 mg/dL (7-20) Creatinine 0.6 mg/dL (0.6-1.0) Estimated GFR (Cockcroft-Gault) 146.2 BUN/Creatinine Ratio 8 (6-20) Glucose Level 170 mg/dL (70-99) Calcium Level 8.5 mg/dL (8.5-10.1) Total Bilirubin 0.6 mg/dL (0.2-1.0) Aspartate Amino Transf (AST/SGOT) 11 U/L (15-37) Alanine Aminotransferase (ALT/SGPT) 19 U/L (14-59) Alkaline Phosphatase 60 U/L (46-116) Total Protein 6.3 g/dL (6.4-8.2) Albumin 2.8 g/dL (3.4-5.0) Albumin/Globulin Ratio 0.8 (1.0-1.7) Medications Current Medications Sodium Chloride 1,000 ml @ 1,000 mls/hr 1X ONCE IV Last administered on 04/13/20at 21:39; Start 04/13/20 at 21:30; Stop 04/13/20 at 22:29; Status DC Metoclopramide HCl (Reglan Vial) 10 mg 1X ONCE IVP Last administered on 04/13/20at 21:38; Start 04/13/20 at 21:30; Stop 04/13/20 at 21:31; Status DC Ceftriaxone Sodium (Rocephin) 1 gm 1X ONCE IVP Last administered on 04/13/20at 22:35; Start 04/13/20 at 22:15; Stop 04/13/20 at 22:16; Status DC Sodium Chloride 1,000 ml @ 1,000 mls/hr 1X ONCE IV Last administered on 04/13/20at 23:33; Start 04/13/20 at 23:30; Stop 04/14/20 at 00:29; Status DC Ondansetron HCl (Zofran) 4 mg 1X ONCE IVP Last administered on 04/13/20at 23:36; Start 04/13/20 at 23:30; Stop 04/13/20 at 23:31; Status DC Ondansetron HCl (Zofran) 4 mg 1X ONCE IVP Last administered on 04/14/20at 01:15; Start 04/14/20 at 01:15; Stop 04/14/20 at 01:23; Status DC Sodium Chloride 1,000 ml @ 150 mls/hr Q6H40M IV Last administered on 04/14/20at 08:25; Start 04/14/20 at 01:45; Stop 04/15/20 at 01:44; Status DC Ondansetron HCl (Zofran) 4 mg PRN Q6HRS PRN IVP nausea; Start 04/14/20 at 01:45; Stop 04/14/20 at 08:02; Status DC Ondansetron HCl (Zofran) 8 mg Q6HRS IVP Last administered on 04/15/20at 23:50; Start 04/14/20 at 07:00 Metoclopramide HCl (Reglan Vial) 10 mg Q8H IVP Last administered on 04/16/20at 02:00; Start 04/14/20 at 10:00 Dextrose/Lactated Ringer's 1,000 ml @ 125 mls/hr Q8H IV Last administered on 04/15/20at 23:28; Start 04/14/20 at 08:00 Insulin Human Lispro (HumaLOG) 0-5 UNITS TIDWMEALS SQ Last administered on 04/15/20at 08:30; Start 04/14/20 at 08:00 Dextrose (Dextrose 50%-Water Syringe) 12.5 gm PRN Q15MIN PRN IV SEE COMMENTS; Start 04/14/20 at 07:45 Pantoprazole Sodium (PROTONIX VIAL for IV PUSH) 40 mg DAILYAC IVP Last administered on 04/15/20at 12:40; Start 04/15/20 at 12:30 Active Scripts Active Doxylamine-Pyridoxine 10-10 mg (Doxylamine Succinate/Vit B6) 1 Each Tablet.dr 1- 2 Each PO TID PRN 5 Days Ondansetron Odt (Ondansetron) 4 Mg Tab.rapdis 1 Tab PO PRN Q6-8HRS Ibuprofen 400 Mg Tablet 800 Mg PO PRN Q8HRS PRN Zofran (Ondansetron Hcl) 8 Mg Tablet 1 Tab PO Q8HRS Promethegan (Promethazine Hcl) 25 Mg Supp.rect 25 Mg [place] PRN Q12HRS PRN Reglan (Metoclopramide Hcl) 10 Mg Tablet 1 Tab PO TID Zofran (Ondansetron Hcl) 4 Mg Tablet 1 Tab PO PRN Q6-8HRS Reported Novolog Flexpen (Insulin Aspart) 100 Unit/1 Ml Insuln.pen 12 Unit SQ DAILYBFRSUP Novolog Flexpen (Insulin Aspart) 100 Unit/1 Ml Insuln.pen 14 Unit SQ DAILYBFRLUN Novolog Flexpen (Insulin Aspart) 100 Unit/1 Ml Insuln.pen 12 Unit SQ DAILY07 Humulin N Kwikpen (Nph, Human Insulin Isophane) 100 Unit/1 Ml Insuln.pen 20 Unit SQ HS Humulin N Kwikpen (Nph, Human Insulin Isophane) 100 Unit/1 Ml Insuln.pen 32 Unit SQ DAILY08 Levsin (Hyoscyamine Sulfate) 0.125 Mg Tablet 0.125 Mg PO PRN Q6HRS PRN Loperamide (Loperamide Hcl) 2 Mg Capsule 2 Mg PO PRN QID PRN Ventolin Hfa Inhaler (Albuterol Sulfate) 18 Gm Hfa.aer.ad 2 Puff INH Q4HRS Exam Abd: soft, non tender Assessment 11 wks IUP twins Hyperemesis Gravidarum DM Type 1 fair control Plan of Care: Continue current Tx, Mgmt (Advance diet as tolerated.) DAVID NIELSON Jr, MD Apr 16, 2020 05:59
[2020-04-16] MEDS: ONDANSETRON PF 4 MG/2 ML VIAL. IVP SCH ×3 (06:22→18:07)
[2020-04-16] MEDS: IV DEXTROSE 5%-LACT RINGERS 1,000 ML IV SCH ×3 (07:33→22:38)
[2020-04-16] MEDS: PANTOPRAZOLE IV PUSH 40 MG VIAL. IVP SCH (07:47)
[2020-04-16] MEDS: INSULIN LISPRO 300 UNITS/3 ML VIAL. SQ SCH ×3 (08:00→17:00)
[2020-04-16 10:00] VITALS: BP 113/82
[2020-04-16 18:27] VITALS: BP 131/87
[2020-04-17] MEDS: ONDANSETRON PF 4 MG/2 ML VIAL. IVP SCH ×3 (00:25→12:19)
[2020-04-17 00:32] VITALS: BP 107/74
[2020-04-17] MEDS: METOCLOPRAMIDE HCL 10 MG/2 ML VIAL. IVP SCH ×3 (02:26→18:00)
[2020-04-17] MEDS: IV DEXTROSE 5%-LACT RINGERS 1,000 ML IV SCH ×3 (06:36→22:49)
[2020-04-17 07:14] VITALS: BP 125/88
[2020-04-17] MEDS: PANTOPRAZOLE IV PUSH 40 MG VIAL. IVP SCH (07:31)
[2020-04-17] MEDS: INSULIN LISPRO 300 UNITS/3 ML VIAL. SQ SCH ×3 (08:00→17:31)
[2020-04-17 10:30] VITALS: BP 120/82
--- NOTE | 2020-04-17 13:39 | PDOC ---
OB Progress Note Date of Service 04/17/20 Time of Evaluation 1330 Problem List Problems Medical Problems: (1) DM type 1 (diabetes mellitus, type 1) Status: Chronic (2) Hyperemesis gravidarum before end of 22 week gestation with dehydration Status: Acute (3) UTI (urinary tract infection) Status: Acute Notes Pt. believes she is more nauseous with Zofran at night. Will d/c zofran. Cont inue Reglan scheduled and add Phenergan suppository scheduled. She had 100 ml emesis last night and this am. Lab Laboratory Tests Test 04/15/20 14:30 04/16/20 11:52 Sodium Level 138 mmol/L (136-145) Potassium Level 3.8 mmol/L (3.5-5.1) Chloride Level 105 mmol/L (98-107) Carbon Dioxide Level 26 mmol/L (21-32) Anion Gap 7 (6-14) Blood Urea Nitrogen 5 mg/dL (7-20) Creatinine 0.6 mg/dL (0.6-1.0) Estimated GFR (Cockcroft-Gault) 146.2 BUN/Creatinine Ratio 8 (6-20) Glucose Level 170 mg/dL (70-99) Calcium Level 8.5 mg/dL (8.5-10.1) Total Bilirubin 0.6 mg/dL (0.2-1.0) Aspartate Amino Transf (AST/SGOT) 11 U/L (15-37) Alanine Aminotransferase (ALT/SGPT) 19 U/L (14-59) Alkaline Phosphatase 60 U/L (46-116) Total Protein 6.3 g/dL (6.4-8.2) Albumin 2.8 g/dL (3.4-5.0) Albumin/Globulin Ratio 0.8 (1.0-1.7) Glucose (Fingerstick) 156 mg/dL (70-99) Medications Current Medications Sodium Chloride 1,000 ml @ 1,000 mls/hr 1X ONCE IV Last administered on 04/13/20at 21:39; Start 04/13/20 at 21:30; Stop 04/13/20 at 22:29; Status DC Metoclopramide HCl (Reglan Vial) 10 mg 1X ONCE IVP Last administered on 04/13/20at 21:38; Start 12/28/20 at 21:30; Stop 04/13/20 at 21:31; Status DC Ceftriaxone Sodium (Rocephin) 1 gm 1X ONCE IVP Last administered on 04/13/20at 22:35; Start 04/13/20 at 22:15; Stop 04/13/20 at 22:16; Status DC Sodium Chloride 1,000 ml @ 1,000 mls/hr 1X ONCE IV Last administered on 04/13/20at 23:33; Start 04/13/20 at 23:30; Stop 04/14/20 at 00:29; Status DC Ondansetron HCl (Zofran) 4 mg 1X ONCE IVP Last administered on 04/13/20at 23:36; Start 04/13/20 at 23:30; Stop 04/13/20 at 23:31; Status DC Ondansetron HCl (Zofran) 4 mg 1X ONCE IVP Last administered on 04/14/20at 01:15; Start 04/14/20 at 01:15; Stop 04/14/20 at 01:23; Status DC Sodium Chloride 1,000 ml @ 150 mls/hr Q6H40M IV Last administered on 04/14/20at 08:25; Start 04/14/20 at 01:45; Stop 04/15/20 at 01:44; Status DC Ondansetron HCl (Zofran) 4 mg PRN Q6HRS PRN IVP nausea; Start 04/14/20 at 01:45; Stop 04/14/20 at 08:02; Status DC Ondansetron HCl (Zofran) 8 mg Q6HRS IVP Last administered on 04/17/20at 12:19; Start 04/14/20 at 07:00 Metoclopramide HCl (Reglan Vial) 10 mg Q8H IVP Last administered on 04/17/20 09:49; Start 04/14/20 at 10:00 Dextrose/Lactated Ringer's 1,000 ml @ 125 mls/hr Q8H IV Last administered on 04/17/20 06:36; Start 04/14/20 at 08:00 Insulin Human Lispro (HumaLOG) 0-5 UNITS TIDWMEALS SQ Last administered on 04/15/20at 08:30; Start 04/14/20 at 08:00 Dextrose (Dextrose 50%-Water Syringe) 12.5 gm PRN Q15MIN PRN IV SEE COMMENTS; Start 04/14/20 at 07:45 Pantoprazole Sodium (PROTONIX VIAL for IV PUSH) 40 mg DAILYAC IVP Last administered on 04/17/20at 07:31; Start 04/15/20 at 12:30 Active Scripts Active Doxylamine-Pyridoxine 10-10 mg (Doxylamine Succinate/Vit B6) 1 Each Tablet.dr 1- 2 Each PO TID PRN 5 Days Ondansetron Odt (Ondansetron) 4 Mg Tab.rapdis 1 Tab PO PRN Q6-8HRS Ibuprofen 400 Mg Tablet 800 Mg PO PRN Q8HRS PRN Zofran (Ondansetron Hcl) 8 Mg Tablet 1 Tab PO Q8HRS Promethegan (Promethazine Hcl) 25 Mg Supp.rect 25 Mg [place] PRN Q12HRS PRN Reglan (Metoclopramide Hcl) 10 Mg Tablet 1 Tab PO TID Zofran (Ondansetron Hcl) 4 Mg Tablet 1 Tab PO PRN Q6-8HRS Reported Novolog Flexpen (Insulin Aspart) 100 Unit/1 Ml Insuln.pen 12 Unit SQ DAILYBFRSUP Novolog Flexpen (Insulin Aspart) 100 Unit/1 Ml Insuln.pen 14 Unit SQ DAILYBFRLUN Novolog Flexpen (Insulin Aspart) 100 Unit/1 Ml Insuln.pen 12 Unit SQ DAILY07 Humulin N Kwikpen (Nph, Human Insulin Isophane) 100 Unit/1 Ml Insuln.pen 20 Unit SQ HS Humulin N Kwikpen (Nph, Human Insulin Isophane) 100 Unit/1 Ml Insuln.pen 32 Unit SQ DAILY08 Levsin (Hyoscyamine Sulfate) 0.125 Mg Tablet 0.125 Mg PO PRN Q6HRS PRN Loperamide (Loperamide Hcl) 2 Mg Capsule 2 Mg PO PRN QID PRN Ventolin Hfa Inhaler (Albuterol Sulfate) 18 Gm Hfa.aer.ad 2 Puff INH Q4HRS Exam Abd: soft, non tender Assessment 11 wks IUP, twins Hyperemesis Gravidarum DM TYpe 1 conrolled. Plan of Care: Continue current Tx, Mgmt (D/c Zofran. Start Phenergan BID scheduled suppository.) DAVID NIELSON Jr, MD Apr 17, 2020 13:39
[2020-04-17] MEDS: PROMETHAZINE 25 MG SUPP.RECT. PR SCH ×2 (14:01→21:00)
[2020-04-17 17:25] VITALS: BP 115/79
[2020-04-17 21:48] VITALS: BP 108/73
[2020-04-18] MEDS: METOCLOPRAMIDE HCL 10 MG/2 ML VIAL. IVP SCH ×2 (01:26→11:30)
[2020-04-18 05:30] VITALS: BP 118/78
[2020-04-18] MEDS: IV DEXTROSE 5%-LACT RINGERS 1,000 ML IV SCH (06:51)
[2020-04-18] MEDS: PANTOPRAZOLE IV PUSH 40 MG VIAL. IVP SCH (07:49)
[2020-04-18] MEDS: PROMETHAZINE 25 MG SUPP.RECT. PR SCH (07:57)
[2020-04-18] MEDS: INSULIN LISPRO 300 UNITS/3 ML VIAL. SQ SCH ×2 (08:00→12:36)
[2020-04-18 11:55] VITALS: BP 93/59
--- NOTE | 2020-04-18 14:01 | PDOC3 ---
OB DISCHARGE SUMMARY DATE OF ADMISSION: 04/14/20 DATE OF DISCHARGE: 04/18/20 REASON FOR ADMISSION: Observation/evaluation, Other (Hyperemesis Gravidarum) INTRAPARTUM PROCEDURES: Others (IV fluid hydration, electrolyte replacement and antiemetics) PROBLEM LIST AT DISCHARGE Problems Medical Problems: (1) DM type 1 (diabetes mellitus, type 1) Status: Chronic (2) Hyperemesis gravidarum before end of 22 week gestation with dehydration Status: Acute (3) UTI (urinary tract infection) Status: Acute DISCHARGE DIAGNOSIS: Hyperemesis Gravidarum DISCHARGE INFORMATION: Activity (ad hema), Diet (ADA diet), Instructions (no lifting> 20 lbs, bland diet) HOSPITAL COURSE FIrst trimester gestation with twins treated for hyperemesis gravidarum improved with IV fluids, electrolyte replacement and antiemetics. DAVID NIELSON Jr, MD Apr 18, 2020 14:01
[2020-04-18] MEDS ORDERED: METO10TA81 PO (14:06)
[2020-04-18] MEDS ORDERED: PROM25SU4 PR (14:06)
[2020-04-18] MEDS ORDERED: Pantoprazole Iv Push PO (14:06)
--- NOTE | 2020-04-18 14:07 | DISCH ---
DISCHARGE INSTRUCTIONS Condition on Discharge Condition on Discharge: Stable Activity After Discharge Activity Instructions for Disc: Activity as tolerated Lifting Instructions after Dis: No heavy lifting, No pulling or pushing, Do not lift >10 pounds Driving Instructions after Dis: Do not drive today Diet after Discharge Diet after Discharge: Diabetic No Calorie Level Diet Texture: Regular Liquid Texture: Thin Liquid Swallowing Supervision: None needed Contacting the DRDerek after DC Call your doctor for: Concerns you may have Follow-Up Follow up with: Dr. Lemon in 1 week Treatment/Equipment after DC Adaptive Equipment Issued: None DAVID LEMON Jr, MD Apr 18, 2020 14:07
[2020-04-18 14:55] VITALS: BP 128/86
--- NOTE | 2020-04-18 14:55 | NUR ---
Discharge and follow up instructions reviewed and given to pt along with Rx X3. Pt verbalized understanding and denied any questions or complaints at this time. Pt ambulated with staff out of the hospital.
== END 2020-04-18 14:55 | disposition home or self-care (01) | DRG 832 ==
LOC: ER 20:43 → 3 NORTH 04-14 01:36
PROVIDERS: ADMIT Obstetrics & Gynecology; ATTEND Obstetrics & Gynecology
DX: O21.0 Mild hyperemesis gravidarum (principal); O23.42 Unspecified infection of urinary tract in pregnancy, second trimester; O24.912 Unspecified diabetes mellitus in pregnancy, second trimester; E86.0 Dehydration; O99.282 Endocrine, nutritional and metabolic diseases complicating pregnancy, second trimester; J45.909 Unspecified asthma, uncomplicated; O99.512 Diseases of the respiratory system complicating pregnancy, second trimester; Z20.828 Contact with and (suspected) exposure to other viral communicable diseases; O30.002 Twin pregnancy, unspecified number of placenta and unspecified number of amniotic sacs, second trimester; Z3A.22 22 weeks gestation of pregnancy; Z79.4 Long term (current) use of insulin
CPT/HCPCS: 36415; 76801; 80048; 80053; 81001; 81025; 82962; 87426; 96361; 96374; 96375; 96376; 99285; C9113; J0696; J1815; J2405; J2765; J7030; J7121; U0003; G0378

== ENCOUNTER 2020-04-25 15:39 | Emergency (ER) | payer OTHER, BC ==
[~2020-04-25] VITALS: Ht 172.7 cm; Wt 95.0 kg
[~2020-04-25 15:39] MED LIST changes: +Pantoprazole Iv Push PO
[2020-04-25] MEDS ORDERED: ACETAMINOPHEN 500 MG TABLET PO ONE (15:45)
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
[2020-04-25 16:54] LABS: BILIRUBIN,URINE NEGATIVE (NEG); CLARITY,URINE CLEAR; COLOR,URINE YELLOW; NITRITE,URINE NEGATIVE (NEG); PH,URINE 7.5 (<5.0-8.0); PROTEIN,URINE NEGATIVE (NEG-TRACE)
[2020-04-25 17:00] LABS: BACTERIA,URINE FEW /HPF (0-FEW); RBC,URINE 0 /HPF (0-2); WBC,URINE 0 /HPF (0-4)
[2020-04-25 18:00] VITALS: BP 138/88
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
== END 2020-04-25 18:50 | disposition home or self-care (01) ==
LOC: ER 15:39
DX: O26.891 Other specified pregnancy related conditions, first trimester (principal); R10.30 Lower abdominal pain, unspecified; G89.11 Acute pain due to trauma; O24.911 Unspecified diabetes mellitus in pregnancy, first trimester; O99.511 Diseases of the respiratory system complicating pregnancy, first trimester; J45.909 Unspecified asthma, uncomplicated; Z3A.13 13 weeks gestation of pregnancy; V49.49XA Driver injured in collision with other motor vehicles in traffic accident, initial encounter; Y92.488 Other paved roadways as the place of occurrence of the external cause; Y93.89 Activity, other specified; Y99.8 Other external cause status
CPT/HCPCS: 76805; 81001; 99284-25

== ENCOUNTER → 2020-05-18 | Outpatient (CLI) | payer OTHER, BC ==
[2020-04-25 18:00] VITALS: BP 138/88
[~2020-05-18] MED LIST changes: +OXYC-325 PO
== END ==
LOC: LAB 14:07
PROVIDERS: ATTEND Obstetrics & Gynecology
DX: Z01.812 Encounter for preprocedural laboratory examination (principal); Z20.822 Contact with and (suspected) exposure to COVID-19
CPT/HCPCS: U0003

== ENCOUNTER 2020-05-21 06:27 | Day surgery (SDC) | payer BC ==
[~2020-05-21] VITALS: Ht 172.7 cm; Wt 96.2 kg
[~2020-05-21 06:27] MED LIST changes: +IV RINGERS,LACTATED 1000ML 1,000 ML IV SCH; -OXYC-325 PO; +PROCHLORPERAZINE 10 MG/2 ML VIAL. IVP PRN; +fentaNYL PF VIAL 100 MCG/2 ML VIAL IVP PRN
[2020-05-21] MEDS ORDERED: SCOPOLAMINE 1.5MG PATCH. TD ONE (07:00)
[2020-05-21] MEDS ORDERED: INSULIN LISPRO 100 UNIT/ML 3ML VIAL for OP,RR ONLY. SQ PRN (07:00)
[2020-05-21] MEDS ORDERED: INSULIN LISPRO 100 UNIT/ML 3ML VIAL for OP,RR ONLY. SQ ONE (07:05)
[2020-05-21] MEDS ORDERED: VASOPRESSIN 20 UNIT/ML VIAL. ONE (07:24)
[2020-05-21] MEDS ORDERED: OXYTOCIN 10 UNIT/ML VIAL. ONE (07:24)
[2020-05-21 07:28] LABS: BASO % 0 % (0-3); EOS # 0.1 x10^3/uL (0.0-0.7); EOS % 1 % (0-3); HEMATOCRIT 35.1 % (36.0-47.0); LYMPH # 1.6 x10^3/uL (1.0-4.8); LYMPH % 27 % (24-48); MEAN CORPUSCULAR HEMOGLOBIN 32 pg (25-35); MEAN CORPUSCULAR HGB CONC 34 g/dL (31-37); MEAN CORPUSCULAR VOLUME 92 fL (79-100); MONO # 0.4 x10^3/uL (0.0-1.1); MONO % 7 % (0-9); NEUT # 3.9 x10^3/uL (1.8-7.7); NEUT % 65 % (31-73); PLATELET COUNT 273 x10^3/uL (140-400); RED CELL DISTRIBUTION WIDTH 12.5 % (11.5-14.5)
[2020-05-21] MEDS ORDERED: miSOPROStol 200 MCG TABLET. ONE (07:36)
[2020-05-21] MEDS ORDERED: ONDANSETRON PF 4 MG/2 ML VIAL. ONE (07:44)
[2020-05-21] MEDS ORDERED: DEXAMETHASONE SOD PHOS 4 MG/ML VIAL ONE (07:44)
[2020-05-21] MEDS ORDERED: PROPOFOL 10 MG/ML (20ML) VIAL. IV ONE (07:44)
[2020-05-21] MEDS ORDERED: LIDOCAINE 2% PF 5 ML VIAL. ONE (07:44)
[2020-05-21] MEDS ORDERED: fentaNYL PF VIAL 100 MCG/2 ML VIAL ONE (07:45)
[2020-05-21] MEDS ORDERED: MIDAZOLAM HCL/PF 2 MG/2 ML VIAL. ONE (07:45)
[2020-05-21] MEDS ORDERED: metroNIDAZOLE 0.75% VAGINAL 70GM TUBE. VG ONE (07:45)
[2020-05-21] MEDS ORDERED: METHYLERGONOVINE MALEATE 0.2 MG/ML VIAL. IM ONE (07:51)
[2020-05-21] MEDS ORDERED: ceFAZolin SODIUM IV Push 1 GM VIAL. IVP PRN (08:00)
[2020-05-21] MEDS ORDERED: SEVOFLURANE 31 TO 60 MINUTES. IH ONE (08:19)
[2020-05-21] MEDS ORDERED: miSOPROStol 200 MCG TABLET. VG ONE ×3 (08:25)
--- NOTE | 2020-05-21 08:53 | PDOC ---
BRIEF OPERATIVE NOTE Date: May 21, 2020 Pre-Op Diagnosis 13 wks twins MAB Post-Op Diagnosis SAme Procedure Performed Suction D&C Surgeon Dr. Crawford Anesthesia Type: General Blood Loss 600 ml Specimens Obtained POC Findings POC Complications none Operative Note see dictation DAVID CRAWFORD Jr, MD May 21, 2020 08:53
--- NOTE | 2020-05-21 08:55 | DISCH ---
DISCHARGE INSTRUCTIONS Condition on Discharge Condition on Discharge: Stable Activity After Discharge Activity Instructions for Disc: No restrictions, Activity as tolerated Lifting Instructions after Dis: No heavy lifting, No pulling or pushing, Do not lift >10 pounds Driving Instructions after Dis: Do not drive today Diet after Discharge Diet after Discharge: Diabetic No Calorie Level Diet Texture: Regular Liquid Texture: Thin Liquid Swallowing Supervision: None needed Contacting the DRDerek after DC Call your doctor for: Concerns you may have Follow-Up Follow up with: Dr. Lemon in 1 week. Treatment/Equipment after DC Adaptive Equipment Issued: None DAVID LEMON Jr, MD May 21, 2020 08:55
[2020-05-21] MEDS ORDERED: MORPHINE SULFATE 2 MG/ML VIAL. ONE (09:12)
[2020-05-21] MEDS: MORPHINE SULFATE 2 MG/ML VIAL. IVP PRN ×2 (09:13→09:23)
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
[2020-05-21] MEDS ORDERED: OXYC-325 PO (09:34)
[2020-05-21] MEDS ORDERED: HYDROmorphone 2 MG/ML VIAL ONE (09:42)
[2020-05-21] MEDS: HYDROmorphone 2 MG/ML VIAL IVP PRN ×2 (09:45→09:56)
[2020-05-21] MEDS ORDERED: oxyCODONE/APAP 5/325 1 TAB TABLET PO ONE ×2 (09:45)
[2020-05-21 10:00] VITALS: BP 138/84
--- NOTE | 2020-05-25 14:10 | PATHOLOGY ---
[facility] Accession Number: [id number] . 01 Material submitted: . product of conception - PRODUCT OF CONCEPTION . 01 Clinical history: . MISCARRIAGE . 02 Diagnosis: Uterine contents, dilatation and curettage: - Products of conception, comprised of segments of macerated fetus, placental membranous tissue, immature chorionic villi showing focal mild hydropic degenerative changes, and decidual tissue. ([facility] 05/25/2020) QTP 05/25/2020 1209 Local . 02 Electronically signed: . Surjit Coelho MD, Pathologist NPI- [id number] . 01 Gross description: . The specimen is received in formalin, labeled "Katie Kennedy, products of conception". Received are multiple segments of pink-campbell to pink-mathew soft tissue admixed with blood coagulum and spongiform tissue measuring 17.2 x 14.8 x 3.6 cm in aggregate dimensions. A macerated fetus is present and multiple parts are identified including a leg with a foot length of 1.0 cm. The specimen is submitted representatively in cassettes A1 through A3. The tissue is retained within the specimen container. ([facility]; 05/22/2020) QAC/QAC 05/25/2020 1208 Local . 02 Pathologist provided ICD-10: O03.9 . 02 CPT . 874970 Specimen Comment: A courtesy copy of this report has been sent to [phone] Specimen Comment: Report sent to Performed at: 01 [facility] [address], [place] [id number] MD Wang Sullivan MD Phone: [phone] Performed at: 02 [facility] [address] [place], [place] [id number] MD Surjit Coelho MD Phone: [phone]
== END 2020-05-21 10:37 | disposition home or self-care (01) ==
LOC: SURG 06:27
PROVIDERS: ATTEND Obstetrics & Gynecology
DX: O02.1 Missed abortion (principal); K21.9 Gastro-esophageal reflux disease without esophagitis; E66.9 Obesity, unspecified; E11.9 Type 2 diabetes mellitus without complications; E03.9 Hypothyroidism, unspecified; J45.909 Unspecified asthma, uncomplicated; F41.9 Anxiety disorder, unspecified; Z79.899 Other long term (current) drug therapy; Z98.890 Other specified postprocedural states; Z79.4 Long term (current) use of insulin
CPT/HCPCS: 36415; 59820; 82962; 85025; 86850; 86900; 86901; J0690; J1100; J1170; J1815; J2250; J2270; J2405; J2704; J3010; 88305; J2210; J2590; J3490

== ENCOUNTER 2020-12-06 20:39 | Inpatient (IN) | payer BC ==
[~2020-12-06] VITALS: Ht 172.7 cm; Wt 98.2 kg
[~2020-12-06 20:39] MED LIST changes: -IV RINGERS,LACTATED 1000ML 1,000 ML IV SCH; +OXYC-325 PO; -PROCHLORPERAZINE 10 MG/2 ML VIAL. IVP PRN; -fentaNYL PF VIAL 100 MCG/2 ML VIAL IVP PRN
[2020-12-06 22:27] LABS: BASO % 0 % (0-3); EOS % 0 % (0-3); HEMOGLOBIN 15.9 g/dL (12.0-15.5); LYMPH # 1.3 x10^3/uL (1.0-4.8); LYMPH % 21 % (24-48); MEAN CORPUSCULAR HEMOGLOBIN 31 pg (25-35); MEAN CORPUSCULAR HGB CONC 33 g/dL (31-37); MEAN CORPUSCULAR VOLUME 94 fL (79-100); MONO # 0.5 x10^3/uL (0.0-1.1); MONO % 8 % (0-9); NEUT # 4.2 x10^3/uL (1.8-7.7); NEUT % 70 % (31-73); PLATELET COUNT 280 x10^3/uL (140-400); RED BLOOD COUNT 5.09 x10^6/uL (3.50-5.40); RED CELL DISTRIBUTION WIDTH 12.3 % (11.5-14.5); WHITE BLOOD COUNT 5.9 x10^3/uL (4.0-11.0)
[2020-12-06] MEDS ORDERED: ACETAMINOPHEN 500 MG TABLET PO ONE (22:30)
[2020-12-06] MEDS ORDERED: IV NORMAL SALINE 1000ML BAG 1,000 ML IV SCH (22:30)
[2020-12-06] MEDS ORDERED: METOCLOPRAMIDE HCL 10 MG/2 ML VIAL. IVP ONE (22:30)
[2020-12-06 22:40] LABS: CALCIUM 8.8 mg/dL (8.5-10.1); CREATININE 0.9 mg/dL (0.6-1.0); GFR 91.6; POTASSIUM 4.4 mmol/L (3.5-5.1)
[2020-12-06 22:44] LABS: ALBUMIN 3.6 g/dL (3.4-5.0); ALBUMIN/GLOBULIN RATIO 0.8 (1.0-1.7); TOTAL BILIRUBIN 0.7 mg/dL (0.2-1.0); TOTAL PROTEIN 8.2 g/dL (6.4-8.2)
--- NOTE | 2020-12-06 22:59 | RAD ---
Exam: Chest one view INDICATION: Fever TECHNIQUE: Frontal view of the chest Comparisons: None FINDINGS: The cardiomediastinal silhouette and pulmonary vessels are within normal limits. The lung and pleural spaces are clear. IMPRESSION: No acute cardiopulmonary process. Electronically signed by: Vinay Rapp MD (12/06/2020 10:56 PM) JEM
[2020-12-06] MEDS ORDERED: INSULIN LISPRO 300 UNITS/3 ML VIAL. SQ ONE (23:00)
--- NOTE | 2020-12-06 23:06 | PHYS DOC ---
Past Medical History Past Medical History: Asthma, Diabetes-Type I (INES DOMINGUEZ BILLING CUSTOMER SERVICE REPRESENTATIVE) Past Surgical History: No Surgical History (INES DOMINGUEZ BILLING CUSTOMER SERVICE REPRESENTATIVE) Smoking Status: Never Smoker Alcohol Use: None Drug Use: None (INES DOMINGUEZ APRN) General Adult EDM: Chief Complaint: NAUSEA/VOMITING/DIARRHEA HPI: HPI: Patient is a 25 year old female who presents with 2 days of nausea, vomiting, diarrhea, body aches and fever at home. Patient received her first dose of Pfizer on Monday and then started having symptoms. Patient is not febrile here in the ED. Patient does have a history of diabetes type 1, asthma, pyelonephritis, , hyperemesis with . Patient denies chest pain, shortness of breath, cough, abdominal pain, headache, dizziness, syncope, focal weakness, numbness or tingling. (INES DOMINGUEZ BILLING CUSTOMER SERVICE REPRESENTATIVE) Review of Systems: Review of Systems: Constitutional: + fever or chills. [] Eyes: Denies change in visual acuity. [] HENT: Denies nasal congestion or sore throat. [] Respiratory: Denies cough or shortness of breath. [] Cardiovascular: Denies chest pain or edema. [] GI: Denies abdominal pain, +nausea, +vomiting, denies bloody stools or diarrhea. [] : Denies dysuria. [] Musculoskeletal: Denies back pain or joint pain. + Body aches [] Integument: Denies rash. [] Neurologic: Denies headache, focal weakness or sensory changes. [] Endocrine: Denies polyuria or polydipsia. [] Lymphatic: Denies swollen glands. [] Psychiatric: Denies depression or anxiety. [] (INES DOMINGUEZ BILLING CUSTOMER SERVICE REPRESENTATIVE) Heart Score: C/O Chest Pain: No (INES DOMINGUEZ APRN) Current Medications: Current Medications Medications (Trade) Dose Ordered Sig/Indira Start Time Stop Time Status Last Admin Dose Admin Acetaminophen (Tylenol) 1,000 mg 1X ONCE 12/06/20 22:30 12/06/20 22:31 DC 12/06/20 22:30 1,000 MG Metoclopramide HCl (Reglan Vial) 10 mg 1X ONCE 12/06/20 22:30 12/06/20 22:31 DC 12/06/20 22:29 10 MG Sodium Chloride 1,000 ml @ 1,000 mls/hr Q1H 12/06/20 22:30 12/06/20 23:29 12/06/20 22:29 1,000 MLS/HR (INES DOMINGUEZ BILLING CUSTOMER SERVICE REPRESENTATIVE) Allergies: Allergies: Allergies Coded Allergies Type Severity Reaction Last Updated Verified No Known Drug Allergies 06/01/18 No (INES DOMINGUEZ APRN) Physical Exam: PE: (INES DOMINGUEZ APRN) PE: Constitutional: Well developed, well nourished, no acute distress, non-toxic appearance HENT: Normocephalic, atraumatic, tacky mucous membranes Eyes: Conjunctiva normal, no discharge Neck: Normal range of motion, supple Lungs & Thorax: No respiratory distress, equal chest rise and fall Abdomen: Soft, no tenderness, no guarding/rebound tenderness/distention Skin: Warm, dry, no erythema, no rash Extremities: No tenderness, ROM intact, no edema Neurologic: Alert and oriented X 3, no focal deficits noted Psychologic: Affect normal, judgment normal (RANDAL VILLALPANDO DO) Current Patient Data: Labs: Laboratory Tests Test 12/06/20 22:12 White Blood Count 5.9 x10^3/uL (4.0-11.0) Red Blood Count 5.09 x10^6/uL (3.50-5.40) Hemoglobin 15.9 g/dL (12.0-15.5) H Hematocrit 48.0 % (36.0-47.0) H Mean Corpuscular Volume 94 fL (79-100) Mean Corpuscular Hemoglobin 31 pg (25-35) Mean Corpuscular Hemoglobin Concent 33 g/dL (31-37) Red Cell Distribution Width 12.3 % (11.5-14.5) Platelet Count 280 x10^3/uL (140-400) Neutrophils (%) (Auto) 70 % (31-73) Lymphocytes (%) (Auto) 21 % (24-48) L Monocytes (%) (Auto) 8 % (0-9) Eosinophils (%) (Auto) 0 % (0-3) Basophils (%) (Auto) 0 % (0-3) Neutrophils # (Auto) 4.2 x10^3/uL (1.8-7.7) Lymphocytes # (Auto) 1.3 x10^3/uL (1.0-4.8) Monocytes # (Auto) 0.5 x10^3/uL (0.0-1.1) Eosinophils # (Auto) 0.0 x10^3/uL (0.0-0.7) Basophils # (Auto) 0.0 x10^3/uL (0.0-0.2) Sodium Level 138 mmol/L (136-145) Potassium Level 4.4 mmol/L (3.5-5.1) Chloride Level 100 mmol/L (98-107) Carbon Dioxide Level 20 mmol/L (21-32) L Anion Gap 18 (6-14) H Blood Urea Nitrogen 16 mg/dL (7-20) Creatinine 0.9 mg/dL (0.6-1.0) Estimated GFR (Cockcroft-Gault) 91.6 BUN/Creatinine Ratio 18 (6-20) Glucose Level 309 mg/dL (70-99) H Calcium Level 8.8 mg/dL (8.5-10.1) Total Bilirubin 0.7 mg/dL (0.2-1.0) Aspartate Amino Transferase (AST) 14 U/L (15-37) L Alanine Aminotransferase (ALT) 35 U/L (14-59) Alkaline Phosphatase 136 U/L (46-116) H Total Protein 8.2 g/dL (6.4-8.2) Albumin 3.6 g/dL (3.4-5.0) Albumin/Globulin Ratio 0.8 (1.0-1.7) L Lipase 39 U/L (73-393) L Laboratory Tests 12/06/20 22:12 Laboratory Tests 12/06/20 22:12 (INES DOMINGUEZ APRN) EKG: EKG: [] (INES DOMINGUEZ APRN) Radiology/Procedures: Radiology/Procedures: [] (INES DOMINGUEZ APRN) Radiology/Procedures: PROCEDURE: PORTABLE CHEST 1V Exam: Chest one view INDICATION: Fever TECHNIQUE: Frontal view of the chest Comparisons: None FINDINGS: The cardiomediastinal silhouette and pulmonary vessels are within normal limits. The lung and pleural spaces are clear. IMPRESSION: No acute cardiopulmonary process. Electronically signed by: Vinay Rapp MD (12/06/2020 10:56 PM) [facility] (RANDAL VILLALPANDO DO) Course & Med Decision Making: Course & Med Decision Making Pertinent Labs and Imaging studies reviewed. (See chart for details) COVID-19 CRITERIA: The patient was evaluated during the global COVID-19 pandemic, and that diagnosis was suspected/considered upon their initial presentation. Their evaluation, treatment and testing was consistent with current guidelines for patients who present with complaints or symptoms that may be related to COVID-19. Alert and oriented x4. Ambulatory steady gait. Speaks in full clear sentences. Skin pink warm and dry. Tachycardic. Patient is vomiting in the room. She states Reglan helps her the best. 2303: Patient reported over to Dr. Villalpando. [] (INES DOMINGUEZ APRN) Course & Med Decision Making [id number]-signout received from Ines CLANCY for patient pending laboratory data. Concern for possible DKA as patient with elevated blood sugar. Patient is a type I diabetic. Labs reviewed and posted to chart. Acetone positive. Patient previously received 0.1units/kg bolus subcutaneously. Patient seen and evaluated myself. Patient requiring insulin drip. Continued IV fluid hydration provided. Chest x-ray reviewed. Patient requiring admission for further evaluation and treatment. Discussed with Dr. Westfall (hospitalist) who is in agreement with admission. Discussed findings and plan with patient, who acknowledges understanding and agreement. COVID-19 CRITERIA: The patient was evaluated during the global COVID-19 pandemic, and that diagnosis was suspected/considered upon their initial presentation. Their evaluation, treatment and testing was consistent with current guidelines for patients who present with complaints or symptoms that may be related to COVID-19. (RANDAL VILLALPANDO DO) Dragon Disclaimer: Dragon Disclaimer: This electronic medical record was generated, in whole or in part, using a voice recognition dictation system. (INES DOMINGUEZ APRN) COVID-19 Patient Risks: Age 65 or older: No Sign of co-morbidity: Yes Exp to person + for COVID: No Exp to PUI: No Travel from affected area: No Lower respiratory symptoms: No Fever: Yes Other: Yes (N,V,D) (INES DOMINGUEZ APRN) PPE Use: Full PPE with N95 mask or PAPR: Yes (INES DOMINGUEZ APRN) Departure Departure Impression: Primary Impression: DKA (diabetic ketoacidosis) Qualified Codes: E13.10 - Other specified diabetes mellitus with ketoacidosis without coma Additional Impression: Suspected 2019 novel coronavirus infection Disposition: 09 ADMITTED INPATIENT Admitting Physician: SHABBIR (Khoi) (RANDAL VILLALPANDO DO) Condition: GUARDED Referrals: JANEY PATRICK (PCP) Critical Care Time Critical care time was 30 minutes which includes time at bedside, spent in discussion of patient's care with specialists and/or family members, with interpretation of laboratory and/or radiological studies and is exclusive of procedures. (RANDAL VILLALPANDO DO) Attending Signature Attending Signature I have personally interviewed and examined the patient. All charts, labs, and imaging studies were reviewed. I agree with the PA/FOUR SLIDE MACHINE SETTER's findings, exam, and plan. (RANDAL VILLALPANDO DO) INES DOMINGUEZ APRN Dec 06, 2020 23:06 RANDAL VILLALPANDO DO Dec 07, 2020 01:54
[2020-12-07 01:35] LABS: BILIRUBIN,URINE NEGATIVE (NEG); CLARITY,URINE CLEAR; COLOR,URINE YELLOW; NITRITE,URINE NEGATIVE (NEG); PROTEIN,URINE 30 mg/dL (NEG-TRACE); UROBILINOGEN,URINE 0.2 mg/dL (0.2 mg/dL)
[2020-12-07 01:42] LABS: BARBITURATES NEG (NEG); BENZODIAZEPINES NEG (NEG); CANNABINOIDS POS (NEG); COCAINE NEG (NEG); METHADONE NEG (NEG); OPIATES NEG (NEG); PHENCYCLIDINE NEG (NEG)
[2020-12-07 01:44] LABS: AMPHETAMINE/METHAMPHETAMINE NEG (NEG)
[2020-12-07] MEDS ORDERED: ONDANSETRON PF 4 MG/2 ML VIAL. IVP PRN (01:45)
[2020-12-07] MEDS ORDERED: IV 1/2 NORMAL SALINE 1,000 ML IV SCH (01:45)
[2020-12-07] MEDS ORDERED: INSULIN REGULAR VIAL 100 UNIT in IV NORMAL SALINE 100ML 100 ML IV PRN (01:45)
[2020-12-07 01:48] LABS: BACTERIA,URINE FEW /HPF (0-FEW); RBC,URINE 0 /HPF (0-2)
[2020-12-07] MEDS: IV DEXTROSE 5 %-0.45 % NACL 1,000 ML IV SCH ×2 (02:45→06:47)
[2020-12-07] MEDS: POTASSIUM CHLORIDE 10MEQ 100 ML IV PRN ×2 (02:49→03:58)
[2020-12-07 06:21] LABS: CALCIUM 7.7 mg/dL (8.5-10.1); CREATININE 0.6 mg/dL (0.6-1.0); GFR 146.2; POTASSIUM 3.8 mmol/L (3.5-5.1)
[2020-12-07 07:56] LABS: MAGNESIUM 1.7 mg/dL (1.8-2.4); PHOSPHORUS 2.5 mg/dL (2.6-4.7)
[2020-12-07] MEDS ORDERED: DEXTROSE 50% 25 GM / 50ML DISP.SYRIN. IV PRN (09:30)
[2020-12-07] MEDS ORDERED: INSULIN GLARGINE SYRINGE. SQ SCH (09:30)
--- NOTE | 2020-12-07 10:42 | PDOC1 ---
History and Physical Date of Service: DOS: DATE: 12/07/20 TIME: 10:27 Chief Complaint: Problems: (1) DM type 1 (diabetes mellitus, type 1) (2) DKA (diabetic ketoacidosis) Chief Complain: Nausea, vomiting, History of Present Illness: HPI: Patient is a 25 year old female who presents with 2 days of nausea, vomiting, diarrhea, body aches and fever at home. Patient received her f second dose of Pfizer on Monday and over the weekend had progressive symptoms of nausea, vomiting, diarrhea. He was unable to keep down any sort of solid or liquid food. Presented to the emergency room last night was found to be hyperglycemic and there was worried her symptoms were early signs of DKA. Patient was started on insulin drip overnight. When seen this morning patient was feeling better she did say that this kind of felt like her previous DKA episodes although much more mild. Patient reports that her doctor initially had told her she had type 1 diabetes but now thinks she may have type II. With this they have been doing adjustments to her insulin regimen. Patient denies chest pain, shortness of breath, cough, abdominal pain, headache, dizziness, syncope, focal weakness, numbness or tingling Past Medical/Surgical History: PMH/PSH: Diabetes, asthma Allergies: Allergies: Coded Allergies: No Known Drug Allergies (Unverified , 06/01/18) Family History: Family History: Diabetes Social History: Social History: Denies alcohol tobacco or drug use Current Medications: Current Medications Current Medications Sodium Chloride 1,000 ml @ 1,000 mls/hr Q1H IV Last administered on 12/06/20at 22:29; Start 12/06/20 at 22:30; Stop 12/06/20 at 23:29; Status DC Metoclopramide HCl (Reglan Vial) 10 mg 1X ONCE IVP Last administered on 12/06/20at 22:29; Start 12/06/20 at 22:30; Stop 12/06/20 at 22:31; Status DC Acetaminophen (Tylenol) 1,000 mg 1X ONCE PO Last administered on 12/06/20at 22:30; Start 12/06/20 at 22:30; Stop 12/06/20 at 22:31; Status DC Insulin Human Lispro (HumaLOG) 10 units 1X ONCE SQ Last administered on 12/06/20at 23:16; Start 12/06/20 at 23:00; Stop 12/06/20 at 23:03; Status DC Sodium Chloride 1,000 ml @ 500 mls/hr Q2H IV Last administered on 12/07/20at 02:58; Start 12/07/20 at 01:45; Stop 12/07/20 at 03:44; Status DC Dextrose/Sodium Chloride 1,000 ml @ 250 mls/hr Q4H IV Last administered on 12/07/20at 06:47; Start 12/07/20 at 01:45 Insulin Human Regular 100 unit/ Sodium Chloride 101 ml @ 0 mls/hr CONT PRN PRN IV PER PROTOCOL Last administered on 12/07/20at 02:30; Start 12/07/20 at 01:45 Potassium Chloride/Water 100 ml @ 100 mls/hr PRN Q1HR PRN IV SEE COMMENTS Last administered on 12/07/20at 03:58; Start 12/07/20 at 01:45 Ondansetron HCl (Zofran) 4 mg PRN Q8HRS PRN IVP NAUSEA/VOMITING; Start 12/07/20 at 01:45; Stop 12/08/20 at 01:44 Insulin Glargine (Lantus Syringe) 16 unit 1X SQ ; Start 12/07/20 at 09:30 Insulin Human Lispro (HumaLOG) 0-9 UNITS TIDWMEALS SQ ; Start 12/07/20 at 12:00 Dextrose (Dextrose 50%-Water Syringe) 12.5 gm PRN Q15MIN PRN IV SEE COMMENTS; Start 12/07/20 at 09:30 Active Scripts Active [Pantoprazole Iv Push] 40 MG Tab 40 Mg PO DAILYAC Promethegan (Promethazine Hcl) 25 Mg Supp.rect 25 Mg OR PRN Q12HRS PRN Reglan (Metoclopramide Hcl) 10 Mg Tablet 1 Tab PO TID Doxylamine-Pyridoxine 10-10 mg (Doxylamine Succinate/Vit B6) 1 Each Tablet.dr 1- 2 Each PO TID PRN 5 Days Ibuprofen 400 Mg Tablet 800 Mg PO PRN Q8HRS PRN Zofran (Ondansetron Hcl) 8 Mg Tablet 1 Tab PO Q8HRS Reported Percocet 5-325 mg Tablet (Oxycodone HCl/Acetaminophen) 1 Each Tablet 1-2 Tab PO Q6HRS PRN MDD 2 Tablet(s) 15 Days Novolog Flexpen (Insulin Aspart) 100 Unit/1 Ml Insuln.pen 12 Unit SQ DAILYBFRSUP Novolog Flexpen (Insulin Aspart) 100 Unit/1 Ml Insuln.pen 14 Unit SQ DAILYBFRLUN Novolog Flexpen (Insulin Aspart) 100 Unit/1 Ml Insuln.pen 12 Unit SQ DAILY07 Humulin N Kwikpen (Nph, Human Insulin Isophane) 100 Unit/1 Ml Insuln.pen 20 Unit SQ HS Humulin N Kwikpen (Nph, Human Insulin Isophane) 100 Unit/1 Ml Insuln.pen 32 Unit SQ DAILY08 Levsin (Hyoscyamine Sulfate) 0.125 Mg Tablet 0.125 Mg PO PRN Q6HRS PRN Ventolin Hfa Inhaler (Albuterol Sulfate) 18 Gm Hfa.aer.ad 2 Puff INH Q4HRS ROS: Review of Systems Review of System Negative unless noted in HPI Physical Exam: Vital Signs: Vital Signs Date Time Temp Pulse Resp B/P (MAP) Pulse Ox O2 Delivery O2 Flow Rate FiO2 12/07/20 09:00 98 15 110/69 (83) 99 Room Air 12/06/20 22:05 97.5 97.5 Physcial Exam: GEN: No apparent distress. Alert and oriented HEENT: Normal cephalic, atraumatic, external auditory canals are patent EYES: Extraocular muscles are intact, pupil are equally round and reactive to light and accommodation MUSCULOSKELETAL: Well developed , well nourished, good range of motion ENDOCRINE: No thyromegaly was palpated LYMPHATICS: No cervical chain or axillary nodes were noted HEMATOPOIETIC: No bruising NECK: Supple, no JVD, no thyromegaly was noted LUNGS: Clear to auscultation in all lung davidson without rhonchi or wheezing HEART: RRR, S1, S2 present. Peripheral pulses intact, no obvious murmurs noted ABDOMEN: Soft, nontender. Positive bowel sounds, no organomegaly, normal bowel sounds EXTREMITIES: Without clubbing, cyanosis, or edema. Pedal pulses intact. Negative Homans sign NEUROLOGIC: Normal speech and tone. A&O x 3, moves all extremities, no obvious focal deficits PSYCHIATRIC: Normal affect, normal mood. Stable SKIN: No ulcerations or rashes, good skin turgor, no jaundice VASCULAR: Good capillary refill, neurovascular bundle appears to be intact Labs: Labs: Laboratory Tests Test 12/06/20 22:12 12/07/20 01:20 12/07/20 01:28 12/07/20 02:19 White Blood Count 5.9 x10^3/uL (4.0-11.0) Red Blood Count 5.09 x10^6/uL (3.50-5.40) Hemoglobin 15.9 g/dL (12.0-15.5) Hematocrit 48.0 % (36.0-47.0) Mean Corpuscular Volume 94 fL (79-100) Mean Corpuscular Hemoglobin 31 pg (25-35) Mean Corpuscular Hemoglobin Concent 33 g/dL (31-37) Red Cell Distribution Width 12.3 % (11.5-14.5) Platelet Count 280 x10^3/uL (140-400) Neutrophils (%) (Auto) 70 % (31-73) Lymphocytes (%) (Auto) 21 % (24-48) Monocytes (%) (Auto) 8 % (0-9) Eosinophils (%) (Auto) 0 % (0-3) Basophils (%) (Auto) 0 % (0-3) Neutrophils # (Auto) 4.2 x10^3/uL (1.8-7.7) Lymphocytes # (Auto) 1.3 x10^3/uL (1.0-4.8) Monocytes # (Auto) 0.5 x10^3/uL (0.0-1.1) Eosinophils # (Auto) 0.0 x10^3/uL (0.0-0.7) Basophils # (Auto) 0.0 x10^3/uL (0.0-0.2) Sodium Level 138 mmol/L (136-145) Potassium Level 4.4 mmol/L (3.5-5.1) Chloride Level 100 mmol/L (98-107) Carbon Dioxide Level 20 mmol/L (21-32) Anion Gap 18 (6-14) Blood Urea Nitrogen 16 mg/dL (7-20) Creatinine 0.9 mg/dL (0.6-1.0) Estimated GFR (Cockcroft-Gault) 91.6 BUN/Creatinine Ratio 18 (6-20) Glucose Level 309 mg/dL (70-99) Calcium Level 8.8 mg/dL (8.5-10.1) Total Bilirubin 0.7 mg/dL (0.2-1.0) Aspartate Amino Transf (AST/SGOT) 14 U/L (15-37) Alanine Aminotransferase (ALT/SGPT) 35 U/L (14-59) Alkaline Phosphatase 136 U/L (46-116) Total Protein 8.2 g/dL (6.4-8.2) Albumin 3.6 g/dL (3.4-5.0) Albumin/Globulin Ratio 0.8 (1.0-1.7) Lipase 39 U/L (73-393) Acetone Level Sm pos (NEG) Urine Collection Type Unknown Urine Color Yellow Urine Clarity Clear Urine pH 6.0 (<5.0-8.0) Urine Specific Halsey >=1.030 (1.000-1.030) Urine Protein 30 mg/dL (NEG-TRACE) Urine Glucose (UA) >=1000 mg/dL (NEG) Urine Ketones (Stick) >=80 mg/dL (NEG) Urine Blood Negative (NEG) Urine Nitrite Negative (NEG) Urine Bilirubin Negative (NEG) Urine Urobilinogen Dipstick 0.2 mg/dL (0.2 mg/dL) Urine Leukocyte Esterase Negative (NEG) Urine RBC 0 /HPF (0-2) Urine WBC 1-4 /HPF (0-4) Urine Squamous Epithelial Cells Few /LPF Urine Bacteria Few /HPF (0-FEW) Urine Mucus Slight /LPF Urine Opiates Screen Neg (NEG) Urine Methadone Screen Neg (NEG) Urine Barbiturates Neg (NEG) Urine Phencyclidine Screen Neg (NEG) Urine Amphetamine/Methamphetamine Neg (NEG) Urine Benzodiazepines Screen Neg (NEG) Urine Cocaine Screen Neg (NEG) Urine Cannabinoids Screen Pos (NEG) Urine Ethyl Alcohol Neg (NEG) Bedside Urine HCG, Qualitative Hcg negative (Negative) Glucose (Fingerstick) 271 mg/dL (70-99) Test 12/07/20 03:30 12/07/20 04:32 12/07/20 05:03 12/07/20 05:37 Glucose (Fingerstick) 255 mg/dL (70-99) 195 mg/dL (70-99) 214 mg/dL (70-99) Sodium Level 139 mmol/L (136-145) Potassium Level 3.8 mmol/L (3.5-5.1) Chloride Level 105 mmol/L (98-107) Carbon Dioxide Level 20 mmol/L (21-32) Anion Gap 14 (6-14) Blood Urea Nitrogen 13 mg/dL (7-20) Creatinine 0.6 mg/dL (0.6-1.0) Estimated GFR (Cockcroft-Gault) 146.2 Glucose Level 216 mg/dL (70-99) Calcium Level 7.7 mg/dL (8.5-10.1) Phosphorus Level 2.5 mg/dL (2.6-4.7) Magnesium Level 1.7 mg/dL (1.8-2.4) Test 12/07/20 06:45 12/07/20 07:54 12/07/20 09:05 Glucose (Fingerstick) 161 mg/dL (70-99) 206 mg/dL (70-99) 130 mg/dL (70-99) Laboratory Tests Test 12/06/20 22:12 12/07/20 01:20 12/07/20 01:28 12/07/20 02:19 White Blood Count 5.9 x10^3/uL (4.0-11.0) Red Blood Count 5.09 x10^6/uL (3.50-5.40) Hemoglobin 15.9 g/dL (12.0-15.5) Hematocrit 48.0 % (36.0-47.0) Mean Corpuscular Volume 94 fL (79-100) Mean Corpuscular Hemoglobin 31 pg (25-35) Mean Corpuscular Hemoglobin Concent 33 g/dL (31-37) Red Cell Distribution Width 12.3 % (11.5-14.5) Platelet Count 280 x10^3/uL (140-400) Neutrophils (%) (Auto) 70 % (31-73) Lymphocytes (%) (Auto) 21 % (24-48) Monocytes (%) (Auto) 8 % (0-9) Eosinophils (%) (Auto) 0 % (0-3) Basophils (%) (Auto) 0 % (0-3) Neutrophils # (Auto) 4.2 x10^3/uL (1.8-7.7) Lymphocytes # (Auto) 1.3 x10^3/uL (1.0-4.8) Monocytes # (Auto) 0.5 x10^3/uL (0.0-1.1) Eosinophils # (Auto) 0.0 x10^3/uL (0.0-0.7) Basophils # (Auto) 0.0 x10^3/uL (0.0-0.2) Sodium Level 138 mmol/L (136-145) Potassium Level 4.4 mmol/L (3.5-5.1) Chloride Level 100 mmol/L (98-107) Carbon Dioxide Level 20 mmol/L (21-32) Anion Gap 18 (6-14) Blood Urea Nitrogen 16 mg/dL (7-20) Creatinine 0.9 mg/dL (0.6-1.0) Estimated GFR (Cockcroft-Gault) 91.6 BUN/Creatinine Ratio 18 (6-20) Glucose Level 309 mg/dL (70-99) Calcium Level 8.8 mg/dL (8.5-10.1) Total Bilirubin 0.7 mg/dL (0.2-1.0) Aspartate Amino Transf (AST/SGOT) 14 U/L (15-37) Alanine Aminotransferase (ALT/SGPT) 35 U/L (14-59) Alkaline Phosphatase 136 U/L (46-116) Total Protein 8.2 g/dL (6.4-8.2) Albumin 3.6 g/dL (3.4-5.0) Albumin/Globulin Ratio 0.8 (1.0-1.7) Lipase 39 U/L (73-393) Acetone Level Sm pos (NEG) Urine Collection Type Unknown Urine Color Yellow Urine Clarity Clear Urine pH 6.0 (<5.0-8.0) Urine Specific Halsey >=1.030 (1.000-1.030) Urine Protein 30 mg/dL (NEG-TRACE) Urine Glucose (UA) >=1000 mg/dL (NEG) Urine Ketones (Stick) >=80 mg/dL (NEG) Urine Blood Negative (NEG) Urine Nitrite Negative (NEG) Urine Bilirubin Negative (NEG) Urine Urobilinogen Dipstick 0.2 mg/dL (0.2 mg/dL) Urine Leukocyte Esterase Negative (NEG) Urine RBC 0 /HPF (0-2) Urine WBC 1-4 /HPF (0-4) Urine Squamous Epithelial Cells Few /LPF Urine Bacteria Few /HPF (0-FEW) Urine Mucus Slight /LPF Urine Opiates Screen Neg (NEG) Urine Methadone Screen Neg (NEG) Urine Barbiturates Neg (NEG) Urine Phencyclidine Screen Neg (NEG) Urine Amphetamine/Methamphetamine Neg (NEG) Urine Benzodiazepines Screen Neg (NEG) Urine Cocaine Screen Neg (NEG) Urine Cannabinoids Screen Pos (NEG) Urine Ethyl Alcohol Neg (NEG) Bedside Urine HCG, Qualitative Hcg negative (Negative) Glucose (Fingerstick) 271 mg/dL (70-99) Test 12/07/20 03:30 12/07/20 04:32 12/07/20 05:03 12/07/20 05:37 Glucose (Fingerstick) 255 mg/dL (70-99) 195 mg/dL (70-99) 214 mg/dL (70-99) Sodium Level 139 mmol/L (136-145) Potassium Level 3.8 mmol/L (3.5-5.1) Chloride Level 105 mmol/L (98-107) Carbon Dioxide Level 20 mmol/L (21-32) Anion Gap 14 (6-14) Blood Urea Nitrogen 13 mg/dL (7-20) Creatinine 0.6 mg/dL (0.6-1.0) Estimated GFR (Cockcroft-Gault) 146.2 Glucose Level 216 mg/dL (70-99) Calcium Level 7.7 mg/dL (8.5-10.1) Phosphorus Level 2.5 mg/dL (2.6-4.7) Magnesium Level 1.7 mg/dL (1.8-2.4) Test 12/07/20 06:45 12/07/20 07:54 12/07/20 09:05 Glucose (Fingerstick) 161 mg/dL (70-99) 206 mg/dL (70-99) 130 mg/dL (70-99) Assessment/Plan Assessment/Plan Patient is a 25-year-old -[place] female presenting overnight due to per sistent nausea vomiting diarrhea. Type I versus type 2 diabetes, probable DKA -Patient presented overnight with 2-day history of nausea vomiting diarrhea; patient received her second dose of Covid vaccine a day prior to onset of symptoms. -Started on insulin drip overnight. We will wean drip off as tolerated. Give dose of long-acting Lantus 2 hours prior to discontinuing insulin drip -Replace electrolytes as tolerated -Home meds ordered as indicated -DVT prophylaxis -Diabetic diet -Patient thinks her last A1c was around 13. We will retest here -Discussed with patient that she can discuss with her PCP about possibly having endocrinology manage her diabetes Justifications for Admission Other Justification MARIA TERESA MONROE MD Dec 07, 2020 10:42
[2020-12-07] MEDS ORDERED: INSULIN LISPRO 300 UNITS/3 ML VIAL. SQ SCH (12:00)
[2020-12-07] MEDS ORDERED: ONDA4TAB12 PO (13:48)
--- NOTE | 2020-12-07 13:50 | PDOC3 ---
[facility]-Discharge Summary Date of Admission: Date of Admission: Dec 07, 2020 Date of Discharge: Date of Discharge: Dec 07, 2020 Admission Diagnosis: Problems: (1) DM type 1 (diabetes mellitus, type 1) (2) DKA (diabetic ketoacidosis) Hospital Course: Hospital Course: Patient is a 25 year old female who presents with 2 days of nausea, vomiting, diarrhea, body aches and fever at home. Patient received her f second dose of Pfizer on Monday and over the weekend had progressive symptoms of nausea, vomiting, diarrhea. He was unable to keep down any sort of solid or liquid food. Presented to the emergency room last night was found to be hyperglycemic and there was worried her symptoms were early signs of DKA. Patient was started on insulin drip overnight. When seen this morning patient was feeling better she did say that this kind of felt like her previous DKA episodes although much more mild. Patient reports that her doctor initially had told her she had type 1 diabetes but now thinks she may have type II. With this they have been doing adjustments to her insulin regimen. Patient denies chest pain, shortness of breath, cough, abdominal pain, headache, dizziness, syncope, focal weakness, numbness or tingling After evaluation in the ER patient remained stable for several hours, she is tolerating a diet and drinking on sugars were more controlled. Patient was dis charged to home at that point with plans to follow-up with primary care doctor Disposition: Disposition/Orders: D/C to Home Activity: Activity: Resume previous activity Diet: Diet: other (diabetic) Medications: Home Meds Active Scripts Ondansetron (ONDANSETRON ODT) 4 Mg Tab.rapdis, 1 TAB PO PRN Q6-8HRS for nausea, #30 TAB Prov:MARIA TERESA MONROE MD 12/07/20 [Pantoprazole Iv Push] 40 MG TAB No Conflict Check, 40 MG PO DAILYAC for GERD, #30 6 Refills Prov:DAVID NIELSON Jr, MD 04/18/20 Promethazine Hcl (PROMETHEGAN) 25 Mg Supp.rect, 25 MG NM PRN Q12HRS PRN for NAUSEA/VOMITING, #14 SUPP.RECT 3 Refills Prov:DAVID NIELSON Jr, MD 04/18/20 Metoclopramide Hcl (REGLAN) 10 Mg Tablet, 1 TAB PO TID for GERD, #90 TAB 3 Refills Prov:DAVID NIELSON Jr, MD 04/18/20 Doxylamine Succinate/Vit B6 (Doxylamine-Pyridoxine 10-10 mg) 1 Each Tablet.dr, 1-2 EACH PO TID PRN for VOMITING for 5 Days, #30 TAB.SR Prov:ABBEY BECKER DO 04/02/20 Ibuprofen (IBUPROFEN) 400 Mg Tablet, 800 MG PO PRN Q8HRS PRN for INFLAMMATION/PAIN PREVENTION, #30 TAB 1 Refill Prov:DAVID NIELSON Jr, MD 04/04/19 Ondansetron Hcl (ZOFRAN) 8 Mg Tablet, 1 TAB PO Q8HRS for nausea, #90 TAB 4 Refills Prov:DAVID NIELSON Jr, MD 02/20/19 Reported Medications Oxycodone HCl/Acetaminophen (Percocet 5-325 mg Tablet) 1 Each Tablet, 1-2 TAB PO Q6HRS PRN for PAIN MDD 2 Tablet(s) for 15 Days, #30 TAB 0 Refills 05/21/20 Insulin Aspart (NOVOLOG FLEXPEN) 100 Unit/1 Ml Insuln.pen, 12 UNIT SQ DAILYBFRSUP for Blood sugar, SYR 12/27/18 Insulin Aspart (NOVOLOG FLEXPEN) 100 Unit/1 Ml Insuln.pen, 14 UNIT SQ DAILYBFRLUN for Blood sugar, SYR 12/27/18 Insulin Aspart (NOVOLOG FLEXPEN) 100 Unit/1 Ml Insuln.pen, 12 UNIT SQ DAILY07 for Blood sugar, SYR 12/27/18 Nph, Human Insulin Isophane (HUMULIN N KWIKPEN) 100 Unit/1 Ml Insuln.pen, 20 UNIT SQ HS for Blood sugar, EACH 12/27/18 Nph, Human Insulin Isophane (HUMULIN N KWIKPEN) 100 Unit/1 Ml Insuln.pen, 32 UNIT SQ DAILY08 for Blood sugar, EACH 12/27/18 Hyoscyamine Sulfate (LEVSIN) 0.125 Mg Tablet, 0.125 MG PO PRN Q6HRS PRN for IBS, TAB 06/01/18 Albuterol Sulfate (VENTOLIN HFA INHALER) 18 Gm Hfa.aer.ad, 2 PUFF INH Q4HRS for FOR ASTHMA, INHALER 0 Refills 06/01/18 Scheduled Albuterol Sulfate (Ventolin Hfa Inhaler), 2 PUFF INH Q4HRS, (Reported) Insulin Aspart (Novolog Flexpen), 12 UNIT SQ DAILY07, (Reported) Insulin Aspart (Novolog Flexpen), 14 UNIT SQ DAILYBFRLUN, (Reported) Insulin Aspart (Novolog Flexpen), 12 UNIT SQ DAILYBFRSUP, (Reported) Metoclopramide Hcl (Reglan), 1 TAB PO TID Nph, Human Insulin Isophane (Humulin N Kwikpen), 32 UNIT SQ DAILY08, (Reported) Nph, Human Insulin Isophane (Humulin N Kwikpen), 20 UNIT SQ HS, (Reported) Ondansetron (Ondansetron Odt), 1 TAB PO PRN Q6-8HRS Ondansetron Hcl (Zofran), 1 TAB PO Q8HRS [Pantoprazole Iv Push], 40 MG PO DAILYAC Scheduled PRN Doxylamine Succinate/Vit B6 (Doxylamine-Pyridoxine 10-10 mg), 1-2 EACH PO TID PRN for VOMITING Hyoscyamine Sulfate (Levsin), 0.125 MG PO PRN Q6HRS PRN for IBS, (Reported) Ibuprofen (Ibuprofen), 800 MG PO PRN Q8HRS PRN for INFLAMMATION/PAIN PREVENTION Oxycodone HCl/Acetaminophen (Percocet 5-325 mg Tablet), 1-2 TAB PO Q6HRS PRN for PAIN, (Reported) Promethazine Hcl (Promethegan), 25 MG NM PRN Q12HRS PRN for NAUSEA/VOMITING Justicifation of Admission Dx: Justifications for Admission: Justification of Admission Dx: Yes MARIA TERESA MONROE MD Dec 07, 2020 13:50
[2020-12-07 15:09] VITALS: BP 119/78
[2020-12-08 07:16] LABS: HEMOGLOBIN A1C 13.5 % (4.8-5.6)
== END 2020-12-07 16:43 | disposition home or self-care (01) | DRG 639 ==
LOC: ER 20:39 → ED HOLD 12-07 01:47
PROVIDERS: ADMIT Internal Medicine; ATTEND Internal Medicine
DX: E10.10 Type 1 diabetes mellitus with ketoacidosis without coma (principal); J45.909 Unspecified asthma, uncomplicated; Z79.4 Long term (current) use of insulin; Z83.3 Family history of diabetes mellitus; Z20.822 Contact with and (suspected) exposure to COVID-19; Z79.899 Other long term (current) drug therapy
CPT/HCPCS: 36415; 71045; 80048; 80053; 80307; 81001; 81025; 82010; 82962; 83036; 83690; 83735; 84100; 85025; 96361; 96374; J1815; J2405; J2765; J3480; J3490; J7030; J7042; U0003; U0005; 99291-25

== ENCOUNTER 2021-07-22 09:20 | Emergency (ER) | payer BC ==
[~2021-07-22] VITALS: Ht 172.7 cm; Wt 98.0 kg
[2021-07-22 09:31] VITALS: BP 132/88
[2021-07-22] MEDS ORDERED: ERYT1OIN6 OP (09:56)
[2021-07-22] MEDS ORDERED: IBUP-1007 PO (09:56)
--- NOTE | 2021-07-22 09:56 | PHYS DOC ---
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 She denies trauma or injury and she denies wearing contact lenses she has been tearing. But there has been no purulence noted. She denies any vision changes and no nausea vomiting or other systemic symptoms. She is in no acute distress with normal vital signs. Review of Systems Review of Systems Constitutional: Denies fever or chills [] Eyes: Denies change in visual acuity. + redness, eye pain [] HENT: Denies nasal congestion or sore throat [] All other systems were reviewed and found to be within normal limits, except as documented in this note. Allergies Allergies Allergies Coded Allergies Type Severity Reaction Last Updated Verified No Known Drug Allergies 06/01/18 No Physical Exam Physical Exam Constitutional: Well developed, well nourished, no acute distress, non-toxic appearance. [] HENT: Normocephalic, atraumatic, bilateral external ears normal, oropharynx moist, no oral exudates, nose normal. [] Eyes: PERRLA, EOMI, conjunctival erythema, no purulence or other discharge. No hyphema. Current Patient Data Vital Signs Vital Signs Date Time Temp Pulse Resp B/P (MAP) Pulse Ox O2 Delivery O2 Flow Rate FiO2 07/22/21 09:31 98.9 93 16 132/88 (103) 98 Room Air 98.9 EKG EKG [] Radiology/Procedures Radiology/Procedures [] Course & Med Decision Making Course & Med Decision Making Patient likely does have conjunctivitis. Scleritis and episcleritis are also in the differential diagnosis but based off her symptoms I will treat her for conjunctivitis with erythromycin ointment and ibuprofen told her to follow with ophthalmology within 5 days for recheck and come back to emergency department sooner with worsening pain vision changes or other general concerns. Patient aware and agreeable with plan and verbalized understanding of the above instructions. Dragon Disclaimer Dragon Disclaimer This electronic medical record was generated, in whole or in part, using a voice recognition dictation system. Departure Departure Impression: Primary Impression: Conjunctivitis, left eye Disposition: HOME / SELF CARE / HOMELESS Condition: STABLE Referrals: JANEY PATRICK (PCP) Patient Instructions: Conjunctivitis (Viral and Bacterial) Scripts Ibuprofen (IBUPROFEN) 600 Mg Tablet 600 MG PO PRN Q6HRS PRN for INFLAMMATION for 5 Days, #20 TAB Prov: MUNIR COSTA DO 07/22/21 Erythromycin Base (Erythromycin) 1 Gm Oint...g. 1 GM OP Q3HRS for 5 Days, #3 GM Prov: MUNIR COSTA DO 07/22/21 Problem Qualifiers Primary Impression: Conjunctivitis, left eye Conjunctivitis type: acute Acute conjunctivitis type: unspecified Qualified Codes: H10.32 - Unspecified acute conjunctivitis, left eye MUNIR COSTA DO Jul 22, 2021 09:56
== END 2021-07-22 10:13 | disposition home or self-care (01) ==
LOC: ER 09:20
DX: H10.32 Unspecified acute conjunctivitis, left eye (principal); J45.909 Unspecified asthma, uncomplicated; E10.9 Type 1 diabetes mellitus without complications
CPT/HCPCS: 99283